=== PATIENT | male | born 1945 | race Caucasian/White ===

== ENCOUNTER 2019-07-26 12:43 | Inpatient (IN) ==
[2019-07-26] MEDS ORDERED: ONDANSETRON INJ 2 MG/ML 2 ML VIAL IV PRN (13:02)
[2019-07-26] MEDS ORDERED: ACETAMINOPHEN 325 MG TAB PO PRN (13:02)
--- NOTE | 2019-07-26 14:17 | History & Physical Report ---
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 He is currently undergoing treatment with antiviral for CMV colitis. Symptoms have persisted. With history of transplant, and multiple episodes per day of bloody/purulent stool/anal leaking, GI recommended admission for close monitoring and further workup. Continue antiviral. Start Cipro/Flagyl. Clear liquid diet for now. NPO after midnight. Plan for flex sigmoidoscopy in the AM per GI. IV Solumedrol 60 mg daily. Continue Anusol cream and sitz baths PRN for hemorrhoids. CBCD, CMP, lipase. Stool culture and CDiff testing. Consult GI Continue to monitor vitals (4) History of renal transplant: (5) Immunosuppression due to drug therapy: High risk for infection due to chronic immunosuppression. Continue immunosuppressive drugs. Monitor renal function closely. Gentle hydration. (6) Diabetes mellitus: No A1C recently. Recheck in AM Continue insulin (7) Dysuria: Check UA and culture (8) DVT prophylaxis: SCDs Hold ASA due to rectal bleeding Admission and Anticipated Discharge Date Admission Date: July 26, 2019 History of Present Illness Chief Complaint: Diarrhea, rectal bleeding Primary Care Provider: Porfirio Kilgore MD Patient is a 73 yo male with history of DM, HTN, Dyslipidemia, s/p kidney transplant with chronic immunosuppression, and recent CMV colitis who presents today for direct admission at the recommendation of his Assembler Insulator, Dr. Lucia for continued diarrhea and rectal bleeding. 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 He is currently being treated with valganciclovir, and his CMV PCR was undetectable when last checked. Since being started on treatment, his symptoms are improving very slightly, but he continues to have 6-7 episodes of uncontrolled bloody/purulent rectal leaking during the night along with multiple episodes of diarrhea/loose stools during the day. The patient does also have history of hemorrhoids which are causing him pain now with the number of episodes per day. He was trying to use suppositories, but he could not keep them in unfortunately. According to his records, the patient has had mild anemia since April. He has no known history of IBD. Patient otherwise denies chest pain, SOB, N/V, or edema. He has been having some urinary retention and dysuria the past few days though. He has also noted some pressure in his right lower abdomen. I did speak with Dr. Lucia about this patient prior to admission. The patient follows with [facility] Transplant team for history of renal transplant completed on 08/04/18. The patient has been on chronic immunosuppression since that time. Allergies Allergy/AdvReac Type Severity Reaction Status Date / Time No Known Allergies Allergy Verified 07/01/19 07:52 Home Medications Home Medications Medication Instructions Recorded Confirmed Type Lantus U-100 Insulin 24 unit SUBCUT QPM 06/28/19 07/26/19 History aspirin 81 mg PO DAILY 06/28/19 07/26/19 History cholecalciferol (vitamin D3) 50 mcg PO QAM 06/28/19 07/26/19 History [Vitamin D3] insulin aspart U-100 [Novolog 1 unit SUBCUT UD 06/28/19 07/26/19 History Flexpen U-100 Insulin] levothyroxine 50 mcg PO QAM 06/28/19 07/26/19 History multivitamin 1 tab PO QAM 06/28/19 07/26/19 History pantoprazole [Protonix] 40 mg PO QAM 06/28/19 07/26/19 History prednisone 5 mg PO QAM 06/28/19 07/26/19 History rosuvastatin [Crestor] 40 mg PO QAM 06/28/19 07/26/19 History belatacept 462.5 mg IV MONTHLY 07/26/19 07/26/19 History tacrolimus 0.5 mg PO BID 07/26/19 07/26/19 History valganciclovir 450 mg PO BID 07/26/19 07/26/19 History Past Med/Surg History Medical History (Updated 07/26/19 @ 15:25 by Henna Chowdhury PA-C) Arthritis Blood in stool CMV colitis Diabetes mellitus, type 2 GERD (gastroesophageal reflux disease) History of anemia Hx of renal failure PERITONEAL DIAYLSIS FOR 4 YEARS PRIOR TO 08/04/2018 (KIDNEY TRANSPLANT) Hyperlipidemia Immunosuppression due to drug therapy Skin cancer EARS Surgical History (Updated 07/26/19 @ 15:19 by Henna Chowdhury PA-C) History of appendectomy History of cholecystectomy History of colonoscopy History of tooth extraction Kidney transplant recipient 07/2018 SE[facility] ENCISO Social History Preferred Language: Greek Communication Ability: Effective Security Architect Required: No Beliefs That Will Affect Care: None Current Living Situation: Spouse Other Information That Helps Us Care for You: No Feels Safe at Home: Yes Safety Concerns: Feels Safe At This Time Smoking Status: Never smoker Second Hand Exposure: No ; Hx Alcohol Use: No Hx Substance Use: No Review of Systems Review of Systems: All systems reviewed & are unremarkable except as noted in HPI & below Physical Exam Constitutional: WD/WN, vitals as above no acute distress Eyes: PERRL, conjunctivae normal, anicteric sclerae ENMT: external ear and nose normal, oropharynx normal Neck: trachea midline, no thyromegaly Respiratory: normal respiratory effort, lungs clear to auscultation Cardiovascular: RRR, no murmur, no edema Gastrointestinal (Abdomen): normal bowel sounds, soft, nontender, no hepatosplenomegaly Musculoskeletal: Head/Neck/Chest: + head abnormal to inspection, normocephalic and head atraumatic Trace edema B/L LE Skin: no rashes, warm and dry Neurologic: PERRL, EOMI, accommodation nl, no face palsy, no dysarthria Psychiatric: A+Ox3, euthymic affect Results & Data Results & Data ([facility]) Vital Signs (Past 12 Hours) Vital Signs Temp Resp BP Pulse Ox 07/26/19 14:16 36.5 C 18 126/78 100 Code Status & VTE Plan VTE Prophylaxis Plan VTE Prophylaxis will be ordered: Yes Supervising Physician Co-Signing Physician Notes I saw this patient with the physician cafeteria assistant, I participated in the history, physical, review of systems, and physical exam. I reviewed the medications with the patient and the physician cafeteria assistant and helped reconcile the medications. I helped take a detailed family and social history as well. I formulated the assessment and plan personally with the physician cafeteria assistant and went over it with the patient. ROS-No Headache, No Visual Changes, No Nausea, No Vomiting, No Fever, No Chills, No Neck Pain or Stiffness, No Chest Pain, No Palpitations, No SOB, No LUGO, No Cough, No Sputum, No Wheezing, mild Abdominal Pain, No Diarrhea, No Hematemesis, No Hemoptysis, No Unexpected Weight Loss, No Flank pain, No Melena, + Hematochezia, No Frequency, No Urgency, No Burning, No Hematuria, No Rashes, No Diaphoresis. Appetite is Normal, +hemorrhoids Physical Exam Gen-AAO x 3, NAD, Afebrile Head-NCAT, EOMI, PERRLA, Anicteric Sclera, No Posterior Pharyngeal Erythema Neck-Supple, No JVD, No Thyromegaly, No Masses, No LAD, No Bruits Lungs-Clear to Auscultation Bilaterally, No Rales, No Rhonchi, No Wheezing, No Crepitus Chest-No S4, +S1, +S2, No S3, No Murmurs, No Rubs, No Gallops, No Ectopy Abdomen-Soft, Bowel Sounds Present, Non Tender, Non Distended, No Hepatomegaly, No Splenomegaly, No Palpable Masses, No Rebound, No Rigidity, No Guarding Musculoskeletal-Full Range of Motion Bilaterally, No CVAT Extremities-No Cyanosis, No Clubbing, No Edema Nuero-Cranial Nerves II-XII grossly intact, Motor WNL, DTRs WNL, Strength WNL, Non Focal Psych-Normal Mood
--- NOTE | 2019-07-26 14:22 | Gastrointestinal Consultation ---
Date of Consultation July 26, 2019 Assessment & Plan (1) Rectal bleedin73 y/o male with h/o renal transplant 07/2018, with recent dx moderate pancolitis and + CMV on colonoscopy from 07/01/19, tx with Valganicyclovir, now presents with ongoing intermittent leakage of blood/pus alt with formed stools along with anorectal pain during defecation, ? of proctitis/rectal ulceration, underlying UC, vs hemorrhoids. - Await c. diff, CMP, CBC, ESR/CRP results - Clear liquid diet - IV fluids - NPO after midnight - Start IV methylprednisolone 60 mg daily - Enema tonight and tomorrow AM prior to procedure - Flex sig tomorrow to evaluate source of symptoms Thank you for allowing us to participate in the care of this patient. Please call with any acute changes, questions or concerns. Please see addendum below with additional recommendation from my supervising physician. (2) Diarrhea: Supervising Physician Co-Signing Physician Notes I performed a history and physical examination of the patient today, including specifically on physical exam - soft abdomen. I have discussed the patient's management with the advanced practitioner. Please refer to the nurse practitioner's note for the documented findings and plan of care. 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 proctitis/rectal ulceration, underlying UC, vs hemorrhoids. Ideally would tx with Mesalamine, however due to concerns over possibility for nephrotoxicity, attempt was made to get Uceris approved (was too expensive for pt). He was rx'd Cortifoam rectally however was unable to obtain this from the pharmacy. Pt presented here for direct admit given his ongoing symptoms. C. diff, Sed rate/CRP, CBC, CMP pending. Pt denies n/v, abd pain, change in appetite, unintentional weight loss, fever, chills. EGD/Colonoscopy 07/01/19 with moderate pancolitis, worse on the left side, + CMV. Allergies Allergy/AdvReac Type Severity Reaction Status Date / Time No Known Allergies Allergy Verified 07/01/19 07:52 Home Medications Home Medications Medication Instructions Recorded Confirmed Type Lantus U-100 Insulin 24 unit SUBCUT QPM 06/28/19 07/26/19 History aspirin 81 mg PO DAILY 06/28/19 07/26/19 History cholecalciferol (vitamin D3) 50 mcg PO QAM 06/28/19 07/26/19 History [Vitamin D3] insulin aspart U-100 [Novolog 1 unit SUBCUT UD 06/28/19 07/26/19 History Flexpen U-100 Insulin] levothyroxine 50 mcg PO QAM 06/28/19 07/26/19 History multivitamin 1 tab PO QAM 06/28/19 07/26/19 History pantoprazole [Protonix] 40 mg PO QAM 06/28/19 07/26/19 History prednisone 5 mg PO QAM 06/28/19 07/26/19 History rosuvastatin [Crestor] 40 mg PO QAM 06/28/19 07/26/19 History belatacept 462.5 mg IV MONTHLY 07/26/19 07/26/19 History tacrolimus 0.5 mg PO BID 07/26/19 07/26/19 History valganciclovir 450 mg PO BID 07/26/19 07/26/19 History Patient History Medical History (Updated 07/26/19 @ 15:25 by Henna Chowdhury PA-C) Arthritis Blood in stool CMV colitis Diabetes mellitus, type 2 GERD (gastroesophageal reflux disease) History of anemia Hx of renal failure PERITONEAL DIAYLSIS FOR 4 YEARS PRIOR TO 08/04/2018 (KIDNEY TRANSPLANT) Hyperlipidemia Immunosuppression due to drug therapy Skin cancer EARS Surgical History (Updated 07/26/19 @ 15:19 by Henna Chowdhury PA-C) History of appendectomy History of cholecystectomy History of colonoscopy History of tooth extraction Kidney transplant recipient 07/2018 [facility] ENCISO Social History Preferred Language: Syrian Communication Ability: Effective Weaver Dobby Loom Required: No Beliefs That Will Affect Care: None Current Living Situation: Spouse Other Information That Helps Us Care for You: No Feels Safe at Home: Yes Safety Concerns: Feels Safe At This Time Smoking Status: Never smoker Second Hand Exposure: No ; Hx Alcohol Use: No Hx Substance Use: No Review of Systems Constitutional: no fever and no chills Eyes: denies eye redness Respiratory: no cough and no dyspnea Cardiovascular: no chest pain, no dyspnea and no edema Gastrointestinal: as per Subjective / HPI Genitourinary: no dysuria Musculoskeletal: no unusual joint pain, swelling, redness Integumentary: no rash and no lesions Physical Exam Constitutional: WD/WN, vitals as above no acute distress Eyes: no scleral abnormality Respiratory: normal respiratory effort, lungs clear to auscultation Cardiovascular: Rate/Rhythm: regular rate and regular rhythm Gastrointestinal (Abdomen): normal bowel sounds, soft, nontender, no hepatosplenomegaly Skin: no rashes, warm and dry Psychiatric: A+Ox3, euthymic affect Results & Data ([facility]) Vital Signs (Past 12 Hours) Vital Signs Temp Resp BP Pulse Ox 07/26/19 14:16 36.5 C 18 126/78 100
[2019-07-26 15:00] LABS: Hematocrit (blood only) 34.8 % (42-52); Hemoglobin 10.9 g/dL (14.0-18.0); Mean Corpuscular Hemoglobin 29.1 pg (25-34); Mean Corpuscular Hgb Conc 31.3 g/dL (32-36); Mean Corpuscular Volume 92.8 fL (80-100); Mean Platelet Volume 10.4 fL (7.4-10.4); Platelet Count 260 K/uL (130-400); RDW Coefficient of Variation 17.6 % (11.5-14.5); Red Blood Count 3.75 M/uL (4.7-6.1); White Blood Count 4.19 K/uL (4.8-10.8)
[2019-07-26] MEDS ORDERED: CARBOHYDRATES FOR HYPOGLYCEMIA PO PRN (15:02)
[2019-07-26] MEDS ORDERED: GLUCOSE 10 TABS/TUBE PO PRN (15:02)
[2019-07-26] MEDS ORDERED: GLUCAGON FOR INJ 1 MG VIAL SQ PRN (15:02)
[2019-07-26] MEDS ORDERED: DEXTROSE 50% 50 ML SYRINGE IV PRN (15:02)
[2019-07-26] MEDS ORDERED: GLUCOSE 40% GEL 15 GM TUBE PO PRN (15:02)
[2019-07-26 15:22] LABS: ALC (manual) 1.41 K/uL (1.2-3.4); ANC (manual) 2.48 K/uL (1.4-6.5); Basophils # (manual) 0.11 K/uL (0-0.2); Basophils % (manual) 2.7 %; Lymphocytes # (manual) 1.41 K/uL (1.2-3.4); Lymphocytes % (manual) 33.6 %; Metamyelocytes # (manual) 0.15 K/uL (0-0); Metamyelocytes % (manual) 3.5 %; Monocytes # (manual) 0.04 K/uL (0.11-0.59); Monocytes % (manual) 0.9 %; Neutrophils # (manual) 2.48 K/uL (1.4-6.5); Neutrophils % (manual) 59.3 %
[2019-07-26 15:36] LABS: Albumin Level 3.1 gm/dl (3.4-5.0); BUN Creatinine Ratio 9.4 (10-20); Creatinine Clr Calc Pharmacy 33.8 ml/min; Est GFR (African American) 38.9; Est GFR (Non-African American) 33.5; Potassium 4.1 mmol/L (3.5-5.1)
[2019-07-26 15:39] LABS: Albumin Globulin Ratio 0.9 (0.9-2); Bilirubin,Total 0.3 mg/dl (0.2-1); Globulin 3.3 gm/dl (2.5-4.0); Total Protein 6.4 gm/dl (6.4-8.2)
[2019-07-26] MEDS: SODIUM CHLORIDE 0.9% 1000ML 1,000 ML IV SCH (16:11)
[2019-07-26] MEDS: methylPREDNISolone 60 MG in SYRINGE 0 ML IV SCH (16:12)
[2019-07-26] MEDS: CIPROFLOXACIN 250 MG TAB PO SCH ×2 (16:31→22:26)
[2019-07-26 16:58] LABS: C Reactive Protein 1.01 mg/dl (0-0.29)
[2019-07-26] MEDS: INSULIN ASPART 100 UNITS/ML 3 ML PEN SC SCH ×3 (17:49→21:04)
[2019-07-26 19:04] LABS: Appearance Urine Clear (Clear); Bacteria Urine Automated Negative (Negative); Bilirubin Urine Negative (Negative); Blood Urine Trace (Negative); Cast Urine Automated 0 /lpf (0-5); Color Urine Yellow; Epithelial Cell Urine Auto 0-5 /lpf (0-5); Glucose Urine UA 2+ (Negative); Ketones Urine Negative (Negative); Leukocyte Esterase Urine Negative (Negative); Nitrite Urine Negative (Negative); Protein Urine 2+ (Negative); RBC Urine Automated 0-4 /hpf (0-4); Specific Gravity Urine 1.015 (1.000-1.030); Urobilinogen Urine Negative (Negative)
[2019-07-26] MEDS: TACROLIMUS 0.5 MG CAP PO SCH (20:06)
[2019-07-26] MEDS: VALGANCICLOVIR PO SCH (20:06)
[2019-07-26] MEDS: metroNIDAZOLE 500 MG TAB PO SCH (20:08)
[2019-07-26] MEDS: INSULIN GLARGINE SOLOSTAR 100 UNITS/ML 3 ML PEN SC SCH (20:52)
[2019-07-26] MEDS ORDERED: TACROLIMUS 0.5 MG CAP PO SCH (21:00)
[2019-07-27] MEDS: HYDROCORTISONE HC 2.5% CRM 30GM TUBE EXT PRN ×3 (01:03→21:00)
[2019-07-27] MEDS ORDERED: Nursing to Pharmacy Communication ONE ×2 (03:35→13:25)
[2019-07-27] MEDS: SODIUM CHLORIDE 0.9% 1000ML 1,000 ML IV SCH ×2 (04:57→21:01)
[2019-07-27 05:04] LABS: Hematocrit (blood only) 30.5 % (42-52); Hemoglobin 9.8 g/dL (14.0-18.0); Mean Corpuscular Hemoglobin 29.5 pg (25-34); Mean Corpuscular Hgb Conc 32.1 g/dL (32-36); Mean Corpuscular Volume 91.9 fL (80-100); Mean Platelet Volume 10.4 fL (7.4-10.4); Platelet Count 219 K/uL (130-400); RDW Coefficient of Variation 17.4 % (11.5-14.5); RDW Standard Deviation 57.6 fL (36.4-46.3); Red Blood Count 3.32 M/uL (4.7-6.1); White Blood Count 3.59 K/uL (4.8-10.8)
[2019-07-27 05:31] LABS: Calcium 7.9 mg/dl (8.5-10.1); Est GFR (African American) 46.4
[2019-07-27] MEDS: INSULIN ASPART 100 UNITS/ML 3 ML PEN SC SCH ×6 (06:15→21:02)
[2019-07-27] MEDS: LEVOTHYROXINE SODIUM 50 MCG TABLET PO SCH (06:17)
[2019-07-27 07:00] LABS: Estimated Average Glucose 140 mg/dl; Hemoglobin A1C 6.5 % (4.5-5.6)
[2019-07-27] MEDS: VALGANCICLOVIR PO SCH ×2 (07:56→20:03)
[2019-07-27] MEDS: TACROLIMUS 0.5 MG CAP PO SCH ×2 (07:57→20:03)
[2019-07-27] MEDS: PANTOprazole 40 MG TAB PO SCH (09:15)
[2019-07-27] MEDS: methylPREDNISolone 60 MG in SYRINGE 0 ML IV SCH (09:15)
[2019-07-27] MEDS: CIPROFLOXACIN 250 MG TAB PO SCH ×2 (09:16→20:03)
[2019-07-27] MEDS: metroNIDAZOLE 500 MG TAB PO SCH ×3 (09:17→20:03)
[2019-07-27] MEDS: INSULIN GLARGINE SOLOSTAR 100 UNITS/ML 3 ML PEN SC SCH ×2 (09:28→21:02)
--- NOTE | 2019-07-27 10:28 | Anesthesiology Consultation ---
Date of Service July 27, 2019 Assessment & Plan (1) Encounter for pre-operative examination: History Surgery Operation Date: 07/27/19 15:30 Proposed Procedures p Flexible Sigmoidoscopy Dr Lucia - Marisa Lucia MD Height/Weight Height: 5 ft 9 in Weight: 80.739 kg Allergies Allergy/AdvReac Type Severity Reaction Status Date / Time No Known Allergies Allergy Verified 07/01/19 07:52 Medications Home Medications Medication Instructions Recorded Confirmed Last Taken Lantus U-100 Insulin 24 unit SUBCUT QPM 06/28/19 07/26/19 06/30/19 17:30 aspirin 81 mg PO DAILY 06/28/19 07/26/19 06/17/19 08:00 cholecalciferol (vitamin D3) 50 mcg PO QAM 06/28/19 07/26/19 07/26/19 [Vitamin D3] insulin aspart U-100 [Novolog 1 unit SUBCUT UD 06/28/19 07/26/19 06/30/19 17:30 Flexpen U-100 Insulin] levothyroxine 50 mcg PO QAM 06/28/19 07/26/19 07/26/19 multivitamin 1 tab PO QAM 06/28/19 07/26/19 07/26/19 pantoprazole [Protonix] 40 mg PO QAM 06/28/19 07/26/19 06/30/19 08:00 prednisone 5 mg PO QAM 06/28/19 07/26/19 06/30/19 08:00 rosuvastatin [Crestor] 40 mg PO QAM 06/28/19 07/26/19 06/30/19 08:00 belatacept 462.5 mg IV MONTHLY 07/26/19 07/26/19 07/12/19 tacrolimus 0.5 mg PO BID 07/26/19 07/26/19 07/26/19 valganciclovir 450 mg PO BID 07/26/19 07/26/19 Unknown Active Medications Generic Name Dose Route Start Last Admin Trade Name Freq PRN Reason Stop Dose Admin Ciprofloxacin 250 mg 07/26/19 15:15 07/27/19 09:16 Cipro PO 08/05/19 15:14 250 mg Q12 JONELLE Administration Hydrocortisone 1 appln 07/26/19 14:57 07/27/19 01:03 Proctozone Hc 2.5% EXT 08/25/19 14:56 1 appln TID PRN Administration Hemorrhoids Sodium Chloride 1,000 mls @ 75 mls/hr 07/26/19 13:15 07/27/19 10:07 Nss 1000ml IV 08/25/19 13:14 0 mls/hr .[id number] JONELLE Infusion Methylprednisolone 60 mg/ 0.96 mls @ 1.5 mls/min 07/26/19 13:30 07/27/19 09:15 Syringe IV 08/25/19 13:29 1.5 mls/min DAILY JONELLE Administration Insulin Aspart 0 units 07/27/19 06:00 07/27/19 06:15 Novolog Flexpen SC 08/26/19 05:59 1 units Q6 JONELLE Administration Insulin Glargine 10 units 07/26/19 21:00 07/27/19 09:28 Lantus Solostar Pen SC 08/25/19 20:59 Not Given BID JONELLE Levothyroxine Sodium 50 mcg 07/27/19 06:30 07/27/19 06:17 Synthroid PO 08/26/19 06:29 50 mcg DAILYBB JONELLE Administration Metronidazole 500 mg 07/26/19 21:00 07/27/19 09:17 Flagyl PO 08/05/19 20:59 500 mg TID JONELLE Administration *Valganciclovir*Non- 1 ea 07/26/19 20:00 07/27/19 07:56 Formulary Patient's PO 08/25/19 19:59 450 mg Own Med BID@799,1999 JONELLE Administration Pantoprazole Sodium 40 mg 07/27/19 09:00 07/27/19 09:15 Protonix PO 08/26/19 08:59 40 mg QAM JONELLE Administration Tacrolimus 0.5 mg 07/26/19 20:00 07/27/19 07:57 Prograf PO 08/25/19 19:59 0.5 mg BID@0800,1999 JONELLE Administration Past Medical History Medical History Arthritis Blood in stool CMV colitis Diabetes mellitus, type 2 GERD (gastroesophageal reflux disease) History of anemia Hx of renal failure PERITONEAL DIAYLSIS FOR 4 YEARS PRIOR TO 08/04/2018 (KIDNEY TRANSPLANT) Hyperlipidemia Immunosuppression due to drug therapy Skin cancer EARS Past Family History Family History Brother Family history of diabetes mellitus Sister Family history of diabetes mellitus Mother Family history of diabetes mellitus Father Family history of diabetes mellitus Past Surgical History Surgical History History of appendectomy History of cholecystectomy History of colonoscopy History of tooth extraction Kidney transplant recipient 07/2018 SE[facility] ENCISO Social History Smoking Status: Never smoker Hx Alcohol Use: No Hx Substance Use: No substance use type: does not use Physical Exam Vital Signs Last Vital Signs Temp 36.6 C 07/27/19 07:03 Pulse 63 07/27/19 07:03 Resp 16 07/27/19 07:03 BP 122/73 07/27/19 07:03 Pulse Ox 98 07/27/19 07:03 Testing Laboratory Results 07/27/19 04:45 07/27/19 04:45 Hemoglobin A1c 6.5 % (4.5-5.6) H 07/27/19 04:45 Urine Color Yellow 07/26/19 18:45 Urine Appearance Clear (Clear) 07/26/19 18:45 Urine pH 7.0 (4.5-7.5) 07/26/19 18:45 Ur Specific [place] 1.015 (1.000-1.030) 07/26/19 18:45 Urine Protein 2+ (Negative) H 07/26/19 18:45 Urine Glucose (UA) 2+ (Negative) H 07/26/19 18:45 Urine Ketones Negative (Negative) 07/26/19 18:45 Urine Nitrite Negative (Negative) 07/26/19 18:45 Ur Leukocyte Esterase Negative (Negative) 07/26/19 18:45 Urine WBC (Auto) 1-5 /hpf (0-5) 07/26/19 18:45 Urine RBC (Auto) 0-4 /hpf (0-4) 07/26/19 18:45 U Hyaline Cast (Auto) 0 /lpf (0-5) 07/26/19 18:45 U Epithel Cells (Auto) 0-5 /lpf (0-5) 07/26/19 18:45 Urine Bacteria (Auto) Negative (Negative) 07/26/19 18:45 07/27/19 06:12 POC Glucose 167 H
--- NOTE | 2019-07-27 11:04 | Hospitalist Progress Note ---
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 He is currently undergoing treatment with antiviral for CMV colitis. Symptoms have persisted. Cipro and Flagyl started yesterday-Stool more formed but still loose With history of transplant, and multiple episodes per day of bloody/purulent stool/anal leaking, GI recommended admission for close monitoring and further workup. Continue antiviral and Cipro/Flagyl. Clear liquid diet for now. NPO after midnight. Plan for flex sigmoidoscopy in the AM per GI. IV Solumedrol 60 mg daily. Continue Anusol cream and sitz baths PRN for hemorrhoids. CBCD, CMP, lipase. Stool culture and CDiff testing. GI to scope Labs Checked (4) History of renal transplant: (5) Immunosuppression due to drug therapy: High risk for infection due to chronic immunosuppression. Continue immunosuppressive drugs. Monitor renal function closely. Gentle hydration. (6) Diabetes mellitus: Continue insulin (7) Dysuria: Monitor (8) DVT prophylaxis: SCDs Hold ASA due to rectal bleeding Admission and Anticipated Discharge Date Admission Date: July 26, 2019 Anticipated date of discharge: 07/27/19 Results & Data Results & Data ([facility]) Vital Signs (Past 12 Hours) Vital Signs Temp Pulse Resp BP Pulse Ox 07/27/19 10:31 36.7 C 57 L 18 119/63 98 07/27/19 07:03 36.6 C 63 16 122/73 98
--- NOTE | 2019-07-27 11:19 | History & Physical Bridge Note ---
Date of Service July 27, 2019 History & Physical Bridge Note I have examined the patient, reviewed the History & Physical and in the interval since the performance of the History & Physical I have noted the following changes of clinical significance: no changes noted Flex sig today.
[2019-07-27] MEDS ORDERED: PROPOFOL IV EMULSION 10 MG/ML 20 ML VIAL IV ONE ×2 (11:21→11:59)
[2019-07-27] MEDS ORDERED: LIDOCAINE HCL 2% 2 ML VIAL/AMP(20MG/ML) INFIL ONE (11:21)
--- NOTE | 2019-07-27 12:14 | GI REPORT ---
Patient Name: Myron Arias Procedure Date: 07/27/2019 11:21 AM Date of : 1945 Admit Type: Inpatient Age: 73 Gender: Male Attending MD: Marisa Lucia MD Procedure: Flexible Sigmoidoscopy Providers: Marisa Lucia MD Referring MD: Henna Chowdhury Pa-c Indications: Rectal hemorrhage Medicines: Propofol per Anesthesia Complications: No immediate complications. Estimated Blood Loss: Estimated blood loss: none. Procedure: Pre-Anesthesia Assessment: - Prior to the procedure, a History and Physical was performed, and patient medications, allergies and sensitivities were reviewed. The patient's tolerance of previous anesthesia was reviewed. - The risks and benefits of the procedure and the sedation options and risks were discussed with the patient. All questions were answered and informed consent was obtained. - Patient identification and proposed procedure were verified prior to the procedure by the physician and the nurse. The procedure was verified in the procedure room. - Pre-procedure physical examination revealed no contraindications to sedation. After obtaining informed consent, the endoscope was passed under direct vision. Throughout the procedure, the patient's blood pressure, pulse, and oxygen saturations were monitored continuously. The Colonoscope was introduced through the anus and advanced to the left transverse colon. The flexible sigmoidoscopy was accomplished without difficulty. The patient tolerated the procedure well. The quality of the bowel preparation was good. Findings: The perianal and digital rectal examinations were normal. Two sessile polyps were found in the descending colon. The polyps were 6 mm in size. These polyps were removed with a cold snare. Resection and retrieval were complete. Verification of patient identification for the specimen was done by the physician and nurse using the patient's name and date. Normal mucosa was found in the sigmoid colon, in the descending colon and in the transverse colon. Localized mild inflammation characterized by erythema, friability and granularity was found in the rectum and in the recto-sigmoid colon. Biopsies were taken with a cold forceps for histology. Multiple small and large-mouthed diverticula were found in the sigmoid colon. Non-bleeding internal hemorrhoids were found during retroflexion. The hemorrhoids were medium-sized. Impression: - The prior CMV related colits had healed from the sigmoid colon upwards to the right side howevere there is remaining moderate proctitis which explaines his symptoms. Biopsied. - Two 6 mm polyps in the descending colon, removed with a cold snare. Resected and retrieved. - Diverticulosis in the sigmoid colon. - Non-bleeding internal hemorrhoids. Recommendation: - Return patient to [facility] for [facility] care. - Await pathology results. - Use Rowasa enemas 1 per rectum daily for 2 months. - Short course of Prednisone taper over few weeks. - Use fiber, for example Citrucel, Fibercon, Konsyl or Metamucil. Marisa Lucia MD 07/27/2019 12:14:40 PM This report has been signed electronically. Note Initiated On: 07/27/2019 11:21 AM Number of Addenda: 0 I attest to the content of the Intraoperative Record and orders documented therein, exceptions below {[id number]}
--- NOTE | 2019-07-27 12:29 | Gastroenterology Progress Note ---
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 - Flex sig today. Further rec's following procedure. Thank you for allowing us to participate in the care of this patient. Please call with any acute changes, questions or concerns. Please see addendum below with additional recommendation from my supervising physician. Admission and Anticipated Discharge Date Admission Date: July 26, 2019 Anticipated date of discharge: 07/27/19 Supervising Physician Co-Signing Physician Notes I performed a history and physical examination of the patient today, including specifically on physical exam - soft abdomen. I have discussed the patient's management with the advanced practitioner. Please refer to the nurse practitioner's note for the documented findings and plan of care. Subjective Pt seen and examined. Plan for flex sig today. No acute events overnight. HGB stable at 9.8. Sed rate elevated at 30, c. diff neg. Remains NPO. Denies abd pain, fever. Review of Systems Eyes: denies eye redness Gastrointestinal: as per Subjective / HPI Musculoskeletal: no unusual joint pain, swelling, redness Physical Exam Constitutional: WD/WN, vitals as above no acute distress Eyes: no scleral abnormality Respiratory: normal respiratory effort, lungs clear to auscultation Cardiovascular: Rate/Rhythm: regular rate and regular rhythm Gastrointestinal (Abdomen): normal bowel sounds, soft, nontender, no hepatosplenomegaly Skin: no rashes, warm and dry Psychiatric: A+Ox3, euthymic affect Results & Data ([facility]) Vital Signs (Past 12 Hours) Vital Signs Temp Pulse Resp BP Pulse Ox 07/27/19 12:15 60 18 121/69 96 07/27/19 12:00 73 16 120/73 94 07/27/19 10:31 36.7 C 57 L 18 119/63 98 07/27/19 07:03 36.6 C 63 16 122/73 98 Laboratory Results 07/27/19 07/27/19 07/27/19 Range/Units 06:12 04:45 04:45 WBC (4.8-10.8) K/uL RBC (4.7-6.1) M/uL Hgb (14.0-18.0) g/dL Hct (42-52) % MCV (80-100) fL MCH (25-34) pg MCHC (32-36) g/dL RDW Std Deviation (36.4-46.3) fL RDW Coeff of Kennedy (11.5-14.5) % Plt Count (130-400) K/uL MPV (7.4-10.4) fL Neutrophils % (Manual) % Lymphocytes % (Manual) % Monocytes % (Manual) % Basophils % (Manual) % Metamyelocytes % (Man) % Neutrophils # (Manual) (1.4-6.5) K/uL Total Absolute Neuts (1.4-6.5) K/uL Lymphocytes # (Manual) (1.2-3.4) K/uL Total Abs Lymphocytes (1.2-3.4) K/uL Monocytes # (Manual) (0.11-0.59) K/uL Basophils # (Manual) (0-0.2) K/uL Metamyelocytes # (Man) (0-0) K/uL ESR (0-14) mm/hr Sodium 143 (136-145) mmol/L Potassium 4.0 (3.5-5.1) mmol/L Chloride 112 H (98-107) mmol/L Carbon Dioxide 24 (21-32) mmol/L Anion Gap 7.0 (3-11) BUN 15 (7-18) mg/dl Creatinine 1.66 H (0.6-1.4) mg/dl Est Cr Clr Drug Dosing 39.0 ml/min Est GFR ( Amer) 46.4 Est GFR (Non-Af Amer) 40.0 BUN/Creatinine Ratio 9.0 L (10-20) Glucose 167 H (70-99) mg/dl POC Glucose 167 H (70-99) mg/dl Estimat Average Glucose 140 mg/dl Hemoglobin A1c 6.5 H (4.5-5.6) % Calcium 7.9 L (8.5-10.1) mg/dl Total Bilirubin (0.2-1) mg/dl AST (15-37) U/L ALT (12-78) U/L Alkaline Phosphatase (45-117) U/L C-Reactive Protein (0-0.29) mg/dl Total Protein (6.4-8.2) gm/dl Albumin (3.4-5.0) gm/dl Globulin (2.5-4.0) gm/dl Albumin/Globulin Ratio (0.9-2) Lipase (73-393) U/L Urine Color Urine Appearance (Clear) Urine pH (4.5-7.5) Ur Specific Knifley (1.000-1.030) Urine Protein (Negative) Urine Glucose (UA) (Negative) Urine Ketones (Negative) Urine Blood (Negative) Urine Nitrite (Negative) Urine Bilirubin (Negative) Urine Urobilinogen (Negative) Ur Leukocyte Esterase (Negative) Urine WBC (Auto) (0-5) /hpf Urine RBC (Auto) (0-4) /hpf U Hyaline Cast (Auto) (0-5) /lpf U Epithel Cells (Auto) (0-5) /lpf Urine Bacteria (Auto) (Negative) Stl C. diff Tox B Gene (Neg) 07/27/19 07/26/19 07/26/19 Range/Units 04:45 20:30 18:45 WBC 3.59 L (4.8-10.8) K/uL RBC 3.32 L (4.7-6.1) M/uL Hgb 9.8 L (14.0-18.0) g/dL Hct 30.5 L (42-52) % MCV 91.9 (80-100) fL MCH 29.5 (25-34) pg MCHC 32.1 (32-36) g/dL RDW Std Deviation 57.6 H (36.4-46.3) fL RDW Coeff of Kennedy 17.4 H (11.5-14.5) % Plt Count 219 (130-400) K/uL MPV 10.4 (7.4-10.4) fL Neutrophils % (Manual) % Lymphocytes % (Manual) % Monocytes % (Manual) % Basophils % (Manual) % Metamyelocytes % (Man) % Neutrophils # (Manual) (1.4-6.5) K/uL Total Absolute Neuts (1.4-6.5) K/uL Lymphocytes # (Manual) (1.2-3.4) K/uL Total Abs Lymphocytes (1.2-3.4) K/uL Monocytes # (Manual) (0.11-0.59) K/uL Basophils # (Manual) (0-0.2) K/uL Metamyelocytes # (Man) (0-0) K/uL ESR (0-14) mm/hr Sodium (136-145) mmol/L Potassium (3.5-5.1) mmol/L Chloride (98-107) mmol/L Carbon Dioxide (21-32) mmol/L Anion Gap (3-11) BUN (7-18) mg/dl Creatinine (0.6-1.4) mg/dl Est Cr Clr Drug Dosing ml/min Est GFR ( Amer) Est GFR (Non-Af Amer) BUN/Creatinine Ratio (10-20) Glucose (70-99) mg/dl POC Glucose 214 H (70-99) mg/dl Estimat Average Glucose mg/dl Hemoglobin A1c (4.5-5.6) % Calcium (8.5-10.1) mg/dl Total Bilirubin (0.2-1) mg/dl AST (15-37) U/L ALT (12-78) U/L Alkaline Phosphatase (45-117) U/L C-Reactive Protein (0-0.29) mg/dl Total Protein (6.4-8.2) gm/dl Albumin (3.4-5.0) gm/dl Globulin (2.5-4.0) gm/dl Albumin/Globulin Ratio (0.9-2) Lipase (73-393) U/L Urine Color Yellow Urine Appearance Clear (Clear) Urine pH 7.0 (4.5-7.5) Ur Specific Knifley 1.015 (1.000-1.030) Urine Protein 2+ H (Negative) Urine Glucose (UA) 2+ H (Negative) Urine Ketones Negative (Negative) Urine Blood Trace H (Negative) Urine Nitrite Negative (Negative) Urine Bilirubin Negative (Negative) Urine Urobilinogen Negative (Negative) Ur Leukocyte Esterase Negative (Negative) Urine WBC (Auto) 1-5 (0-5) /hpf Urine RBC (Auto) 0-4 (0-4) /hpf U Hyaline Cast (Auto) 0 (0-5) /lpf U Epithel Cells (Auto) 0-5 (0-5) /lpf Urine Bacteria (Auto) Negative (Negative) Stl C. diff Tox B Gene (Neg) 07/26/19 07/26/19 07/26/19 Range/Units 17:19 15:54 14:43 WBC (4.8-10.8) K/uL RBC (4.7-6.1) M/uL Hgb (14.0-18.0) g/dL Hct (42-52) % MCV (80-100) fL MCH (25-34) pg MCHC (32-36) g/dL RDW Std Deviation (36.4-46.3) fL RDW Coeff of Kennedy (11.5-14.5) % Plt Count (130-400) K/uL MPV (7.4-10.4) fL Neutrophils % (Manual) % Lymphocytes % (Manual) % Monocytes % (Manual) % Basophils % (Manual) % Metamyelocytes % (Man) % Neutrophils # (Manual) (1.4-6.5) K/uL Total Absolute Neuts (1.4-6.5) K/uL Lymphocytes # (Manual) (1.2-3.4) K/uL Total Abs Lymphocytes (1.2-3.4) K/uL Monocytes # (Manual) (0.11-0.59) K/uL Basophils # (Manual) (0-0.2) K/uL Metamyelocytes # (Man) (0-0) K/uL ESR 30 H (0-14) mm/hr Sodium (136-145) mmol/L Potassium (3.5-5.1) mmol/L Chloride (98-107) mmol/L Carbon Dioxide (21-32) mmol/L Anion Gap (3-11) BUN (7-18) mg/dl Creatinine (0.6-1.4) mg/dl Est Cr Clr Drug Dosing ml/min Est GFR ( Amer) Est GFR (Non-Af Amer) BUN/Creatinine Ratio (10-20) Glucose (70-99) mg/dl POC Glucose 143 H (70-99) mg/dl Estimat Average Glucose mg/dl Hemoglobin A1c (4.5-5.6) % Calcium (8.5-10.1) mg/dl Total Bilirubin (0.2-1) mg/dl AST (15-37) U/L ALT (12-78) U/L Alkaline Phosphatase (45-117) U/L C-Reactive Protein (0-0.29) mg/dl Total Protein (6.4-8.2) gm/dl Albumin (3.4-5.0) gm/dl Globulin (2.5-4.0) gm/dl Albumin/Globulin Ratio (0.9-2) Lipase (73-393) U/L Urine Color Urine Appearance (Clear) Urine pH (4.5-7.5) Ur Specific Knifley (1.000-1.030) Urine Protein (Negative) Urine Glucose (UA) (Negative) Urine Ketones (Negative) Urine Blood (Negative) Urine Nitrite (Negative) Urine Bilirubin (Negative) Urine Urobilinogen (Negative) Ur Leukocyte Esterase (Negative) Urine WBC (Auto) (0-5) /hpf Urine RBC (Auto) (0-4) /hpf U Hyaline Cast (Auto) (0-5) /lpf U Epithel Cells (Auto) (0-5) /lpf Urine Bacteria (Auto) (Negative) Stl C. diff Tox B Gene Negative Cdiff Gene (Neg) 07/26/19 07/26/19 Range/Units 14:43 14:43 WBC 4.19 L (4.8-10.8) K/uL RBC 3.75 L (4.7-6.1) M/uL Hgb 10.9 L (14.0-18.0) g/dL Hct 34.8 L (42-52) % MCV 92.8 (80-100) fL MCH 29.1 (25-34) pg MCHC 31.3 L (32-36) g/dL RDW Std Deviation 59.0 H (36.4-46.3) fL RDW Coeff of Kennedy 17.6 H (11.5-14.5) % Plt Count 260 (130-400) K/uL MPV 10.4 (7.4-10.4) fL Neutrophils % (Manual) 59.3 % Lymphocytes % (Manual) 33.6 % Monocytes % (Manual) 0.9 % Basophils % (Manual) 2.7 % Metamyelocytes % (Man) 3.5 % Neutrophils # (Manual) 2.48 (1.4-6.5) K/uL Total Absolute Neuts 2.48 (1.4-6.5) K/uL Lymphocytes # (Manual) 1.41 (1.2-3.4) K/uL Total Abs Lymphocytes 1.41 (1.2-3.4) K/uL Monocytes # (Manual) 0.04 L (0.11-0.59) K/uL Basophils # (Manual) 0.11 (0-0.2) K/uL Metamyelocytes # (Man) 0.15 H (0-0) K/uL ESR (0-14) mm/hr Sodium 141 (136-145) mmol/L Potassium 4.1 (3.5-5.1) mmol/L Chloride 111 H (98-107) mmol/L Carbon Dioxide 24 (21-32) mmol/L Anion Gap 6.0 (3-11) BUN 18 (7-18) mg/dl Creatinine 1.92 H (0.6-1.4) mg/dl Est Cr Clr Drug Dosing 33.8 ml/min Est GFR ( Amer) 38.9 Est GFR (Non-Af Amer) 33.5 BUN/Creatinine Ratio 9.4 L (10-20) Glucose 70 (70-99) mg/dl POC Glucose (70-99) mg/dl Estimat Average Glucose mg/dl Hemoglobin A1c (4.5-5.6) % Calcium 9.0 (8.5-10.1) mg/dl Total Bilirubin 0.3 (0.2-1) mg/dl AST 21 (15-37) U/L ALT 19 (12-78) U/L Alkaline Phosphatase 43 L (45-117) U/L C-Reactive Protein 1.01 H (0-0.29) mg/dl Total Protein 6.4 (6.4-8.2) gm/dl Albumin 3.1 L (3.4-5.0) gm/dl Globulin 3.3 (2.5-4.0) gm/dl Albumin/Globulin Ratio 0.9 (0.9-2) Lipase 139 (73-393) U/L Urine Color Urine Appearance (Clear) Urine pH (4.5-7.5) Ur Specific Knifley (1.000-1.030) Urine Protein (Negative) Urine Glucose (UA) (Negative) Urine Ketones (Negative) Urine Blood (Negative) Urine Nitrite (Negative) Urine Bilirubin (Negative) Urine Urobilinogen (Negative) Ur Leukocyte Esterase (Negative) Urine WBC (Auto) (0-5) /hpf Urine RBC (Auto) (0-4) /hpf U Hyaline Cast (Auto) (0-5) /lpf U Epithel Cells (Auto) (0-5) /lpf Urine Bacteria (Auto) (Negative) Stl C. diff Tox B Gene (Neg)
--- NOTE | 2019-07-27 13:13 | Anesthesiology Progress Note ---
Date of Service July 27, 2019 Anesthesia Post Procedure Vital Signs Vital Signs: Temp Pulse Pulse Resp BP Pulse Ox 07/27/19 12:50 60 16 127/73 99 07/27/19 12:30 63 18 125/77 98 07/27/19 12:15 60 18 121/69 96 07/27/19 12:00 73 16 120/73 94 07/27/19 10:31 36.7 C 57 L 18 119/63 98 07/27/19 07:03 36.6 C 63 16 122/73 98 07/26/19 22:57 36.8 C 60 18 116/64 98 07/26/19 15:44 36.7 C 70 17 130/81 99 07/26/19 14:17 36.5 C 84 18 126/78 100 07/26/19 14:16 36.5 C 18 126/78 100 Pain Intensity Other: Pain Intensity: 5 Transfer of Care Handoff Completed per policy Notes Mental Status: alert / awake / arousable and participated in evaluation Patient Amnestic to Procedure: Yes Nausea / Vomiting: adequately controlled Pain: adequately controlled Airway Patency, RR, SpO2: stable & adequate BP & HR: stable & adequate Hydration State: stable & adequate Anesthetic Complications: no major complications apparent and Pt Satisfied with anesthetic care
[2019-07-27] MEDS: CHOLECALCIFEROL 1,000 UNITS 25 MCG TAB PO SCH (13:53)
[2019-07-27] MEDS: ROSUVASTATIN CALCIUM 20 MG TAB PO SCH (13:53)
[2019-07-27] MEDS: MULTIVITAMIN TAB PO SCH (14:04)
[2019-07-27] MEDS: MESALAMINE 4 GM/60 ML ENEMA PR SCH (14:39)
[2019-07-28] MEDS: SODIUM CHLORIDE 0.9% 1000ML 1,000 ML IV SCH (06:02)
[2019-07-28] MEDS: LEVOTHYROXINE SODIUM 50 MCG TABLET PO SCH (06:03)
[2019-07-28 07:06] LABS: Hematocrit (blood only) 29.1 % (42-52); Hemoglobin 9.2 g/dL (14.0-18.0); Mean Corpuscular Hemoglobin 29.5 pg (25-34); Mean Corpuscular Hgb Conc 31.6 g/dL (32-36); Mean Corpuscular Volume 93.3 fL (80-100); Mean Platelet Volume 10.2 fL (7.4-10.4); Platelet Count 211 K/uL (130-400); RDW Coefficient of Variation 17.9 % (11.5-14.5); RDW Standard Deviation 60.4 fL (36.4-46.3); Red Blood Count 3.12 M/uL (4.7-6.1); White Blood Count 3.46 K/uL (4.8-10.8)
[2019-07-28 07:38] LABS: BUN Creatinine Ratio 14.5 (10-20); Calcium 7.9 mg/dl (8.5-10.1); Creatinine Clr Calc Pharmacy 39.8 ml/min; Est GFR (African American) 47.4; Est GFR (Non-African American) 40.9; Potassium 3.5 mmol/L (3.5-5.1)
[2019-07-28] MEDS: VALGANCICLOVIR PO SCH (07:52)
[2019-07-28] MEDS: TACROLIMUS 0.5 MG CAP PO SCH (07:52)
[2019-07-28] MEDS: ROSUVASTATIN CALCIUM 20 MG TAB PO SCH (08:34)
[2019-07-28] MEDS: CIPROFLOXACIN 250 MG TAB PO SCH (08:34)
[2019-07-28] MEDS: PANTOprazole 40 MG TAB PO SCH (08:35)
[2019-07-28] MEDS: MULTIVITAMIN TAB PO SCH (08:35)
[2019-07-28] MEDS: metroNIDAZOLE 500 MG TAB PO SCH ×2 (08:35→13:25)
[2019-07-28] MEDS: CHOLECALCIFEROL 1,000 UNITS 25 MCG TAB PO SCH (08:36)
[2019-07-28] MEDS: INSULIN ASPART 100 UNITS/ML 3 ML PEN SC SCH ×2 (08:38→12:49)
[2019-07-28] MEDS: INSULIN GLARGINE SOLOSTAR 100 UNITS/ML 3 ML PEN SC SCH (08:40)
[2019-07-28] MEDS: methylPREDNISolone 60 MG in SYRINGE 0 ML IV SCH (08:43)
[2019-07-28] MEDS: MESALAMINE 4 GM/60 ML ENEMA PR SCH (08:52)
--- NOTE | 2019-07-28 11:28 | Gastroenterology Progress Note ---
Date of Service July 28, 2019 Assessment & Plan (1) Proctitis: 73 y/o male with h/o renal transplant, recent h/o CMV colitis, admitted with rectal bleeding and anorectal pain, underwent flex sig yesterday indicating healed prior areas CMV colitis (from sigmoid to right side), with remaining moderate proctitis and 2 small polyps which were removed. Abd is soft, tolerating diet, labs are stable. - Recommend pt use Rowasa (mesalamine) enemas once daily qhs for 2 months; this was called to [place] [facility] - Prednisone taper (40 mg x 5 days, 30 mg x 5 days, 20 mg x 5 days, 10 mg daily x 5 days, then continue on regular dose of 5 mg daily; taper was called into [place] [facility] - Fiber supplement daily (Metamucil, Citrucel, etc) - No GI contraindication to discharge - GI will sign off. Please call with questions. - Please see attending addendum for further recommendations and discussion. Admission and Anticipated Discharge Date Admission Date: July 26, 2019 Anticipated date of discharge: 07/27/19 Supervising Physician Co-Signing Physician Notes I performed a history and physical examination of the patient today, including specifically on physical exam - soft abdomen. I have discussed the patient's management with the advanced practitioner. Please refer to the nurse practitioner's note for the documented findings and plan of care. Rapid steroids taper and Rowasa enema. Subjective Pt seen and examined. Doing well; no acute events overnight. Had small brown stool and some mild hematochezia. Rectal discomfort is less. HGB stable at 9.2. Denies abd pain, n/v, fever, CP, dyspnea. Tolerating regular diet, eager to go home and "get ready for camping this weekend." Flex sig yesterday = The prior CMV related colitis had healed from the sigmoid colon upwards to the right side however there is remaining moderate proctitis which explains his symptoms. Biopsied. Two 6 mm polyps in the descending colon, removed with a cold snare. Resected and retrieved. Diverticulosis in the sigmoid colon. Non-bleeding internal hemorrhoids. Review of Systems Constitutional: no fever and no chills Cardiovascular: no chest pain and no dyspnea Gastrointestinal: as per Subjective / HPI Physical Exam Constitutional: WD/WN, vitals as above no acute distress Eyes: no scleral abnormality Respiratory: normal respiratory effort Gastrointestinal (Abdomen): Inspection/Auscultation: abdomen normal to inspection; abdomen not distended Percussion/Palpation: abdomen soft; abdomen nontender Skin: no rashes, warm and dry Psychiatric: A+Ox3, euthymic affect Results & Data ([facility]) Vital Signs (Past 12 Hours) Vital Signs Temp Pulse Resp BP Pulse Ox 07/28/19 07:10 36.6 C 57 L 16 121/77 98 07/28/19 03:57 36.6 C 55 L 16 113/68 93 07/27/19 23:47 36.7 C 53 L 16 103/59 L 96 Laboratory Results 07/28/19 07/28/19 07/28/19 Range/Units 08:14 06:46 06:46 WBC 3.46 L (4.8-10.8) K/uL RBC 3.12 L (4.7-6.1) M/uL Hgb 9.2 L (14.0-18.0) g/dL Hct 29.1 L (42-52) % MCV 93.3 (80-100) fL MCH 29.5 (25-34) pg MCHC 31.6 L (32-36) g/dL RDW Std Deviation 60.4 H (36.4-46.3) fL RDW Coeff of Kennedy 17.9 H (11.5-14.5) % Plt Count 211 (130-400) K/uL MPV 10.2 (7.4-10.4) fL Sodium 142 (136-145) mmol/L Potassium 3.5 (3.5-5.1) mmol/L Chloride 114 H (98-107) mmol/L Carbon Dioxide 24 (21-32) mmol/L Anion Gap 5.0 (3-11) BUN 24 H D (7-18) mg/dl Creatinine 1.63 H (0.6-1.4) mg/dl Est Cr Clr Drug Dosing 39.8 ml/min Est GFR ( Amer) 47.4 Est GFR (Non-Af Amer) 40.9 BUN/Creatinine Ratio 14.5 (10-20) Glucose 107 H (70-99) mg/dl POC Glucose 96 (70-99) mg/dl Calcium 7.9 L (8.5-10.1) mg/dl 07/27/19 07/27/1907/26/20 Range/Units 20:53 17:42 13:31 WBC (4.8-10.8) K/uL RBC (4.7-6.1) M/uL Hgb (14.0-18.0) g/dL Hct (42-52) % MCV (80-100) fL MCH (25-34) pg MCHC (32-36) g/dL RDW Std Deviation (36.4-46.3) fL RDW Coeff of Kennedy (11.5-14.5) % Plt Count (130-400) K/uL MPV (7.4-10.4) fL Sodium (136-145) mmol/L Potassium (3.5-5.1) mmol/L Chloride (98-107) mmol/L Carbon Dioxide (21-32) mmol/L Anion Gap (3-11) BUN (7-18) mg/dl Creatinine (0.6-1.4) mg/dl Est Cr Clr Drug Dosing ml/min Est GFR ( Amer) Est GFR (Non-Af Amer) BUN/Creatinine Ratio (10-20) Glucose (70-99) mg/dl POC Glucose 181 H 258 H 183 H (70-99) mg/dl Calcium (8.5-10.1) mg/dl
--- NOTE | 2019-07-28 13:11 | Hospitalist Progress Note ---
Date of Service July 28, 2019 Assessment & Plan (1) Diarrhea: (2) Rectal bleeding: (3) Hemorrhoids: Moderate Proctitis Was sent by GI specialist for ongoing diarrhea and rectal bleeding Colonoscopy on 06/30 showed CMV colitis S/P sigmoidoscopy on 07/26 indicated healed prior areas CMV colitis (from sigmoid to right side), with remaining moderate proctitis and 2 small polyps which were removed GI on board Recommend pt use Rowasa (mesalamine) enemas once daily qhs for 2 months Prednisone taper (40 mg x 5 days, 30 mg x 5 days, 20 mg x 5 days, 10 mg daily x 5 days, then continue on regular dose of 5 mg daily Fiber supplement daily (Metamucil, Citrucel, etc) Continue Cipro and flagyl and antiviral Continue Anusol cream and sitz baths PRN for hemorrhoids. OK from GI standpoint to discharge (4) History of renal transplant: (5) Immunosuppression due to drug therapy: High risk for infection due to chronic immunosuppression. Continue immunosuppressive drugs. Monitor renal function closely. Received gentle hydration. (6) Diabetes mellitus: Most recent Hba1c 6.5 Continue insulin Continue monitor BS (7) Dysuria: Denies any symptoms currently (8) DVT prophylaxis: SCDs due to rectal bleeding Disposition Will discharge home today Admission and Anticipated Discharge Date Admission Date: July 26, 2019 Anticipated date of discharge: 07/27/19 Subjective Pt was seen and examined Lying in bed with no distress Pt said that he feels fine Denies any chest pain, palpitation, dizziness and SOB Physical Exam Physical Exam: General- No acute distress Head- atraumatic Eyes- PERRL, EOMI, ENT- oropharynx clear Neck- supple, no JVD Lungs- clear to auscultation Heart- regular rhythm; no murmur Abdomen- normal bowel sounds, soft, nontender Extremities- no calf tenderness Neuro- alert, oriented x 3; PERRL, EOMI; no facial palsy; no dysarthria Skin- warm & dry Results & Data Results & Data ([facility]) Vital Signs (Past 12 Hours) Vital Signs Temp Pulse Resp BP Pulse Ox 07/28/19 07:10 36.6 C 57 L 16 121/77 98 07/28/19 03:57 36.6 C 55 L 16 113/68 93
--- NOTE | 2019-07-29 07:40 | Discharge Summary ---
Date of Service July 28, 2019 Admission HPI Per Admitting Provider Patient is a 73 yo male with history of DM, HTN, Dyslipidemia, s/p kidney transplant with chronic immunosuppression, and recent CMV colitis who presents today for direct admission at the recommendation of his Clinical Quality Analyst, Dr. Lucia for continued diarrhea and rectal bleeding. 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 He is currently being treated with valganciclovir, and his CMV PCR was undetectable when last checked. Since being started on treatment, his symptoms are improving very slightly, but he continues to have 6-7 episodes of uncontrolled bloody/purulent rectal leaking during the night along with multiple episodes of diarrhea/loose stools during the day. The patient does also have history of hemorrhoids which are causing him pain now with the number of episodes per day. He was trying to use suppositories, but he could not keep them in unfortunately. According to his records, the patient has had mild anemia since April. He has no known history of IBD. Patient otherwise denies chest pain, SOB, N/V, or edema. He has been having some urinary retention and dysuria the past few days though. He has also noted some pressure in his right lower abdomen. I did speak with Dr. Lucia about this patient prior to admission. The patient follows with [facility]plant team for history of renal transplant completed on 08/04/18. The patient has been on chronic i mmunosuppression since that time. Admission Exam Per Admitting Provider Constitutional: WD/WN, vitals as above no acute distress Eyes: PERRL, conjunctivae normal, anicteric sclerae ENMT: external ear and nose normal, oropharynx normal Neck: trachea midline, no thyromegaly Respiratory: normal respiratory effort, lungs clear to auscultation Cardiovascular: RRR, no murmur, no edema Gastrointestinal: normal bowel sounds, soft, nontender, no hepatosplenomegaly Musculoskeletal: Head/Neck/Chest: + head abnormal to inspection, normocephalic and head atraumatic Trace edema B/L LE Skin: no rashes, warm and dry Neurologic: PERRL, EOMI, accommodation nl, no face palsy, no dysarthria Psychiatric: A+Ox3, euthymic affect Principal Diagnosis Diarrhea: Rectal bleeding: Hemorrhoids: Moderate Proctitis History of renal transplant: Immunosuppression due to drug therapy: Diabetes mellitus: Dysuria: Discharge Exam General- No acute distress Head- atraumatic Eyes- PERRL, EOMI, ENT- oropharynx clear Neck- supple, no JVD Lungs- clear to auscultation Heart- regular rhythm; no murmur Abdomen- normal bowel sounds, soft, nontender Extremities- no calf tenderness Neuro- alert, oriented x 3; PERRL, EOMI; no facial palsy; no dysarthria Skin- warm & dry Discharge Data Allergies Allergy/AdvReac Type Severity Reaction Status Date / Time No Known Allergies Allergy Verified 07/01/19 07:52 Consultations 07/26/19 13:02 Consult Gastroenterology Routine Procedures Performed Operation Date: 07/27/19 15:30 Actual Procedures p Colonoscopy Polypectomy(Not Applicable) - Marisa Lucia MD s Colonoscopy Biopsy Cytology(Not Applicable) - Marisa Lucia MD DICTATED BY: Marisa Lucia M.D. Patient Name: Myron Arias Procedure Date: 07/27/2019 11:21 AM Date of : 1945 Admit Type: Inpatient Age: 73 Gender: Male Attending MD: Marisa Lucia MD Procedure: Flexible Sigmoidoscopy Providers: Marisa Lucia MD Referring MD: Henna Chowdhury Pa-c Indications: Rectal hemorrhage Medicines: Propofol per Anesthesia Complications: No immediate complications. Estimated Blood Loss: Estimated blood loss: none. Procedure: Pre-Anesthesia Assessment: - Prior to the procedure, a History and Physical was performed, and patient medications, allergies and sensitivities were reviewed. The patient's tolerance of previous anesthesia was reviewed. - The risks and benefits of the procedure and the sedation options and risks were discussed with the patient. All questions were answered and informed consent was obtained. - Patient identification and proposed procedure were verified prior to the procedure by the physician and the nurse. The procedure was verified in the procedure room. - Pre-procedure physical examination revealed no contraindications to sedation. After obtaining informed consent, the endoscope was passed under direct vision. Throughout the procedure, the patient's blood pressure, pulse, and oxygen saturations were monitored continuously. The Colonoscope was introduced through the anus and advanced to the left transverse colon. The flexible sigmoidoscopy was accomplished without difficulty. The patient tolerated the procedure well. The quality of the bowel preparation was good. Findings: The perianal and digital rectal examinations were normal. Two sessile polyps were found in the descending colon. The polyps were 6 mm in size. These polyps were removed with a cold snare. Resection and retrieval were complete. Verification of patient identification for the specimen was done by the physician and nurse using the patient's name and date. Normal mucosa was found in the sigmoid colon, in the descending colon and in the transverse colon. Localized mild inflammation characterized by erythema, friability and granularity was found in the rectum and in the recto-sigmoid colon. Biopsies were taken with a cold forceps for histology. Multiple small and large-mouthed diverticula were found in the sigmoid colon. Non-bleeding internal hemorrhoids were found during retroflexion. The hemorrhoids were medium-sized. Impression: - The prior CMV related colits had healed from the sigmoid colon upwards to the right side howevere there is remaining moderate proctitis which explaines his symptoms. Biopsied. - Two 6 mm polyps in the descending colon, removed with a cold snare. Resected and retrieved. - Diverticulosis in the sigmoid colon. - Non-bleeding internal hemorrhoids. Recommendation: - [facility]. - Await pathology results. - Use Rowasa enemas 1 per rectum daily for 2 months. - Short course of Prednisone taper over few weeks. - Use fiber, for example Citrucel, Fibercon, Konsyl or Metamucil. Marisa Lucia MD 07/27/2019 12:14:40 PM This report has been signed electronically. Note Initiated On: 07/27/2019 11:21 AM Number of Addenda: 0 I attest to the content of the Intraoperative Record and orders documented therein, exceptions below {[id number]} Signed By:{f rep sign date/time1] Created/Dictated: 07/27/19 1121 Transcribed: 07/27/19 1214 Hospital Course (1) Diarrhea: (2) Rectal bleeding: (3) Hemorrhoids: Moderate Proctitis Was sent by GI specialist for ongoing diarrhea and rectal bleeding Colonoscopy on 06/30 showed CMV colitis S/P sigmoidoscopy on 07/26 indicated healed prior areas CMV colitis (from sigmoid to right side), with remaining moderate proctitis and 2 small polyps which were removed GI on board Recommend pt use Rowasa (mesalamine) enemas once daily qhs for 2 months Prednisone taper (40 mg x 5 days, 30 mg x 5 days, 20 mg x 5 days, 10 mg daily x 5 days, then continue on regular dose of 5 mg daily Fiber supplement daily (Metamucil, Citrucel, etc) Continue Cipro and flagyl and antiviral Continue Anusol cream and sitz baths PRN for hemorrhoids. OK from GI standpoint to discharge (4) History of renal transplant: (5) Immunosuppression due to drug therapy: High risk for infection due to chronic immunosuppression. Continue immunosuppressive drugs. Monitor renal function closely. Received gentle hydration. (6) Diabetes mellitus: Most recent Hba1c 6.5 Continue insulin Continue monitor BS (7) Dysuria: Denies any symptoms currently (8) DVT prophylaxis: SCDs due to rectal bleeding Disposition Will discharge home today Total Time Total Time Spent Total Time Spent (In Minutes): 35 minutes Total Time Includes: Examination of the Patient, Discharge Planning, Medication Reconciliation, Communication With Other Providers and Other Discharge Plan Discharge Items Patient Disposition: Home - Self-Care Reason For Visit: DIARRHEA & RECTAL BLEEDING Discharge Diagnosis: (1) Diarrhea: (2) Rectal bleeding: (3) Hemorrhoids: (5) Immunosuppression due to drug therapy: (6) Diabetes mellitus: (7) Dysuria: Activity: Resume your previous activity Non-emergency contact: Primary Care Provider Call non-emergency contact if: you have any medication questions Follow-up/Referrals: Marisa Lucia MD [Hospitalist] - 08/02/19 10:00 am (Appointment will be via telephone w/ ) Porfirio Kilgore MD [Primary Care Provider] - 08/03/19 3:00 pm Diet: Carb Consistent or DM2 Addtl Attending Provider Instructions: Follow up with your primary care provider in 1 week (please call your provider to schedule for the appointment) Follow up with your gastroenterology Continue Rowasa (mesalamine) enemas once rebecca night for 2 months (Script called by Gastro) Prednisone taper (40 mg x 5 days, 30 mg x 5 days, 20 mg x 5 days, 10 mg daily x 5 days, then continue on regular dose of 5 mg daily (Script Called by gastro) Complete the course of the antibiotic with cipro and flagyl Please resume aspirin when rectal bleeding resolves Pending Studies at Discharge: No Stand-Alone Forms: [facility], Smoking Cessation Medications and DC Order Prescriptions: New metronidazole 500 mg Tablet 500 mg PO TID 5 Days Qty: 15 RF: 0 ciprofloxacin HCl 250 mg Tablet 250 mg PO Q12 5 Days Qty: 10 RF: 0 Continued multivitamin Tablet 1 tab PO QAM RF: 0 Lantus U-100 Insulin 100 unit/mL Solution 24 unit SUBCUT QPM RF: 0 aspirin 81 mg Tablet,Delayed Release (Dr/Ec) 81 mg PO DAILY RF: 0 levothyroxine 50 mcg Tablet 50 mcg PO QAM RF: 0 pantoprazole [Protonix] 40 mg Tablet,Delayed Release (Dr/Ec) 40 mg PO QAM RF: 0 insulin aspart U-100 [Novolog Flexpen U-100 Insulin] 100 unit/mL (3 mL) Insulin Pen 1 unit SUBCUT UD RF: 0 rosuvastatin [Crestor] 40 mg Tablet 40 mg PO QAM RF: 0 cholecalciferol (vitamin D3) [Vitamin D3] 50 mcg (2,000 unit) Tablet 50 mcg PO QAM RF: 0 valganciclovir 450 mg tablet 450 mg PO BID RF: 0 tacrolimus 0.5 mg capsule 0.5 mg PO BID RF: 0 belatacept 5 mg/kg 462.5 mg IV MONTHLY RF: 0 Changed prednisone 5 mg Tablet 40 mg PO QAM Qty: 0 RF: 0 Discharge Orders: Discharge Order (Routine); Ordered 07/28/19 Ordered By: Luis Dupont/Other Patient Handouts: Diabetes Type 2 Managing Admission Data Admit Date/Time: 07/26/19 13:51 Attending Provider: Luis Singh Admit Provider: Neyda Clifford Primary Care Provider: Porfirio Kilgore Other Providers: Marisa Lucia ; Wade Brody Other Interventions: Discharge Summary Assessment (RN) Last Done: 07/28/19 13:04 DC Date/Time DO NOT enter until pt leaves facility: 07/28/19 14:58
== END 2019-07-28 14:58 | disposition home or self-care (01) | DRG 394 ==
LOC: SUATTDRO 13:51 → 3E 13:51

== ENCOUNTER 2023-08-23 23:56 | Inpatient (IN) ==
--- OUTSIDE RECORDS SUMMARY | 2023-08-24 00:05 | External Medical Summary | Summary of Care ---
Author Name Unknown Organization [facility] Address [address] [place] [address] Phone [phone] Care Team Providers Care Superannuation Funds Manager Name Role Phone Porfirio Kilgore MD Primary Care Provider + Reason for Visit * Reason Comments Nurse Documentation Encounter Details Date Type Department Care Team (Late st Contact Info) Description 08/19/2023 10:30 AM EDT Nurse Only Urology, [facility] [address] [place] [id number] Nurse [facility] [address] [place] [id number] Nurse Documentation Allergies No known active allergiesdocumented as of this encounter (statuses as of 08/19/2023) Medications Medication Sig Dispensed Refills Start Date End Date Status insulin aspart (NOVOLOG) 100 UNIT/ML SOPNIndications:6 units breakfast and lunch12 units dinner Inject under the skin 10 units at breakfast, 12 units at lunch, and 14 units at dinner. Plus a sliding scale. Active Cholecalciferol (VITAMIN D) 1000 units Tablet Take 2 Tablets by mouth in the morning. 12/17/2016 Active aspirin enteric coated 81 MG TBECIndications:Rece ived kidney from donor with hepatitis C Take 1 Tab by mouth daily. 30 Tab 5 08/04/2018 Active Multiple Vitamins-Minerals (MULTIVITAMIN ADULT) TABS Take 1 Tablet by mouth at bedtime. Active LANTUS SOLOSTAR 100 UNIT/ML SOPN Inject 24 Units under the skin at bedtime. 16-18 units. 05/29/2019 Active tamsulosin (FLOMAX) 0.4 MG Capsule 1 Capsule in the morning and 1 Capsule before bedtime. 10/15/2019 Active Finasteride 5 MG Oral Tablet (Proscar) Take 1 Tablet by mouth in the morning. 03/08/2020 Active Flutter Device Use 10 breaths twice daily 1 Each 06/13/2021 Active Azelastine HCl 0.1 % Nasal Solution Administer into nostril 1 [place] in the morning AND 1 [place] before bedtime. 30 mL 12 12/18/2021 Active Nebulizer/Tubing/Aaliyah thpiece Kit Use as directed 1 Kit 05/03/2022 Active Furosemide 40 MG Oral Tablet (Lasix) Take 1 Tablet by mouth daily as needed. 10/22/2022 Active levoFLOXacin 750 MG Oral Tablet (Levaquin) LEVOFLOXACIN 750 MG TABS Active predniSONE 5 MG Oral Tablet (Deltasone)Indicatio ns:Kidney replaced by transplant,Need for prophylactic immunotherapy Take 1 Tablet by mouth in the morning. 90 Tablet 3 03/10/2023 Active Levothyroxine Sodium 75 MCG Oral Tablet (Levoxyl) Take 1 Tablet by mouth daily first thing in the morning. (at least 30 min prior to breakfast or other meds) Active Pantoprazole Sodium 40 MG Oral Tablet Delayed Release (Protonix) TAKE ONE TABLET BY MOUTH EVERY DAY BEFORE BREAKFAST 90 Tablet 06/27/2023 Active Rosuvastatin Calcium 40 MG Oral Tablet (Crestor) Take 1 Tablet by mouth in the morning. 05/13/2023 Active Sulfamethoxazole-Tri methoprim 400-80 MG Oral Tablet (Bactrim) Take 1 Tablet by mouth in the morning and 1 Tablet before bedtime. 60 Tablet 3 07/22/2023 Active Albuterol Sulfate (2.5 MG/3ML) 0.083% Inhalation Nebulization Solution (Proventil)Indicatio ns:Bronchiectasis with acute lower respiratory infection (HCC),COPD, group B, by GOLD 2017 classification (HCC) Inhale 1 Vial via nebulizer every 4 hours as needed for Wheezing. 540 mL 2 07/22/2023 Active Trelegy Ellipta 100-62.5-25 MCG/ACT Aerosol Powder Breath Activated (Fluticasone-Umeclid inium-Vilanterol) Inhale 1 Puff by mouth in the morning. 60 Blister Dosing Unit 5 07/22/2023 Active Ventolin HFA 108 (90 Base) MCG/ACT Inhalation Aerosol SolutionIndications: Mucopurulent chronic bronchitis (HCC) Inhale 2 Puffs by mouth every 4 hours as needed for Cough, Shortness of Breath or Wheezing. 18 g 5 07/22/2023 Active Tacrolimus ER 1 MG Oral Tablet Extended Release 24 Hour (Envarsus XR)Indications:Kidne y replaced by transplant Take 1 Tablet by mouth in the morning. Total dose 1.75 mg daily. 30 Tablet 5 07/22/2023 Active Tacrolimus ER 0.75 MG Oral Tablet Extended Release 24 Hour (Envarsus XR)Indications:Kidne y replaced by transplant Take 1 Tablet by mouth in the morning. Total dose 1.75 mg daily. 30 Tablet 5 07/22/2023 Active Loperamide HCl 2 MG Oral Capsule (Imodium A-D) Take 1 Capsule by mouth in the morning and 1 Capsule at noon and 1 Capsule before bedtime. 270 Capsule 3 07/29/2023 Active oxyCODONE-Acetaminop hen 5-325 MG Oral Tablet (Percocet) Take 1 Tablet by mouth every 8 hours as needed for Pain, Breakthrough or Pain, Severe for up to 10 doses. 10 Tablet 08/15/2023 Active Hospital, Clinic, or Other Facility Administered Medication Ordered Dose Route Frequency Start Date End Date Status Tixagevimab inj 150 mgIndications:Kidney replaced by transplant 150 mg IM [id number] 03/13/2021 Active Cilgavimab inj 150 mgIndications:Kidney replaced by transplant 150 mg IM [id number] 03/13/2021 Active documented as of this encounter (statuses as of 08/19/2023) Active Problems Problem Noted Date Diagnosed Date BPH with obstruction/lower urinary tract symptom s 06/24/2023 Pain in both testicles 03/10/2023 JOSE R (acute kidney injury) 08/20/2022 COPD, group B, by GOLD 2017 classification 08/05 Overview: Per COPD GOLD Classification Bronchiectasis with acute lower respiratory infe ction 05/06/2022 S/P endoscopy 01/09/2022 Granulomatous disease 12/18/2021 Ground glass opacity present on imaging of lung 12/18/2021 Type 2 diabetes mellitus with diabetic nephropat hy 11/09/2020 Drug reaction, subsequent encounter 08/03/2020 Kidney replaced by transplant 07/13/2020 Last Assessment & Plan: Doing well. Cr 2.0, stable (Baseline 1.8-2) Cytomegalovirus (CMV) viremia 07/13/2020 Last Assessment & Plan: Currently resolved. Monitor per protocol. Favor maintaining antiviral while we are switching IS regimen as this change will likely be high-risk for re-activation. Chronic cough 07/13/2020 Last Assessment & Plan: Lung bx results noted. Transitioning off of belatacept as cough has been noted in >10% of belatacept patients in literature. Need for prophylactic immunotherapy 07/13/2020 Last Assessment & Plan: Transitioning off of belatacept. Off of MMF due to CMV viremia. Start FK 1 mg bid on Friday with goal of 3-5 for now. 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 07/25 Overview: HCV treated; SVR confirmed 03/05/2019 Diabetes mellitus 08/04/2018 Acute blood loss anemia 08/04/2018 Family history of valvular heart disease 016 HTN, goal below 130/80 06/14/2015 Dyslipidemia, goal LDL below 100 06/14/2015 documented as of this encounter (statuses as of 08/19/2023) Resolved Problems Problem Noted Date Diagnosed Date Resolved Date Bronchiectasis without complication 12/18/2021 05/03/2022 COPD, group C, by GOLD 2017 classification 11/05/2021 05/03/2022 Overview: Per COPD GOLD Classification COPD, group B, by GOLD 2017 classification 08/03/2020 11/08/2021 Overview: Per COPD GOLD Classification Aortic regurgitation 06/14/2015 016 Pre-transplant evaluation fo r chronic kidney disease 05/16/2015 08/20/2022 documented as of this encounter (statuses as of 08/19/2023) Immunizations Name Administration Dates Next Due COVID-19 mRNA, LNP-s, No Pre serve, 2-Dose Series (Moderna) 02/05/2022,07/15/2021,10/09/2020,2020,03/20/2020 COVID-19 mRNA, LNP-s, No Pre serve, 2-Dose Series (Pfizer) 07/15/2021 Pneumococcal Conjugate Vacc, 13 Valent (Prevnar) 07/25/2018 Seasonal Influenza Intranasal 02/01/2009 Seasonal Influenza Virus Vac cine, Unspecified Formulation 11/16/2021,12/03/2020 Seasonal Influenza, Quadriva lent Hd, 65+ Yrs 10/24/2019 Seasonal Influenza, Trivalen t, High Dose, No Preserve, IM 11/28/2018 TDAP (age 10 and older)(Boostrix) 06/03/2022 Zoster Vaccine Recombinant (Shingrix) 11/27/2021 ,09/27/2021 documented as of this encounter Social History Tobacco Use Types Packs/Day Years Used Date Smoking Tobacco: Former Cigarettes 2 15 0 02/25/1960 - 02/24/1975 Smokeless Tobacco: Never Alcohol Use Standard Drinks/Week Comments Not Currently 0 (1 standard drink = 0.6 oz pur e alcohol) Utilities Answer Date Recorded Do you have trouble paying y our heating, water, or electric bill? (Adult - for ages 18 years and over) Not on file 08/12/2023 Is your family able to pay t he heat, water, or electric bill? (Household - for ages 0-17 years) Not on file 08/12/2023 Does your family have access to good internet? (Household - for ages 0-17 years) Not on file 08/12/2023 Social Connections Answer Date Recorded How often do you feel lonely or isolated from those around you? (Adult - for ages 18 years and over) Not on file 08/12/2023 Sex and Gender Information Value Date Recorded Sex Assigned at Not on file Gender Identity Not on file Sexual Orientation Not on file Job Start Date Occupation Industry Not on file Not on file Not on file documented as of this encounter Functional Status Functional Status Response Date of Assess ment Are you deaf or do you have serious difficulty h earing? No 08/19/2022 Are you blind or do you have serious difficulty seeing, even when wearing glasses? No 08/19/2022 Do you have serious difficul ty walking or climbing stairs? (5 years old or older) No 08/20/2022 Do you have difficulty dress ing or bathing? (5 years old or older) No 08/19/2022 Because of a physical, menta l, or emotional condition, do you have difficulty doing errands alone such as visiting a doctor s office or shopping? (15 years old or older) No 08/20/19 Cognitive Status Response Date of Assessm ent Because of a physical, menta l, or emotional condition, do you have serious difficulty concentrating, remembering, or making decisions? (5 years old or older) No 08/19/2022 documented as of this encounter Nursing Notes * Vero Fernandes LPN - 08/19/2023 10:41 AM EDT Patient's bladder was instilled 300 cc of NSS. Catheter balloon then deflated and catheter removed.Patient proceeded to void, spontaneously for approximately 200 cc of pink urine. Patient tolerated procedure well. Dr Chery made aware. documented in this encounter Plan of Treatment Upcoming Encounters Date Type Department Care Team (Late st Contact Info) Description 09/03/2023 2:45 PM EDT Office Visit Urology, [facility] [address] [facility] [place] [address] Agustin Chery MD [address] [facility] [address] [place] [address] 10/08/2023 9:20 AM EDT Office Visit Dermatology [address] [place] [address] Carmelina Olivas PA-C [address] [place] [address] [place] [id number] 01/07/2024 10:00 AM EST Office Visit Transplant Clinic, [place] [address] [place] [address] Jean-Pierre Catalan, [facility] [address], [place] [id number] 01/26/2024 12:40 PM EST Office Visit Pulmonary Medicine, [facility] [address] [place] [id number] Carroll Garces MD [address] [place] [id number] Scheduled Procedures Name Priority Associated Diagnoses Date/Ti me COLONOSCOPY FLEXIBLE PROXIMA L DIAGNOSTIC Recall History of colonic polyps ESOPHAGOGASTRODUODENOSCOPY ( EGD), FLEXIBLE, TRANSORAL, DIAGNOSTIC Recall History of gastrointestinal stromal tumor (GIST) Health Maintenance Due Date Last Done Comments Depression Screening 1957 Diabetic Foot Exam 1962 Pneumococcal Vaccine: 65+ Years (2 of 2 - PPSV23 or PCV20) 09/19/2018 07/25/2018 TSH 05/02/2020 05/03/2019, 02/24, 02/08/2019, Additional history exists *ADVANCE DIRECTIVE NOT ON FILE 11/10/2021 COVID-19 Vaccine ( season) 2022 02/05/2022, 07/15/2021, 07/15/2021, Additional history exists HbA1c 07/29/2023 01/27/2023, 12/25, 06/10/2018, Additional history exists Influenza Vaccine (FLU shot) (Season Ended) 2023 11/16/2021, 12/03/2020, 10/24/2019, Additional history exists GFR 06/24/2024 06/25/2023, 04/02/2023, 04/25/2023, Additional history exists Diabetic Eye Exam 06/29/2024 06/30/2023, 12/23/2022 Albumin/Creatinine Ratio 08/05/2024 024, 07/29/2023, 05/26/2023, Additional history exists O2 ASSESSMENT COMPLETED IN PAST YEAR FOR COPD 08/14/2024 08/15/2023 Colonoscopy 04/10/2026 04/10/2023, 03/27, 10/12/2021, Additional history exists DTaP,Tdap,and Td Vaccines (2 - Td or Tdap) 06/03/2032 06/03/2022 Alpha-1 Antitrypsin Completed 08/07/2020, Zoster Vaccines Completed 11/27/2021, 09/27/2021 RETIRED - COLONOSCOPY-ANNUAL AGES 18-100 Discontinued 04/10/2023, 04/10/2023, 10/12/2021, Additional history exists GARDASIL-HPV IMMUNIZATION SERIES Aged Out No longer eligible based on patient's age to complete this topic Hepatitis B Aged Out No longer eligi ble based on patient's age to complete this topic MENINGOCOCCAL (MENACTRA/MENVEO) Aged Out No longer eligible based on patient's age to complete this topic documented as of this encounter Medical Devices Not on filedocumented as of this encounter Visit Diagnoses Diagnosis BPH with obstruction/lower urinary tract symptoms- Primary Hypertrophy of prostate with urinary obstruction and other lower urinary tract symptoms (LUTS) Elevated prostate specific antigen (PSA) Malignant neoplasm of prostate (HCC) Malignant neoplasm of prostate Benign non-nodular prostatic hyperplasia without lower urinary tract symptoms documented in this encounter Advance Directives * Full Code (Latest Code Status on File) Date Activated Date Inactivated Comments 08/15/2023 10:22 AM 08/15/2023 3:50 PM This order reflects the patients wishes and were consensually agreed upon. Question Answer Comments Discussion of Advance Directives occurred with: Patient * Full Code Date Activated Date Inactivated Comments 08/15/2023 7:51 AM 08/15/2023 10:22 AM This order reflects the patients wishes and were consensually agreed upon. Question Answer Comments Discussion of Advance Directives occurred with: Patient * Full Code Date Activated Date Inactivated Comments 08/19/2022 7:47 PM 08/20/2022 7:02 PM This order r eflects the patients wishes and were consensually agreed upon. Question Answer Comments Discussion of Advance Direct hubert occurred with: Not Discussed due to patient's condition * Full Code Date Activated Date Inactivated Comments 01/09/2022 3:06 PM 01/10/2022 5:35 PM This order reflects the patients wishes and were consensually agreed upon. Question Answer Comments Discussion of Advance Direct hubert occurred with: Not Discussed due to patient's condition * Full Code Date Activated Date Inactivated Comments 08/04/2018 1:34 PM 08/07/2018 7:40 PM This order r eflects the patients wishes and were consensually agreed upon. Question Answer Comments Discussion of Advance Directives occurred with: Patient Does the patient have a Living Will? No Does the patient have Health Care Power of Attor darius? No Care Teams Superannuation Funds Manager Relationship Specialty Start Date End Date Porfirio Kilgore MD [address] [place] [id number] PCP - General Internal Medicine 03/30/20 documented as of this encounter
--- OUTSIDE RECORDS SUMMARY | 2023-08-24 00:05 | External Medical Summary | Summary of Care ---
Author Name Unknown Organization [facility] Address [address] [place] [address] Phone [phone] Care Team Providers Care Repairer Helper Name Role Phone Porfirio Escobedo MD Primary Care Provider + Reason for Visit * Auth/Cert Specialty Diagnoses / Procedures Referred By Rome elizabeth Referred To Contact Diagnoses BPH with obstruction/lower urinary tract symptoms BPH with obstruction/lower urinary tract symptoms [N40.1, N13.8] Procedures PROSTATE, LASER VAPORIZATION LASER VAPORIZATION PROSTATE Agustin Chery MD [address] [address] [facility] [address] [place] [id number] Referral ID Status Reason Start Date Expiration Date Visits Re quested Visits Authorized [id number] Encounter Details Date Type Department Care Team (Latest Contact Info) Description 08/15/2023 7:43 AM EDT - 08/15/2023 11:37 AM EDT Hospital Encounter OR GL, Operating Room, [facility] - 4th Floor [address] [place] [phone] Agsutin Chery MD [email or web address] [id number] Pt Handout (on AVS) Discharge Disposition: Home - Self Care Allergies No known active allergiesdocumented as of this encounter (statuses as of 08/15/2023) Medications Medication Sig Dispensed Refills Start Date [...] % Nasal Solution Administer into nostril 1 Aurora in the morning AND 1 Aurora before bedtime. 30 mL 12 12/18/2021 Active [...] Shortness of Breath or Wheezing. 18 g 07/22/2023 Active Tacrolimus ER 1 MG Oral [...] Total dose 1.75 mg daily. 30 Tablet 07/22/2023 Active Loperamide HCl 2 MG Oral [...] to 10 doses. 10 Tablet 08/15/2023 Active documented as of this encounter (statuses as of 08/15/2023) Active Problems Problem Noted Date Diagnosed Date [...] as of this encounter (statuses as of 08/15/2023) Resolved Problems Problem Noted Date Diagnosed Date Resolved Date Bronchiectasis without complication 12/18/2021 05/03/2022 COPD, group C, by GOLD 2017 classification 11/05/2021 05/03/2022 Overview: Per COPD GOLD Classification COPD, group B, by GOLD 2017 classification 08/03/2020 11/08/2021 Overview: Per COPD GOLD Classification Aortic regurgitation 06/14/2015 016 Pre-transplant evaluation fo r chronic kidney disease 05/16/2015 08/20/2022 documented as of this encounter (statuses as of 08/15/2023) Immunizations Name Administration Dates Next Due COVID-19 [...] on file documented as of this encounter Last Filed Vital Signs Vital Sign Reading Time Taken Comments Blood Pressure 132/80 08/15/2023 11:29 AM EDT Pulse 61 08/15/2023 11:29 AM EDT Temperature 35.6 C (96.1 F) 08/15/2023 11:29 AM E DT Respiratory Rate 18 08/15/2023 11:29 AM EDT Oxygen Saturation 97% 08/15/2023 11:29 AM EDT Inhaled Oxygen Concentration - - Weight 86.6 kg (191 lb) 08/15/2023 8:00 AM EDT Height 175.3 cm (5' 9") 08/15/2023 8:00 AM EDT Body Mass Index 28.21 08/15/2023 8:00 AM EDT documented in this encounter Functional Status Functional Status Response [...] No 08/19/2022 documented as of this encounter Discharge Instructions * Discharge Instr - AVS* Agustin Chery MD - 08/15/2023 10:23 AM EDT Catheter to gravity drainage as instructed. Blood in and around the catheter is expected including the passage of small clots. A burning sensation is not unusual. Follow-up in the office as planned for removal of the catheter. Complete antibiotics as prescribed. Use pain medication as needed. No heavy lifting for 2-3 weeks to avoid bleeding. Contact our office or proceed to ER with any fevers, chills, nausea, vomiting or other worrisome symptoms. Proceed to ER if catheter stops draining or blood clots block catheter. No driving within 24 hours of anesthesia or while taking pain medication. OK to shower with catheter in place starting tomorrow, no tub baths. documented in this encounter Progress Notes * Agustin Chery MD - 08/15/2023 10:22 AM EDT [address] [address] OUTPATIENT SURGERY DISCHARGE SUMMARY NOTE Name: Myron Corado Location: [facility] Date: 08/15/2023 Time: 10:22 AM Surgery Date: 08/15/2023 Procedure: LASER VAPORIZATION PROSTATE N/A Surgeon: Agustin Chery MD Discharge Diagnosis: BPH status post GreenLight TURP After examination of this patient, I have determined he is ready for discharge to home when the patient meets criteria. Discharge instructions were given to the patient. documented in this encounter H&P Notes * Agustin Chery MD - 08/15/2023 8:33 AM EDT GENERAL HISTORY & PHYSICAL EXAMINATION - Urology Service [address] [address] Name: Myron Corado Location: [facility] Date: 08/15/2023 Time: 8:33 AM Date of H&P August 15, 2023 [id number] PCP: PORFIRIO ESCOBEDO [address] [address] Myron Corado is a 77 year old male, who presents for intervention for his history of refractory BPH. Cystoscopy findings in May of 2023 are reviewed. Patient notes he has continued bothered with his voiding symptoms, wishes to proceed with intervention. Patient uses chronic Bactrim twice daily. Preoperative urine culture is noted to be negative. BPH: Patient is being seen for BPH today. He has had the following symptoms: slow stream, intermittency,postvoid dribbling, and nocturia. Severity is moderate. He has tried tamsulosin and finasteride. He has previously had office cystoscopy done May 2023 demonstrating lateral lobe hypertrophy. Problem has been present for years. Problem is getting worse. Testicular pain: Presented to Urology Feb 2023. Present with palpation. Not present at rest. Worsened with activity. Worsening over time. Present for years. Elevated PSA: Patient is being seen for evaluation of an elevated PSA. Previous evaluation includes prostate biopsy x 2, no cancer. Patient has been on tamsulosin and finasteride. He reports slow stream. @actMED@ Review of patient's allergies indicates: No Known Allergies Social History: Social History Tobacco Use Smoking status: Former Current packs/day: 0.00 Average packs/day: 2.0 packs/day for 15.0 years (30.0 ttl pk-yrs) Types: Cigarettes Start date: 02/25/1960 Quit date: 02/24/1975 Years since quittin.5 Smokeless tobacco: Never Substance Use Topics Alcohol use: Not Currently Vaping/E-Cigarette Use Vaping/E-Cigarette Use Never User Vaping/E-Cigarette Substances Vaping/E-Cigarette Devices Family History Problem Relation Name Age of Onset Heart failure Mother Heart failure Father Diabetes Sister Shaye Diabetes Sister Ronit Diabetes Sister Luci Heart block Sister Luci Other (part of bowl removed) Sister Luci Diabetes Sister Stephen Other (auto immune disease) Sister Wilima Diabetes Sister Jovana Coronary Artery disease Sister Jovana valve replacement Diabetes Brother Marcos Past Surgical History: Procedure Laterality Date BRONCHOSCOPY, DIAGNOSTIC N/A 06/15/2020 BRONCHOSCOPY DIAGNOSTIC WITH OR WITHOUT WASHING performed by Mina Boyd MD at [facility] BRONCHOSCOPY, DIAGNOSTIC N/A 04/18/2022 BRONCHOSCOPY DIAGNOSTIC WITH OR WITHOUT WASHING performed by Kush Conte MD at [facility] COLONOSCOPY, DIAGNOSTIC (RECTUM) 07/01/2019 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, diverticulosis / [facility] COLONOSCOPY, DIAGNOSTIC (RECTUM) 10/12/2021 benign adenomatous polyps, diverticulosis, repeat 1 yr / [facility] COLONOSCOPY, DIAGNOSTIC (RECTUM) 04/10/2023 diverticulosis/biopsies show adenomatous and tubulovillous adenoma/recall 3 years/COLONOSCOPY FLEXIBLE PROXIMAL DIAGNOSTIC performed by Marisa Lucia MD at ENDOSCOPY [facility] EGD, FLEXIBLE, DIAGNOSTIC 07/01/2019 mild gastric irritation on bx / [facility] EGD, FLEXIBLE, DIAGNOSTIC 10/12/2021 gastric nodule / [facility] EGD, FLEXIBLE, ENDO MUCOSAL RESECTION N/A 01/09/2022 lesion body of stomachESOPHAGOGASTRODUODENOSCOPY (EGD), FLEXIBLE, TRANSORAL: MUCOSAL RESECTION performed by Marisa Lucia MD at [facility] EGD, W/ENDOSCOPIC US N/A 01/09/2022 subepithelial lesion stomach/biopsies show GIST/ESOPHAGOGASTRODUODENOSCOPY (EGD), FLEXIBLE, TRANSORAL, ENDOSCOPIC ULTRASOUND performed by Marisa Lucia MD at [facility] HEMORRHOIDECTOMY, INTERNAL, 2 + COLUMNS 04/14/2020 HEMORRHOIDECTOMY EXTERNAL AND INTERNAL COMPLEX performed by Faheem Cohen MD at OR [facility] INFORMATION appendix removed INFORMATION josr IR BIOPSY 04/16/2019 RENAL BIOPSY, PERCUTANEOUS (TROCAR/NEEDLE) N/A 08/20/2018 RENAL BIOPSY PERCUTANEOUS performed by Colin Rossi MD at [facility] RENAL BIOPSY, PERCUTANEOUS (TROCAR/NEEDLE) Right 09/11/2022 RENAL BIOPSY PERCUTANEOUS performed by Colin Rossi MD at [facility] SIGMOIDOSCOPY, DIAGNOSTIC 07/27/2019 Ulcerative proctitis, adenomatous polyp, diverticulosis / [facility] TRANSPLANTATION OF KIDNEY N/A 08/04/2018 RENAL TRANSPLANT performed by Colin Rossi MD at [facility] Past Medical History: Diagnosis Date BPH (benign prostatic hyperplasia) CKD (chronic kidney disease) COPD (chronic obstructive pulmonary disease) (HCC) COVID-19 03/05/2022 DM (diabetes mellitus) with complications (HCC) GERD (gastroesophageal reflux disease) HTN (hypertension) resolved post transplant Hyperlipidemia Kidney transplant recipient 08/04/2018 Patient Active Problem List Diagnosis Family history of valvular heart disease HTN, goal below 130/80 Dyslipidemia, goal LDL below 100 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 Diabetes mellitus (HCC) Acute blood loss anemia Immunosuppressed status (HCC) 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) Mucopurulent chronic bronchitis (HCC) Kidney replaced by transplant Cytomegalovirus (CMV) viremia (HCC) Chronic cough Need for prophylactic immunotherapy Drug reaction, subsequent encounter 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 Appearance: Normal appearance. He is not ill-appearing or toxic-appearing. HENT: Head: Normocephalic and atraumatic. Right Ear: External ear normal. Left Ear: External ear normal. Nose: Nose normal. Mouth/Throat: Mouth: Mucous membranes are moist. Cardiovascular: Pulses: Normal pulses. Heart sounds: Normal heart sounds. Pulmonary: Effort: Pulmonary effort is normal. No respiratory distress. Breath sounds: Normal breath sounds. Abdominal: Palpations: Abdomen is soft. Tenderness: There is no abdominal tenderness. Musculoskeletal: Cervical back: Normal range of motion and neck supple. Lymphadenopathy: Cervical: No cervical adenopathy. Skin: Coloration: Skin is not cyanotic. Findings: Bruising present. Neurological: Mental Status: He is alert and oriented to person, place, and time. Psychiatric: Attention and Perception: Attention normal. Mood and Affect: Mood and affect normal. Impression/Plan: 77-year-old male with refractory BPH. Findings reviewed with the patient. Wishes to proceed with GreenLight vaporization of the prostate as planned. Risks and benefits reviewed, informed consent was present in the chart. IV Ancef on-callfor antibiotic coverage, SCDs for DVT prophylaxis. No new questions, wishes to proceed. Above content is personally reviewed. Patient vocalizes good understanding of the treatment plan. Agustin Chery MD 8:34 AM 08/15/2023 documented in this encounter Nursing Notes * Donovan Saeed RN - 08/15/2023 11:43 AM EDT [address] [address] [facility] Discharge Note Name: Myron Corado Date: 08/15/2023 Time: 11:43 AM Discharge Disposition: Home Responsible adult as escort home: Yes, patient's Leila and children. Transport Mode: Wheelchair Accompanied by: Donovan Saeed RN To: Car Belongings with patient: Yes Patient meets criteria to be transferred or discharged. * Sonali Buck RN - 08/12/2023 9:34 AM EDT Patient identified by: name/birthdate Person taught: Patient Optime case procedure confirmed with surgical consent Laterality confirmed as N/a Surgery date at time of Pre-Surgery Center Encounter: 08/15/2023. What procedure is patient having? Greenlight Laser Vaporization of the Prostate In an emergency, is patient willing to accept blood products or blood transfusion? Unknown. Do you need to place a blood bank order? No Anesthesia consent pool notified? N/A Anesthesia evaluation requested per case documentation? No Preop Evaluation Requested? Yes, follow-up will be documented on Anesthesia note Pt's PCP clearancenote to be scanned into [employer]. PATIENT EDUCATION SCREENING Person taught: Patient Motivation Level: Asks Questions and Eager to Learn Language Barrier: No Physical Barrier: N/A METHOD: Lecture-telephone interview Patient Preferred Learning Methods: Lecture-Telephone interview Health History interview completed, questions answered, and the following patient instructions provided via telephone interview: Preoperative bathing instructions General preoperative instructions Medication instructions NPO instructions - If your normal morning routine take your Inhaler, Levothyroxine, Prednisone, Protonix, and Rosuvastatin the morning of surgery. If you take metformin, hold it the evening before surgery as well. Notobacco products after midnight. Pt states his low dose ASA is on hold. OUTCOME: State / Describe / Explain and Needs Reinforcement documented in this encounter OR Notes * OR Surgeon - Agustin Chery MD - 08/15/2023 10:15 AM EDT [facility] [address] OPERATIVE REPORT Name: Myron Corado Date: 08/15/2023 Time: 10:15 AM Location: [facility] Service: Urology Date of Operation: 08/15/2023 Pre-op Diagnosis: Refractory BPH. Post-op Diagnosis: Same. Surgeon: Agustin Chery MD Assistants: None. Anesthesia: general anesthesia with laryngeal mask Operation: Greenlight vaporization of prostate. Findings: Open prostatic fossa after 110,000 joules of energy used. Specimen and Disposition: None. Estimated Blood Loss: Minimal. Fluids: <1000 cc. Urine Output: Not measured. Drains/Implants: 24 Cook Islander silicone Tyler catheter with 15 mL of sterile water in the balloon.. Complications: None. Postoperative Condition: Stable. Indications and History: Patient is a pleasant 77-year-old male found to have history of BPH on office cystoscopy and persistent voiding symptoms despite use of maximal medical therapy orally. After discussion of risks and benefits of various forms of management patient has decided upon GreenLight vaporization of the prostate to manage his disease. IV Tylenol provided for additional perioperative analgesia. PerioperativeAncef provided for antibiotic coverage and SCDs used for DVT prophylaxis. Please see H&P and outpatient notes for further details. Informed consent was present in the chart, no new questions, wishes to proceed. Description of Operation: Patient was properly identified and brought into the operative suite after identification of appropriate consent in the chart. general anesthesia with laryngeal mask was initiated and patient was prepped and draped in the standard fashion for this procedure. faith doctor-out procedure was followed. A well lubricated GreenLight laser resectoscope visual obturator was introduced through the meatus into the urethra using a visual obturator. Urethra demonstrated no abnormalities. Prostatic urethra demonstrated moderate lateral lobe prostatic obstruction, median lobe element, and with modest intravesical extension . Bladder neck was visualized and bladder was entered. Sterile irrigation was used todistend the bladder which was noted to have no tumors, stones or mucosal abnormalities with grade 3trabeculation. Bladder was circumferentially inspected. Ureteral orifices were noted to be in the normal anatomic position bilaterally and adequately removed from the bladder neck. Using a side fire G reenLight laser fiber circumferential vaporization of the prostate was undertaken. Care was taken to avoid any resection distal to the verumontanum. Ureteral orifices were noted to be intact at the end of the case. Relaxing incisions were made at the 5 and 7 o'clock position at the bladder neck to avoid future bladder neck contracture. Vaporization was continued until the prostate was noted to bevisually unobstructed. This took place after approximately 110K joules of energy were used. Hemostasis was obtained as necessary using coagulation settings. After resection was complete bladder was partially distended and resectoscope was removed. Twenty-two silicone Cook Islander Tyler catheter was placed with return of clear irrigant and 15 mL of sterile water in the balloon. Catheter was placed to gravity drainage and anesthesia was reversed. Patient was transferred to the recovery room in stable condition. Postoperative Care: Patient will be discharged home with following prescriptions: Percocet and Pyridium. Patient uses baseline Bactrim. Outpatient appointment for trial of void and postoperative check were confirmed. Patient is instructed to contact our office with any fevers, chills, nausea, vomiting or other postoperative concerns. Attestation: Agustin Chery MD performed the case. documented in this encounter Miscellaneous Notes * Pt Handout (on AVS) - Donovan Saeed RN - 08/15/2023 10:56 AM EDT Images from the original note were not included. [id number] Taking Care of Your Urinary Catheter Bag You have an indwelling urinary catheter. This drains urine from your bladder into a bag. The bag can be one that is used at your bedside. Or it can be a smaller bag that is strapped to your leg. Follow the steps below to care for a urinary bag. Step 1. Drain the bag Wash your hands well with soap and water to prevent infecting the urinary catheter and bag. If the short drainage tube is inserted into a pocket on the bag, take the drainage tube out of the pocket. Hold the drainage tube over a toilet or measuring container. Open the valve. Don?t touch the tip of the valve or let it touch the toilet or container. Wash your hands again. Some bags are disposable while others may be cleaned. Ask your care team for advice for your bag. Step 2. Clean the drainage tube When the bag is empty, clean the tip of the drainage valve with an alcohol wipe. Close the valve. Reinsert the drainage tube into the pocket, if there is one. Step 3. Clean your skin Wash your hands well before and after cleaning your skin. If you have a catheter (such as a Tyler) that enters through the urethra, clean the urethral area with soap and water 1 time(s) daily as you were taught by your healthcare provider. You should also clean after every bowel movement to prevent infection. o Don't pull on the tubing when cleaning so you don?t injure the urethra. o Don?t apply antibiotic ointment or any other antibacterial product to the urethra. o Don?t use lubricant on the urethra. o Don?t apply powder to the genital area or to the tubing. If you have a suprapubic catheter, your provider will tell you how to clean your skin around thecatheter. This is a catheter that was surgically placed into the bladder through the lower belly (abdomen). Step 4. Check and clean the catheter tubing Check the tubing. If there are kinks, cracks, clogs, or you can?t see into the tubing, you?ll need to change to new tubing as you were shown by your healthcare provider. If the current tubing can still be used, wash it with soap and water. Always wash the tubing in the direction away from your body. Don't pull on the tubing. Dry the tubing with a clean washcloth or paper towel. When to call your healthcare provider Call your healthcare provider right away if you have any of these: Little or no urine flowing into the bag Urine leaking where the catheter enters the body Pain, burning feeling, or redness where the catheter enters the body Bloody urine (a trace of blood is normal) Cloudy or bad-smelling urine, or sand-like grains in your urine Pain in your lower back or lower belly (abdomen) Your catheter falls out Fever of 100.4 F ( 38C ) or higher, or as advised by your provider Shaking chills Last Reviewed Date: 05/26/202319996771-1231 [employer]. All rights reserved. This information is not intended as a substitute for professional medical care. Always follow your healthcare professional's instructions. * Pt Handout (on AVS) - Donovan Saeed RN - 08/15/2023 10:56 AM EDT Images from the original note were not included. [id number] Discharge Instructions: Caring for Your Leg Bag You are going home with a urinary catheter and collection device (drainage bag) in place. One type of collection device is called a leg bag. This is a smaller drainage bag that you can wear on your leg to collect urine during the day. The bag can fit under your clothing. You can move around with greater ease when using a leg bag instead of a larger collection bag. You were shown how to care for your catheter in the hospital. This sheet will help you remember those steps when you are at home. Home care Wash your hands thoroughly before and after you care for your catheter or collection device. Gather your supplies: o Alcohol wipes o Soap and water o Towel and washcloth o Leg strap and leg bag Use soap and water to wash the area where your catheter enters your body. Rinse well. Secure the bag zuleta to your leg: o Put the leg band high on your thigh with the product label pointing away from your leg. o Stretch the leg band in place and fasten. o Place the catheter tubing over the bag and secure it. You may secure it with a Velcro tab or other method, depending on the product you use. Be sure to leave enough loop in the catheter above the leg band so you won't pull on the tube. o Every 4 to 6 hours, reposition the band. This will prevent pressure from the elastic on your leg.You can do this by changing the bag to the other leg or by raising or lowering the leg band. o Wash the band as often as needed. You can hand wash and dry the leg band. Place the bag in the bag zuleta. Clean the urine bag end of the catheter and your catheter port with an alcohol wipe. Place a towel under the bag and port to keep urine from dripping onto your leg. Before connecting the outlet valve at the bottom of the bag to the catheter, make sure that it is firmly closed. Flip the valve up toward the bag. It needs to snap firmly in place. Don't tug on the tubing. Be gentle. Attach the urine bag to the end of the catheter. Insert the connector snugly into the catheter port. You can prevent dribbling urine by bending the catheter tubing just below the tip and holding it while you disconnect it from the catheter. Be careful to keep the tip clean while connecting the leg bag tubing to the catheter. This keeps germs from getting into the system. Drain the bag when it's full. To drain the bag, flip the clamp downward. Direct the flexible outlet tube to control the flow of urine. You don?t have to disconnect the leg bag from the catheter toempty it. Raise your leg up to the edge of the toilet to reach the leg bag. Then you can empty the bag directly into the toilet. This way, you won?t need to bend over, which may be uncomfortable. Keep the leg bag clean. Your healthcare provider may advise that you use a certain solution to clean the bag. Solutions that may be advised include: o 2 parts vinegar and 3 parts water o 1 tablespoon of chlorine bleach mixed with a half cup of water Ask your healthcare provider how often you should clean your bag and what solution you should use ?to reduce odor and keep the bag free of germs. Shake the solution a bit and allow it to remain in the bag for 30 minutes. Drain the solution and rinse the bag with cold tap water. Hang the bag to drain and air dry. Remember to keep the drainage bag below the level of your bladder for correct drainage. Follow-up Make a follow-up appointment as directed by your healthcare provider. When to call your healthcare provider Call your healthcare provider right away if you have any of the following: Redness, swelling, or warmth around the catheter entry site Pus draining from your catheter entry site or into the catheter tubing and bag Blood, clots, or floating debris in the urine Nausea and vomiting Shaking chills Fever above 100.4F ( 38C), or as directed by your healthcare provider Pain that is not eased by medicine Catheter that falls out or is dislodged Last Reviewed Date: 04/24/202119990085-7250 [employer]. All rights reserved. This information is not intended as a substitute for professional medical care. Always follow your healthcare professional's instructions. * Pt Handout (on AVS) - Donovan Saeed RN - 08/15/2023 10:55 AM EDT Images from the original note were not included. [id number] Discharge Instructions: Caring for Your Indwelling Urinary Catheter You have been discharged with an indwelling urinary catheter. It's also called a Tyler catheter. A catheter is a thin, flexible tube. An indwelling urinary catheter has 2 parts. The first part is a tube that drains urine from your bladder. The second part is a bag or other device that collects the urine. The most important thing to remember is that you want to prevent infection. Always wash your hands before handling your catheter bag or tubing. Draining the bedside bag Wash your hands with soap and clean, running water. Or use an alcohol-based hand family protection specialist that contains at least 60% alcohol. Hold the drainage tube over a toilet or measuring container. Unclamp the tube and let the bag drain. Don?t touch the tip of the drainage tube or let it touch the toilet or container. You don't need to rinse the bag or drainage tube. Cleaning the drainage tube When the bag is empty, clean the tip of the drainage tube with an alcohol wipe. Clamp the tube. Reinsert the tube into the pocket on the drainage bag. Cleaning your skin and tubing Clean the skin near the catheter with soap and water. Wash your genital area from front to back. Wash the catheter tubing. Always wash the catheter in the direction away from your body. You will be told when and how to change your bag and tubing. Don?t try to remove the catheter by yourself. You may shower with the catheter in place. Emptying a leg bag Wash your hands. Remove the stopper on the bag. Drain the bag into the toilet or a measuring container. Don?t let the tip of the drainage tube touch anything, including your fingers. Clean the tip of the drainage tube with alcohol. Replace the stopper. Follow-up care Make a follow-up appointment, or as directed by your healthcare provider. When to call your healthcare provider Call your healthcare provider right away if you have any of the following: Fever of 100.4F ( 38C) or higher, or as directed by your provider Chills Leakage around the catheter insertion site Increased spasms (uncontrollable twitching) in your legs, belly (abdomen), or bladder. Occasional mild spasms are normal. Burning in the urinary tract, penis, or genital area Nausea and vomiting Aching in the lower back Cloudy or bloody (pink or red) urine, sediment or mucus in the urine, or bad- smelling urine Last Reviewed Date: 10/25/202119998994-6458 [employer]. All rights reserved. This information is not intended as a substitute for professional medical care. Always follow your healthcare professional's instructions. documented in this encounter Plan of Treatment Upcoming Encounters Date Type Department Care Team (Late st Contact Info) Description 08/19/2023 10:30 AM EDT [facility] [address] [address] Nurse Moises Scotty Ana [address] [place] [address] 09/03/2023 2:45 PM EDT [facility] [address] [place] [address] Agustin Chery MD [address] [place] [address] [place] [address] 10/08/2023 9:20 AM EDT Office Visit Dermatology [address] [place] [address] Carmelina Olivas PA-C [address] [place] [address] [place] [address] 01/07/2024 10:00 AM EST Office Visit Transplant Clinic, [place] [address] [place] [address] Jean-Pierre Catalan, [facility] [address], [place] [id number] 01/26/2024 12:40 PM EST Office Visit Pulmonary Medicine, [facility] [address] [facility] [place] [address] Carroll Garces MD [address] [facility] [place] [address] Scheduled Procedures Name Priority Associated Diagnoses Date/Ti me LASER VAPORIZATION PROSTATE BPH with obstruction/lower urinary tract symptoms 08/15/2023 8:38 AM EDT COLONOSCOPY FLEXIBLE PROXIMA L DIAGNOSTIC Recall History [...] 10/24/2019, Additional history exists GFR 06/24/2024 06/25/2023, 04/0 02/2023, 04/25/2023, Additional history exists Diabetic Eye Exam [...] Not on filedocumented as of this encounter Procedures Procedure Name Priority Date/Time Associated Diagnosis Comments GLUCOSE METER, POINT OF CARE [facility] 08/15/2023 10:21 AM EDT GLUCOSE METER, POINT OF CARE [facility] 08/15/2023 8:26 AM EDT documented in this encounter Results * (ABNORMAL) GLUCOSE METER, POINT OF CARE (08/15/2023 10:21 AM EDT) Glucose Meter 172(H) 70 - 120 mg/dL 08/15/2023 10:25 AM EDT [facility] Blood Whole blood specimen / Unknown 08/15/2023 10:21 AM EDT 08/15/2023 10:25 AM EDT Agustin Chery MD LAB POINT OF CAR E TEST DOCKED DEVICE UNSOLICITED RESULTS Performing Organization Address City/[facility]/ZIP Co de Phone Number [facility] [address] [place] [address] * (ABNORMAL) GLUCOSE METER, POINT OF CARE (08/15/2023 8:26 AM EDT) Glucose Meter 180(H) 70 - 120 mg/dL 08/15/2023 8:31 AM EDT [facility] Blood Whole blood specimen / Unknown 08/15/2023 8:26 AM EDT 08/15/2023 8:31 AM EDT Agustin Chery MD LAB POINT OF CAR E TEST DOCKED DEVICE UNSOLICITED RESULTS Performing Organization Address [facility] Co de Phone Number [facility] [address] [place] [address] documented in this encounter Visit Diagnoses Diagnosis BPH with obstruction/lower urinary tract symptoms- Primary Hypertrophy of prostate with urinary obstruction and other lower urinary tract symptoms (LUTS) BPH with obstruction/lower urinary tract symptoms Hypertrophy of prostate with urinary obstruction and other lower urinary tract symptoms (LUTS) documented in this encounter Administered Medications Inactive Administered Medications - up to 3 most recent administrations Medication Order MAR Action Action Date Dose Rate Site Acetaminophen (Ofirmev) inj 1,000 mg 1,000 mg, Intravenous, PREOP, 1 dose, First dose on Fri08/15/23 at 0830, Administer over 15 Minutes, Administer undiluted over 15 minutes! NOTE: Maximum of 4000 mg per 24 hours of acetaminophen from all acetaminophen containing products., Pre-Op, Indication: Patient is strictly NPO New Bag 08/15/2023 8:35 AM EDT 1,000 mg 400 mL/hr isolyte-S pH 7.4 infusion Intravenous, at 50 mL/hr, Plasma-LYTE 148, isolyte-S, and isolyte-S pH 7.4 are considered equivalent - including for MAR barcode scanning., CONTINUOUS, Starting on Fri08/15/23 at 0830, Until Fri08/15/23 at 1545, Pre-Op Restarted 08/15/2023 9:46 AM EDT Continue from Pre-Op 08/15/2023 9:03 AM EDT 50 mL/hr New Bag 08/15/2023 8:33 AM EDT 50 mL/hr Povidone-Iodine nasal swab 4 Swab 4 Swab, Nasal, ONCE, On Fri08/15/23 at 0915, For 1 dose, Apply to nares, Pre-Op Given 08/15/2023 9:15 AM EDT 4 Swabs documented in this encounter Active and Recently Administered Medications Times are shown in EDT. Scheduled Medication Order 08/13/2023 08/14/2023 08/15/2023 Acetaminophen (Ofirmev) inj 1,000 mg (COMPLETED) 1,000 mg, Intravenous, PREOP, 1 dose, First dose on Fri08/15/23 at 0830, Administer over 15 Minutes, Administer undiluted over 15 minutes! NOTE: Maximum of 4000 mg per 24 hours of acetaminophen from all acetaminophen containing products., Pre-Op, Indication: Patient is strictly NPO 0835 (New Bag - Prov ider: Donovan Saeed RN) ceFAZolin in dextrose (Ancef) ivpb 2 g (COMPLETED) 2 g, IV Piggyback, PREOP, 1 dose, First dose on Fri08/15/23 at 0830, Administer 60 minutes prior to skin incision, Pre-Op 0910 (Given - Provid er: JANE Sanchez) Povidone-Iodine nasal swab 4 Swab (COMPLETED) 4 Swab, Nasal, ONCE, On Fri08/15/23 at 0915, For 1 dose, Apply to nares, Pre-Op 0915 (Given - Provid er: Donovan Saeed RN) Continuous Medication Order 08/13/2023 08/14/2023 08/15/2023 isolyte-S pH 7.4 infusion Intravenous, at 50 mL/hr, Plasma-LYTE 148, isolyte-S, and isolyte-S pH 7.4 are considered equivalent - including for MAR barcode scanning., CONTINUOUS, Starting on Fri08/15/23 at 0830, Until Fri08/15/23 at 1545, Pre-Op 0833 (New Bag - Prov ider: Donovan Saeed RN)0903 (Continue from Pre-Op - Provider: JANE Sanchez)0945 (Paused - Provider: JNAE Sanchez - Comment: Switch to gravity)0946 (Restarted - Provider: JANE Sanchez)1016 (Anes Intra-Op Fluid - Provider: Valerie Fischer CRNA) isolyte-S pH 7.4 infusion Intravenous, at 50 mL/hr, Plasma-LYTE 148, isolyte-S, and isolyte-S pH 7.4 are considered equivalent - including for MAR barcode scanning., CONTINUOUS, Starting on Fri08/15/23 at 1100, Until Fri08/15/23 at 1545, Post-op 1100 (Due) PRN Medication Order 08/13/2023 08/14/2023 08/15/2023 HYDROmorphone (Dilaudid) inj 1 mg 1 mg, IV Push, Q3H PRN Pain, Severe, Starting on Fri08/15/23 at 1021, Until Fri08/15/23 at 1545, For 6 hours, Post-op ondansetron ODT (Zofran) tab 4 mg 4 mg, On Tongue, Q8H PRN Nausea, Vomiting, Starting on Fri08/15/23 at 1021, Until Fri08/15/23 at 1545, For 6 hours, Give if patient is nauseated and tolerating PO, Post-op oxyCODONE-acetaminophen 5-325 mg per tab (Percocet) 1 Tablet 1 Tablet, Oral, Q4H PRN Pain, Moderate, Starting on Fri08/15/23 at 1021, Until Fri08/15/23 at 1545, For 6 hours, Maximum of 4 grams (4000 mg) of acetaminophen per day, Post-op sodium chloride IR 0.9 % irrigation (CANCELED) ONCE PRN INTRA PROCEDURE, Starting on Fri08/15/23 at 0943, Until Fri08/15/23 at 1013, Intra-Op 0943 (Given - Provid er: Agustin Chery MD) sodium chloride IR 0.9 % irrigation (CANCELED) ONCE PRN INTRA PROCEDURE, Starting on Fri08/15/23 at 0954, Until Fri08/15/23 at 1013, Intra-Op 0954 (Given - Provid er: Agustin Chery MD - Comment: op site) documented in this encounter Advance Directives * [...] Power of Attor darius? No Care Teams Repairer Helper Relationship Specialty Start Date End Date Porfirio Escobedo MD [address] [place] [address] PCP - General Internal Medicine 03/30/20 documented as of this encounter
--- OUTSIDE RECORDS SUMMARY | 2023-08-24 00:06 | External Medical Summary | Summary of Care ---
Author Name Unknown Organization [facility] Address [address] [place] [address] Phone [phone] Care Team Providers Care Apartment Maintenance Technician Name Role Phone Porfirio Kilgore MD Primary Care Provider + Reason for Visit * Reason Comments Outpatient Testing Encounter Details Date Type Department Care Team (Late st Contact Info) Description 07/29/2023 9:40 AM EDT Laboratory Laboratory [address] [place] [phone] [facility] [address] [place] [address] Kidney replaced by transplant Allergies No known active allergiesdocumented as of this encounter (statuses as of 07/29/2023) Medications Medication Sig Dispensed Refills Start Date [...] 24 Units under the skin at bedtime. 05/29/2019 Active tamsulosin (FLOMAX) 0.4 MG Capsule 1 Capsule in the morning and 1 Capsule before bedtime. 10/15/2019 Active Finasteride 5 MG Oral Tablet (Proscar) Take 1 Tablet by mouth in the morning. 03/08/2020 Active Flutter Device Use 10 breaths twice daily 1 Each 06/13/2021 Active Azelastine HCl 0.1 % Nasal Solution Administer into nostril 1 [place] in the morning AND 1 [place] before bedtime. 30 mL 12 12/18/2021 Active Nebulizer/Tubing/Aaliyah thpiece Kit Use as directed 1 Kit 05/03/2022 Active Loperamide HCl 2 MG Oral Capsule (Imodium A-D) Take 1 Capsule by mouth in the morning and 1 Capsule at noon and 1 Capsule before bedtime. 270 Capsule 3 05/22/2022 Active Furosemide 40 MG Oral Tablet (Lasix) [...] mg daily. 30 Tablet 5 07/22/2023 Active Hospital, Clinic, or Other Facility Administered Medication Ordered Dose Route Frequency Start Date End Date Status Tixagevimab inj 150 mgIndications:Kidney replaced by transplant 150 mg IM [id number] 03/13/2021 Active Cilgavimab inj 150 mgIndications:Kidney replaced by transplant 150 mg IM [id number] 03/13/2021 Active documented as of this encounter (statuses as of 07/29/2023) Active Problems Problem Noted Date Diagnosed Date [...] as of this encounter (statuses as of 07/29/2023) Resolved Problems Problem Noted Date Diagnosed Date Resolved Date Bronchiectasis without complication 12/18/2021 05/03/2022 COPD, group C, by GOLD 2017 classification 11/05/2021 05/03/2022 Overview: Per COPD GOLD Classification COPD, group B, by GOLD 2017 classification 08/03/2020 11/08/2021 Overview: Per COPD GOLD Classification Aortic regurgitation 06/14/2015 016 Pre-transplant evaluation fo r chronic kidney disease 05/16/2015 08/20/2022 documented as of this encounter (statuses as of 07/29/2023) Immunizations Name Administration Dates Next Due COVID-19 [...] drink = 0.6 oz pur e alcohol) Sex and Gender Information Value Date Recorded [...] No 08/19/2022 documented as of this encounter Plan of Treatment Upcoming Encounters Date Type Department Care Team (Latest Contact Info) Description 08/15/2023 9:23 AM EDT Hospital Encounter OR [facility], Operating Room, [facility] - 4th Floor [address] [place] [address] Agustin Chery MD [address] [place] [address] [place] [address] 08/15/2023 9:23 AM EDT - 08/15/2023 11:02 AM EDT Surgery OR [facility], Operating Room, [facility] - 4th Floor [address] [place] [address] Agustin Chery MD [address] [place] [address] [place] [address] LASER VAPORIZATION PROSTATE 08/19/2023 10:30 AM EDT Nurse Only Urology, [facility] [address] [facility] [place] [address] [place] Nurse Urology [place] [address] [address] [place] [address] 09/03/2023 2:45 PM EDT Office Visit Urology, [facility] [address] [facility] [place] [address] Agustin Chery MD [address] [address] [place] [address] 10/08/2023 9:20 AM EDT Office Visit Dermatology [address] [place] [address] Carmelina Olivas PA-C [address] [place] [address] [place] [address] 01/07/2024 10:00 AM EST Office Visit Transplant Clinic, [place] [address] [place] [address] Jean-Pierre Catalan, [facility] [address] [place] [address] 01/26/2024 12:40 PM EST Office Visit Pulmonary Medicine, [facility] [address] [facility] [place] [address] Carroll Garces [facility] [address] [facility] [address] Pending Results Name Type Priority Associated Diagnoses Date /Time 25-HYDROXY VITAMIN D Lab STAT Kidney replaced by transplant 07/29/2023 9:45 AM EDT PTH Lab STAT Kidney replaced by transplant 07/29/2023 9:45 AM EDT LIPID PANEL WITHOUT DIRECT LDL Lab STAT Kidney replaced by transplant 07/29/2023 9:45 AM EDT ALBUMIN / CREATININE RATIO, URINE Lab STAT Kidney replaced by transplant 07/29/2023 10:22 AM EDT Scheduled Procedures Name Priority Associated Diagnoses Date/Ti me LASER VAPORIZATION PROSTATE BPH with obstruction/lower urinary tract symptoms 08/15/2023 9:23 AM EDT COLONOSCOPY FLEXIBLE PROXIMA L DIAGNOSTIC [...] 2023 11/16/2021, 12/03/2020, 10/24/2019, Additional history exists O2 ASSESSMENT COMPLETED IN PAST YEAR FOR COPD 04/10/2024 04/10/2023 Albumin/Creatinine Ratio 05/25/2024 024, 04/25/2023, 03/27/2023, Additional history exists GFR 06/24/2024 06/25/2023, 04/0 02/2023, 04/25/2023, Additional history exists Diabetic Eye Exam 06/29/2024 06/30/2023, 12/23/2022 Colonoscopy 04/10/2026 04/10/2023, 03/27, 10/12/2021, Additional history [...] and other lower urinary tract symptoms (LUTS) 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 No Care Teams Apartment Maintenance Technician Relationship Specialty Start Date End Date Porfirio Kilgore MD [address] [place] [address] PCP - General Internal Medicine 03/30/20 documented as of this encounter
--- OUTSIDE RECORDS SUMMARY | 2023-08-24 00:06 | External Medical Summary | Summary of Care ---
Author Name Unknown Organization [facility] Address [address] [place] [address] Phone [phone] Care Team Providers Care Manager Shipping Name Role Phone Porfirio Kilgore MD Primary Care Provider + Reason for Visit * Reason Onset Date Comments Medication Refill 07/29/2023 loperamide Encounter Details Date Type Department Care Team (Late st Contact Info) Description 07/29/2023 Refill Transplant Clinic, [place] [address] [place] [address] [facility]al [facility] [address] [place] [address] Allergies No known active allergiesdocumented as of [...] 2 Tablets by mouth in the morning. 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 30 Tab 5 9 Active Multiple Vitamins-Minerals (MULTIVITAMIN ADULT) TABS Take 1 Tablet by mouth at bedtime. Active LANTUS SOLOSTAR 100 UNIT/ML SOPN Inject 24 Units under the skin at bedtime. 0 Active tamsulosin (FLOMAX) 0.4 MG Capsule 1 Capsule in the morning and 1 Capsule before bedtime. 0 Active Finasteride 5 MG Oral Tablet (Proscar) Take 1 Tablet by mouth in the morning. 1 Active Flutter Device Use 10 breaths twice daily 1 Each 2 Active Azelastine HCl 0.1 % Nasal Solution Administer into nostril 1 [place] in the morning AND 1 [place] before bedtime. 30 mL 12 2 Active Nebulizer/Tubing/Mo uthpiece Kit Use as directed 1 Kit 3 Active Furosemide 40 MG Oral Tablet (Lasix) Take 1 Tablet by mouth daily as needed. 3 Active levoFLOXacin 750 MG Oral Tablet (Levaquin) LEVOFLOXACIN 750 MG TABS Active predniSONE 5 MG Oral Tablet (Deltasone)Indicati ons:Kidney replaced by transplant,Need for prophylactic immunotherapy Take 1 Tablet by mouth in the morning. 90 Tablet 3 4 Active Levothyroxine Sodium 75 MCG Oral Tablet (Levoxyl) Take 1 Tablet by mouth daily first thing in the morning. (at least 30 min prior to breakfast or other meds) Active Pantoprazole Sodium 40 MG Oral Tablet Delayed Release (Protonix) TAKE ONE TABLET BY MOUTH EVERY DAY BEFORE BREAKFAST 90 Tablet 4 Active Rosuvastatin Calcium 40 MG Oral Tablet (Crestor) Take 1 Tablet by mouth in the morning. 4 Active Sulfamethoxazole-Tr imethoprim 400-80 MG Oral Tablet (Bactrim) Take 1 Tablet by mouth in the morning and 1 Tablet before bedtime. 60 Tablet 3 4 Active Albuterol Sulfate (2.5 MG/3ML) 0.083% Inhalation Nebulization Solution (Proventil)Indicati ons:Bronchiectasis with acute lower respiratory infection (HCC),COPD, group B, by GOLD 2017 classification (HCC) Inhale 1 Vial via nebulizer every 4 hours as needed for Wheezing. 540 mL 2 4 Active Trelegy Ellipta 100-62.5-25 MCG/ACT Aerosol Powder Breath Activated (Fluticasone-Umecli dinium-Vilanterol) Inhale 1 Puff by mouth in the morning. 60 Blister Dosing Unit 5 4 Active Ventolin HFA 108 (90 Base) MCG/ACT Inhalation Aerosol SolutionIndications :Mucopurulent chronic bronchitis (HCC) Inhale 2 Puffs by mouth every 4 hours as needed for Cough, Shortness of Breath or Wheezing. 18 g 5 4 Active Tacrolimus ER 1 MG Oral Tablet Extended Release 24 Hour (Envarsus XR)Indications:Kidn ey replaced by transplant Take 1 Tablet by mouth in the morning. Total dose 1.75 mg daily. 30 Tablet 5 4 Active Tacrolimus ER 0.75 MG Oral Tablet Extended Release 24 Hour (Envarsus XR)Indications:Kidn ey replaced by transplant Take 1 Tablet by mouth in the morning. Total dose 1.75 mg daily. 30 Tablet 5 4 Active Loperamide HCl 2 MG Oral Capsule (Imodium A-D) Take 1 Capsule by mouth in the morning and 1 Capsule at noon and 1 Capsule before bedtime. 270 Capsule 3 4 Active Loperamide HCl 2 MG Oral Capsule (Imodium A-D) Take 1 Capsule by mouth in the morning and 1 Capsule at noon and 1 Capsule before bedtime. 270 Capsule 3 3 07/29/19 24 Discontinu ed(Refill) Hospital, Clinic, or Other Facility Administered Medication Ordered Dose Route Frequency Start Date End Date Status Tixagevimab inj 150 mgIndications:Kidney replaced by transplant 150 mg IM [id number] 03/13/2021 Active Cilgavimab inj 150 mgIndications:Kidney replaced by transplant 150 mg IM [id number] 03/13/2021 Active documented as of this encounter [...] (15 years old or older) No 08/20/19 23 Cognitive Status Response Date of Assessm ent Because of a physical, menta l, or emotional condition, do you have serious difficulty concentrating, remembering, or making decisions? (5 years old or older) No 08/19/2022 documented as of this encounter Miscellaneous Notes * Telephone Encounter - Viral Catalan DNP - 07/29/2023 2:21 PM EDTSigned Prescriptions: Disp Refills Loperamide HCl 2 MG Oral Capsule (Imodium *270 Ca*3 Sig: Take 1Capsule by mouth in the morning and 1 Capsule at noon and 1 Capsule before bedtime.Authorizing Provider: VIRAL CATALAN documented in this encounter Plan of Treatment Upcoming Encounters Date Type Department Care Team (Latest Contact Info) Description 08/15/2023 9:23 AM EDT Hospital Encounter OR [facility], Operating Room, [facility] - 4th Floor [address] [place] [address] Agustin Chery MD [address] [place] [address] 08/15/2023 9:23 AM EDT - 08/15/2023 11:02 AM EDT Surgery OR [facility], Operating Room, [facility] - 4th Floor [address] [place] [address] Agustin Chery MD [address] [place] [address] [place] [address] LASER VAPORIZATION PROSTATE 08/19/2023 10:30 AM EDT Nurse Only Urology, [facility] 132 [place] [address] [place] Nurse Urology [facility] 132 [facility] [place] [address] 09/03/2023 2:45 PM EDT Office Visit Urology, [facility] 132 [facility] [place] [address] Agustin Chery MD 27 [facility] [address] [place] [address] 10/08/2023 9:20 AM EDT Office Visit Dermatology [address] [place] [address] Carmelina Olivas PA-C [address] [place] [address] [place] [address] 01/07/2024 10:00 AM EST [facility] [address] [place] [address] Viral Catalan[facility] [address] [place] [address] 01/26/2024 12:40 PM EST Office Visit Pulmonary Medicine, [facility] [address] [facility] [place] [address] Carroll Garces MD [address] [place] [address] Scheduled Procedures Name Priority Associated Diagnoses Date/Ti [...] Not on filedocumented as of this encounter Advance Directives * Full Code [...] Power of Attor darius? No Care Teams Manager Shipping Relationship Specialty Start Date End Date Porfirio Kilgore MD [address] [place] [address] PCP - General Internal Medicine 03/30/20 documented as of this encounter
--- OUTSIDE RECORDS SUMMARY | 2023-08-24 00:06 | External Medical Summary ---
Author Name Unknown Address Unknown Organization : Laboratory Report Ordering Provider Test Date Status BIPIN CLAUDIO 08/15/2023 08:26:12 Final Observation Date Value Abnormality Reference (Units ) Status Glucose Point of Care 08/15/2023 08:26:12 180 Above high normal 70-120 (mg/dL) Final Performing Location
--- OUTSIDE RECORDS SUMMARY | 2023-08-24 00:06 | External Medical Summary | Summary of Care ---
Author Name Unknown Organization [facility] Address [address] [place] [address] Phone [phone] Care Team Providers Care Recordist Name Role Phone Porfirio Kilgore MD Primary Care Provider + Reason for Visit * Reason Comments Outpatient Testing Encounter Details Date Type Department Care Team (Late st Contact Info) Description 07/29/2023 9:40 AM EDT Laboratory Laboratory [address] [place] [phone] [facility] [address] [place] [address] Kidney replaced by transplant Allergies No known [...] % Nasal Solution Administer into nostril 1 [place] in the morning AND 1 [place] before bedtime. 30 mL 12 12/18/2021 Active [...] mgIndications:Kidney replaced by transplant 150 mg IM [id number] 03/13/2021 Active Cilgavimab inj 150 mgIndications:Kidney replaced by transplant 150 mg IM [id number] 03/13/2021 Active documented as of this encounter [...] 08/15/2023 9:23 AM EDT Hospital Encounter OR [facility], Operating Room, [facility] - 4th Floor [address] [place] [address] Agustin Chery MD [address] [place] [address] 08/15/2023 9:23 AM EDT - 08/15/2023 11:02 AM EDT Surgery OR [facility], Operating Room, [facility] - 4th Floor [address] [place] [address] Agustin Chery MD [address] [place] [address] LASER VAPORIZATION PROSTATE 08/19/2023 10:30 AM EDT Nurse Only Urology, [facility] 132 [facility] [place] [address] [place] Nurse Urology [place] [address] [address] [place] [address] 09/03/2023 2:45 PM EDT Office Visit Urology, [facility] 132 [facility] [place] [address] Agustin Chery MD [address] [place] [address] 10/08/2023 9:20 AM EDT Office Visit Dermatology [address] [place] [address] Carmelina Olivas PA-C [address] [place] [address] [place] [address] 01/07/2024 10:00 AM EST Office Visit Transplant Clinic, [place] [address] [place] [address] Jean-Pierre Catalan, [facility] [address] [place] [address] 01/26/2024 12:40 PM EST Office Visit Pulmonary Medicine, [facility] [address] [facility] [place] [address] Carroll Garces MD [address] [facility] [address] Pending Results Name Type Priority Associated Diagnoses Date /Time 25-HYDROXY VITAMIN D Lab STAT Kidney replaced by transplant 07/29/2023 9:45 AM EDT PTH Lab STAT Kidney replaced by transplant 07/29/2023 9:45 AM EDT LIPID PANEL WITHOUT DIRECT LDL Lab STAT Kidney replaced by transplant 07/29/2023 9:45 AM EDT Scheduled Procedures Name Priority Associated [...] YEAR FOR COPD 04/10/2024 04/10/2023 Albumin/Creatinine Ratio 05/25/202405/25/ 024, 04/25/2023, 03/27/2023, Additional history exists GFR [...] Power of Attor darius? No Care Teams Recordist Relationship Specialty Start Date End Date Porfirio Kilgore MD [address] [place] [address] PCP - General Internal Medicine 03/30/20 documented as of this encounter
--- OUTSIDE RECORDS SUMMARY | 2023-08-24 00:06 | External Medical Summary | Summary of Care ---
Author Name Unknown Organization [facility] Address [address] [place] [address] Phone [phone] Care Team Providers Care Medical Insurance Claims Specialist Name Role Phone Porfirio Kilgore MD Primary Care Provider + Encounter Details Date Type Department Care Team (Late st Contact Info) Description 07/31/2023 Orders Only Transplant Clinic, [place] [address] [place], [place] [id number] Yamini Baker, RN [address] [place] [address] Kidney replaced by transplant* Allergies No known active allergiesdocumented as of this encounter (statuses as of 07/31/2023) Medications Medication Sig Dispensed Refills Start Date [...] % Nasal Solution Administer into nostril 1 [place] in the morning AND 1 [place] before bedtime. 30 mL 12 12/18/2021 Active [...] before bedtime. 270 Capsule 3 07/29/2023 Active Hospital, Clinic, or Other Facility Administered Medication Ordered Dose Route Frequency Start Date End Date Status Tixagevimab inj 150 mgIndications:Kidney replaced by transplant 150 mg IM [id number] 03/13/2021 Active Cilgavimab inj 150 mgIndications:Kidney replaced by transplant 150 mg IM [id number] 03/13/2021 Active documented as of this encounter (statuses as of 07/31/2023) Active Problems Problem Noted Date Diagnosed Date [...] as of this encounter (statuses as of 07/31/2023) Resolved Problems Problem Noted Date Diagnosed Date Resolved Date Bronchiectasis without complication 12/18/2021 05/03/2022 COPD, group C, by GOLD 2017 classification 11/05/2021 05/03/2022 Overview: Per COPD GOLD Classification COPD, group B, by GOLD 2017 classification 08/03/2020 11/08/2021 Overview: Per COPD GOLD Classification Aortic regurgitation 06/14/2015 016 Pre-transplant evaluation fo r chronic kidney disease 05/16/2015 08/20/2022 documented as of this encounter (statuses as of 07/31/2023) Immunizations Name Administration Dates Next Due COVID-19 [...] 08/15/2023 9:23 AM EDT Hospital Encounter OR [facility], Operating Room, [facility] - 4th Floor [address] [place] [address] Agustin Chery MD [address] [place] [address] 08/15/2023 9:23 AM EDT - 08/15/2023 11:02 AM EDT Surgery OR [facility], Operating Room, [facility] - 4th Floor [address] [place] [address] Agustin Chery MD [address] [place] [address] LASER VAPORIZATION PROSTATE 08/19/2023 10:30 AM EDT Nurse Only Urology, [facility] 132 [facility] [place] [address] [facility] Nurse Urology [place] [address] [address] [place] [address] 09/03/2023 2:45 PM EDT Office Visit Urology, [facility] [address] [place] [address] Agustin Chery MD [address] [place] [address] 10/08/2023 9:20 AM EDT Office Visit Dermatology [address] [place] [address] Carmelina Olivas PA-C [address] [place] [address] [place] [address] 01/07/2024 10:00 AM EST Office Visit Transplant Clinic, [place] [address] [place] [address] Jean-Pierre Catalan, [facility] [address] [place] [address] 01/26/2024 12:40 PM EST Office Visit Pulmonary Medicine, [facility] 132 [facility] [place] [address] Carroll Garces MD [address] [facility] [address] Scheduled Orders Name Type Priority Associated Diagnoses Orde r Schedule BASIC METABOLIC PANEL Lab STAT Kidney replaced by transplant Expected: 07/31/2023, Expires: 07/30/2024 Scheduled Procedures Name Priority Associated Diagnoses Date/Ti [...] IN PAST YEAR FOR COPD 04/10/2024 04/10/2023 GFR 06/24/2024 06/25/2023, 04/0 02/2023, 04/25/2023, Additional history exists Diabetic Eye Exam 06/29/2024 06/30/2023, 12/23/2022 Albumin/Creatinine Ratio 07/28/20242 024, 05/26/2023, 04/25/2023, Additional history exists Colonoscopy 04/10/2026 04/10/2023, 03/27, 10/12/2021, Additional history [...] urinary tract symptoms (LUTS) 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 No Care Teams Medical Insurance Claims Specialist Relationship Specialty Start Date End Date Porfirio Kilgore MD [address] [place] [address] PCP - General Internal Medicine 03/30/20 documented as of this encounter
--- OUTSIDE RECORDS SUMMARY | 2023-08-24 00:06 | External Medical Summary ---
Author Name Unknown Address Unknown Organization [id number]:LABORATORY [facility] - [address] [place] [address] Laboratory Report Ordering Provider Test Date Status ARACELI STRATTON 08/06/2023 10:44:19 Final Normal: <30 mg/g creatinine< br/>High: 30-300 mg/g creatinine
Very High: >300 mg/g creatinine
Nephrotic: >2200 mg/g creatinine Observation Date Value Abnormality Reference (Units ) Status Albumin, Urine 08/06/2023 10:44:19 21.84 (mg/dL) Final Creatinine, Urine 08/06/2023 10:44:19 70 (mg/dL) Final Albumin/Creatinine [Mass Ratio] in Urine 08/06/2023 10:44:19 312 Above high normal <30 (mg/g Creat) Final Performing Location LABORATORY [facility] - [address] [place] [address]
--- OUTSIDE RECORDS SUMMARY | 2023-08-24 00:06 | External Medical Summary ---
Author Name Unknown Address Unknown Organization : Laboratory Report Ordering Provider Test Date Status BIPIN CLAUDIO 08/15/2023 10:21:53 Final Observation Date Value Abnormality Reference (Units ) Status Glucose Point of Care 08/15/2023 10:21:53 172 Above high normal 70-120 (mg/dL) Final Performing Location
--- OUTSIDE RECORDS SUMMARY | 2023-08-24 00:06 | External Medical Summary ---
Author Name Unknown Address Unknown Organization [id number]:LABORATORY [facility] - [address] [place] [id number] Laboratory Report Ordering Provider Test Date Status SHANONBIPIN 08/06/2023 10:45:21 Final Observation Date Value Abnormality Reference (Units) Status Bacteria identified in Specimen by Culture 08/06/2023 10:45:21 No significant growth Final Test: Culture, Urine, Quanti tative
Specimen Source: Urine, Clean Catch
Specimen Type: Urine
Specimen Date: 08/06/2023 1045
Result Date: 08/07/2023 1243
Result Status: Final result
Resulting Lab: [facility]ORY [facility]
[address]
[place] [id number]

CULTURE

No significant growth

null Performing Location LABORATORY [facility] - [address] [facility] [address]
--- OUTSIDE RECORDS SUMMARY | 2023-08-24 00:06 | External Medical Summary | Summary of Care ---
Author Name Unknown Organization [facility] Address [address] [place] [address] Phone [phone] Care Team Providers Care Title One Reading Teacher Name Role Phone Porfirio Kilgore MD Primary Care Provider + Reason for Visit * Reason Comments Outpatient Testing Encounter Details Date Type Department Care Team (Late st Contact Info) Description 08/06/2023 10:50 AM EDT Laboratory Laboratory, [facility] 132 [place] [address] [place], Specimen Drop Off [facility] [address] [facility] [place] [address] Kidney replaced by transplant; BPH with obstruction/lower urinary tract symptoms Allergies No known active allergiesdocumented as of this encounter (statuses as of 08/06/2023) Medications Medication Sig Dispensed Refills Start Date [...] % Nasal Solution Administer into nostril 1 [place] in the morning AND 1 [place] before bedtime. 30 mL 12 12/18/2021 Active [...] mgIndications:Kidney replaced by transplant 150 mg IM [id number] 03/13/2021 Active Cilgavimab inj 150 mgIndications:Kidney replaced by transplant 150 mg IM [id number] 03/13/2021 Active documented as of this encounter (statuses as of 08/06/2023) Active Problems Problem Noted Date Diagnosed Date [...] as of this encounter (statuses as of 08/06/2023) Resolved Problems Problem Noted Date Diagnosed Date Resolved Date Bronchiectasis without complication 12/18/2021 05/03/2022 COPD, group C, by GOLD 2017 classification 11/05/2021 05/03/2022 Overview: Per COPD GOLD Classification COPD, group B, by GOLD 2017 classification 08/03/2020 11/08/2021 Overview: Per COPD GOLD Classification Aortic regurgitation 06/14/2015 016 Pre-transplant evaluation fo r chronic kidney disease 05/16/2015 08/20/2022 documented as of this encounter (statuses as of 08/06/2023) Immunizations Name Administration Dates Next Due COVID-19 [...] 08/15/2023 9:23 AM EDT Hospital Encounter OR [facility], Operating Room, [facility] - 4th Floor [address] [place] [address] Agustin Chery MD [address] [place] [address] 08/15/2023 9:23 AM EDT - 08/15/2023 11:02 AM EDT Surgery OR [facility], Operating Room, [facility] - 4th Floor [address] [place] [address] Agustin Chery MD [address] [place] [address] LASER VAPORIZATION PROSTATE 08/19/2023 10:30 AM EDT Nurse Only Urology, [facility] [address] [place] [address] [facility] Nurse Urology [facility] [address] [place] [address] 09/03/2023 2:45 PM EDT Office Visit Urology, [facility] [address] [address] Agustin Chery MD [address] [place] [address] 10/08/2023 9:20 AM EDT Office Visit Dermatology [address] [place] [address] Carmelina Olivas PA-C [address] [place] [address] [place] [address] 01/07/2024 10:00 AM EST Office Visit Transplant Clinic, [place] [address] [place] [address] Jean-Pierre Catalan, [facility] [address] [place] [address] 01/26/2024 12:40 PM EST Office Visit Pulmonary Medicine, [facility] [address] [facility] [place] [phone] Carroll Garces MD [address] [place] [address] Pending Results Name Type Priority Associated Diagnoses Date /Time ALBUMIN / CREATININE RATIO, URINE Lab STAT Kidney replaced by transplant 08/06/2023 10:44 AM EDT CULTURE, URINE, QUANTITATIVE Lab Routine BPH with obstruction/lower urinary tract symptoms 08/06/2023 10:45 AM EDT Scheduled Procedures Name Priority Associated [...] Eye Exam 06/29/2024 06/30/2023, 12/23/2022 Albumin/Creatinine Ratio 07/28/2024 024, 05/26/2023, 04/25/2023, Additional history exists Colonoscopy [...] Power of Attor darius? No Care Teams Title One Reading Teacher Relationship Specialty Start Date End Date Porfirio Kilgore MD [address] [place] [address] PCP - General Internal Medicine 03/30/20 documented as of this encounter
--- OUTSIDE RECORDS SUMMARY | 2023-08-24 00:06 | External Medical Summary | Summary of Care ---
Author Name Unknown Organization [facility] Address [address] [place] [address] Phone [phone] Care Team Providers Care Hydraulic Spinner Name Role Phone Porfirio Kilgore MD Primary Care Provider + Encounter Details Date Type Department Care Team (Late st Contact Info) Description 07/29/2023 Orders Only Transplant Clinic, [place] [address] [place], [place] [id number] Yamini Baker, RN [address] [place] [address] Kidney replaced by transplant* Allergies [...] % Nasal Solution Administer into nostril 1 [place] in the morning AND 1 [place] before bedtime. 30 mL 12 12/18/2021 Active [...] mgIndications:Kidney replaced by transplant 150 mg IM [id number] 03/13/2021 Active Cilgavimab inj 150 mgIndications:Kidney replaced by transplant 150 mg IM [id number] 03/13/2021 Active documented as of this encounter [...] 08/15/2023 9:23 AM EDT Hospital Encounter OR [facility], Operating Room, [facility] - 4th Floor [address] [place] [address] Agustin Chery MD [address] [place] [address] 08/15/2023 9:23 AM EDT - 08/15/2023 11:02 AM EDT Surgery OR [facility], Operating Room, [facility] - 4th Floor [address] [place] [address] Agustin Chery MD [address] [place] [address] LASER VAPORIZATION PROSTATE 08/19/2023 10:30 AM EDT Nurse Only Urology, [facility] 132 [facility] [place] [address] [facility] Nurse Urology [place] [address] [address] [place] [address] 09/03/2023 2:45 PM EDT Office Visit Urology, [facility] [address] [place] [address] Agustin Chery MD [address] [place] [address] 10/08/2023 9:20 AM EDT Office Visit Dermatology [address] [place] [address] Carmelina Olivas PA-C [address] [place] [address] [place] [address] 01/07/2024 10:00 AM EST Office Visit Transplant Clinic, [place] [address] [place] [address] Jean-Pierre Catalan, [facility] [address] [place] [address] 01/26/2024 12:40 PM EST Office Visit Pulmonary Medicine, [facility] 132 [facility] [place] [address] Carroll Garces MD [address] [facility] [address] Pending Results Name Type Priority Associated Diagnoses Date /Time ALBUMIN / CREATININE RATIO, URINE Lab STAT Kidney replaced by transplant 07/29/2023 10:22 AM EDT Scheduled Orders Name Type Priority Associated Diagnoses Orde r Schedule ALBUMIN / CREATININE RATIO, URINE Lab STAT Kidney replaced by transplant Every 3 Months for 4 Occurrences starting 07/29/2023 until 07/28/2024 Scheduled Procedures Name Priority Associated Diagnoses Date/Ti [...] Power of Attor darius? No Care Teams Hydraulic Spinner Relationship Specialty Start Date End Date Porfirio Kilgore MD [address] [place] [address] PCP - General Internal Medicine 03/30/20 documented as of this encounter
--- OUTSIDE RECORDS SUMMARY | 2023-08-24 00:07 | External Medical Summary ---
Author Name Unknown Address Unknown Organization K01:[facility] [place] [address] [place] [address] Laboratory Report Ordering Provider Test Date Status ARACELI STRATTON 07/29/2023 10:22:53 Final Normal: <30 mg/g creatinine< br/>High: 30-300 mg/g creatinine
Very High: >300 mg/g creatinine
Nephrotic: >2200 mg/g creatinine Observation Date Value Abnormality Reference (Units ) Status Albumin, Urine 07/29/2023 10:22:53 20.03 (mg/dL) Final Creatinine, Urine 07/29/2023 10:22:53 60 (mg/dL) Final Albumin/Creatinine [Mass Ratio] in Urine 07/29/2023 10:22:53 334 Above high normal <30 (mg/g Creat) Final Performing Location [facility] [place] [address] [place] [address]
--- OUTSIDE RECORDS SUMMARY | 2023-08-24 00:07 | External Medical Summary | Summary of Care ---
Author Name Unknown Organization [facility] Address [address] [place] [address] Phone [phone] Care Team Providers Care Pourer Metal Name Role Phone Porfirio Kilgore MD Primary Care Provider + Reason for Visit * Reason Onset Date Comments Medication Refill 07/22/2023 Envarsus Encounter Details Date Type Department Care Team (Late st Contact Info) Description 07/22/2023 Refill Transplant Clinic, [place] [address] [place] [address] Franco Fishman MD [address] [place] [address] Kidney replaced by transplant Allergies No known active allergiesdocumented as of this encounter (statuses as of 07/22/2023) Medications Medication Sig Dispensed Refills Start Date [...] % Nasal Solution Administer into nostril 1 [place] in the morning AND 1 [place] before bedtime. 30 mL 12 2 Active Nebulizer/Tubing/Mo uthpiece Kit Use as directed 1 Kit 3 Active Loperamide HCl 2 MG Oral Capsule (Imodium A-D) Take 1 Capsule by mouth in the morning and 1 Capsule at noon and 1 Capsule before bedtime. 270 Capsule 3 3 Active Furosemide 40 MG Oral Tablet [...] 30 Tablet 5 4 Active Tacrolimus ER 1 MG Oral Tablet Extended Release 24 Hour (Envarsus XR)Indications:Kidn ey replaced by transplant Take 1 Tablet by mouth in the morning. Total dose 1.75 mg daily. 30 Tablet 5 3 07/22/19 24 Discontinu ed(Refill) Tacrolimus ER 0.75 MG Oral Tablet Extended Release 24 Hour (Envarsus XR)Indications:Kidn ey replaced by transplant Take 1 Tablet by mouth in the morning. Total dose 1.75 mg daily. 30 Tablet 5 3 07/22/19 24 Discontinu ed(Refill) Hospital, Clinic, or Other Facility Administered Medication Ordered Dose Route Frequency Start Date End Date Status Tixagevimab inj 150 mgIndications:Kidney replaced by transplant 150 mg IM [id number] 03/13/2021 Active Cilgavimab inj 150 mgIndications:Kidney replaced by transplant 150 mg IM [id number] 03/13/2021 Active documented as of this encounter (statuses as of 07/22/2023) Active Problems Problem Noted Date Diagnosed Date [...] as of this encounter (statuses as of 07/22/2023) Resolved Problems Problem Noted Date Diagnosed Date Resolved Date Bronchiectasis without complication 12/18/2021 05/03/2022 COPD, group C, by GOLD 2017 classification 11/05/2021 05/03/2022 Overview: Per COPD GOLD Classification COPD, group B, by GOLD 2017 classification 08/03/2020 11/08/2021 Overview: Per COPD GOLD Classification Aortic regurgitation 06/14/2015 016 Pre-transplant evaluation fo r chronic kidney disease 05/16/2015 08/20/2022 documented as of this encounter (statuses as of 07/22/2023) Immunizations Name Administration Dates Next Due COVID-19 [...] Telephone Encounter - Viral Catalan DNP - 07/22/2023 2:58 PM EDTSigned Prescriptions: Disp Refills Tacrolimus ER 1 MG Oral Tablet Extended Re*30 Tab*5 Sig: Take 1 Tablet by mouth in the morning. Total dose 1.75 mg daily. Authorizing Provider: VIRAL CATALAN Tacrolimus ER 0.75 MG Oral Tablet Extended*30 Tab*5 Sig: Take 1 Tablet by mouth in the morning. Total dose 1.75 mg daily. Authorizing Provider: UNA CATALAN * Telephone Encounter - Yamini Baker RN - 07/22/2023 2:16 PM EDTPending Prescriptions: Disp Refills Tacrolimus ER 1 MG Oral Tablet Extended Re*30 Tab*5 Sig: Take 1Tablet by mouth in the morning. Total dose 1.75 mg daily. Tacrolimus ER 0.75 MG Oral Tablet Extended*30 Tab*5 Sig: Take 1 Tablet by mouth in the morning. Total dose 1.75 mg daily. documented in this encounter Plan of Treatment Upcoming Encounters Date Type Department Care Team (Latest Contact Info) Description 08/15/2023 9:23 AM EDT Hospital Encounter OR [facility], Operating Room, [facility] - 4th Floor [facility] [place] [address] Agustin Chery MD [address] [place] [address] 08/15/2023 9:23 AM EDT - 08/15/2023 11:02 AM EDT Surgery OR [facility], Operating Room, [facility] 400 [facility] [place] [address] Agustin Chery MD [address] [place] [address] LASER VAPORIZATION PROSTATE 08/19/2023 10:30 AM EDT Nurse Only Urology, [facility] 132 [facility] [place] [address] [facility] Nurse Urology [facility] [address] [place] [address] 09/03/2023 2:45 PM EDT Office Visit Urology, [facility] [address] [place] [address] Agustin Chery MD [address] [place] [address] 10/08/2023 9:20 AM EDT Office Visit Dermatology [address] [place] [address] Carmelina Olivas PA-C [address] [place] [address] [place] [address] 01/07/2024 10:00 AM EST Office Visit Transplant Clinic, [place] [address] [place] [address] Viral Catalan, [facility] [address] [place] [address] 01/26/2024 12:40 PM EST Office Visit Pulmonary Medicine, [facility] [address] [place] [phone] Carroll Garces MD [address] [place] [address] Scheduled Procedures Name Priority Associated Diagnoses Date/Ti [...] Power of Attor darius? No Care Teams Pourer Metal Relationship Specialty Start Date End Date Porfirio Kilgore MD [address] [place] [address] PCP - General Internal Medicine 03/30/20 documented as of this encounter
--- OUTSIDE RECORDS SUMMARY | 2023-08-24 00:07 | External Medical Summary ---
Author Name Unknown Address Unknown Organization K01:[facility] [place] [address] [place] [address] Laboratory Report Ordering Provider Test Date Status RAMANA STRATTONARIA 07/29/2023 09:45:15 Final Deficient: <20 ng/mL
Ins ufficient: 20-29 ng/mL
Recommended/Optimum:30-50 ng/mL

Vitamin D intoxication is rare. If suspicious of Vitamin D toxicity, evaluation of serum Calcium and PTH is recommended. Observation Date Value Abnormality Reference (Units ) Status 25-OH Vitamin D total 07/29/2023 09:45:15 47 >19 (ng/mL) Final Performing Location LABORATORY C - [address] [place] [address]
--- OUTSIDE RECORDS SUMMARY | 2023-08-24 00:07 | External Medical Summary | Summary of Care ---
Author Name Unknown Organization [facility] Address [address] [place] [address] Phone [phone] Care Team Providers Care Culinary Chef Name Role Phone Porfirio Kilgore MD Primary Care Provider + Reason for Visit * Reason Comments Follow Up Here 3 mo return. Encounter Details Date Type Department Care Team (Latest Contact Info) Description 07/22/2023 12:00 PM EDT Office Visit Pulmonary Medicine, [facility] [address] [facility] [place] [address] Carroll Garces MD [address] [facility] [place] [address] Mucopurulent chronic bronchitis (HCC)*; Bronchiectasis with acute lower respiratory infection (HCC); COPD, group B, by GOLD 2017 classification (HCC); Chronic cough Allergies No known active allergiesdocumented as of [...] % Nasal Solution Administer into nostril 1 [place] in the morning AND 1 [place] before bedtime. 30 mL 12 2 Active [...] or Wheezing. 18 g 5 4 Active Albuterol Sulfate (2.5 MG/3ML) 0.083% Inhalation Nebulization Solution (Proventil)Indicati ons:Bronchiectasis with acute lower respiratory infection (HCC),COPD, group B, by GOLD 2017 classification (HCC) Inhale 1 Vial via nebulizer every 4 hours as needed for Wheezing. 540 mL 2 3 07/22/19 24 Discontinu ed(Refill) Tacrolimus ER 1 MG Oral Tablet Extended [...] Tablet 5 3 07/22/19 24 Discontinu ed(Refill) Sulfamethoxazole-Tr imethoprim 400-80 MG Oral Tablet (Bactrim) Take 1 Tablet by mouth in the morning and 1 Tablet before bedtime. 60 Tablet 3 4 07/22/19 24 Discontinu ed(Refill) Ventolin HFA 108 (90 Base) MCG/ACT Inhalation Aerosol SolutionIndications :Mucopurulent chronic bronchitis (HCC) Inhale 2 Puffs by mouth every 4 hours as needed for Cough, Shortness of Breath or Wheezing. 18 g 5 4 07/22/19 24 Discontinu ed(Refill) Trelegy Ellipta 100-62.5-25 MCG/ACT Aerosol Powder Breath Activated (Fluticasone-Umecli dinium-Vilanterol) Inhale 1 Puff by mouth in the morning. 60 Blister Dosing Unit 5 4 07/22/19 24 Discontinu ed(Refill) Hospital, Clinic, or Other Facility Administered Medication Ordered Dose Route Frequency Start Date End Date Status Tixagevimab inj 150 mgIndications:Kidney replaced by transplant 150 mg IM [id number] 03/13/2021 Active Cilgavimab inj 150 mgIndications:Kidney replaced by transplant 150 mg IM [id number] 03/13/2021 Active documented as of this encounter [...] Sign Reading Time Taken Comments Blood Pressure 118/82 07/22/2023 12:03 PM EDT Pulse 83 07/22/2023 12:03 PM EDT Temperature 36.1 C (97 F) 07/22/2023 12:03 PM EDT Respiratory Rate 16 07/22/2023 12:03 PM EDT Oxygen Saturation 93% 07/22/2023 12:04 PM EDT ra-amb Inhaled Oxygen Concentration - - Weight 92.1 kg (203 lb) 07/22/2023 12:03 PM EDT Height 175.3 cm (5' 9") 07/22/2023 12:03 PM EDT Body Mass Index 29.98 07/22/2023 12:03 PM EDT documented in this encounter Functional Status [...] No 08/19/2022 documented as of this encounter Progress Notes * Carroll Garces MD - 07/22/2023 12:01 PM EDT 07/22/2023 Pulmonary Medicine, [facility] [address] [place] [id number] Myron Sheldon Corado 1945 male 77 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 Since last evaluation, patient describes overall stable, except ongoing difficulty with expectoration. Patient has received chest percussion therapy and is using it regularly. XR CHEST 2 VIEWS-06/24/2023 11:07 am HISTORY preop COMPARISON Chest radiograph dated 08/19/2022 TECHNIQUE PA and lateral views of the chest were obtained FINDINGS LINES/DEVICES: None. LUNGS/PLEURA: Stable mild eventration of the anterior right hemidiaphragm. Small linear airspace opacities at the periphery of the left lung base likely represent subsegmental atelectasis or scarring. Otherwise clear lungs. No pleural effusion or pneumothorax. CARDIOVASCULAR/MEDIASTINUM: Normal size of the cardiomediastinal silhouette. Dense mitral annular calcification.. OTHER: Unremarkable upper abdomen. No acute osseous abnormality. IMPRESSION IMPRESSION No acute cardiopulmonary disease. Patient has been tolerating Bactrim SS twice daily without significant discomfort. Periodic BMP monitoring has been continued. Minimal fluctuation noted in creatinine levels. Patient continues to follow-up with nephrology for renal monitoring. Compliant with Trelegy and rescue albuterol therapy. Denies recent hospitalizations or urgent care visits. Bronchoscopy findings and recent CT scan of chest findings were reviewed. Polymicrobial jana isolates were noted on bronchoscopy with trace mold isolates. Physical examination significant for class 3 throat, minimal basilar scattered coarse wheezing without crackles, no dullness, regular cardiac rhythm, no evidence of volume overload. At this point , we would Continue with maintenance antibiotic therapy with Bactrim SS 400/80 1 tablet twice daily. current bronchodilator regimen including Trelegy will be continued. Vest therapy will be continued. Periodic CBC, LFT and BMP monitoring Q 4-8 weeks will be continued. Pulmonary clinic follow-up in 6 month. Patient was advised to contact the office with any change insymptoms status. Assessment Mucopurulent chronic bronchitis (HCC) Traction Bronchiectasis Renal Transplant Status Immunosuppressive therapy Status Plan: C/w Bactrim SS 400/80 BID as maintenance therapy Chest VEST received. Using regularly C/w Trelegy Periodic CBC, LFT, BMP monitoring Q 8 weeks Pulmonary clinic follow-up 6 months Follow Up: Return in about 6 months (around 01/22/2024) for Clinic Visit. | For: Clinic Visit | Check-out note: Mucopurulent chronic bronchitis (HCC) Traction Bronchiectasis Renal Transplant Status Immunosuppressive therapy Status Plan: C/w Bactrim SS 400/80 BID as maintenance therapy Chest VEST received. Using regularly C/w Trelegy Periodic CBC, LFT, BMP monitoring Q 8 weeks Pulmonary clinic follow-up 6 months Carroll Garces MD Subjective CC: Chief Complaint Patient presents with Follow Up Here 3 mo return. HPI: Nursing Notes: Michelle Valencia LPN 07/22/23 1207 Signed Chief Complaint Patient presents with Follow Up Here 3 mo return. Interm History/Respiratory Symptoms Cough: yes-yellow Hemoptysis: no Sinus Symptoms: drainage Hospitalizations: no ED Trips: no Triggers: pollen Nocturnal: sleeps with one pillow-on side CPAP/BiPAP/O2: no DME Supplier: no Flu Vaccine: 2022 Pneumovax: none Prevnar: 2019 COVID 19: x6 . Mmrc Cat Question 07/22/2023 12:02 PM EDT - Filed by Michelle Valencia LPN When do you become breathless? (2) On level ground, I walk slower than people of the same age because of breathlessness or have to stop for breath when walking at my own pace How frequently do you cough? (4) Do you have phlegm in your chest? (3) Is your chest tight? (3) How breathless do you become when walking up a hill or steps? (4) How limited are you doing activities at home? (2) How confident are you leaving home with your lung condition? (0) - I am confident leaving my home despite my condition How soundly do you sleep? (2) How much energy do you have? (4) Total MMRC Score (range: 0 - 4) 2 Total CAT Score (range: 0 - 40) 22 Objective Filed Vitals: 07/22/23 1203 07/22/23 1204 BP: 118/82 Pulse: 83 Resp: 16 Temp: 36.1 C (97 F) TempSrc: Tympanic SpO2: 94% 93% Weight: 92.1 kg (203 lb) Height: 1.753 m (5' 9") Exam: Const: No signs of acute distress present. Head/Face: Normal on inspection. Eyes: Conjunctivae clear. Pupils equal round and reactive to light. ENMT: Oropharynx: No erythema, exudate or masses. Posterior pharynx is normal. Neck: Supple and symmetric. Resp: Respiratory examination as outlined above CV: Rate is regular. Rhythm is regular. No heart murmur appreciated. Extremities: No edema of the lower limbs bilaterally. Skin: Skin is warm and dry. Neuro: Coordination normal. No involuntary movement. Psych: Patient's attitude is cooperative. Mood is normal. Affect is normal. Tests reviewed with the patient: US RENAL Result Date: 07/09/2023 IMPRESSION Atrophic atka kidneys. No hydronephrosis. XR CHEST 2 VIEWS Result Date: 06/24/2023 IMPRESSION No acute cardiopulmonary disease. US SCROTUM/TESTES Result Date: 03/13/2023 IMPRESSION 1. Mild right scrotal wall thickening and hyperemia. Correlate clinically for signs of cellulitis. 2. Small right hydrocele. Available Radiologic data was reviewed by me in PACS. The images were shown to the patient and findings were discussed with the patient. HOME MEDICATIONS: Albuterol Sulfate (2.5 MG/3ML) 0.083% Inhalation Nebulization Solution (Proventil) Sulfamethoxazole-Trimethoprim 400-80 MG Oral Tablet (Bactrim) Trelegy Ellipta 100-62.5-25 MCG/ACT Aerosol Powder Breath Activated (Mudetlktfiv-Vmeoocsxhgfk-Kvnkldepma) Ventolin HFA 108 (90 Base) MCG/ACT Inhalation Aerosol Solution Rosuvastatin Calcium 40 MG Oral Tablet (Crestor) Pantoprazole Sodium 40 MG Oral Tablet Delayed Release (Protonix) Levothyroxine Sodium 75 MCG Oral Tablet (Levoxyl) predniSONE 5 MG Oral Tablet (Deltasone) Tacrolimus ER 0.75 MG Oral Tablet Extended Release 24 Hour (Envarsus XR) Tacrolimus ER 1 MG Oral Tablet Extended Release 24 Hour (Envarsus XR) Furosemide 40 MG Oral Tablet (Lasix) levoFLOXacin 750 MG Oral Tablet (Levaquin) Loperamide HCl 2 MG Oral Capsule (Imodium A-D) Nebulizer/Tubing/Mouthpiece Kit Azelastine HCl 0.1 % Nasal Solution Flutter Device Finasteride 5 MG Oral Tablet (Proscar) tamsulosin (FLOMAX) 0.4 MG Capsule LANTUS SOLOSTAR 100 UNIT/ML SOPN Multiple Vitamins-Minerals (MULTIVITAMIN ADULT) TABS aspirin enteric coated 81 MG TBEC Cholecalciferol (VITAMIN D) 1000 units Tablet insulin aspart (NOVOLOG) 100 UNIT/ML SOPN Cilgavimab inj 150 mg Tixagevimab inj 150 mg ROS: No reported history of Hemoptysis, Hematemesis, Melena No reported history of Dysuria, Hematuria, Flank Pain No reported history of chronic headache, seizures No reported history of Fall or trauma . No reported history of recent change in weight or appetite. Past Medical History: Diagnosis Date BPH (benign prostatic hyperplasia) CKD (chronic kidney disease) COPD (chronic obstructive pulmonary disease) (HCC) COVID-19 03/05/2022 DM (diabetes mellitus) with complications (HCC) GERD (gastroesophageal reflux disease) HTN (hypertension) resolved post transplant Hyperlipidemia Kidney transplant recipient 08/04/2018 Past Surgical History: Procedure Laterality Date BRONCHOSCOPY, DIAGNOSTIC N/A 06/15/2020 BRONCHOSCOPY DIAGNOSTIC WITH OR WITHOUT WASHING performed by Mina Boyd MD at [facility] BRONCHOSCOPY, DIAGNOSTIC N/A 04/18/2022 BRONCHOSCOPY DIAGNOSTIC WITH OR WITHOUT WASHING performed by Kush Conte MD at [facility] COLONOSCOPY, DIAGNOSTIC (RECTUM) 07/01/2019 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, diverticulosis / [facility] COLONOSCOPY, DIAGNOSTIC (RECTUM) 10/12/2021 benign adenomatous polyps, diverticulosis, repeat 1 yr / [facility] COLONOSCOPY, DIAGNOSTIC (RECTUM) 04/10/2023 diverticulosis/biopsies show adenomatous and tubulovillous adenoma/recall 3 years/COLONOSCOPY FLEXIBLE PROXIMAL DIAGNOSTIC performed by Marisa Lucia MD at ENDOSCOPY [facility] EGD, FLEXIBLE, DIAGNOSTIC 07/01/2019 mild gastric irritation on bx / [facility] EGD, FLEXIBLE, DIAGNOSTIC 10/12/2021 gastric nodule / [facility] EGD, FLEXIBLE, ENDO MUCOSAL RESECTION N/A 01/09/2022 lesion body of stomachESOPHAGOGASTRODUODENOSCOPY (EGD), FLEXIBLE, TRANSORAL: MUCOSAL RESECTION performed by Marisa Lucia MD at OR [facility] EGD, W/ENDOSCOPIC US N/A 01/09/2022 subepithelial lesion stomach/biopsies show GIST/ESOPHAGOGASTRODUODENOSCOPY (EGD), FLEXIBLE, TRANSORAL, ENDOSCOPIC ULTRASOUND performed by Marisa Lucia MD at OR [facility] HEMORRHOIDECTOMY, INTERNAL, 2 + COLUMNS 04/14/2020 HEMORRHOIDECTOMY EXTERNAL AND INTERNAL COMPLEX performed by Faheem Cohen MD at OR [facility] INFORMATION appendix removed INFORMATION josr IR BIOPSY 04/16/2019 RENAL BIOPSY, PERCUTANEOUS (TROCAR/NEEDLE) N/A 08/20/2018 RENAL BIOPSY PERCUTANEOUS performed by Colin Rossi MD at [facility] RENAL BIOPSY, PERCUTANEOUS (TROCAR/NEEDLE) Right 09/11/2022 RENAL BIOPSY PERCUTANEOUS performed by Colin Rossi MD at [facility] SIGMOIDOSCOPY, DIAGNOSTIC 07/27/2019 Ulcerative proctitis, adenomatous polyp, diverticulosis / [facility] TRANSPLANTATION OF KIDNEY N/A 08/04/2018 RENAL TRANSPLANT performed by Colin Rossi MD at OR [facility] Social History Socioeconomic History Marital status: Occupational History 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 Tobacco Use Smoking status: Former Current packs/day: 0.00 Average packs/day: 2.0 packs/day for 15.0 years (30.0 ttl pk-yrs) Types: Cigarettes Start date: 02/25/1960 Quit date: 02/24/1975 Years since quittin.4 Smokeless tobacco: Never Vaping Use Vaping status: Never Used Substance and Sexual Activity Alcohol use: Not Currently Drug use: Never Social History Narrative No pets No mold Oil heating Exposure to asphalt and dust/dirt Family History Problem Relation Name Age of Onset Heart failure Mother Heart failure Father Diabetes Sister Shaye Diabetes Sister Ronit Diabetes Sister Luci Heart block Sister Luci Other (part of bowl removed) Sister Luci Diabetes Sister Stephen Other (auto immune disease) Sister Stephen Diabetes Sister Jovana Coronary Artery disease Sister Jovana valve replacement Diabetes Brother aMrcos Review of patient's allergies indicates: No Known Allergies documented in this encounter Nursing Notes * Michelle Valencia LPN - 07/22/2023 12:04 PM EDT Chief Complaint Patient presents with Follow Up Here 3 mo return. Interm History/Respiratory Symptoms Cough: yes-yellow Hemoptysis: no Sinus Symptoms: drainage Hospitalizations: no ED Trips: no Triggers: pollen Nocturnal: sleeps with one pillow-on side CPAP/BiPAP/O2: no DME Supplier: no Flu Vaccine: 2022 Pneumovax: none Prevnar: 2019 COVID 19: x6 . Mmrc Cat Question 07/22/2023 12:02 PM EDT - Filed by Michelle Valencia LPN When do you become breathless? (2) On level ground, I walk slower than people of the same age because of breathlessness or have to stop for breath when walking at my own pace How frequently do you cough? (4) Do you have phlegm in your chest? (3) Is your chest tight? (3) How breathless do you become when walking up a hill or steps? (4) How limited are you doing activities at home? (2) How confident are you leaving home with your lung condition? (0) - I am confident leaving my home despite my condition How soundly do you sleep? (2) How much energy do you have? (4) Total MMRC Score (range: 0 - 4) 2 Total CAT Score (range: 0 - 40) 22 documented in this encounter Plan of Treatment Upcoming Encounters Date Type Department Care Team (Latest Contact Info) Description 08/15/2023 9:23 AM EDT Hospital Encounter [facility], Operating Room, [facility] - 4th Floor [address] [place] [address] [place] [address] Agustin Chery MD [address] [place] [address] 08/15/2023 9:23 AM EDT - 08/15/2023 11:02 AM EDT Surgery OR [facility], Operating Room, [facility] - 4th Floor [address] [place] [address] Agustin Chery MD [address] [place] [address] LASER VAPORIZATION PROSTATE 08/19/2023 10:30 AM EDT Nurse Only Urology, [facility] [address] [place] [address] [facility], Nurse Urology [address] [address] 09/03/2023 2:45 PM EDT Office Visit Urology, [facility] [address] [place] [address] Agustin Chery MD [address] [place] [address] 10/08/2023 9:20 AM EDT Office Visit Dermatology [address] [place] [address] Carmelina Olivas PA-C [address] [place] [address] [place] [address] 01/07/2024 10:00 AM EST Office Visit Transplant Clinic, [place] [address] [place] [address] Jean-Pierre Catalan, [facility] [address] [place] [address] 01/26/2024 12:40 PM EST Office Visit Pulmonary Medicine, [facility] [address] [place] [address] Carroll Garces MD [address] [place] [address] Scheduled Procedures Name Priority Associated Diagnoses Date/Ti [...] FOR COPD 04/10/2024 04/10/2023 Albumin/Creatinine Ratio 05/25/2024 04/2 024, 04/25/2023, 03/27/2023, Additional history exists GFR [...] and other lower urinary tract symptoms (LUTS) Mucopurulent chronic bronchitis (HCC)- Primary Mucopurulent chronic bronchitis Bronchiectasis with acute lower respiratory infection (HCC) Bronchiectasis with acute exacerbation COPD, group B, by GOLD 2017 classification (HCC) Chronic cough Cough BPH with obstruction/lower urinary tract symptoms Hypertrophy [...] Power of Attor darius? No Care Teams Culinary Chef Relationship Specialty Start Date End Date Porfirio Kilgore MD [address] [place] [id number] PCP - General Internal Medicine 03/30/20 documented as of this encounter
--- OUTSIDE RECORDS SUMMARY | 2023-08-24 00:07 | External Medical Summary ---
Author Name Unknown Address Unknown Organization [id number][facility] [place] [address] [place] [address] Laboratory Report Ordering Provider Test Date Status ARACELI STRATTON 07/29/2023 09:45:15 Final Observation Date Value Abnormality Reference (Units ) Status Parathyrin.intact [Mass/volume] in Serum or Plasma 07/29/2023 09:45:15 54 15-65 (pg/mL) Final Performing Location [facility] [address] [place] [address]
--- OUTSIDE RECORDS SUMMARY | 2023-08-24 00:07 | External Medical Summary | Summary of Care ---
Author Name Unknown Organization [facility] Address [address] [place] [address] Phone [phone] Care Team Providers Care Entertainment Lawyer Name Role Phone Porfirio Kilgore MD Primary Care Provider + Reason for Visit * Reason Comments eRx-Medication Refill Encounter Details Date Type Department Care Team (Late st Contact Info) Description 06/26/2023 Refill Gastroenterology, [facility] [address] [address] Marisa Noland MD [address] [place] [address] Allergies No known active allergiesdocumented as of this encounter (statuses as of 06/27/2023) Medications Medication Sig Dispensed Refills Start Date End Date Status insulin aspart (NOVOLOG) 100 UNIT/ML SOPNIndications:6 units breakfast and lunch12 units dinner Inject under the skin 10 units at breakfast, 12 units at lunch, and 14 units at dinner. Plus a sliding scale. 0 Active Cholecalciferol (VITAMIN D) 1000 units Tablet Take 2 Tablets by mouth in the morning. 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 30 Tab 5 9 Active Multiple Vitamins-Minerals (MULTIVITAMIN ADULT) TABS Take 1 Tablet by mouth at bedtime. 0 Active LANTUS SOLOSTAR 100 UNIT/ML SOPN Inject 24 Units under the skin at bedtime. 0 0 Active tamsulosin (FLOMAX) 0.4 MG Capsule 1 Capsule in the morning and 1 Capsule before bedtime. 0 0 Active Finasteride 5 MG Oral Tablet (Proscar) Take 1 Tablet by mouth in the morning. 0 1 Active Flutter Device Use 10 breaths twice daily 1 Each 0 2 Active Azelastine HCl 0.1 % Nasal Solution Administer into nostril 1 [place] in the morning AND 1 [place] before bedtime. 30 mL 12 2 Active Nebulizer/Tubing/M outhpiece Kit Use as directed 1 Kit 0 3 Active Albuterol Sulfate (2.5 MG/3ML) 0.083% Inhalation Nebulization Solution (Proventil)Indicat ions:Bronchiectasi s with acute lower respiratory infection (HCC),COPD, group B, by GOLD 2017 classification (HCC) Inhale 1 Vial via nebulizer every 4 hours as needed for Wheezing. 540 mL 2 3 Active Loperamide HCl 2 MG Oral Capsule (Imodium A-D) Take 1 Capsule by mouth in the morning and 1 Capsule at noon and 1 Capsule before bedtime. 270 Capsule 3 3 Active Furosemide 40 MG Oral Tablet (Lasix) Take 1 Tablet by mouth daily as needed. 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 Total dose 1.75 mg daily. 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 Total dose 1.75 mg daily. 30 Tablet 5 3 Active predniSONE 5 MG Oral Tablet (Deltasone)Indicat ions:Kidney replaced by transplant,Need for prophylactic immunotherapy Take 1 Tablet by mouth in the morning. 90 Tablet 3 4 Active Levothyroxine Sodium 75 MCG Oral Tablet (Levoxyl) Take 1 Tablet by mouth daily first thing in the morning. (at least 30 min prior to breakfast or other meds) 0 Active Sulfamethoxazole-T rimethoprim 400-80 MG Oral Tablet (Bactrim) Take 1 Tablet by mouth in the morning and 1 Tablet before bedtime. 60 Tablet 3 4 08/01/19 24 Active Ventolin HFA 108 (90 Base) MCG/ACT Inhalation Aerosol SolutionIndication s:Mucopurulent chronic bronchitis (HCC) Inhale 2 Puffs by mouth every 4 hours as needed for Cough, Shortness of Breath or Wheezing. 18 g 5 4 Active Trelegy Ellipta 100-62.5-25 MCG/ACT Aerosol Powder Breath Activated (Fluticasone-Umecl idinium-Vilanterol ) Inhale 1 Puff by mouth in the morning. 60 Blister Dosing Unit 5 4 Active Pantoprazole Sodium 40 MG Oral Tablet Delayed Release (Protonix) TAKE ONE TABLET BY MOUTH EVERY DAY BEFORE BREAKFAST 90 Tablet 0 4 Active Pantoprazole Sodium 40 MG Oral Tablet Delayed Release (Protonix) TAKE ONE TABLET BY MOUTH EVERY DAY BEFORE BREAKFAST 90 Tablet 0 4 06/27/19 24 Discontinued Hospital, Clinic, or Other Facility Administered Medication Ordered Dose Route Frequency Start Date End Date Status Tixagevimab inj 150 mgIndications:Kidney replaced by transplant 150 mg IM [id number] 03/13/2021 Active Cilgavimab inj 150 mgIndications:Kidney replaced by transplant 150 mg IM [id number] 03/13/2021 Active documented as of this encounter (statuses as of 06/27/2023) Active Problems Problem Noted Date Diagnosed Date [...] as of this encounter (statuses as of 06/27/2023) Resolved Problems Problem Noted Date Diagnosed Date Resolved Date Bronchiectasis without complication 12/18/2021 05/03/2022 COPD, group C, by GOLD 2017 classification 11/05/2021 05/03/2022 Overview: Per COPD GOLD Classification COPD, group B, by GOLD 2017 classification 08/03/2020 11/08/2021 Overview: Per COPD GOLD Classification Aortic regurgitation 06/14/2015 016 Pre-transplant evaluation fo r chronic kidney disease 05/16/2015 08/20/2022 documented as of this encounter (statuses as of 06/27/2023) Immunizations Name Administration Dates Next Due COVID-19 [...] encounter Miscellaneous Notes * Telephone Encounter - Marisa Noland MD - 06/27/2023 7:59 PM EDTSigned Prescriptions: Disp Refills Pantoprazole Sodium 40 MG Oral Tablet Ashia*90 Tab*0 Sig: TAKE ONE TABLET BY MOUTH EVERY DAY BEFORE BREAKFASTAuthorizing Provider: MARISA NOLAND * Telephone Encounter - Jewell Patterson RN - 06/27/2023 3:31 PM EDTPending Prescriptions: Disp Refills Pantoprazole Sodium 40 MG Oral Tablet Ashia*90 Tab*0 Sig: TAKE ONE TABLET BY MOUTH EVERY DAY BEFORE BREAKFAST * Telephone Encounter - Jewell Patterson RN - 06/27/2023 3:31 PM EDT Pt says Rea just did a procedure on him in [place]. Asking to have rx sent to him. * Telephone Encounter - Argentina Holm CPhT - 06/27/2023 10:36 AM EDT Pending Prescriptions: Disp Refills Pantoprazole Sodium 40 MG Oral Tablet Ashia*90 Tab*0 Sig: TAKE ONE TABLET BY MOUTH EVERY DAY BEFORE BREAKFAST * Telephone Encounter - Argentina Holm CPhT - 06/27/2023 10:35 AM EDT Received message from [facility] regarding patient needing appointment. Call Placed, Unable to reach pt, as there was no answer and no VM available to leave message. Sent the patient a Ubis[employer] message to advise. Thank you, Argentina Holm [facility] Managed Services Sales Consultant III [facility]) (formerly Telepharmacy) 06/27/2023,10:35 AM * Telephone Encounter - Rogelio Agudelo [facility] - 06/27/2023 10:31 AM EDTPending Prescriptions: Disp Refills Pantoprazole Sodium 40 MG Oral Tablet Ashia*90 Tab*0 Sig: TAKE ONE TABLET BY MOUTH EVERY DAY BEFORE BREAKFAST * Telephone Encounter - Rogelio Agudelo [facility] - 06/27/2023 10:26 AM EDT Please contact patient so that an appointment can be scheduled with his GASTROENTEROLOGY provider before this refill can be authorized. After contacting patient, please forward request to the provider they schedule with (if unable to reach, use [facility] Nurse [place]). Last Visit: 10/25/2021 (in office), 05/11/2020 (telemedicine) Next Visit: Visit date not found Thanks, Thad Agudelo, PharmD Clinical Pharmacist [facility] ([facility]) (Formerly Telepharmacy) [phone] 06/27/2023 10:31 AM documented in this encounter Plan of Treatment Upcoming Encounters Date Type Department Care Team (Latest Contact Info) Description 07/02/2023 12:30 PM EDT [facility] [address] [place] [address] [facility] [address] [place] [address] 07/07/2023 1:00 PM EDT Office Visit Dermatology [facility] [address] [place] [address] Phill Vegas MD [address] [place] [address] 07/22/2023 12:00 PM EDT Office Visit Pulmonary Medicine, [facility] [address] [facility] [place] [address] Carroll Garces MD [address] [facility] [place] [address] 08/15/2023 9:23 AM EDT Hospital Encounter OR [facility], Operating Room, [facility] - 4th Floor [address] [place] [address] Agustin Chery MD [address] [place] [address] 08/15/2023 9:23 AM EDT - 08/15/2023 11:02 AM EDT Surgery OR [facility], Operating Room, [facility] - 4th Floor [address] [facility] [place] [address] Agustin Chery MD [address] [place] [place] [address] LASER VAPORIZATION PROSTATE 08/19/2023 10:30 AM EDT Nurse Only Urology, [facility] [address] [place] [address] [facility] Nurse Urology [facility] 132 [place] [address] 09/03/2023 2:45 PM EDT Office Visit Urology, [facility] 132 [place] [address] Agustin Chery MD [address] [place] [address] Scheduled Procedures Name Priority Associated Diagnoses Date/Ti [...] 2023 11/16/2021, 12/03/2020, 10/24/2019, Additional history exists Diabetic Eye Exam 12/24/2023 12/23/2022 O2 ASSESSMENT COMPLETED IN PAST YEAR FOR COPD 04/10/2024 04/10/2023 Albumin/Creatinine Ratio 05/25/2024 024, 04/25/2023, 03/27/2023, Additional history exists GFR 06/24/2024 06/25/2023, 04/0 02/2023, 04/25/2023, Additional history exists Colonoscopy 04/10/2026 04/10/2023, [...] filedocumented as of this encounter Advance Directives Latest Code Status on File Code Status Date Activated Date Inactivated Comments Full Code 08/19/2022 7:47 PM 08/20/2022 7:02 PM This order reflects the patients wishes and were consensually agreed upon. Question Answer Comments Discussion of Advance Directives occurred with: Not Discussed due to patient's condition Code Status History Code Status Date Activated Date Inactivated Comments Full Code 01/09/2022 3:06 PM 01/10/2022 5:35 PM Thi s order reflects the patients wishes and were consensually agreed upon. Question Answer Comments Discussion of Advance Directives occurred with: Not Discussed due to patient's condition Full Code 08/04/2018 1:34 PM 08/07/2018 7:40 PM This order reflects the patients wishes and were consensually agreed upon. Question Answer Comments Discussion of Advance Directives occurred with: Patient Does the patient have a Living Will? No Does the patient have Health Care Power of Furnace Tapper? No Care Teams Entertainment Lawyer Relationship Specialty Start Date End Date Porfirio Kilgore MD [address] [place] [address] PCP - General Internal Medicine 03/30/20 documented as of this encounter
--- OUTSIDE RECORDS SUMMARY | 2023-08-24 00:07 | External Medical Summary | Summary of Care ---
Author Name Unknown Organization [facility] Address [address] [place] [address] Phone [phone] Care Team Providers Care Supervisor Wool Shearing Name Role Phone Porfirio Kilgore MD Primary Care Provider + Reason for Visit * Reason Comments Outpatient Testing Encounter Details Date Type Department Care Team (Late st Contact Info) Description 07/29/2023 9:40 AM EDT Laboratory Laboratory [address] [place] [phone] [facility] [address] [place] [address] Kidney replaced by transplant Allergies No known [...] % Nasal Solution Administer into nostril 1 [place] in the morning AND 1 [place] before bedtime. 30 mL 12 12/18/2021 Active [...] mgIndications:Kidney replaced by transplant 150 mg IM [id number] 03/13/2021 Active Cilgavimab inj 150 mgIndications:Kidney replaced by transplant 150 mg IM [id number] 03/13/2021 Active documented as of this encounter [...] 08/15/2023 9:23 AM EDT [facility], [facility], [facility] - 4th Floor [address] [place] [address] Agustin Chery MD [address] [place] [address] 08/15/2023 9:23 AM EDT - 08/15/2023 11:02 AM EDT [facility], [facility] - 4th Floor [address] [place] [address] Agustin Chery MD [address] [place] [address] LASER VAPORIZATION PROSTATE 08/19/2023 10:30 AM EDT Nurse Only Urology, [facility] 132 [facility] [place] [address] [place] Nurse Urology [place] [address] [address] [place] [address] 09/03/2023 2:45 PM EDT Office Visit Urology, [facility] [address] [facility] [place] [address] Agustin Chery MD [address] [place] [address] 10/08/2023 9:20 AM EDT Office Visit Dermatology [address] [place] [address] Carmelina Olivas PA-C [address] [place] [address] [place] [address] 01/07/2024 10:00 AM EST Office Visit Transplant Clinic, [place] [address] [place] [address] Jean-Pierre Catalan, [facility] [address] [place] [address] 01/26/2024 12:40 PM EST Office Visit Pulmonary Medicine, [facility] [address] [facility] [place] [address] Carroll Garces MD [address] [facility] [address] Pending Results Name Type Priority Associated Diagnoses [...] Power of Attor darius? No Care Teams Supervisor Wool Shearing Relationship Specialty Start Date End Date Porfirio Kilgore MD [address] [place] [address] PCP - General Internal Medicine 03/30/20 documented as of this encounter
--- OUTSIDE RECORDS SUMMARY | 2023-08-24 00:07 | External Medical Summary | Summary of Care ---
Author Name Unknown Organization [facility] Address [address] [facility] [address] Phone [phone] Care Team Providers Care Sap Solutions Architect Name Role Phone Porfirio Kilgore MD Primary Care Provider + Encounter Details Date Type Department Care Team (Late st Contact Info) Description 06/26/2023 Orders Only PATIENT PORTAL DO NOT DELETE THIS DEPT USED BY [place] [place] [address] Allergies No known active allergiesdocumented as of this encounter (statuses as of 06/26/2023) Medications Medication Sig Dispensed Refills Start Date End Date Status insulin aspart (NOVOLOG) 100 UNIT/ML SOPNIndications:6 units breakfast and lunch12 units dinner Inject under the skin 10 units at breakfast, 12 units at lunch, and 14 units at dinner. Plus a sliding scale. 0 Active Cholecalciferol (VITAMIN D) 1000 units Tablet Take 2 Tablets by mouth in the morning. 0 12/17/2016 Active aspirin enteric coated 81 MG TBECIndications:Rece ived kidney from donor with hepatitis C Take 1 Tab by mouth daily. 30 Tab 5 08/04/2018 Active Multiple Vitamins-Minerals (MULTIVITAMIN ADULT) TABS Take 1 Tablet by mouth at bedtime. 0 Active LANTUS SOLOSTAR 100 UNIT/ML SOPN Inject 24 Units under the skin at bedtime. 0 05/29/2019 Active tamsulosin (FLOMAX) 0.4 MG Capsule 1 Capsule in the morning and 1 Capsule before bedtime. 0 10/15/2019 Active Finasteride 5 MG Oral Tablet (Proscar) Take 1 Tablet by mouth in the morning. 0 03/08/2020 Active Flutter Device Use 10 breaths twice daily 1 Each 0 06/13/2021 Active Azelastine HCl 0.1 % Nasal Solution Administer into nostril 1 [place] in the morning AND 1 [place] before bedtime. 30 mL 12 12/18/2021 Active Nebulizer/Tubing/Aaliyah thpiece Kit Use as directed 1 Kit 0 05/03/2022 Active Albuterol Sulfate (2.5 MG/3ML) 0.083% Inhalation Nebulization Solution (Proventil)Indicatio ns:Bronchiectasis with acute lower respiratory infection (HCC),COPD, group B, by GOLD 2017 classification (HCC) Inhale 1 Vial via nebulizer every 4 hours as needed for Wheezing. 540 mL 2 05/21/2022 Active Loperamide HCl 2 MG Oral Capsule (Imodium A-D) Take 1 Capsule by mouth in the morning and 1 Capsule at noon and 1 Capsule before bedtime. 270 Capsule 3 05/22/2022 Active Furosemide 40 MG Oral Tablet (Lasix) Take 1 Tablet by mouth daily as needed. 0 10/22/2022 Active levoFLOXacin 750 MG Oral Tablet (Levaquin) LEVOFLOXACIN 750 MG TABS 0 Active Tacrolimus ER 1 MG Oral Tablet Extended Release 24 Hour (Envarsus XR)Indications:Kidne y replaced by transplant Take 1 Tablet by mouth in the morning. Total dose 1.75 mg daily. 30 Tablet 5 02/18/2023 Active Tacrolimus ER 0.75 MG Oral Tablet Extended Release 24 Hour (Envarsus XR)Indications:Kidne y replaced by transplant Take 1 Tablet by mouth in the morning. Total dose 1.75 mg daily. 30 Tablet 5 02/18/2023 Active predniSONE 5 MG Oral Tablet (Deltasone)Indicatio ns:Kidney replaced by transplant,Need for prophylactic immunotherapy Take 1 Tablet by mouth in the morning. 90 Tablet 3 03/10/2023 Active Pantoprazole Sodium 40 MG Oral Tablet Delayed Release (Protonix) TAKE ONE TABLET BY MOUTH EVERY DAY BEFORE BREAKFAST 90 Tablet 0 03/24/2023 Active Levothyroxine Sodium 75 MCG Oral Tablet (Levoxyl) Take 1 Tablet by mouth daily first thing in the morning. (at least 30 min prior to breakfast or other meds) 0 Active Sulfamethoxazole-Tri methoprim 400-80 MG Oral Tablet (Bactrim) Take 1 Tablet by mouth in the morning and 1 Tablet before bedtime. 60 Tablet 3 04/03/2023 4 Active Ventolin HFA 108 (90 Base) MCG/ACT Inhalation Aerosol SolutionIndications: Mucopurulent chronic bronchitis (HCC) Inhale 2 Puffs by mouth every 4 hours as needed for Cough, Shortness of Breath or Wheezing. 18 g 5 04/21/2023 Active Trelegy Ellipta 100-62.5-25 MCG/ACT Aerosol Powder Breath Activated (Fluticasone-Umeclid inium-Vilanterol) Inhale 1 Puff by mouth in the morning. 60 Blister Dosing Unit 5 04/21/2023 Active Hospital, Clinic, or Other Facility Administered Medication Ordered Dose Route Frequency Start Date End Date Status Tixagevimab inj 150 mgIndications:Kidney replaced by transplant 150 mg IM [id number] 03/13/2021 Active Cilgavimab inj 150 mgIndications:Kidney replaced by transplant 150 mg IM [id number] 03/13/2021 Active documented as of this encounter (statuses as of 06/26/2023) Active Problems Problem Noted Date Diagnosed Date [...] as of this encounter (statuses as of 06/26/2023) Resolved Problems Problem Noted Date Diagnosed Date Resolved Date Bronchiectasis without complication 12/18/2021 05/03/2022 COPD, group C, by GOLD 2017 classification 11/05/2021 05/03/2022 Overview: Per COPD GOLD Classification COPD, group B, by GOLD 2017 classification 08/03/2020 11/08/2021 Overview: Per COPD GOLD Classification Aortic regurgitation 06/14/2015 016 Pre-transplant evaluation fo r chronic kidney disease 05/16/2015 08/20/2022 documented as of this encounter (statuses as of 06/26/2023) Immunizations Name Administration Dates Next Due COVID-19 [...] 07/02/2023 12:30 PM EDT Office Visit Transplant Clinic, [place] [address] [place] [address] Jean-Pierre Catalan, [place] [address] [place] [address] 07/07/2023 1:00 PM EDT [facility] [address] [facility] [place] [address] Phill Vegas MD [address] [place] [address] 07/22/2023 12:00 PM EDT Office Visit Pulmonary Medicine, [facility] 132 [facility] [place] [address] Carroll Garces MD [address] [place] [facility] [place] [address] 08/15/2023 9:23 AM EDT Hospital Encounter OR [facility], Operating Room, [facility] - 4th Floor [address] [facility] [place] [address] Agustin Chery MD [address] [place] [address] 08/15/2023 9:23 AM EDT - 08/15/2023 11:02 AM EDT Surgery OR [facility], Operating Room, [facility] - 4th Floor [address] [facility] [place] [address] Agustin Chery MD [address] [place] [address] LASER VAPORIZATION PROSTATE 08/19/2023 10:30 AM EDT Nurse Only Urology, [facility] [address] [place] [address] [facility] Nurse Urology [facility] [address] [place] [address] 09/03/2023 2:45 PM EDT Office Visit Urology, [facility] [address] [place] [address] Agustin Chery MD [address] [place] [address] Scheduled Procedures Name Priority Associated Diagnoses Date/Ti [...] the patient have Health Care Power of Etl Manager? No Care Teams Sap Solutions Architect Relationship Specialty Start Date End Date Porfirio Kilgore MD [address] [place] [address] PCP - General Internal Medicine 03/30/20 documented as of this encounter
--- OUTSIDE RECORDS SUMMARY | 2023-08-24 00:07 | External Medical Summary | Summary of Care ---
Author Name Unknown Organization [facility] Address [address] [place] [address] Phone [phone] Care Team Providers Care Emt Name Role Phone Porfirio Kilgore MD Primary Care Provider + Encounter Details Date Type Department Care Team (Late st Contact Info) Description 07/02/2023 12:30 PM EDT Office Visit Transplant Clinic, [place] [address] [place] [address] Jean-Pierre Catalan, [facility] [address] [place] [address] Kidney replaced by transplant*; Acute right-sided low back pain without sciatica; History of membranous glomerulonephritis; Immunodeficiency, unspecified (HCC) Allergies No known active allergiesdocumented as of this encounter (statuses as of 07/07/2023) Medications Medication Sig Dispensed Refills Start Date [...] % Nasal Solution Administer into nostril 1 [place] in the morning AND 1 [place] before bedtime. 30 mL 12 12/18/2021 Active [...] Tablet before bedtime. 60 Tablet 3 04/03/2023 Active Ventolin HFA 108 (90 Base) MCG/ACT Inhalation Aerosol SolutionIndications: Mucopurulent chronic bronchitis (HCC) Inhale 2 Puffs by mouth every 4 hours as needed for Cough, Shortness of Breath or Wheezing. 18 g 5 04/21/2023 Active Trelegy Ellipta 100-62.5-25 MCG/ACT Aerosol Powder Breath Activated (Fluticasone-Umeclid inium-Vilanterol) Inhale 1 Puff by mouth in the morning. 60 Blister Dosing Unit 5 04/21/2023 Active Pantoprazole Sodium 40 MG Oral Tablet Delayed Release (Protonix) TAKE ONE TABLET BY MOUTH EVERY DAY BEFORE BREAKFAST 90 Tablet 0 06/27/2023 Active Rosuvastatin Calcium 40 MG Oral Tablet (Crestor) Take 1 Tablet by mouth in the morning. 0 05/13/2023 Active Hospital, Clinic, or Other Facility Administered Medication Ordered Dose Route Frequency Start Date End Date Status Tixagevimab inj 150 mgIndications:Kidney replaced by transplant 150 mg IM [id number] 03/13/2021 Active Cilgavimab inj 150 mgIndications:Kidney replaced by transplant 150 mg IM [id number] 03/13/2021 Active documented as of this encounter (statuses as of 07/07/2023) Active Problems Problem Noted Date Diagnosed Date [...] as of this encounter (statuses as of 07/07/2023) Resolved Problems Problem Noted Date Diagnosed Date Resolved Date Bronchiectasis without complication 12/18/2021 05/03/2022 COPD, group C, by GOLD 2017 classification 11/05/2021 05/03/2022 Overview: Per COPD GOLD Classification COPD, group B, by GOLD 2017 classification 08/03/2020 11/08/2021 Overview: Per COPD GOLD Classification Aortic regurgitation 06/14/2015 016 Pre-transplant evaluation fo r chronic kidney disease 05/16/2015 08/20/2022 documented as of this encounter (statuses as of 07/07/2023) Immunizations Name Administration Dates Next Due COVID-19 [...] 0 02/25/1960 - 02/24/1975 Smokeless Tobacco: Never Tobacco Cessation:Counseling Given: Not Answered Alcohol Use Standard Drinks/Week Comments Not Currently [...] Sign Reading Time Taken Comments Blood Pressure 121/73 07/02/2023 12:12 PM EDT Pulse 67 07/02/2023 12:12 PM EDT Temperature 36.1 C (97 F) 07/02/2023 12:12 PM EDT Respiratory Rate - - Oxygen Saturation - - Inhaled Oxygen Concentration - - Weight 89.9 kg (198 lb 3.2 oz) 07/02/2023 12:12 PM EDT Height - - Body Mass Index 29.27 04/21/2023 3:28 PM EST documented in this encounter Functional Status Functional [...] as of this encounter Progress Notes * Jean-Pierre Catalan, SERGIO - 07/02/2023 12:59 PM EDT Images from the original note were not included. Post-Transplant Follow-up Subjective CC: F/u kidney transplant HPI: This is a 77 year old male who presents for follow up of a Kidney transplant. Transplant number: 1 Transplant date: 08/04/18 Reason of ESRD: Membranous GN Dialysis vintage: 3.5 years Donor: 47 M, KDPI 99%; In Cr 0.9, Peak Cr 1.9, ter cr -1.7. CIT 20 hrs 22 mins, WIT 38 mins. Hep C Ab Pos/Lulú Pos, PHS increased risk no CMV: D Neg/R Pos EBV: D Pos/R Pos Induction: Thymo Events since transplant: CMV disease - resolved (colitis) Severe cough d/t belatacept - markedly improved since discontinuation. IS Regimen: Envarsus - 1.75 mg daily with target trough of 5-7 Prednisone 5 mg daily Interval History: Doing well. No significant complaints aside from some right- sided back pain that has been somewhat persistent, over red cliff right kidney. Having prostate procedure done soon. He denies headache, fever/chills, cough, sob/ortiz, CP, visual changes, abd symptoms (n/v/d/c), tremor. Issues getting/taking/affording immunosuppressants: Yes/No: No Physical Exam BP 121/73 (BP Site: Left Arm, BP Position: Sitting, BP Cuff Size: Regular) | Pulse 67 | Temp 36.1 C (97 F) | Wt 89.9 kg (198 lb 3.2 oz) | BMI 29.27 kg/m | BSA 2.09 m Wt Readings from Last 3 Encounters: 07/02/23 89.9 kg (198 lb 3.2 oz) 04/21/23 89.4 kg (197 lb) 04/10/23 88.5 kg (195 lb) General: well-appearing, NAD Pulmonary: Normal effort, resps unlabored Abdomen: soft, nontender, nondistended Lower extremities: No pedal edema, well-perfused Upper extremities: No tremors Neuro: Alert and oriented x3 Oropharynx: no signs of thrush Labs Lab Results Component Value Date WBC 8.53 06/25/2023 NEUTS 69.5 06/25/2023 HGB 11.9 (L) 06/25/2023 HCT 37.0 (L) 06/25/2023 PLT 167 06/25/2023 BUN 36 (H) 06/25/2023 CREAT 2.9 (H) 06/25/2023 EGFR 22 (L) 06/25/2023 NA 139 06/25/2023 POTASSIUM 4.3 06/25/2023 CA 8.9 06/25/2023 MG 2.0 09/11/2022 GLUCOSE 182 (H) 06/25/2023 AGP 13 06/25/2023 CO2 20 (L) 06/25/2023 Lab Results Component Value Date TACROLIMUS 4.2 06/25/2023 TACROLIMUS 5.6 05/26/2023 TACROLIMUS 4.4 04/25/2023 Lab Results Component Value Date/Time CYTOMEGALOVIRUS IGG ANTIBODY - [facility] Positive (A) 04/14/2020 08:32 AM CMV DNA PCR NOT DETECTED 03/13/2020 01:35 PM CMV DNA, QN PCR Not Detected 08/26/2022 08:30 AM CMV DNA, QN REAL TIME PCR Not Detected 08/26/2022 08:30 AM No results found for: "BK VIRUS DNA", "BK VIRUS DNA, QN PCR" Lab Results Component Value Date/Time ALBUMIN / CREATININE RATIO, URINE - [facility] 342 (H) 05/26/2023 11:18 AM ALBUMIN / CREATININE RATIO, URINE - [facility] 308 (H) 04/25/2023 09:07 AM ALBUMIN / CREATININE RATIO, URINE - [facility] 232 (H) 03/27/2023 09:53 AM ALBUMIN / CREATININE RATIO, URINE - [facility] 165 (H) 03/13/2020 01:35 PM ALBUMIN / CREATININE RATIO, URINE - [facility] 210 (H) 02/28/2020 01:29 PM ALBUMIN / CREATININE RATIO, URINE - [facility] 142 (H) 02/21/2020 01:29 PM Assessment and Plan Myron Corado is a 77 year old-old male who is 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 His graft function is marginal but stable. Acute Concerns: right-sided back pain. We will check red cliff renal ultrasound Renal/FEN: Renal allograft function is marginal but stable. Immunosuppression: Patient is not considered to be at increased immunologic risk. Tolerating IS regimen well. Current Immunosuppressant Regimen: Envarsus 1.75 mg daily Prednisone 5 mg daily Changes in regimen made today: None, continue current regimen Routine Immunosuppressant Lab Monitoring Frequency: Lab frequency: Monthly. Infectious Disease: Current issues: None. Functional Status: 100 (Normal, no complaints, no evidence of disease.) Wrap-Up Disposition: Issues/concerns acute/urgent follow-up or additional workup: None Transplant Clinic Follow-up and routine lab schedule: Return in about 6 months (around 01/02/2024) for post-transplant follow-up, with me, labs monthly. Administrative: I spent a total of 41 minutes on the date of service in preparation, delivery, and documentation of the care provided to Myron Corado excluding any time spent in the performanceof separately billed services. Jean-Pierre Catalan DNP, [facility] Advanced Practitioner - Transplant and Liver Surgery documented in this encounter Plan of Treatment Upcoming Encounters Date Type Department Care Team (Latest Contact Info) Description 07/08/2023 2:30 PM EDT Imaging Radiology [facility] [address] [facility] [place] [address] 07/22/2023 12:00 PM EDT Office Visit Pulmonary Medicine, [facility] [address] [facility] [place] [address] Carroll Garces MD [address] [place] [address] 08/15/2023 9:23 AM EDT Hospital Encounter OR [facility], Operating Room, [facility] - 4th Floor [address] [facility] [place] [address] Agustin Chery MD [address] [place] [address] 08/15/2023 9:23 AM EDT - 08/15/2023 11:02 AM EDT Surgery OR [facility], Operating Room, [facility] - 4th Floor [address] [facility] [place] [address] Agustin Chery MD [address] [place] [address] LASER VAPORIZATION PROSTATE 08/19/2023 10:30 AM EDT Nurse Only Urology, [facility] [address] [facility] [place] [address] [facility], Nurse Urology [address] [place] [address] 09/03/2023 2:45 PM EDT Office Visit Urology, [facility] [address] [facility] [place] [address] Agustin Chery MD [address] [place] [address] 10/08/2023 9:20 AM EDT Office Visit Dermatology [address] [place] [address] Carmelina Olivas PA-C [address] [place] [address] [place] [address] 01/07/2024 10:00 AM EST Office Visit Transplant Clinic, [facility] [address] [place] [address] Jean-Pierre Catalan, [facility] [address] [place] [address] Scheduled Orders Name Type Priority Associated Diagnoses Orde r Schedule US RENAL Medical Imaging Routine Acute right-sided low back pain without sciatica History of membranous glomerulonephritis Expected: 07/16/2023 (Approximate), Expires: 08/01/2024 Scheduled Procedures Name Priority Associated Diagnoses Date/Ti [...] symptoms (LUTS) Kidney replaced by transplant- Primary Acute right-sided low back pain without sciatica History of membranous glomerulonephritis Personal history of other disorder of urinary system Immunodeficiency, unspecified (HCC) BPH with obstruction/lower urinary tract symptoms Hypertrophy of prostate with urinary obstruction and other lower urinary tract symptoms (LUTS) documented in this encounter Advance Directives Latest Code Status [...] the patient have Health Care Power of Sponge Clipper? No Care Teams Emt Relationship Specialty Start Date End Date Porfirio Kilgore MD [address] [facility] [place] [address] PCP - General Internal Medicine 03/30/20 documented as of this encounter
--- OUTSIDE RECORDS SUMMARY | 2023-08-24 00:07 | External Medical Summary ---
Author Name Unknown Address Unknown Organization [id number]:LABORATORY [facility] [place] - [address] [facility] [address] Laboratory Report Ordering Provider Test Date Status ARACELI STRATTON 07/29/2023 09:45:15 Final Observation Date Value Abnormality Reference (Units ) Status Triglyceride 07/29/2023 09:45:15 143 <=174 ( mg/dL) Final Triglyceride Reference Range s (mg/dL):
<150 Acceptable
150-174 Borderline high
175-499 High
>=500 Very high Cholesterol 07/29/2023 09:45:15 96 <200 (mg /dL) Final Total Cholesterol Reference Ranges (mg/dL):
<200 Desirable
200-239 Borderline high
>=240 High HDL 07/29/2023 09:45:15 31 Below low normal >39 (mg/dL) Final HDL Cholesterol Reference Ra nges (mg/dL):
>=60 High (Desirable)
<50 Low (Undesirable) For Females
<40 Low (Undesirable) For Males NON-HDL CHOLESTEROL 07/29/2023 09:45:15 65 <=159 (mg/dL) Final Non-HDL Cholesterol Referenc e Range (mg/dL):
<100 Target level for high risk ASCVD patient
<130 Optimal for general population
130-159 Near optimal for general population
160-189 Borderline High
190-219 High
>=220 Very High LDL, (calculated) 07/29/2023 09:45:15 36 <= 129 (mg/dL) Final LDL Cholesterol Reference Ra nges (mg/dL):
<70 Target level for high risk ASCVD patient
<100 Optimal for general population
100-129 Near optimal for general population
130-159 Borderline high
160-189 High
>=190 Very high Performing Location LABORATORY [facility] [place] - [address] [facility] [address]
--- OUTSIDE RECORDS SUMMARY | 2023-08-24 00:07 | External Medical Summary | Summary of Care ---
Author Name Unknown Organization [facility] Address [address] [place] [address] Phone [phone] Care Team Providers Care Third Steel Pourer Name Role Phone Porfirio Kilgore MD Primary Care Provider + Reason for Visit * Reason Comments eRx-Medication Refill Encounter Details Date Type Department Care Team (Late st Contact Info) Description 06/26/2023 Refill Gastroenterology, [facility] [address] [place] [address] Marisa Noland MD [address] [place] [address] Allergies No known active allergiesdocumented as of this encounter (statuses as of 07/01/2023) Medications Medication Sig Dispensed Refills Start Date [...] % Nasal Solution Administer into nostril 1 [place] in the morning AND 1 [place] before bedtime. 30 mL 12 2 Active [...] mgIndications:Kidney replaced by transplant 150 mg IM [id number] 03/13/2021 Active Cilgavimab inj 150 mgIndications:Kidney replaced by transplant 150 mg IM [id number] 03/13/2021 Active documented as of this encounter (statuses as of 07/01/2023) Active Problems Problem Noted Date Diagnosed Date [...] as of this encounter (statuses as of 07/01/2023) Resolved Problems Problem Noted Date Diagnosed Date Resolved Date Bronchiectasis without complication 12/18/2021 05/03/2022 COPD, group C, by GOLD 2017 classification 11/05/2021 05/03/2022 Overview: Per COPD GOLD Classification COPD, group B, by GOLD 2017 classification 08/03/2020 11/08/2021 Overview: Per COPD GOLD Classification Aortic regurgitation 06/14/2015 016 Pre-transplant evaluation fo r chronic kidney disease 05/16/2015 08/20/2022 documented as of this encounter (statuses as of 07/01/2023) Immunizations Name Administration Dates Next Due COVID-19 [...] encounter Miscellaneous Notes * Telephone Encounter - Pepper Kan - 07/01/2023 7:53 AM EDT Received message from [facility] regarding patient needing appointment. Patient was notified. Successfully contacted patient and provided [facility] message. * Telephone Encounter - Marisa Noland MD [...] 06/27/2023 10:35 AM EDT Received message from [facility] regarding patient needing appointment. Call Placed, Unable to reach pt, as there was no answer and no VM available to leave message. Sent the patient a DLC message to advise. Thank you, Argentina Holm [facility] Personnel Training Officer III [facility]) (formerly Telepharmacy) 06/27/2023,10:35 AM * Telephone Encounter - Rogelio Agudelo [facility] - 06/27/2023 10:31 AM EDTPending Prescriptions: Disp Refills Pantoprazole Sodium 40 MG Oral Tablet Ashia*90 Tab*0 Sig: TAKE ONE TABLET BY MOUTH EVERY DAY BEFORE BREAKFAST * Telephone Encounter - Rogelio Agudelo RPh - 06/27/2023 10:26 AM EDT Please contact patient so that an appointment can be scheduled with his GASTROENTEROLOGY provider before this refill can be authorized. After contacting patient, please forward request to the provider they schedule with (if unable to reach, use [facility] Nurse Pool). Last Visit: 10/25/2021 (in office), 05/11/2020 (telemedicine) Next Visit: Visit date not found Thad Vega, PharmD Clinical Pharmacist [facility] ([facility]) (Formerly Telepharmacy) [phone] 06/27/2023 10:31 AM documented in this encounter Plan of Treatment Upcoming Encounters Date Type Department Care Team (Latest Contact Info) Description 07/02/2023 12:30 PM EDT [facility] [address] [place] [address] Jean-Pierre Catalan, [facility] [address] [place] [address] 07/07/2023 1:00 PM EDT Office Visit [facility]ermatology [facility] [address] [place] [address] Phill Vegas MD [address] [place] [address] 07/22/2023 12:00 PM EDT Office Visit Pulmonary Medicine, [facility] [address] [facility] [place] [address] Carroll Garces MD [address] [place] [address] 08/15/2023 9:23 AM EDT Hospital Encounter OR [facility], Operating Room, [facility] - 4th Floor [address] [place] [address] Agustin Chery MD [address] [place] [address] 08/15/2023 9:23 AM EDT - 08/15/2023 11:02 AM EDT Surgery OR [facility], Operating Room, [facility] - 4th Floor [address] [place] [address] Agustin Chery MD [address] [place] [address] LASER VAPORIZATION PROSTATE 08/19/2023 10:30 AM EDT Nurse Only Urology, [facility] [address] [place] [address] [facility] Nurse Urology [address] [place] [address] 09/03/2023 2:45 PM EDT Office Visit Urology, [facility] [address] [place] [address] Agustin Chery MD [address] [place] [address] Scheduled Procedures Name Priority Associated Diagnoses Date/Ti nm LASER VAPORIZATION PROSTATE BPH with obstruction/lower urinary [...] the patient have Health Care Power of Printed Circuit Layout Taper? No Care Teams Third Steel Pourer Relationship Specialty Start Date End Date Porfirio Kilgore MD [address] [place] [address] PCP - General Internal Medicine 03/30/20 documented as of this encounter
--- OUTSIDE RECORDS SUMMARY | 2023-08-24 00:08 | External Medical Summary ---
Author Name Unknown Address Unknown Organization K01:[facility] [place] [facility] [address] [facility] [address] [place] [address] Laboratory Report Ordering Provider Test Date Status ARACELI STRATTON 06/25/2023 08:19:08 Final Observation Date Value Abnormality Reference (Units ) Status BUN 06/25/2023 08:19:08 36 Above high normal 6-20 (mg/dL) Final Creatinine 06/25/2023 08:19:08 2.9 Above high normal 0.6-1.2 (mg/dL) Final Glomerular filtration rate/1.73 sq M.predicted [Volume Rate/Area] in Serum, Plasma or Blood by Creatinine-based formula (CKD-EPI) 06/25/2023 08:19:08 22 Below low normal >=60 (mL/min) Final eGFR is calculated based on the CKD-EPI 2020 equation Sodium 06/25/2023 08:19:08 139 135-146 (m mol/L) Final Potassium 06/25/2023 08:19:08 4.3 3.5-5.1 (m mol/L) Final Cl 06/25/2023 08:19:08 106 98-107 (mm ol/L) Final CO2 06/25/2023 08:19:08 20 Below low normal 22- 32 (mmol/L) Final Anion gap 06/25/2023 08:19:08 13 7-15 (mmol /L) Final Glucose 06/25/2023 08:19:08 182 Above high normal 70 -120 (mg/dL) Final Calcium 06/25/2023 08:19:08 8.9 8.4-10.2 ( mg/dL) Final Performing Location [facility] [place] [address] [place] [address]
--- OUTSIDE RECORDS SUMMARY | 2023-08-24 00:08 | External Medical Summary ---
Author Name Unknown Address Unknown Organization K01:LABORATORY [facility] [place] - [address] [facility] [address] Laboratory Report Ordering Provider Test Date Status ARACELI STRATTON 06/25/2023 08:44:14 Final Observation Date Value Abnormality Reference (Units ) Status Color of Urine by Auto 06/25/2023 08:44:14 Light Yellow Colorless, Light Yellow, Yellow, Dark Yellow Final Clarity, Urine 06/25/2023 08:44:14 Clear Clear Final Glucose [Mass/volume] in Urine by Automated test strip 06/25/2023 08:44:14 250 Abnormal Negative (mg/dL) Final Bilirubin.total [Presence] in Urine by Automated test strip 06/25/2023 08:44:14 Negative Negative Final Ketones [Mass/volume] in Urine by Automated test strip 06/25/2023 08:44:14 Negative Negative (mg/dL) Final Specific gravity, Urine 06/25/2023 08:44:14 1.014 1.003-1.030 Final Hemoglobin [Presence] in Urine by Automated test strip 06/25/2023 08:44:14 Trace Abnormal Negative Final pH, Urine 06/25/2023 08:44:14 6.5 5.0-7.5 (Units) Final Protein [Mass/volume] in Urine by Automated test strip 06/25/2023 08:44:14 30 Abnormal Negative (mg/dL) Final Urobilinogen [Mass/volume] in Urine by Automated test strip 06/25/2023 08:44:14 Normal Normal (mg/dL) Final Nitrite [Presence] in Urine by Automated test strip 06/25/2023 08:44:14 Negative Negative Final Leukocyte esterase [Presence] in Urine by Automated test strip 06/25/2023 08:44:14 Negative Negative Final RBC, Urine 06/25/2023 08:44:14 3-5 Abnormal 0-2 (/HPF) Final WBC, Urine 06/25/2023 08:44:14 0-2 0-2 (/HPF) Final Bacteria [#/area] in Urine sediment by Microscopy high power field 06/25/2023 08:44:14 0-25 0-25 (/HPF) Final Hyaline casts, Urine 06/25/2023 08:44:14 1-4 Abnormal None (/LPF) Final CULTURE, URINE - [facility] 06/25/2023 08:44:14 Final Culture not indicated by uri nalysis results\[id number]\ Performing Location LAB[facility]ATORY [facility] [place] - [address] [facility] [address]
--- OUTSIDE RECORDS SUMMARY | 2023-08-24 00:08 | External Medical Summary | Summary of Care ---
Author Name Unknown Organization [facility] Address [address] [place] [address] Phone [phone] Care Team Providers Care Manager Nicu Name Role Phone Porfirio Kilgore MD Primary Care Provider + Reason for Visit * Reason Onset Date Comments Surgery 06/24/2023 Encounter Details Date Type Department Care Team (Late st Contact Info) Description 06/24/2023 Telephone Urology, [facility] [address] [facility] [place] [address] Agustin Chery MD [address] [facility] [address] [place] [address] Surgery Allergies No known active allergiesdocumented as of this encounter (statuses as of 06/25/2023) Medications Medication Sig Dispensed Refills Start Date [...] % Nasal Solution Administer into nostril 1 [place] in the morning AND 1 [place] before bedtime. 30 mL 12 12/18/2021 Active [...] mgIndications:Kidney replaced by transplant 150 mg IM [id number] 03/13/2021 Active Cilgavimab inj 150 mgIndications:Kidney replaced by transplant 150 mg IM [id number] 03/13/2021 Active documented as of this encounter (statuses as of 06/25/2023) Active Problems Problem Noted Date Diagnosed Date [...] as of this encounter (statuses as of 06/25/2023) Resolved Problems Problem Noted Date Diagnosed Date Resolved Date Bronchiectasis without complication 12/18/2021 05/03/2022 COPD, group C, by GOLD 2017 classification 11/05/2021 05/03/2022 Overview: Per COPD GOLD Classification COPD, group B, by GOLD 2017 classification 08/03/2020 11/08/2021 Overview: Per COPD GOLD Classification Aortic regurgitation 06/14/2015 016 Pre-transplant evaluation fo r chronic kidney disease 05/16/2015 08/20/2022 documented as of this encounter (statuses as of 06/25/2023) Immunizations Name Administration Dates Next Due COVID-19 [...] shopping? (15 years old or older) No 06/26/20 23 Cognitive Status Response Date of Assessm ent Because of a physical, menta l, or emotional condition, do you have serious difficulty concentrating, remembering, or making decisions? (5 years old or older) No 08/19/2022 documented as of this encounter Miscellaneous Notes * Telephone Encounter - Helga Rizo OSA - 06/25/2023 10:31 AM EDT Spoke with patient, he is aware everything scheduled belowed and confirmed all dates and time will work for him. [facility] Vaporization of the Prostate with Dr. Chery, scheduled on 08/15/23. TOV with nurse at [facility] scheduled for 08/19/23 at 10:30 AM. Post Op Appointment with Dr. Chery at [facility] scheduled for 09/03/23 at 2:30 PM. PCP Clearance appointment with Dr. Porfirio Kilgore is scheduled for 08/05/23 at 1:30 PM. (Office phone #: [phone]) * Telephone Encounter - Lydia Bartlett LPN - 06/25/2023 10:20 AM EDT Helga- please contact patient to discuss * Telephone Encounter - Emilie Cook OSA - 06/25/2023 10:00 AM EDT Pt calling in to check on surgery date. Please advise * Telephone Encounter - Calista Arias LPN - 06/24/2023 10:56 AM EDT Helga Please call patient to schedule below. Preop teaching completed, orders placed, pt aware you will be in touch. Thank you Melissa PCP clearance [facility] at [facility] 3-5 day trial of void. Three week postop check. documented in this encounter Plan of Treatment Upcoming Encounters Date Type Department Care Team (Late st Contact Info) Description 07/02/2023 12:30 PM EDT Office Visit Transplant Clinic, [place] [address] [place] [address] Jean-Pierre Catalan, [facility] [address] [place] [address] 07/07/2023 1:00 PM EDT Office Visit Dermatology [facility] [address] [facility] [place] [address] Phill Vegas MD [address] [facility] [place] [address] 07/22/2023 12:00 PM EDT Office Visit Pulmonary Medicine, [facility] [address] [facility] [place] [address] Carroll Garces MD [address] [place] [address] 08/19/2023 10:30 AM EDT Nurse Only Urology, [facility] [address] [facility] [place] [address] [facility], Nurse Urology [facility] [address] [facility] [place] [address] 09/03/2023 2:45 PM EDT Office Visit Urology, [facility] [address] [facility] [place] [address] Agustin Chery MD [address] [facility] [address] [place] [id number] Scheduled Procedures Name Priority Associated Diagnoses Date/Ti me LASER VAPORIZATION PROSTATE BPH with obstruction/lower urinary tract symptoms COLONOSCOPY FLEXIBLE PROXIMA L DIAGNOSTIC Recall History [...] 024, 04/25/2023, 03/27/2023, Additional history exists GFR 05/25/2024 05/26/2023, 0302/2023, 03/27/2023, Additional history exists Colonoscopy 04/10/2026 04/10/2023, 03/27, [...] the patient have Health Care Power of Manager Strategic? No Care Teams Manager Nicu Relationship Specialty Start Date End Date Porfirio Kilgore MD [address] [place] [address] PCP - General Internal Medicine 03/30/20 documented as of this encounter
--- OUTSIDE RECORDS SUMMARY | 2023-08-24 00:08 | External Medical Summary | Summary of Care ---
Author Name Unknown Organization [facility] Address [address] [place] [address] Phone [phone] Care Team Providers Care Serology Teacher Name Role Phone Porfirio Kilgore MD Primary Care Provider + Reason for Visit * Reason Comments Outpatient Testing Encounter Details Date Type Department Care Team (Late st Contact Info) Description 06/25/2023 8:20 AM EDT Laboratory Laboratory [address] [place] [phone] , Specimen Drop Off [address] [place] [address] Kidney replaced by transplant Allergies No known [...] % Nasal Solution Administer into nostril 1 [place] in the morning AND 1 [place] before bedtime. 30 mL 12 12/18/2021 Active [...] mgIndications:Kidney replaced by transplant 150 mg IM [id number] 03/13/2021 Active Cilgavimab inj 150 mgIndications:Kidney replaced by transplant 150 mg IM [id number] 03/13/2021 Active documented as of this encounter [...] 12:30 PM EDT Office Visit Transplant Clinic, [place] [address] [place] [address] Jean-Pierre Catalan [facility] [address] [place] [address] 07/07/2023 1:00 PM EDT Office Visit Dermatology [facility] [address] [facility] [place] [address] Phill Vegas MD [address] [facility] [place] [address] 07/22/2023 12:00 PM EDT Office Visit Pulmonary Medicine, [facility] [address] [facility] [place] [address] Carroll Garces MD [address] [place] [facility] [place] [address] Pending Results Name Type Priority Associated Diagnoses Date /Time CBC WITH WBC DIFFERENTIAL Lab STAT Kidney replaced by transplant 06/25/2023 8:19 AM EDT BASIC METABOLIC PANEL Lab STAT Kidney replaced by transplant 06/25/2023 8:19 AM EDT TACROLIMUS LEVEL Lab STAT Kidney replaced by transplant 06/25/2023 8:19 AM EDT CBC Lab STAT Kidney replaced by transplant 06/25/2023 8:19 AM EDT DIFFERENTIAL, AUTOMATED Lab STAT Kidney replaced by transplant 06/25/2023 8:19 AM EDT Scheduled Procedures Name Priority Associated [...] YEAR FOR COPD 04/10/2024 04/10/2023 Albumin/Creatinine Ratio 05/25/202405/25/2 024, 04/25/2023, 03/27/2023, Additional history exists GFR 05/25/2024 05/26/2023, 03/0 02/2023, 03/27/2023, Additional history exists Colonoscopy 04/10/2026 04/10/2023, [...] as of this encounter Visit Diagnoses Diagnosis Kidney replaced by transplant documented in this encounter Advance Directives Latest [...] the patient have Health Care Power of Adjutant General? No Care Teams Serology Teacher Relationship Specialty Start Date End Date Porfirio Kilgore MD [address] [place] [address] PCP - General Internal Medicine 03/30/20 documented as of this encounter
--- OUTSIDE RECORDS SUMMARY | 2023-08-24 00:08 | External Medical Summary | Summary of Care ---
Author Name Unknown Organization [facility] Address [address] [place] [address] Phone [phone] Care Team Providers Care Affiliate Marketing Coordinator Name Role Phone Porfirio Escobedo MD Primary Care Provider + Reason for Visit * Reason Comments Cystoscopy Encounter Details Date Type Department Care Team (Latest Contact Info) Description 06/24/2023 10:30 AM EDT Procedure Only Urology, [facility] [address] [facility] [place] [address] Agustin Chery MD 27 [facility] [place] [address] BPH with obstruction/lower urinary tract symptoms* Allergies No known active allergiesdocumented as of this encounter (statuses as of 06/24/2023) Medications Medication Sig Dispensed Refills Start Date [...] % Nasal Solution Administer into nostril 1 [place] in the morning AND 1 [place] before bedtime. 30 mL 12 12/18/2021 Active [...] mgIndications:Kidney replaced by transplant 150 mg IM [id number] 03/13/2021 Ac tive Cilgavimab inj 150 mgIndications:Kidney replaced by transplant 150 mg IM [id number] 03/13/2021 Ac tive sulfamethoxazole-trimethopr im DS (Bactrim DS) 800-160 MG 1 TabletIndications:BPH with obstruction/lower urinary tract symptoms 1 Tablet OR ONCE 06/24/2023 06/24/2023 Ac tive documented as of this encounter (statuses as of 06/24/2023) Active Problems Problem Noted Date Diagnosed Date [...] as of this encounter (statuses as of 06/24/2023) Resolved Problems Problem Noted Date Diagnosed Date Resolved Date Bronchiectasis without complication 12/18/2021 05/03/2022 COPD, group C, by GOLD 2017 classification 11/05/2021 05/03/2022 Overview: Per COPD GOLD Classification COPD, group B, by GOLD 2017 classification 08/03/2020 11/08/2021 Overview: Per COPD GOLD Classification Aortic regurgitation 06/14/2015 016 Pre-transplant evaluation fo r chronic kidney disease 05/16/2015 08/20/2022 documented as of this encounter (statuses as of 06/24/2023) Immunizations Name Administration Dates Next Due COVID-19 [...] as of this encounter Progress Notes * Agustin Chery MD - 06/24/2023 10:30 AM EDT [id number] PCP: PORFIRIO ESCOBEDO [address] [facility] [place] [id number] Myron Corado is a 77 year old male, who presents for cystoscopy for evaluation of BPH with suspected median lobe. No recent PSA value is available. Patient's recent colonoscopies appreciated nilsa his other ongoing health issues. Patient remains bothered with his urination. BPH: Patient is being seen for BPH [...] tamsulosin and finasteride. He reports slow stream. PSA Results: Lab Results Component Value Date/Time PSA - [facility] 5.71 (H) 06/10/2018 11:10 AM PSA - [facility] 4.01 06/04/2017 10:42 AM PSA - [facility] 3.87 06/05/2016 08:53 AM PSA-OUTSIDE LAB 5.5 (H) 10/15/2019 12:00 AM Creatinine Results: Lab Results Component Value Date/Time CREATININE - [facility] 3.1 (H) 05/26/2023 11:18 AM CREATININE - [facility] 3.1 (H) 04/25/2023 09:07 AM CREATININE - [facility] 2.9 (H) 03/27/2023 09:53 AM CREATININE - [facility] 1.9 (H) 03/13/2020 01:35 PM CREATININE - [facility] 1.9 (H) 02/28/2020 01:25 PM CREATININE - [facility] 1.9 (H) 02/21/2020 01:06 PM CREATININE, RANDOM URINE - [facility] 78 05/26/2023 11:18 AM CREATININE, RANDOM URINE - [facility] 61 04/25/2023 09:07 AM CREATININE, RANDOM URINE - [facility] 60 03/27/2023 09:53 AM CREATININE, RANDOM URINE - [facility] 53 03/13/2020 01:35 PM CREATININE, RANDOM URINE - [facility] 124 02/28/2020 01:29 PM CREATININE, RANDOM URINE - [facility] 62 02/21/2020 01:29 PM Current Outpatient Medications Medication Sig Dispense Refill insulin aspart (NOVOLOG) 100 UNIT/ML SOPN Inject under the skin 10 units at breakfast, 12 units at lunch, and 14 units at dinner. Plus a sliding scale. Cholecalciferol (VITAMIN D) 1000 units Tablet Take 2 Tablets by mouth in the morning. aspirin enteric coated 81 MG TBEC Take 1 Tab by mouth daily. 30 Tab 5 Multiple Vitamins-Minerals (MULTIVITAMIN ADULT) TABS Take 1 Tablet by mouth at bedtime. LANTUS SOLOSTAR 100 UNIT/ML SOPN Inject 24 Units under the skin at bedtime. tamsulosin (FLOMAX) 0.4 MG Capsule 1 Capsule in the morning and 1 Capsule before bedtime. Finasteride 5 MG Oral Tablet (Proscar) Take 1 Tablet by mouth in the morning. Flutter Device Use 10 breaths twice daily 1 Each 0 Azelastine HCl 0.1 % Nasal Solution Administer into nostril 1 [place] in the morning AND 1 [place] before bedtime. 30 mL 12 Nebulizer/Tubing/Mouthpiece Kit Use as directed 1 Kit 0 Albuterol Sulfate (2.5 MG/3ML) 0.083% Inhalation Nebulization Solution (Proventil) Inhale 1 Vial via nebulizer every 4 hours as needed for Wheezing. 540 mL 2 Loperamide HCl 2 MG Oral Capsule (Imodium A-D) Take 1 Capsule by mouth in the morning and 1 Capsuleat noon and 1 Capsule before bedtime. 270 Capsule 3 Furosemide 40 MG Oral Tablet (Lasix) Take 1 Tablet by mouth daily as needed. levoFLOXacin 750 MG Oral Tablet (Levaquin) LEVOFLOXACIN 750 MG TABS Tacrolimus ER 1 MG Oral Tablet Extended Release 24 Hour (Envarsus XR) Take 1 Tablet by mouth in themorning. Total dose 1.75 mg daily. 30 Tablet 5 Tacrolimus ER 0.75 MG Oral Tablet Extended Release 24 Hour (Envarsus XR) Take 1 Tablet by mouth in the morning. Total dose 1.75 mg daily. 30 Tablet 5 predniSONE 5 MG Oral Tablet (Deltasone) Take 1 Tablet by mouth in the morning. 90 Tablet 3 Pantoprazole Sodium 40 MG Oral Tablet Delayed Release (Protonix) TAKE ONE TABLET BY MOUTH EVERY DAYBEFORE BREAKFAST 90 Tablet 0 Levothyroxine Sodium 75 MCG Oral Tablet (Levoxyl) Take 1 Tablet by mouth daily first thing in the morning. (at least 30 min prior to breakfast or other meds) Sulfamethoxazole-Trimethoprim 400-80 MG Oral Tablet (Bactrim) Take 1 Tablet by mouth in the morningand 1 Tablet before bedtime. 60 Tablet 3 Ventolin HFA 108 (90 Base) MCG/ACT Inhalation Aerosol Solution Inhale 2 Puffs by mouth every 4 hours as needed for Cough, Shortness of Breath or Wheezing. 18 g 5 Trelegy Ellipta 100-62.5-25 MCG/ACT Aerosol Powder Breath Activated (Hrqosnrxhdj-Rneakjxheroo-Wxmoafupfu) Inhale 1 Puff by mouth in the morning. 60 Blister Dosing Unit 5 Current Facility-Administered Medications Medication Dose Route Frequency Provider Last Rate Last Admin Tixagevimab inj 150 mg 150 mg Intramuscular Q6 Months Bre Myers, RPh 300 mg at 12/19/21824 Cilgavimab inj 150 mg 150 mg Intramuscular Q6 Months Bre Myers, RPh 300 mg at 12/19/21824 Review of patient's allergies indicates: No Known Allergies Social History: Social History Tobacco Use Smoking status: Former Current packs/day: 0.00 Average packs/day: 2.0 packs/day for 15.0 years (30.0 ttl pk-yrs) Types: Cigarettes Start date: 02/25/1960 Quit date: 02/24/1975 Years since quittin.3 Smokeless tobacco: Never Substance Use Topics Alcohol use: Not Currently Vaping/E-Cigarette Use Vaping/E-Cigarette Use Never User Vaping/E-Cigarette Substances Vaping/E-Cigarette Devices Past Surgical History: Procedure Laterality Date BRONCHOSCOPY, DIAGNOSTIC N/A 06/15/2020 BRONCHOSCOPY DIAGNOSTIC WITH OR WITHOUT WASHING performed by Mina Boyd MD at [facility] BRONCHOSCOPY, DIAGNOSTIC N/A 04/18/2022 BRONCHOSCOPY DIAGNOSTIC WITH OR WITHOUT WASHING performed by Kush Conte MD at [facility] COLONOSCOPY, DIAGNOSTIC (RECTUM) 07/01/2019 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, diverticulosis / [facility] COLONOSCOPY, DIAGNOSTIC (RECTUM) 10/12/2021 benign adenomatous polyps, diverticulosis, repeat 1 yr / [facility] COLONOSCOPY, DIAGNOSTIC (RECTUM) 04/10/2023 diverticulosis/biopsies show adenomatous and tubulovillous adenoma/recall 3 years/COLONOSCOPY FLEXIBLE PROXIMAL DIAGNOSTIC performed by Marisa Lucia MD at [facility] EGD, FLEXIBLE, DIAGNOSTIC 07/01/2019 mild gastric irritation on bx / [facility] EGD, FLEXIBLE, DIAGNOSTIC 10/12/2021 gastric nodule / [facility] EGD, FLEXIBLE, ENDO MUCOSAL RESECTION N/A 01/09/2022 lesion body of stomachESOPHAGOGASTRODUODENOSCOPY (EGD), FLEXIBLE, TRANSORAL: MUCOSAL RESECTION performed by Marisa Lucia MD at [facility] EGD, W/ENDOSCOPIC US N/A 01/09/2022 subepithelial lesion stomach/biopsies show GIST/ESOPHAGOGASTRODUODENOSCOPY (EGD), FLEXIBLE, TRANSORAL, ENDOSCOPIC ULTRASOUND performed by Marisa Lucia MD at [facility] HEMORRHOIDECTOMY, INTERNAL, 2 + COLUMNS 04/14/2020 HEMORRHOIDECTOMY EXTERNAL AND INTERNAL COMPLEX performed by Faheem Cohen MD at [facility] INFORMATION appendix removed INFORMATION josr IR BIOPSY 04/16/2019 RENAL BIOPSY, PERCUTANEOUS (TROCAR/NEEDLE) N/A 08/20/2018 RENAL BIOPSY PERCUTANEOUS performed by Colin Rossi MD at [facility] RENAL BIOPSY, PERCUTANEOUS (TROCAR/NEEDLE) Right 09/11/2022 RENAL BIOPSY PERCUTANEOUS performed by Colin Rossi MD at [facility] SIGMOIDOSCOPY, DIAGNOSTIC 07/27/2019 Ulcerative proctitis, adenomatous polyp, diverticulosis / [facility] TRANSPLANTATION OF KIDNEY N/A 08/04/2018 RENAL TRANSPLANT performed by Colin Rossi MD at OR [facility] Past Medical History: Diagnosis Date BPH (benign prostatic hyperplasia) CKD (chronic kidney disease) COPD (chronic obstructive pulmonary disease) ([facility]) COVID-19 03/05/2022 DM (diabetes mellitus) with complications ([facility]) GERD (gastroesophageal reflux disease) HTN (hypertension) resolved post transplant Hyperlipidemia Kidney transplant recipient 08/04/2018 Patient Active Problem List Diagnosis Code Family history of valvular heart disease Z82.49 HTN, goal below 130/80 I10 Dyslipidemia, goal LDL below 100 E78.5 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 Diabetes mellitus ([facility]) E11.9 Acute blood loss anemia D62 Immunosuppressed status ([facility]) D84.9 CMV colitis ([facility]) A08.39, B25.9 Ulcerative proctitis with complication ([facility]) K51.219 Mucopurulent chronic bronchitis ([facility]) J41.1 Kidney replaced by transplant Z94.0 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 Chronic cough R05.3 Need for prophylactic immunotherapy Z29.89 Drug reaction, subsequent encounter T50.905D 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[facility]) 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 Ground glass opacity present on imaging of lung R91.8 S/P endoscopy Z98.890 Bronchiectasis with acute lower respiratory infection ([facility]) J47.0 COPD, group B, by GOLD 2017 classification ([facility]) J44.9 JOSE R (acute kidney injury) ([facility]) N17.9 Pain in both testicles N50.811, N50.812 Constitutional: (-) fever and (-) chills ENT: (-) stridor Pulmonary: (+) dyspnea with exertion Neurology: (+) history of diabetic neuropathy Psychiatry: (-) negative: no depression or anxiety Physical Exam Nursing note reviewed. Constitutional: General: He is not in acute distress. Appearance: He is not ill-appearing or toxic-appearing. HENT: Head: Normocephalic and atraumatic. Right Ear: External ear normal. Left Ear: External ear normal. Nose: Nose normal. Mouth/Throat: Mouth: Mucous membranes are moist. Eyes: Extraocular Movements: Extraocular movements intact. Cardiovascular: Pulses: Normal pulses. Pulmonary: Effort: Pulmonary effort is normal. No respiratory distress. Abdominal: General: Abdomen is protuberant. Palpations: Abdomen is soft. Skin: Findings: Bruising present. Neurological: Mental Status: He is oriented to person, place, and time. Psychiatric: Behavior: Behavior normal. Thought Content: Thought content normal. Cystoscopy Procedure Note: Patient was properly identified and appropriate consent was confirmed. Risks and benefits of the procedure were reviewed and the patient was prepped and draped in the standard fashion for the procedure. A well lubricated 16 Green[place]ic flexible cystoscope was introduced through the meatus into the urethra. Urethra demonstrated no abnormalities. Prostatic urethra demonstrated minimal intravesical extension and significant obstructive lateral lobe hypertrophy. Bladder neck was visualized and bladder was entered. Sterile saline irrigation was used to distend the bladder which was noted to have no tumors, stones or mucosal abnormalities with grade 3 trabeculation with cellules. Bladder was completely inspected including retroflexion of the scope. Ureteral orifices were noted to be in the normal anatomic position bilaterally. After this was completed the cystoscope was removed. Patient tolerated the procedure well without complications or difficulties. Section Housekeeper was present for entire procedure. Patient uses Bactrim at baseline. Impression/Plan: 77-year-old male with BPH, bladder outlet obstruction. Findings reviewed with patient. He remains quite bother with his urinary symptoms. No evidence of intravesical tumors present. Options for management are reviewed, patient wishes to proceed with intervention in the context of his urinary bother. Patient should be a candidate for GreenLight vaporization of the prostate. Risks and benefits and expected convalescence are reviewed. Will see at the time of intervention. Informed consent obtained. Above content is personally reviewed. Patient vocalizes good understanding of the treatment plan. GreenLight TURP. 3-5 day trial of void. Three week postop check. Agustin Chery MD 7:46 AM 06/24/2023 documented in this encounter Nursing Notes * Calista Arias LPN - 06/24/2023 10:42 AM EDT Patient scheduled at [facility] for GLTURP with Dr Agustin Chery. Date of Surgery: to be scheduled Medications reviewed. Aware to hold aspirin & multivitamin 7 days prior EKG: ordered CXR: ordered Labs: on file UAC&S: ordered, to be done 1 week prior to surgery PCP clearance: to be scheduled Post op appts needed: 5 day TOV, 2-3 week postop Permit signed. Patient verbalizes understanding of pre- and post op instructions. Written instructions given for review at later date. Calista Arias LPN 06/24/2023 * Vero Fernandes LPN - 06/24/2023 10:19 AM EDT Pt presents in office for cystoscopy, consent signed Patient's skin was prepped with hibiclens, and 2% lidocaine jelly was inserted into urethra for cystoscopy. Patient tolerated well. PSA Results: Lab Results Component Value Date/Time PSA - [facility] 5.71 (H) 06/10/2018 11:10 AM PSA - [facility] 4.01 06/04/2017 10:42 AM PSA - [facility] 3.87 06/05/2016 08:53 AM PSA-OUTSIDE LAB 5.5 (H) 10/15/2019 12:00 AM C/o- slow stream, nocturia x 4. Pt has right kidney transplant documented in this encounter Plan of Treatment Upcoming Encounters Date Type Department Care Team (Late st Contact Info) Description 07/02/2023 12:30 PM EDT Office Visit Transplant Clinic, [place] [address] [place] [address] Jean-Pierre Catalan DNP [address] [place] [address] 07/07/2023 1:00 PM EDT Office Visit D[facility]atology [facility] [address] [place] [address] Phill Vegas MD [address] [place] [address] 07/22/2023 12:00 PM EDT Office Visit Pulmonary Medicine, [facility] [address] [place] [address] Carroll Garces MD [address] [place] [phone] Pending Results Name Type Priority Associated Diagnoses Date /Time XR CHEST 2 VIEWS Medical Imaging Routine BPH with obstruction/lower urinary tract symptoms 06/24/2023 10:59 AM EDT Scheduled Orders Name Type Priority Associated Diagnoses Orde r Schedule CULTURE, URINE, QUANTITATIVE Lab Routine BPH with obstruction/lower urinary tract symptoms Expected: 06/24/2023, Expires: 06/23/2024 EKG EKG Routine BPH with obstruction/lower urinary tract symptoms Expected: 06/24/2023 (Approximate), Expires: 07/23/2024 PSA Lab Routine BPH with obstruction/lower urinary tract symptoms Expected: 06/24/2023, Expires: 06/23/2024 CYSTOSCOPY Procedures Routine BPH with obstruction/lower urinary tract symptoms Ordered: 06/24/2023 Scheduled Procedures Name Priority Associated Diagnoses Date/Ti [...] the patient have Health Care Power of Telephone Station Installer? No Care Teams Affiliate Marketing Coordinator Relationship Specialty Start Date End Date Porfirio Escobedo MD [address] [place] [address] PCP - General Internal Medicine 03/30/20 documented as of this encounter
--- OUTSIDE RECORDS SUMMARY | 2023-08-24 00:08 | External Medical Summary | Summary of Care ---
Author Name Unknown Organization [facility] Address [address] [place] [address] Phone [phone] Care Team Providers Care Gas Meter Reader Name Role Phone Porfirio Kilgore MD Primary Care Provider + Reason for Visit * Reason Comments Outpatient Testing Encounter Details Date Type Department Care Team (Late st Contact Info) Description 06/25/2023 8:20 AM EDT Laboratory Laboratory [address] [place] [phone] , Specimen Drop Off [address] [place] [address] Kidney replaced by transplant Allergies No known [...] % Nasal Solution Administer into nostril 1 [place] in the morning AND 1 [place] before bedtime. 30 mL 12 12/18/2021 Active [...] mgIndications:Kidney replaced by transplant 150 mg IM [id number] 03/13/2021 Active Cilgavimab inj 150 mgIndications:Kidney replaced by transplant 150 mg IM [id number] 03/13/2021 Active documented as of this encounter [...] 12:30 PM EDT Office Visit Transplant Clinic, [place] [address] [place] [address] Jean-Pierre Catalan [facility] [address] [place] [address] 07/07/2023 1:00 PM EDT Office Visit Dermatology [facility] [address] [place] [address] Phill Vegas MD [address] [facility] [place] [address] 07/22/2023 12:00 PM EDT Office Visit Pulmonary Medicine, [facility] 132 [facility] [place] [address] Carroll Garces MD [address] [place] [facility] [place] [address] Pending Results Name Type Priority Associated Diagnoses [...] the patient have Health Care Power of Hadoop Developer? No Care Teams Gas Meter Reader Relationship Specialty Start Date End Date Porfirio Kilgore MD [address] [place] [address] PCP - General Internal Medicine 03/30/20 documented as of this encounter
--- OUTSIDE RECORDS SUMMARY | 2023-08-24 00:08 | External Medical Summary | Summary of Care ---
Author Name Unknown Organization [facility] Address [address] [place] [address] Phone [phone] Care Team Providers Care Bone Char Puller Name Role Phone Porfirio Kilgore MD Primary Care Provider + Encounter Details Date Type Department Care Team (Late st Contact Info) Description 06/13/2023 Orders Only Transplant Clinic, [place] [address], [place] [id number] Yamini Baker, RN [address] [place] [address] Kidney replaced by transplant* Allergies No known active allergiesdocumented as of this encounter (statuses as of 06/13/2023) Medications Medication Sig Dispensed Refills Start Date [...] % Nasal Solution Administer into nostril 1 [place] in the morning AND 1 [place] before bedtime. 30 mL 12 12/18/2021 Active [...] mgIndications:Kidney replaced by transplant 150 mg IM [id number] 03/13/2021 Active Cilgavimab inj 150 mgIndications:Kidney replaced by transplant 150 mg IM [id number] 03/13/2021 Active documented as of this encounter (statuses as of 06/13/2023) Active Problems Problem Noted Date Diagnosed Date Pain in both testicles 03/10/2023 JOSE R [...] as of this encounter (statuses as of 06/13/2023) Resolved Problems Problem Noted Date Diagnosed Date Resolved Date Bronchiectasis without complication 12/18/2021 05/03/2022 COPD, group C, by GOLD 2017 classification 11/05/2021 05/03/2022 Overview: Per COPD GOLD Classification COPD, group B, by GOLD 2017 classification 08/03/2020 11/08/2021 Overview: Per COPD GOLD Classification Aortic regurgitation 06/14/2015 016 Pre-transplant evaluation fo r chronic kidney disease 05/16/2015 08/20/2022 documented as of this encounter (statuses as of 06/13/2023) Immunizations Name Administration Dates Next Due COVID-19 [...] Team (Late st Contact Info) Description 06/24/2023 10:30 AM EDT Procedure Only Urology, [facility] [address] [facility] [place] [address] Agustin Chery MD 27 [facility] [address] [place] [id number] 07/02/2023 12:30 PM EDT Office Visit Transplant Clinic, [place] [address] [place] [address] Jean-Pierre Catalan, [facility] [address] [place] [address] 07/07/2023 1:00 PM EDT Office Visit Dermatology [facility] 200 [place] [place] [address] Phill Vegas MD [address] [facility] [place] [address] 07/22/2023 12:00 PM EDT Office Visit Pulmonary Medicine, [facility] [address] [facility] [place] [address] Carroll Garces MD [address] [facility] [place] [id number] Scheduled Orders Name Type Priority Associated Diagnoses Orde r Schedule CBC WITH WBC DIFFERENTIAL Lab STAT Kidney replaced by transplant Every 3 Months for 6 Occurrences starting 06/13/2023 until 06/12/2024 BASIC METABOLIC PANEL Lab STAT Kidney replaced by transplant Every 3 Months for 6 Occurrences starting 06/13/2023 until 06/12/2024 TACROLIMUS LEVEL Lab STAT Kidney replaced by transplant Every 3 Months for 6 Occurrences starting 06/13/2023 until 06/12/2024 Scheduled Procedures Name Priority Associated Diagnoses Date/Ti [...] 03/27/2023, Additional history exists GFR 05/25/2024 05/26/2023, 03/02/2023, 03/27/2023, Additional history exists COLONOSCOPY-EVERY 3 YRS AGES 18-100 04/10/2026 04/10/2023, 04/10/2023, 10/12/2021, Additional history exists DTaP,Tdap,and Td Vaccines (2 - Td or Tdap) 06/03/2032 06/03/2022 Alpha-1 Antitrypsin Completed 08/07/2020, Zoster Vaccines Completed 11/27/2021, 09/27/2021 COLONOSCOPY-ANNUAL AGES 18-100 Discontinued 04/10/2023, 04/10/2023, 10/12/2021, [...] encounter Visit Diagnoses Diagnosis Kidney replaced by transplant- Primary documented in this encounter Advance Directives Latest [...] the patient have Health Care Power of Firmware Architect? No Care Teams Bone Char Puller Relationship Specialty Start Date End Date Porfirio Kilgore MD [address] [place] [address] PCP - General Internal Medicine 03/30/20 documented as of this encounter
--- OUTSIDE RECORDS SUMMARY | 2023-08-24 00:08 | External Medical Summary | Summary of Care ---
Author Name Unknown Organization [facility] Address [address] [place] [address] Phone [phone] Care Team Providers Care Intensive Care Unit Registered Nurse Name Role Phone Porfirio Kilgore MD Primary Care Provider + Reason for Visit * Reason Comments Outpatient Testing Encounter Details Date Type Department Care Team (Late st Contact Info) Description 06/25/2023 8:20 AM EDT Laboratory Laboratory [address] [place] [id number] , Specimen Drop Off [address] [place] [address] Kidney replaced by transplant Allergies No known [...] % Nasal Solution Administer into nostril 1 [place] in the morning AND 1 [place] before bedtime. 30 mL 12 12/18/2021 Active [...] mgIndications:Kidney replaced by transplant 150 mg IM [id number] 03/13/2021 Active Cilgavimab inj 150 mgIndications:Kidney replaced by transplant 150 mg IM [id number] 03/13/2021 Active documented as of this encounter [...] 12:30 PM EDT Office Visit Transplant Clinic, [place] [address] [place] [address] Jean-Pierre Catalan [facility] [address] [place] [address] 07/07/2023 1:00 PM EDT Office Visit Dermatology [facility] [address] [facility] [place] [address] Phill Vegas MD [address] [facility] [place] [address] 07/22/2023 12:00 PM EDT Office Visit Pulmonary Medicine, [facility] [address] [facility] [place] [address] Carroll Garces [facility] [address] [facility] [phone] Pending Results Name Type Priority Associated Diagnoses [...] replaced by transplant 06/25/2023 8:19 AM EDT URINALYSIS, REFLEX TO CULTURE (NOT FOR NEUTROPENIC PATIENTS) Lab Routine Kidney replaced by transplant 06/25/2023 8:44 AM EDT URINALYSIS, REFLEX TO CULTURE (CUP ONLY) Lab Routine Kidney replaced by transplant 06/25/2023 8:44 AM EDT URINALYSIS, REFLEX TO CULTURE Lab Routine Kidney replaced by transplant 06/25/2023 8:44 AM EDT Scheduled Procedures Name Priority Associated [...] the patient have Health Care Power of Jig Mill Operator? No Care Teams Intensive Care Unit Registered Nurse Relationship Specialty Start Date End Date Porfirio Kilgore MD [address] [place] [address] PCP - General Internal Medicine 03/30/20 documented as of this encounter
--- OUTSIDE RECORDS SUMMARY | 2023-08-24 00:08 | External Medical Summary | Summary of Care ---
Author Name Unknown Organization [facility] Address [address] [place] [address] Phone [phone] Care Team Providers Care Network Associate Name Role Phone Porfirio Kilgore MD Primary Care Provider + Encounter Details Date Type Department Care Team (Late st Contact Info) Description 06/25/2023 Orders Only Transplant Clinic, [place] [address] [place], [place] [id number] Yamini Baker, RN [address] [place] [address] Kidney replaced by transplant* Allergies [...] % Nasal Solution Administer into nostril 1 [place] in the morning AND 1 [place] before bedtime. 30 mL 12 12/18/2021 Active [...] mgIndications:Kidney replaced by transplant 150 mg IM [id number] 03/13/2021 Active Cilgavimab inj 150 mgIndications:Kidney replaced by transplant 150 mg IM [id number] 03/13/2021 Active documented as of this encounter [...] 12:30 PM EDT Office Visit Transplant Clinic, [place] [address] [place] [address] Jean-Pierre Catalan [facility] [address] [place] [address] 07/07/2023 1:00 PM EDT Office Visit Dermatology [facility] 200 [facility] [place] [address] Phill Vegas MD [address] [facility] [place] [address] 07/22/2023 12:00 PM EDT Office Visit Pulmonary Medicine, [facility] 132 [facility] [place] [address] Carroll Garces MD [address] [place] [facility] [place] [address] Pending Results Name Type Priority Associated Diagnoses Date /Time URINALYSIS, REFLEX TO CULTURE (NOT FOR NEUTROPENIC PATIENTS) Lab Routine Kidney replaced by transplant 06/25/2023 8:44 AM EDT Scheduled Orders Name Type Priority Associated Diagnoses Orde r Schedule URINALYSIS, REFLEX TO CULTURE (NOT FOR NEUTROPENIC PATIENTS) Lab Routine Kidney replaced by transplant Expected: 06/25/2023, Expires: 06/24/2024 Scheduled Procedures Name Priority Associated Diagnoses Date/Ti [...] the patient have Health Care Power of Lime Vat Tender? No Care Teams Network Associate Relationship Specialty Start Date End Date Porfirio Kilgore MD [address] [place] [address] PCP - General Internal Medicine 03/30/20 documented as of this encounter
--- OUTSIDE RECORDS SUMMARY | 2023-08-24 00:08 | External Medical Summary ---
Author Name Unknown Address Unknown Organization [id number]:LABORATORY [facility] [place] - [address] [facility] [address] [place] [address] Laboratory Report Ordering Provider Test Date Status ARACELI STRATTON 06/25/2023 08:19:08 Final Observation Date Value Abnormality Reference (Units ) Status WBC, Total 06/25/2023 08:19:08 8.53 4.00-10.80 (K/uL) Final RBC 06/25/2023 08:19:08 3.94 4.50-5.25 (M/uL) Final Hemoglobin 06/25/2023 08:19:08 11.9 Below low normal 14.0-16.8 (g/dL) Final HCT 06/25/2023 08:19:08 37.0 Below low normal 40.0-48.4 (%) Final MCV 06/25/2023 08:19:08 93.9 82.0-99.5 (fL) Final MCH 06/25/2023 08:19:08 30.2 27.0-34.0 (pg) Final MCHC 06/25/2023 08:19:08 32.2 32.0-36.0 (g/dL) Final RDW 06/25/2023 08:19:08 15.3 11.5-15.5 (%) Final Platelets 06/25/2023 08:19:08 167 140-400 (K/uL) Final MPV 06/25/2023 08:19:08 11.8 6.6-11.1 (fL) Final Nucleated erythrocytes/100 leukocytes [Ratio] in Blood by Automated count 06/25/2023 08:19:08 0 <=0 (/100 WBCs) Final Performing Location [facility]ORY [facility] - [address] [place] [address]
--- OUTSIDE RECORDS SUMMARY | 2023-08-24 00:08 | External Medical Summary | Summary of Care ---
Author Name Unknown Organization [facility] Address [address] [place] [address] Phone [phone] Care Team Providers Care Personal Lines Account Manager Name Role Phone Porfirio Kilgore MD Primary Care Provider + Reason for Visit * Reason Onset Date Comments Surgery 06/24/2023 Encounter Details Date Type Department Care Team (Late st Contact Info) Description 06/24/2023 Telephone Urology, [facility] [address] [facility] [place] [address] Agustin Chery MD [address] [facility] [address] [place] [address] Surgery Allergies No known active [...] % Nasal Solution Administer into nostril 1 [place] in the morning AND 1 [place] before bedtime. 30 mL 12 12/18/2021 Active [...] mgIndications:Kidney replaced by transplant 150 mg IM [id number] 03/13/2021 Active Cilgavimab inj 150 mgIndications:Kidney replaced by transplant 150 mg IM [id number] 03/13/2021 Active documented as of this encounter [...] encounter Miscellaneous Notes * Telephone Encounter - Lydia Bartlett LPN [...] be in touch. Thank you Melissa PCP nehemias JOLLY at [facility] 3-5 day trial of void. Three week postop check. documented in this encounter Plan of Treatment Upcoming Encounters Date Type Department Care Team (Late st Contact Info) Description 07/02/2023 12:30 PM EDT [facility] [address] [place] [address] Jean-Pierre Catalan DNP [address] [place] [address] 07/07/2023 1:00 PM EDT Office Visit Dermatology [facility] [place] [address] [facility] [place] [address] Phill Vegas MD [address] [facility] [place] [address] 07/22/2023 12:00 PM EDT Office Visit Pulmonary Medicine, [facility] 132 [facility] [place] [address] Carroll Garces MD [address] [place] [address] 08/19/2023 10:30 AM EDT Nurse Only Urology, [facility] [address] [facility] [place] [address] [facility], Nurse Urology [facility] 132 [facility] [place] [address] 09/03/2023 2:45 PM EDT Office Visit Urology, [facility] [address] [facility] [place] [address] Agustin Chery MD [address] [facility] [address] [place] [address] Scheduled Procedures Name Priority Associated Diagnoses Date/Ti [...] YEAR FOR COPD 04/10/2024 04/10/2023 Albumin/Creatinine Ratio 05/25/20242 024, 04/25/2023, 03/27/2023, Additional history exists GFR [...] the patient have Health Care Power of Medical Billing Coordinator? No Care Teams Personal Lines Account Manager Relationship Specialty Start Date End Date Porfirio Kilgore MD [address] [place] [address] PCP - General Internal Medicine 03/30/20 documented as of this encounter
--- OUTSIDE RECORDS SUMMARY | 2023-08-24 00:08 | External Medical Summary ---
Author Name Unknown Address Unknown Organization K01:LAB[facility]ATORY [facility] [place] - [address] [place] [address] Laboratory Report Ordering Provider Test Date Status ARACELI STRATTON 06/25/2023 08:19:08 Final Test performed by [facility] on [employer]. Therapeutic ranges vary with type of transplant, time post-transplant, clinical protocols, and testing methodology. Results should be interpreted with clinical presentation and any signs rejection/toxicity. Observation Date Value Abnormality Reference (Units ) Status Tacrolimus (FK506) 06/25/2023 08:19:08 4.2 4 .0-12.0 (ng/mL) Final Performing Location LABORATORY [facility] [place] - [address] [place] [address]
--- OUTSIDE RECORDS SUMMARY | 2023-08-24 00:08 | External Medical Summary ---
Author Name Unknown Address Unknown Organization K01[place] [place] [address] [facility] [place] [address] Laboratory Report Ordering Provider Test Date Status ARACELI STRATTON 06/25/2023 08:19:08 Final Observation Date Value Abnormality Reference (Units ) Status SYNC LEUKOCYTES IN BLOOD BY AUTOMATED COUNT 06/25/2023 08:19:08 8.53 4.00-10.80 (K/uL) Final Segs 06/25/2023 08:19:08 69.5 40.0-75.0 (%) Final Lymphs % 06/25/2023 08:19:08 18.1 18.0-42.0 (%) Final Monos 06/25/2023 08:19:08 8.8 1.0-11.0 (%) Final Eosinophils 06/25/2023 08:19:08 2.7 0.0-6.0 (%) Final Basos 06/25/2023 08:19:08 0.2 0.0-2.0 (%) Final Immature Granulocyte, Percent 06/25/2023 08:19:08 0.7 0.0-2.0 (%) Final Absolute Segs 06/25/2023 08:19:08 5.93 1.80-7.70 (K/uL) Final Lymphs, absolute 06/25/2023 08:19:08 1.54 1.00-4.80 (K/ul) Final Monos, Abs 06/25/2023 08:19:08 0.75 0.00-1.10 (K/uL) Final Eos, Abs 06/25/2023 08:19:08 0.23 0.00-0.70 (K/uL) Final Basos, Abs 06/25/2023 08:19:08 0.02 0.00-0.20 (K/uL) Final Immature Granulocytes, Number 06/25/2023 08:19:08 0.06 0.00-0.20 (K/uL) Final Performing Location [facility] [place] [facility] [address] [facility] [address]
--- OUTSIDE RECORDS SUMMARY | 2023-08-24 00:09 | External Medical Summary ---
Author Name Unknown Address Unknown Organization K01:LAB[facility]ORY [facility] [place] - [address] [place] [address] Laboratory Report Ordering Provider Test Date Status ARACELI STRATTON 05/26/2023 11:18:37 Final Test performed by [facility] on [employer]. Therapeutic ranges vary with type of transplant, time post-transplant, clinical protocols, and testing methodology. Results should be interpreted with clinical presentation and any signs rejection/toxicity. Observation Date Value Abnormality Reference (Units ) Status Tacrolimus (FK506) 05/26/2023 11:18:37 5.6 4 .0-12.0 (ng/mL) Final Performing Location LABOR[facility]ORY [facility] [place] - [address] [place] [address]
--- OUTSIDE RECORDS SUMMARY | 2023-08-24 00:09 | External Medical Summary | Summary of Care ---
Author Name Unknown Organization [facility] Address [address] [place] [address] Phone [phone] Care Team Providers Care Tool Machine Shop Supervisor Name Role Phone Porfirio Kilgore MD Primary Care Provider + Reason for Visit * Reason Comments Follow Up Encounter Details Date Type Department Care Team (Late st Contact Info) Description 04/21/2023 3:40 PM EST Office Visit Pulmonary Medicine, [facility] [address] [facility] [place] [address] Carroll Garces MD [address] [facility] [place] [phone] SOB (shortness of breath)*; Mucopurulent chronic bronchitis (HCC) Allergies No known active allergiesdocumented as of this encounter (statuses as of 05/15/2023) Medications Medication Sig Dispensed Refills Start Date [...] % Nasal Solution Administer into nostril 1 [place] in the morning AND 1 [place] before bedtime. 30 mL 12 2 Active Nebulizer/Tubing/Mo uthpiece Kit Use as directed 1 Kit 0 [...] 3 Active predniSONE 5 MG Oral Tablet (Deltasone)Indicati ons:Kidney replaced by transplant,Need for prophylactic immunotherapy Take 1 Tablet by mouth in the morning. 90 Tablet 3 4 Active Pantoprazole Sodium 40 MG Oral Tablet Delayed Release (Protonix) TAKE ONE TABLET BY MOUTH EVERY DAY BEFORE BREAKFAST 90 Tablet 0 4 Active Levothyroxine Sodium 75 MCG Oral Tablet (Levoxyl) Take 1 Tablet by mouth daily first thing in the morning. (at least 30 min prior to breakfast or other meds) 0 Active Sulfamethoxazole-Tr imethoprim 400-80 MG Oral Tablet [...] Shortness of Breath or Wheezing. 18 g 3 4 04/21/19 24 Discontinu ed(Refill) Trelegy Ellipta 100-62.5-25 MCG/ACT Aerosol Powder Breath Activated (Fluticasone-Umecli dinium-Vilanterol) Inhale 1 Puff by mouth in the morning. 60 Blister Dosing Unit 0 4 04/21/19 24 Discontinu ed(Refill) Hospital, Clinic, or Other Facility Administered Medication Ordered Dose Route Frequency Start Date End Date Status Tixagevimab inj 150 mgIndications:Kidney replaced by transplant 150 mg IM [id number] 03/13/2021 Active Cilgavimab inj 150 mgIndications:Kidney replaced by transplant 150 mg IM [id number] 03/13/2021 Active documented as of this encounter (statuses as of 05/15/2023) Active Problems Problem Noted Date Diagnosed Date [...] as of this encounter (statuses as of 05/15/2023) Resolved Problems Problem Noted Date Diagnosed Date Resolved Date Bronchiectasis without complication 12/18/2021 05/03/2022 COPD, group C, by GOLD 2017 classification 11/05/2021 05/03/2022 Overview: Per COPD GOLD Classification COPD, group B, by GOLD 2017 classification 08/03/2020 11/08/2021 Overview: Per COPD GOLD Classification Aortic regurgitation 06/14/2015 016 Pre-transplant evaluation fo r chronic kidney disease 05/16/2015 08/20/2022 documented as of this encounter (statuses as of 05/15/2023) Immunizations Name Administration Dates Next Due COVID-19 [...] Sign Reading Time Taken Comments Blood Pressure 128/74 04/21/2023 3:28 PM EST Pulse 68 04/21/2023 3:28 PM EST Temperature 36.6 C (97.8 F) 04/21/2023 3:28 PM ES T Respiratory Rate 18 04/21/2023 3:28 PM EST Oxygen Saturation 95% 04/21/2023 3:29 PM EST ra amb 50 ft Inhaled Oxygen Concentration - - Weight 89.4 kg (197 lb) 04/21/2023 3:28 PM EST Height 175.3 cm (5' 9") 04/21/2023 3:28 PM EST Body Mass Index 29.09 04/21/2023 3:28 PM EST documented in this [...] Progress Notes * Carroll Garces MD - 04/21/2023 3:42 PM EST 04/21/2023 Pulmonary Medicine, [address] [place] [address] [id number] Myron Corado 1945 male 77 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 Since last evaluation, patient describes overall stable, except ongoing difficulty with expectoration, tried Acapella device in the past without any significant benefit. Suboptimal response to manualchest percussion due to frail body habitus. Patient would benefit from automated chest percussion therapy to facilitate clearance of secretions due to underlying risk factors including bronchiectasis. Patient has not received chest percussion therapy yet. Patient has been tolerating Bactrim SS twice [...] including Trelegy will be continued. Vest therapy order status will be followed up through DME. Periodic CBC, LFT and BMP monitoring Q 4-8 weeks will be continued. Pulmonary clinic follow-up in 3 month. Patient was advised to contact the office with any change insymptoms status. Assessment Mucopurulent chronic bronchitis (HCC) Traction Bronchiectasis Renal Transplant Status Immunosuppressive therapy Status Plan: C/w Bactrim SS 400/80 BID as maintenance therapy Chest VEST , follow-up approval process C/w Trelegy Periodic CBC, LFT, BMP monitoring Q 8 weeks Pulmonary clinic follow-up 3 months Follow Up: Return in about 3 months (around 07/20/2023) for Clinic Visit. | For: Clinic Visit | Check-out note: Mucopurulent chronic bronchitis (HCC) Traction Bronchiectasis Renal Transplant Status Immunosuppressive therapy Status Plan: C/w Bactrim SS 400/80 BID as maintenance therapy Chest VEST not received yet C/w Trelegy Periodic CBC, LFT, BMP monitoring Q 8 weeks Pulmonary clinic follow-up 3 months Carroll Garces MD Subjective CC: Chief Complaint Patient presents with Follow Up HPI: Nursing Notes: Ankita Rosado, LUCIANA 04/21/23 1538 Addendum Pt here for follow up recurrent bronchitis, traction bronchiectasis, and history of renal transplant on immunosuppressive therapy. CAT/mMRC Summary, Results are Patient Reported mMRC - (Range 0-5) CAT - (Range 0-40) CAT mMRC Results 04/03/2023 09:22 04/21/2023 15:35 Modified Medical Research [place] Dyspnea Scale When do you become breathless? (4) I am too breathless to leave the house or I am breathless when dressing (3) I stop for breath after walking about 100 yards or after a few minutes on level ground Total MMRC Score 4 3 COPD Assessment Test (CAT) How frequently do you cough? (5) - I cough all the time (5) - I cough all the time Do you have phlegm in your chest? (4) (5) - My chest is completely full of phlegm Is your chest tight? (2) (0) - My chest does not feel tight at all How breathless do you become when walking up a hill or steps? (5) - When I walk up a hill or one flight of stairs I am very breathless (5) - When I walk up a hill or one flight of stairs I am very breathless How limited are you doing activities at home? (2) (2) How confident are you leaving home with your lung condition? (0) - I am confident leaving my home despite my condition (0) - I am confident leaving my home despite my condition How soundly do you sleep? (3) (0) - I sleep soundly How much energy do you have? (3) (4) Total CAT Score 24 21 Interm History/Respiratory Symptoms Cough: Yes with a lot of cream colored phlegm Hemoptysis: None Sinus Symptoms: Drainage Hospitalizations: None due to breathing issues ED Trips: None due to breathing issues Triggers: None Nocturnal: Occasional cough CPAP/BiPAP/O2: None Flu Vaccine: Yes Pneumovax: no Prevnar: 2019 COVID 19: Yes Objective Filed Vitals: 04/21/23 1528 04/21/23 1529 BP: 128/74 Pulse: 68 Resp: 18 Temp: 36.6 C (97.8 F) TempSrc: Tympanic SpO2: 95% 95% Weight: 89.4 kg (197 lb) Height: 1.753 m (5' 9") Exam: [...] normal. Tests reviewed with the patient: US SCROTUM/TESTES Result Date: 03/13/2023 IMPRESSION 1. Mild right scrotal wall thickening and hyperemia. Correlate clinically for signs of cellulitis. 2. Small right hydrocele. Available Radiologic data was reviewed by me in PACS. The images were shown to the patient and findings were discussed with the patient. HOME MEDICATIONS: Trelegy Ellipta 100-62.5-25 MCG/ACT Aerosol Powder Breath Activated (Dtlnoxonytr-Rkkhkddynsdx-Csvguulpev) Ventolin HFA 108 (90 Base) MCG/ACT Inhalation Aerosol Solution Sulfamethoxazole-Trimethoprim 400-80 MG Oral Tablet (Bactrim) Levothyroxine Sodium 75 MCG Oral Tablet (Levoxyl) Pantoprazole Sodium 40 MG Oral Tablet Delayed Release (Protonix) predniSONE 5 MG Oral Tablet (Deltasone) Tacrolimus ER 0.75 MG Oral Tablet Extended Release 24 Hour (Envarsus XR) Tacrolimus ER 1 MG Oral Tablet Extended Release 24 Hour (Envarsus XR) Furosemide 40 MG Oral Tablet (Lasix) levoFLOXacin 750 MG Oral Tablet (Levaquin) Loperamide HCl 2 MG Oral Capsule (Imodium A-D) Albuterol Sulfate (2.5 MG/3ML) 0.083% Inhalation Nebulization Solution (Proventil) Nebulizer/Tubing/Mouthpiece Kit Azelastine HCl 0.1 % Nasal [...] WASHING performed by Mina Boyd MD at [facility] BRONCHOSCOPY, DIAGNOSTIC N/A 04/18/2022 BRONCHOSCOPY DIAGNOSTIC WITH OR WITHOUT WASHING performed by Kush Conte MD at [facility] COLONOSCOPY, DIAGNOSTIC (RECTUM) 07/01/2019 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, diverticulosis / [facility] COLONOSCOPY, DIAGNOSTIC (RECTUM) 10/12/2021 benign adenomatous polyps, diverticulosis, repeat 1 yr / [facility] COLONOSCOPY, DIAGNOSTIC (RECTUM) 04/10/2023 COLONOSCOPY FLEXIBLE PROXIMAL DIAGNOSTIC performed by Marisa Lucia MD at ENDOSCOPY [facility] EGD, FLEXIBLE, DIAGNOSTIC 07/01/2019 mild gastric irritation on bx / [facility] EGD, FLEXIBLE, DIAGNOSTIC 10/12/2021 gastric nodule / [facility] EGD, FLEXIBLE, ENDO MUCOSAL RESECTION N/A 01/09/2022 lesion body of stomachESOPHAGOGASTRODUODENOSCOPY (EGD), FLEXIBLE, TRANSORAL: MUCOSAL RESECTION performed by Marisa Lucia MD at [facility] EGD, W/ENDOSCOPIC US N/A 01/09/2022 subepithelial lesion stomach/biopsies show GIST/ESOPHAGOGASTRODUODENOSCOPY (EGD), FLEXIBLE, TRANSORAL, ENDOSCOPIC ULTRASOUND performed by Marisa Lucia MD at OR [facility] HEMORRHOIDECTOMY, INTERNAL, 2 + COLUMNS 04/14/2020 HEMORRHOIDECTOMY EXTERNAL AND INTERNAL COMPLEX performed by Faheem Cohen MD at OR [facility] INFORMATION appendix removed INFORMATION josr IR BIOPSY 04/16/2019 RENAL BIOPSY, PERCUTANEOUS (TROCAR/NEEDLE) N/A 08/20/2018 RENAL BIOPSY PERCUTANEOUS performed by Colin Rossi MD at OR [facility] RENAL BIOPSY, PERCUTANEOUS (TROCAR/NEEDLE) Right 09/11/2022 RENAL BIOPSY PERCUTANEOUS performed by Colin Rossi MD at OR [facility] SIGMOIDOSCOPY, DIAGNOSTIC 07/27/2019 Ulcerative proctitis, adenomatous polyp, diverticulosis / [facility] TRANSPLANTATION OF KIDNEY N/A 08/04/2018 RENAL TRANSPLANT performed by Colin Rossi MD at OR 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 Tobacco Use Smoking status: Former Current packs/day: 0.00 Average packs/day: 2.0 packs/day for 15.0 years (30.0 ttl pk-yrs) Types: Cigarettes Start date: 02/25/1960 Quit date: 02/24/1975 Years since quittin.1 Smokeless tobacco: Never Vaping Use Vaping Use: Never used Substance and Sexual Activity Alcohol use: Not Currently Drug use: Never Social History Narrative No pets No mold Oil heating Exposure to asphalt and dust/dirt Family History Problem Relation Age of Onset Diabetes Sister Diabetes Brother Heart failure Mother Heart failure Father Diabetes Sister Diabetes Sister Heart block Sister Other (part of bowl removed) Sister Diabetes Sister Other (auto immune disease) Sister Diabetes Sister Coronary Artery disease Sister valve replacement Review of patient's allergies indicates: No Known Allergies documented in this encounter Nursing Notes * Ankita Rosado LPN - 04/21/2023 3:23 PM EST Pt here for follow up recurrent bronchitis, traction bronchiectasis, and history of renal transplant on immunosuppressive therapy. CAT/mMRC Summary, Results are Patient Reported mMRC - (Range 0-5) CAT - (Range 0-40) CAT mMRC Results 04/03/2023 09:22 04/21/2023 15:35 Modified Medical Research [place] Dyspnea Scale When do you become breathless? (4) I am too breathless to leave the house or I am breathless when dressing (3) I stop for breath after walking about 100 yards or after a few minutes on level ground Total MMRC Score 4 3 COPD Assessment Test (CAT) How frequently do you cough? (5) - I cough all the time (5) - I cough all the time Do you have phlegm in your chest? (4) (5) - My chest is completely full of phlegm Is your chest tight? (2) (0) - My chest does not feel tight at all How breathless do you become when walking up a hill or steps? (5) - When I walk up a hill or one flight of stairs I am very breathless (5) - When I walk up a hill or one flight of stairs I am very breathless How limited are you doing activities at home? (2) (2) How confident are you leaving home with your lung condition? (0) - I am confident leaving my home despite my condition (0) - I am confident leaving my home despite my condition How soundly do you sleep? (3) (0) - I sleep soundly How much energy do you have? (3) (4) Total CAT Score 24 21 Interm History/Respiratory Symptoms Cough: Yes with a lot of cream colored phlegm Hemoptysis: None Sinus Symptoms: Drainage Hospitalizations: None due to breathing issues ED Trips: None due to breathing issues Triggers: None Nocturnal: Occasional cough CPAP/BiPAP/O2: None Flu Vaccine: Yes Pneumovax: no Prevnar: 2019 COVID 19: Yes documented in this encounter Plan of Treatment Upcoming Encounters Date Type Department Care Team (Late st Contact Info) Description 06/24/2023 10:30 AM EDT Procedure Only Urology, [facility] [address] [facility] [place] [address] Agustin Chery MD [address] [facility] [address] [place] [address] 07/02/2023 12:30 PM EDT Office Visit Transplant Clinic, [place] [address] [place] [address] Jean-Pierre Catalan [facility] [address] [place] [address] 07/07/2023 1:00 PM EDT Office Visit Dermatology [facility] [address] [facility] [place] [address] Phill Vegas MD [address] [facility] [place] [address] 07/22/2023 12:00 PM EDT Office Visit Pulmonary Medicine, [facility] [address] [place] [address] Carroll Garces MD [address] [facility] [place] [phone] Scheduled Procedures Name Priority Associated Diagnoses Date/Ti [...] 2022 02/05/2022, 07/15/2021, 07/15/2021, Additional history exists Influenza Vaccine (FLU shot) (#1) 2022 11/16/2021, 12/03/2020, 10/24/2019, Additional history exists HbA1c 07/29/2023 01/27/2023, 12/25, 06/10/2018, Additional history exists Diabetic Eye Exam 12/24/2023 12/23/2022 O2 ASSESSMENT COMPLETED IN PAST YEAR FOR COPD 04/10/2024 04/10/2023 Albumin/Creatinine Ratio 04/24/202404/24/2 024, 03/27/2023, 02/25/2023, Additional history exists GFR 04/24/2024 04/25/2023, 02/02/2023, 02/25/2023, Additional history exists COLONOSCOPY-EVERY 3 YRS AGES [...] as of this encounter Visit Diagnoses Diagnosis SOB (shortness of breath)- Primary Shortness of breath Mucopurulent chronic bronchitis (HCC) Mucopurulent chronic bronchitis documented in this encounter Advance Directives Latest [...] the patient have Health Care Power of Jigger Operator? No Care Teams Tool Machine Shop Supervisor Relationship Specialty Start Date End Date Porfirio Kilgore MD [address] [place] [phone] PCP - General Internal Medicine 03/30/20 documented as of this encounter
--- OUTSIDE RECORDS SUMMARY | 2023-08-24 00:09 | External Medical Summary ---
Author Name Unknown Address Unknown Organization [id number]:[facility] [place] [address] [place] [address] Laboratory Report Ordering Provider Test Date Status ROBERTO CARLOS AREVALO 05/26/2023 11:18:37 Final Observation Date Value Abnormality Reference (Units ) Status MYCODE SPECIMEN-SST 05/26/2023 11:18:37 Freezing of extracted DNA, whole blood and/or serum. Final Performing Location LABORATORY C - [address] [place] [address]
--- OUTSIDE RECORDS SUMMARY | 2023-08-24 00:09 | External Medical Summary ---
Author Name Unknown Address Unknown Organization [id number]:[facility]ORY [facility] [place] - [address] [place] [address] Laboratory Report Ordering Provider Test Date Status ARACELI STRATTON 05/26/2023 11:18:37 Final Observation Date Value Abnormality Reference (Units ) Status Parathyrin.intact [Mass/volume] in Serum or Plasma 05/26/2023 11:18:37 34 15-65 (pg/mL) Final Performing Location LABORATORY [facility] [place] - [address] [place] [address]
--- OUTSIDE RECORDS SUMMARY | 2023-08-24 00:09 | External Medical Summary ---
Author Name Unknown Address Unknown Organization [id number]:[facility]ATORY [facility] [place] - [address] [facility] [address] Laboratory Report Ordering Provider Test Date Status ARACELI STRATTON 05/26/2023 11:18:37 Final Observation Date Value Abnormality Reference (Units ) Status SYNC LEUKOCYTES IN BLOOD BY AUTOMATED COUNT 05/26/2023 11:18:37 8.65 4.00-10.80 (K/uL) Final Segs 05/26/2023 11:18:37 74.5 40.0-75.0 (%) Final Lymphs % 05/26/2023 11:18:37 14.3 Below low normal 18.0-42.0 (%) Final Monos 05/26/2023 11:18:37 7.5 1.0-11.0 (%) Final Eosinophils 05/26/2023 11:18:37 2.9 0.0-6.0 (%) Final Basos 05/26/2023 11:18:37 0.2 0.0-2.0 (%) Final Immature Granulocyte, Percent 05/26/2023 11:18:37 0.6 0.0-2.0 (%) Final Absolute Segs 05/26/2023 11:18:37 6.44 1.80-7.70 (K/uL) Final Lymphs, absolute 05/26/2023 11:18:37 1.24 1.00-4.80 (K/ul) Final Monos, Abs 05/26/2023 11:18:37 0.65 0.00-1.10 (K/uL) Final Eos, Abs 05/26/2023 11:18:37 0.25 0.00-0.70 (K/uL) Final Basos, Abs 05/26/2023 11:18:37 0.02 0.00-0.20 (K/uL) Final Immature Granulocytes, Number 05/26/2023 11:18:37 0.05 0.00-0.20 (K/uL) Final Performing Location LABORATORY [facility] [place] - [facility] [place] [address]
--- OUTSIDE RECORDS SUMMARY | 2023-08-24 00:09 | External Medical Summary ---
Author Name Unknown Address Unknown Organization [id number]:[facility] [place] [address] [place] [address] Laboratory Report Ordering Provider Test Date Status ARACELI STRATTON 05/26/2023 11:18:37 Final Normal: <30 mg/g creatinine< br/>High: 30-300 mg/g creatinine
Very High: >300 mg/g creatinine
Nephrotic: >2200 mg/g creatinine Observation Date Value Abnormality Reference (Units ) Status Albumin, Urine 05/26/2023 11:18:37 26.67 (mg/dL) Final Creatinine, Urine 05/26/2023 11:18:37 78 (mg/dL) Final Albumin/Creatinine [Mass Ratio] in Urine 05/26/2023 11:18:37 342 Above high normal <30 (mg/g Creat) Final Performing Location [facility] [place] [address] [place] [address]
--- OUTSIDE RECORDS SUMMARY | 2023-08-24 00:09 | External Medical Summary | Summary of Care ---
Author Name Unknown Organization [facility] Address [address] [place] [address] Phone [phone] Care Team Providers Care Biodiesel Plant Manager Name Role Phone Porfirio Kilgore MD Primary Care Provider + Reason for Visit * Reason Onset Date Comments Order Request 04/04/2023 Re: chest vest Encounter Details Date Type Department Care Team (Late st Contact Info) Description 04/04/2023 Telephone Pulmonary Medicine Linda [facility] [address] [place] [phone] Carroll Garces MD [address] [place] [phone] Order Request (Re: chest vest) Allergies No known active allergiesdocumented as of this encounter (statuses as of 06/06/2023) Medications Medication Sig Dispensed Refills Start Date [...] % Nasal Solution Administer into nostril 1 [place] in the morning AND 1 [place] before bedtime. 30 mL 12 2 Active [...] mgIndications:Kidney replaced by transplant 150 mg IM [id number] 03/13/2021 Active Cilgavimab inj 150 mgIndications:Kidney replaced by transplant 150 mg IM [id number] 03/13/2021 Active documented as of this encounter (statuses as of 06/06/2023) Active Problems Problem Noted Date Diagnosed Date [...] as of this encounter (statuses as of 06/06/2023) Resolved Problems Problem Noted Date Diagnosed Date Resolved Date Bronchiectasis without complication 12/18/2021 05/03/2022 COPD, group C, by GOLD 2017 classification 11/05/2021 05/03/2022 Overview: Per COPD GOLD Classification COPD, group B, by GOLD 2017 classification 08/03/2020 11/08/2021 Overview: Per COPD GOLD Classification Aortic regurgitation 06/14/2015 016 Pre-transplant evaluation fo r chronic kidney disease 05/16/2015 08/20/2022 documented as of this encounter (statuses as of 06/06/2023) Immunizations Name Administration Dates Next Due COVID-19 [...] encounter Miscellaneous Notes * Telephone Encounter - Radha Kaufman LPN - 06/06/2023 12:09 PM EDT Per Maris at [facility], the pt received his VEST on 06/04/23. He is scheduled for f/u appt with Dr Garces 07/22/23. * Telephone Encounter - Radha Kaufman LPN - 05/19/2023 2:[address] Garces addended the note, and it was faxed to the number provided. Per Maris at [facility] today, vest has been approved. Pt will be measured and should receive it in 1.5-2 weeks. Maris will notify us when the pt has the vest. * Telephone Encounter - Radha Kaufman LPN - 05/15/2023 10:22 AM EDT From Maris at [facility]: "MayMyron afflovest order was denied at this time. They vest team wants chart notes where a flutter device was tried and failed and airway clearance therapy was tried and failed." * Telephone Encounter - Radha Kaufman LPN - 05/15/2023 10:13 AM EDT Maris Paz from [facility] confirmed receipt of the form and chart documents. She will keep us apprised of the processing, and will notify us when it's received by the pt. * Telephone Encounter - Radha Kaufman LPN - 05/15/2023 7:29 AM EDT Completed form, office notes, ct chest, order all faxed to [facility] and also [employer]. * Telephone Encounter - Donovan Keating OSA - 04/04/2023 7:52 AM EST Orders in 04/04 chest vest documented in this encounter Plan of Treatment Upcoming Encounters Date Type Department Care Team (Late st Contact Info) Description 06/24/2023 10:30 AM EDT Procedure Only Urology, [facility] [address] [facility] [place] [address] Agustin Chery MD [address] [facility] [address] [place] [address] 07/02/2023 12:30 PM EDT [facility] [address] [place] [address] Jean-Pierre Catalan, [place] [address] [place] [address] 07/07/2023 1:00 PM EDT [facility] [address] [facility] [place] [address] Phill Vegas MD [address] [facility] [place] [address] 07/22/2023 12:00 PM EDT Office Visit Pulmonary Medicine, [facility] [address] [facility] [place] [address] Carroll Garces MD [address] [place] [address] Scheduled Procedures Name Priority Associated Diagnoses Date/Ti [...] 05/26/2023, 03/0 02/2023, 03/27/2023, Additional history exists COLONOSCOPY-EVERY 3 YRS [...] the patient have Health Care Power of Clinical Rehabilitation Coordinator? No Care Teams Biodiesel Plant Manager Relationship Specialty Start Date End Date Porfirio Kilgore MD [address] [place] [address] [place] [address] PCP - General Internal Medicine 03/30/20 documented as of this encounter
--- OUTSIDE RECORDS SUMMARY | 2023-08-24 00:09 | External Medical Summary | Summary of Care ---
Author Name Unknown Organization [facility] Address [address] [place] [address] Phone [phone] Care Team Providers Care Energy Economist Name Role Phone Porfirio Kilgore MD Primary Care Provider + Reason for Visit * Reason Comments Outpatient Testing Encounter Details Date Type Department Care Team (Late st Contact Info) Description 05/26/2023 11:20 AM EDT Laboratory Laboratory [address] [place] [phone] 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 30 mL 12 12/18/2021 Active [...] mgIndications:Kidney replaced by transplant 150 mg IM [id number] 03/13/2021 Active Cilgavimab inj 150 mgIndications:Kidney replaced by transplant 150 mg IM [id number] 03/13/2021 Active documented as of this encounter (statuses as of 05/26/2023) Active Problems Problem Noted Date Diagnosed Date [...] as of this encounter (statuses as of 05/26/2023) Resolved Problems Problem Noted Date Diagnosed Date Resolved Date Bronchiectasis without complication 12/18/2021 05/03/2022 COPD, group C, by GOLD 2017 classification 11/05/2021 05/03/2022 Overview: Per COPD GOLD Classification COPD, group B, by GOLD 2017 classification 08/03/2020 11/08/2021 Overview: Per COPD GOLD Classification Aortic regurgitation 06/14/2015 016 Pre-transplant evaluation fo r chronic kidney disease 05/16/2015 08/20/2022 documented as of this encounter (statuses as of 05/26/2023) Immunizations Name Administration Dates Next Due COVID-19 [...] 06/24/2023 10:30 AM EDT Procedure Only Urology, [facility] [address] [facility] [place] [address] Agustin Chery MD [address] [place] [address] 07/02/2023 12:30 PM EDT [facility] [address] [place] [address] [facility] [address] [place] [address] 07/07/2023 1:00 PM EDT Office Visit Dermatology [facility] [address] [facility] [place] [address] Phill Vegas MD [address] [facility] [facility] [place] [address] 07/22/2023 12:00 PM EDT Office Visit Pulmonary Medicine, [facility] [address] [facility] [place] [address] Carroll Garces MD [address] [place] [phone] Pending Results Name Type Priority Associated Diagnoses Date /Time CBC WITH WBC DIFFERENTIAL Lab STAT Kidney replaced by transplant 05/26/2023 11:18 AM EDT BASIC METABOLIC PANEL Lab STAT Kidney replaced by transplant 05/26/2023 11:18 AM EDT ALBUMIN / CREATININE RATIO, URINE Lab STAT Kidney replaced by transplant 05/26/2023 11:18 AM EDT 25-HYDROXY VITAMIN D Lab STAT Kidney replaced by transplant 05/26/2023 11:18 AM EDT PTH Lab STAT Kidney replaced by transplant 05/26/2023 11:18 AM EDT LIPID PANEL WITHOUT DIRECT LDL Lab STAT Kidney replaced by transplant 05/26/2023 11:18 AM EDT TACROLIMUS LEVEL Lab STAT Kidney replaced by transplant 05/26/2023 11:18 AM EDT MYCODE SUBSEQUENT ADULT Lab Routine MyCode Research Other*[id number] 05/26/2023 11:18 AM EDT CBC Lab STAT Kidney replaced by transplant 05/26/2023 11:18 AM EDT DIFFERENTIAL, AUTOMATED Lab STAT Kidney replaced by transplant 05/26/2023 11:18 AM EDT MYCODE SST1 Lab Routine MyCode Research Other*[id number] 05/26/2023 11:18 AM EDT MYCODE SST2 Lab Routine MyCode Research Other*[id number] 05/26/2023 11:18 AM EDT Scheduled Procedures Name Priority Associated [...] YEAR FOR COPD 04/10/2024 04/10/2023 Albumin/Creatinine Ratio 04/24/2024 03/2 024, 03/27/2023, 02/25/2023, Additional history exists GFR 04/24/2024 04/25/2023, 02/0 02/2023, 02/25/2023, Additional history exists COLONOSCOPY-EVERY 3 YRS [...] Visit Diagnoses Diagnosis 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 No Care Teams Energy Economist Relationship Specialty Start Date End Date Porfirio Kilgore MD [address] [place] [phone] PCP - General Internal Medicine 03/30/20 documented as of this encounter
--- OUTSIDE RECORDS SUMMARY | 2023-08-24 00:09 | External Medical Summary | Summary of Care ---
Author Name Unknown Organization [facility] Address [address] [place] [address] Phone [phone] Care Team Providers Care Machine Coil Assembler Name Role Phone Porfirio Kilgore MD Primary Care Provider + Reason for Visit * Reason Onset Date Comments Order Request 04/04/2023 Re: chest vest Encounter Details Date Type Department Care Team (Late st Contact Info) Description 04/04/2023 Telephone Pulmonary Medicine Linda Chu [address] [place] [phone] Carroll Garces MD [address] [place] [phone] Order Request (Re: chest vest) Allergies No known active allergiesdocumented as of this encounter (statuses as of 05/19/2023) Medications Medication Sig Dispensed Refills Start Date [...] % Nasal Solution Administer into nostril 1 [place] in the morning AND 1 [place] before bedtime. 30 mL 12 2 Active [...] mgIndications:Kidney replaced by transplant 150 mg IM [id number] 03/13/2021 Active Cilgavimab inj 150 mgIndications:Kidney replaced by transplant 150 mg IM [id number] 03/13/2021 Active documented as of this encounter (statuses as of 05/19/2023) Active Problems Problem Noted Date Diagnosed Date [...] as of this encounter (statuses as of 05/19/2023) Resolved Problems Problem Noted Date Diagnosed Date Resolved Date Bronchiectasis without complication 12/18/2021 05/03/2022 COPD, group C, by GOLD 2017 classification 11/05/2021 05/03/2022 Overview: Per COPD GOLD Classification COPD, group B, by GOLD 2017 classification 08/03/2020 11/08/2021 Overview: Per COPD GOLD Classification Aortic regurgitation 06/14/2015 016 Pre-transplant evaluation fo r chronic kidney disease 05/16/2015 08/20/2022 documented as of this encounter (statuses as of 05/19/2023) Immunizations Name Administration Dates Next Due COVID-19 [...] to the number provided. Per Maris at [facility] today, vest has been approved. Pt will be measured and should receive it in 1.5-2 weeks. Maris will notify us when the pt has the vest. * Telephone Encounter - Radha Kaufman LPN - 05/15/2023 10:22 AM EDT From Maris at [facility]: "MayMyron afflovest order was denied at this time. They vest team wants chart notes where a flutter device was tried and failed and airway clearance therapy was tried and failed." * Telephone Encounter - Radha Kaufman LPN - 05/15/2023 10:13 AM EDT Maris Paz from [facility] confirmed receipt of the form and chart documents. She will keep us apprised of the processing, and will notify us when it's received by the pt. * Telephone Encounter - Radha Kaufman LPN - 05/15/2023 7:29 AM EDT Completed form, office notes, ct chest, order all faxed to [facility] and also AffloVest. * Telephone Encounter - Donovan Keating OSA - 04/04/2023 7:52 AM EST Orders in 04/04 chest vest documented in this encounter Plan of Treatment Upcoming Encounters Date Type Department Care Team (Late st Contact Info) Description 06/24/2023 10:30 AM EDT Procedure Only Urology, [facility] [address] [place] [address] Agustin Chery MD 27 [facility] [address] [place] [address] 07/02/2023 12:30 PM EDT [facility] [address] [place] [address] [facility] [address] [place] [address] 07/07/2023 1:00 PM EDT Office Visit Dermatology [facility] 200 [place] [address] Phill Vegas MD [address] [place] [address] 07/22/2023 12:00 PM EDT Office Visit Pulmonary Medicine, [facility] [address] [place] [address] Carroll Garces MD [address] [place] [phone] Scheduled Procedures Name Priority Associated Diagnoses Date/Ti [...] DIRECTIVE NOT ON FILE 11/10/2021 COVID-19 Vaccine (2022-24 season) 2022 02/05/2022, 07/15/2021, 07/15/2021, Additional history exists Influenza Vaccine (FLU shot) (#1) 2022 11/16/2021, 12/03/2020, 10/24/2019, Additional history exists HbA1c 07/29/2023 01/27/2023, 12/25, 06/10/2018, Additional history exists Diabetic Eye Exam 12/24/2023 12/23/2022 O2 ASSESSMENT COMPLETED IN PAST YEAR FOR COPD 04/10/2024 04/10/2023 Albumin/Creatinine Ratio 04/24/20242 024, 03/27/2023, 02/25/2023, Additional history exists GFR 04/24/2024 04/25/2023, 02/2023, 02/25/2023, Additional history exists COLONOSCOPY-EVERY 3 [...] the patient have Health Care Power of Boarder Machine? No Care Teams Machine Coil Assembler Relationship Specialty Start Date End Date Porfirio Kilgore MD [address] [facility] [place] [address] PCP - General Internal Medicine 03/30/20 documented as of this encounter
--- OUTSIDE RECORDS SUMMARY | 2023-08-24 00:09 | External Medical Summary | Summary of Care ---
Author Name Unknown Organization [facility] Address [address] [place] [address] Phone [phone] Care Team Providers Care Deblocker Name Role Phone Porfirio Kilgore MD Primary Care Provider + Reason for Visit * Reason Onset Date Comments Order Request 04/04/2023 Re: chest vest Encounter Details Date Type Department Care Team (Late st Contact Info) Description 04/04/2023 Telephone Pulmonary Medicine Linda Chu [address] [place] [phone] Carroll Garces MD [address] [place] [phone] Order Request (Re: chest vest) Allergies No [...] % Nasal Solution Administer into nostril 1 [place] in the morning AND 1 [place] before bedtime. 30 mL 12 2 Active [...] mgIndications:Kidney replaced by transplant 150 mg IM [id number] 03/13/2021 Active Cilgavimab inj 150 mgIndications:Kidney replaced by transplant 150 mg IM [id number] 03/13/2021 Active documented as of this encounter [...] 05/15/2023 10:22 AM EDT From Maris at [facility]: "May, Myron Corado afflovest order was denied at this time. They vest team wants chart notes where a flutter device was tried and failed and airway clearance therapy was tried and failed." * Telephone Encounter - Radha Kaufman LPN - 05/15/2023 10:13 AM EDT Maris Paz from [facility] confirmed receipt of the form and chart documents. She will keep us apprised of the processing, and will notify us when it's received by the pt. * Telephone Encounter - Radha Kaufman LPN - 05/15/2023 7:29 AM EDT Completed form, office notes, ct chest, order all faxed to [facility] and also AffloVest. * Telephone Encounter - Donovan Keating OSA - 04/04/2023 7:52 AM EST Orders in 04/04 chest vest documented in this encounter Plan of Treatment Upcoming Encounters Date Type Department Care Team (Late st Contact Info) Description 06/24/2023 10:30 AM EDT Procedure Only Urology, [facility] [address] [place] [address] Agustin Chery MD 27 [facility] [address] [place] [address] 07/02/2023 12:30 PM EDT Office Visit Transplant Clinic, [place] [address] [place] [address] Jean-Pierre Catalan, [facility] [address] [place] [address] 07/07/2023 1:00 PM EDT Office [facility] [address] [facility] [place] [address] Phill Vegas MD 200 [place] [address] 07/22/2023 12:00 PM EDT Office Visit Pulmonary Medicine, [facility] [address] [place] [address] Carroll Garces MD [address] [place] [address] Scheduled Procedures Name Priority Associated Diagnoses Date/Ti [...] the patient have Health Care Power of Aerial Survey Technician? No Care Teams Deblocker Relationship Specialty Start Date End Date Porfirio Kilgore MD [address] [place] [address] PCP - General Internal Medicine 03/30/20 documented as of this encounter
--- OUTSIDE RECORDS SUMMARY | 2023-08-24 00:09 | External Medical Summary | Summary of Care ---
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 30 mL 12 12/18/2021 Active [...] mgIndications:Kidney replaced by transplant 150 mg IM [id number] 03/13/2021 Active Cilgavimab inj 150 mgIndications:Kidney replaced by transplant 150 mg IM [id number] 03/13/2021 Active documented as of this encounter [...] 06/24/2023 10:30 AM EDT Procedure Only Urology, [facility] [address] [facility] [place] [address] Agustin Chery MD [address] [place] [address] 07/02/2023 12:30 PM EDT [facility] [address] [place] [address] [facility] [address] [place] [address] 07/07/2023 1:00 PM EDT Office Visit Dermatology [facility] 200 [facility] [place] [address] Phill Vegas MD 200 [facility] [place] [address] 07/22/2023 12:00 PM EDT Office Visit Pulmonary Medicine, [facility] [address] [facility] [place] [address] Carroll Garces MD [address] [place] [phone] Pending Results Name Type Priority Associated Diagnoses [...] MYCODE SUBSEQUENT ADULT Lab Routine MyCode Research Other*[id number] 05/26/2023 11:18 AM EDT CBC Lab STAT Kidney replaced by transplant 05/26/2023 11:18 AM EDT DIFFERENTIAL, AUTOMATED Lab STAT Kidney replaced by transplant 05/26/2023 11:18 AM EDT MYCODE SST1 Lab Routine MyCode Research Other*[id number] 05/26/2023 11:18 AM EDT MYCODE SST2 Lab Routine MyCode Research Other*[id number] 05/26/2023 11:18 AM EDT Scheduled Procedures Name [...] other medications Immunodeficiency, unspecified (HCC) MyCode Research Other*[id number] documented in this encounter Advance Directives Latest [...] the patient have Health Care Power of Robotic Maintenance Technician? No Care Teams Physician Relations Manager Relationship Specialty Start Date End Date Porfirio Kilgore MD [address] [place] [phone] PCP - General Internal Medicine 03/30/20 documented as of this encounter
--- OUTSIDE RECORDS SUMMARY | 2023-08-24 00:09 | External Medical Summary ---
Author Name Unknown Address Unknown Organization K01:LABORATORY [facility] - [facility] [address] [facility] [address] [place] [address] Laboratory Report Ordering Provider Test Date Status ARACELI STRATTON 05/26/2023 11:18:37 Final Observation Date Value Abnormality Reference (Units ) Status BUN 05/26/2023 11:18:37 37 Above high normal 6-20 (mg/dL) Final Creatinine 05/26/2023 11:18:37 3.1 Above high normal 0.6-1.2 (mg/dL) Final Glomerular filtration rate/1.73 sq M.predicted [Volume Rate/Area] in Serum, Plasma or Blood by Creatinine-based formula (CKD-EPI) 05/26/2023 11:18:37 20 Below low normal >=60 (mL/min) Final eGFR is calculated based on the CKD-EPI 2020 equation Sodium 05/26/2023 11:18:37 140 135-146 (m mol/L) Final Potassium 05/26/2023 11:18:37 4.2 3.5-5.1 (m mol/L) Final Cl 05/26/2023 11:18:37 106 98-107 (mm ol/L) Final CO2 05/26/2023 11:18:37 21 Below low normal 22- 32 (mmol/L) Final Anion gap 05/26/2023 11:18:37 13 7-15 (mmol /L) Final Glucose 05/26/2023 11:18:37 116 70-120 (mg /dL) Final Calcium 05/26/2023 11:18:37 9.2 8.4-10.2 ( mg/dL) Final Performing Location LABORATORY [facility] - [facility] [address] [place] [address]
--- OUTSIDE RECORDS SUMMARY | 2023-08-24 00:09 | External Medical Summary ---
Author Name Unknown Address Unknown Organization [id number]:LABORATORY [facility] - [address] [facility] [address] [place] [address] Laboratory Report Ordering Provider Test Date Status ARACELI STRATTON 05/26/2023 11:18:37 Final Observation Date Value Abnormality Reference (Units ) Status WBC, Total 05/26/2023 11:18:37 8.65 4.00-10.80 (K/uL) Final RBC 05/26/2023 11:18:37 4.04 4.50-5.25 (M/uL) Final Hemoglobin 05/26/2023 11:18:37 11.9 Below low normal 14.0-16.8 (g/dL) Final HCT 05/26/2023 11:18:37 38.5 Below low normal 40.0-48.4 (%) Final MCV 05/26/2023 11:18:37 95.3 82.0-99.5 (fL) Final MCH 05/26/2023 11:18:37 29.5 27.0-34.0 (pg) Final MCHC 05/26/2023 11:18:37 30.9 32.0-36.0 (g/dL) Final RDW 05/26/2023 11:18:37 15.2 11.5-15.5 (%) Final Platelets 05/26/2023 11:18:37 186 140-400 (K/uL) Final MPV 05/26/2023 11:18:37 12.1 6.6-11.1 (fL) Final Nucleated erythrocytes/100 leukocytes [Ratio] in Blood by Automated count 05/26/2023 11:18:37 0 <=0 (/100 WBCs) Final Performing Location LABORATORY [facility] - [address] [place] [address]
--- OUTSIDE RECORDS SUMMARY | 2023-08-24 00:09 | External Medical Summary ---
Author Name Unknown Address Unknown Organization K01:LABORATORY [facility] - [address] [place] [address] Laboratory Report Ordering Provider Test Date Status RAMANA STRATTONARIA 05/26/2023 11:18:37 Final Deficient: <20 ng/mL
Ins ufficient: 20-29 ng/mL
Recommended/Optimum:30-50 ng/mL

Vitamin D intoxication is rare. If suspicious of Vitamin D toxicity, evaluation of serum Calcium and PTH is recommended. Observation Date Value Abnormality Reference (Units ) Status 25-OH Vitamin D total 05/26/2023 11:18:37 49 >19 (ng/mL) Final Performing Location LABORATORY C - [address] [place] [address]
--- OUTSIDE RECORDS SUMMARY | 2023-08-24 00:09 | External Medical Summary ---
Author Name Unknown Address Unknown Organization K01:[facility]ORY [facility] [place] [address] [facility] [address] Laboratory Report Ordering Provider Test Date Status ARACELI STRATTON 05/26/2023 11:18:37 Final Observation Date Value Abnormality Reference (Units ) Status Triglyceride 05/26/2023 11:18:37 222 Above high normal <=174 (mg/dL) Final Triglyceride Reference Range s (mg/dL):
<150 Acceptable
150-174 Borderline high
175-499 High
>=500 Very high Cholesterol 05/26/2023 11:18:37 125 <200 (mg /dL) Final Total Cholesterol Reference Ranges (mg/dL):
<200 Desirable
200-239 Borderline high
>=240 High HDL 05/26/2023 11:18:37 33 Below low normal >39 (mg/dL) Final HDL Cholesterol Reference Ra nges (mg/dL):
>=60 High (Desirable)
<50 Low (Undesirable) For Females
<40 Low (Undesirable) For Males NON-HDL CHOLESTEROL 05/26/2023 11:18:37 92 <=159 (mg/dL) Final Non-HDL Cholesterol Referenc e Range (mg/dL):
<100 Target level for high risk ASCVD patient
<130 Optimal for general population
130-159 Near optimal for general population
160-189 Borderline High
190-219 High
>=220 Very High LDL, (calculated) 05/26/2023 11:18:37 48 <= 129 (mg/dL) Final LDL Cholesterol Reference Ra nges (mg/dL):
<70 Target level for high risk ASCVD patient
<100 Optimal for general population
100-129 Near optimal for general population
130-159 Borderline high
160-189 High
>=190 Very high Performing Location LAB[facility]ATORY [facility] [place] [address] [facility] [address]
--- OUTSIDE RECORDS SUMMARY | 2023-08-24 00:09 | External Medical Summary | Summary of Care ---
Author Name Unknown Organization [facility] Address [address] [place] [address] Phone [phone] Care Team Providers Care Proc Tech Name Role Phone Porfirio Kilgore MD Primary Care Provider + Encounter Details Date Type Department Care Team (Late st Contact Info) Description 06/02/2023 Orders Only Outcomes Research Department [address] [place] [address] Samantha Vasquez [facility] Other*[id number] Allergies No known active allergiesdocumented as of this encounter (statuses as of 06/02/2023) Medications Medication Sig Dispensed Refills Start Date [...] % Nasal Solution Administer into nostril 1 [place] in the morning AND 1 [place] before bedtime. 30 mL 12 12/18/2021 Active [...] mgIndications:Kidney replaced by transplant 150 mg IM [id number] 03/13/2021 Active Cilgavimab inj 150 mgIndications:Kidney replaced by transplant 150 mg IM [id number] 03/13/2021 Active documented as of this encounter (statuses as of 06/02/2023) Active Problems Problem Noted Date Diagnosed Date [...] as of this encounter (statuses as of 06/02/2023) Resolved Problems Problem Noted Date Diagnosed Date Resolved Date Bronchiectasis without complication 12/18/2021 05/03/2022 COPD, group C, by GOLD 2017 classification 11/05/2021 05/03/2022 Overview: Per COPD GOLD Classification COPD, group B, by GOLD 2017 classification 08/03/2020 11/08/2021 Overview: Per COPD GOLD Classification Aortic regurgitation 06/14/2015 016 Pre-transplant evaluation fo r chronic kidney disease 05/16/2015 08/20/2022 documented as of this encounter (statuses as of 06/02/2023) Immunizations Name Administration Dates Next Due COVID-19 [...] Upcoming Encounters Date Type Department Care Team (Kinga moore Contact Info) Description 06/24/2023 10:30 AM EDT Procedure Only Urology, [facility] [address] [facility] [place] [address] Agustin Chery MD [address] [place] [address] 07/02/2023 12:30 PM EDT Office Visit Transplant Clinic, [place] [address] [place] [address] Jean-Pierre Catalan, [facility] [address] [place] [address] 07/07/2023 1:00 PM EDT Office Visit Dermatology [facility] 200 [facility] [place] [address] Phill Vegas MD 200 [facility] [place] [address] 07/22/2023 12:00 PM EDT Office Visit Pulmonary Medicine, [facility] [address] [facility] [place] [address] Carroll Garces MD [address] [place] [facility] [place] [address] Scheduled Orders Name Type Priority Associated Diagnoses Orde r Schedule MYCODE SUBSEQUENT ADULT Lab Routine MyCode Research Other*[id number] Every 6 Months for 2 Occurrences starting 06/02/2023 until 06/21/2024 Scheduled Procedures Name Priority Associated Diagnoses Date/Ti [...] 03/27/2023, Additional history exists GFR 05/25/2024 05/26/2023, 030 02/2023, 03/27/2023, Additional history exists COLONOSCOPY-EVERY 3 [...] as of this encounter Visit Diagnoses Diagnosis MyCode Research Other*[id number] documented in this encounter Advance Directives Latest [...] the patient have Health Care Power of Processing Spec? No Care Teams Proc Tech Relationship Specialty Start Date End Date Porfirio Kilgore MD [address] [place] [address] PCP - General Internal Medicine 03/30/20 documented as of this encounter
--- OUTSIDE RECORDS SUMMARY | 2023-08-24 00:09 | External Medical Summary ---
Author Name Unknown Address Unknown Organization K01:LABORATORY [facility] - [address] [place] [address] Laboratory Report Ordering Provider Test Date Status ROBERTO CARLOS AREVALO 05/26/2023 11:18:37 Final Observation Date Value Abnormality Reference (Units ) Status MYCODE SPECIMEN-SST 05/26/2023 11:18:37 Freezing of extracted DNA, whole blood and/or serum. Final Performing Location LABORATORY C - [address] [place] [address]
--- OUTSIDE RECORDS SUMMARY | 2023-08-24 00:10 | External Medical Summary | Summary of Care ---
Author Name Unknown Organization [facility] Address [address] [place] [address] Phone [phone] Care Team Providers Care Construction Scheduler Name Role Phone Porfirio Kilgore MD Primary Care Provider + Reason for Visit * Reason Onset Date Comments Order Request 04/04/2023 Re: chest vest Encounter Details Date Type Department Care Team (Late st Contact Info) Description 04/04/2023 Telephone Pulmonary Medicine Linda Chu [address] [place] [phone] Carroll Garces MD [address] [phone] Order Request (Re: chest vest) Allergies No [...] % Nasal Solution Administer into nostril 1 [place] in the morning AND 1 [place] before bedtime. 30 mL 12 2 Active [...] mgIndications:Kidney replaced by transplant 150 mg IM [id number] 03/13/2021 Active Cilgavimab inj 150 mgIndications:Kidney replaced by transplant 150 mg IM [id number] 03/13/2021 Active documented as of this encounter [...] 05/15/2023 10:13 AM EDT Maris Paz from [facility] confirmed receipt of the form and chart documents. She will keep us apprised of the processing, and will notify us when it's received by the pt. * Telephone Encounter - Radha Kaufman LPN - 05/15/2023 7:29 AM EDT Completed form, office notes, ct chest, order all faxed to [facility] and also [facility]. * Telephone Encounter - Donovan Keating OSA - 04/04/2023 7:52 AM EST Orders in 04/04 chest vest documented in this encounter Plan of Treatment Upcoming Encounters Date Type Department Care Team (Late st Contact Info) Description 06/24/2023 10:30 AM EDT Procedure Only Urology, [facility] [address] [facility] [place] [address] Agustin Chery MD 27 [facility] [address] [place] [address] 07/02/2023 12:30 PM EDT Office Visit Transplant Clinic, [place] [address] [place] [address] Jean-Pierre Catalan, DNP [address] [place] [address] 07/07/2023 1:00 PM EDT Office Visit Dermatology [facility] [address] [facility] [place] [address] Phill Vegas MD 200 [facility] [place] [address] 07/22/2023 12:00 PM EDT Office Visit Pulmonary Medicine, [facility] [address] [place] [address] Carroll Garces [facility] [address] [facility] [phone] Scheduled Procedures Name Priority Associated Diagnoses Date/Ti [...] the patient have Health Care Power of Towel Stretcher? No Care Teams Construction Scheduler Relationship Specialty Start Date End Date Porfirio Kilgore MD [address] [place] [address] PCP - General Internal Medicine 03/30/20 documented as of this encounter
--- OUTSIDE RECORDS SUMMARY | 2023-08-24 00:10 | External Medical Summary | Summary of Care ---
Author Name Unknown Organization [facility] Address [address] [place] [address] Phone [phone] Care Team Providers Care Air Force Pilot Name Role Phone Porfirio Kilgore MD Primary Care Provider + Reason for Visit * Reason Onset Date Comments Order Request 04/04/2023 Re: chest vest Encounter Details Date Type Department Care Team (Late st Contact Info) Description 04/04/2023 Telephone Pulmonary Medicine Linda Chu [address] [place] [phone] Carroll Garces MD [address] [id number] Order Request (Re: chest vest) Allergies No [...] % Nasal Solution Administer into nostril 1 [place] in the morning AND 1 [place] before bedtime. 30 mL 12 2 Active [...] mgIndications:Kidney replaced by transplant 150 mg IM [id number] 03/13/2021 Active Cilgavimab inj 150 mgIndications:Kidney replaced by transplant 150 mg IM [id number] 03/13/2021 Active documented as of this encounter [...] notes, ct chest, order all faxed to [facility] and also [facility]. * Telephone Encounter - Donovan Keating OSA - 04/04/2023 7:52 AM EST Orders in 04/04 chest vest documented in this encounter Plan of Treatment Upcoming Encounters Date Type Department Care Team (Late st Contact Info) Description 06/24/2023 10:30 AM EDT Procedure Only Urology, [facility] 132 [facility] [place] [address] Agustin Chery MD 27 [facility] [address] [place] [address] 07/02/2023 12:30 PM EDT Office Visit Transplant Clinic, [place] [address] [place] [address] Jean-Pierre Catalan, [facility] [address] [place] [address] 07/07/2023 1:00 PM EDT Office Visit Dermatology [facility] [address] [place] [address] Phill Vegas MD [address] [place] [address] 07/22/2023 12:00 PM EDT Office Visit Pulmonary Medicine, [facility] [address] [place] [address] Carroll Garces MD [address] [place] [address] Scheduled Procedures Name Priority Associated Diagnoses Date/Ti [...] FOR COPD 04/10/2024 04/10/2023 Albumin/Creatinine Ratio 04/24/2024 032 024, 03/27/2023, 02/25/2023, Additional history exists GFR 04/24/2024 04/25/2023, 0202/2023, 02/25/2023, Additional history exists COLONOSCOPY-EVERY 3 YRS [...] the patient have Health Care Power of Boat Carpenter? No Care Teams Air Force Pilot Relationship Specialty Start Date End Date Porfirio Kilgore MD [address] [place] [address] PCP - General Internal Medicine 03/30/20 documented as of this encounter
--- OUTSIDE RECORDS SUMMARY | 2023-08-24 00:10 | External Medical Summary ---
Author Name Unknown Address Unknown Organization K01:[facility] [address] [facility] [place] [address] Laboratory Report Ordering Provider Test Date Status ARACELI STRATTON 04/25/2023 09:07:43 Final Observation Date Value Abnormality Reference (Units ) Status SYNC LEUKOCYTES IN BLOOD BY AUTOMATED COUNT 04/25/2023 09:07:43 9.55 4.00-10.80 (K/uL) Final Segs 04/25/2023 09:07:43 64.7 40.0-75.0 (%) Final Lymphs % 04/25/2023 09:07:43 19.9 18.0-42.0 (%) Final Monos 04/25/2023 09:07:43 8.1 1.0-11.0 (%) Final Eosinophils 04/25/2023 09:07:43 4.0 0.0-6.0 (%) Final Basos 04/25/2023 09:07:43 0.6 0.0-2.0 (%) Final Immature Granulocyte, Percent 04/25/2023 09:07:43 2.7 Above high normal 0.0-2.0 (%) Final Absolute Segs 04/25/2023 09:07:43 6.18 1.80-7.70 (K/uL) Final Lymphs, absolute 04/25/2023 09:07:43 1.90 1.00-4.80 (K/ul) Final Monos, Abs 04/25/2023 09:07:43 0.77 0.00-1.10 (K/uL) Final Eos, Abs 04/25/2023 09:07:43 0.38 0.00-0.70 (K/uL) Final Basos, Abs 04/25/2023 09:07:43 0.06 0.00-0.20 (K/uL) Final Immature Granulocytes, Number 04/25/2023 09:07:43 0.26 Above high normal 0.00-0.20 (K/uL) Final Performing Location [facility] [place] [address]
--- OUTSIDE RECORDS SUMMARY | 2023-08-24 00:10 | External Medical Summary ---
Author Name Unknown Address Unknown Organization : Laboratory Report Ordering Provider Test Date Status NUZHAT LOPEZ 04/10/2023 09:08:20 Final Observation Date Value Abnormality Reference (Units ) Status Glucose Point of Care 04/10/2023 09:08:20 147 Above high normal 70-120 (mg/dL) Final Performing Location
--- OUTSIDE RECORDS SUMMARY | 2023-08-24 00:10 | External Medical Summary ---
Author Name Unknown Address Unknown Organization K01:[facility] [place] [address] [place] [address] Laboratory Report Ordering Provider Test Date Status ARACELI STRATTON 04/25/2023 09:07:43 Final Observation Date Value Abnormality Reference (Units ) Status WBC, Total 04/25/2023 09:07:43 9.55 4.00-10.80 (K/uL) Final RBC 04/25/2023 09:07:43 4.48 4.50-5.25 (M/uL) Final Hemoglobin 04/25/2023 09:07:43 13.1 Below low normal 14.0-16.8 (g/dL) Final HCT 04/25/2023 09:07:43 41.6 40.0-48.4 (%) Final MCV 04/25/2023 09:07:43 92.9 82.0-99.5 (fL) Final MCH 04/25/2023 09:07:43 29.2 27.0-34.0 (pg) Final MCHC 04/25/2023 09:07:43 31.5 32.0-36.0 (g/dL) Final RDW 04/25/2023 09:07:43 14.1 11.5-15.5 (%) Final Platelets 04/25/2023 09:07:43 194 140-400 (K/uL) Final MPV 04/25/2023 09:07:43 11.8 6.6-11.1 (fL) Final Nucleated erythrocytes/100 leukocytes [Ratio] in Blood by Automated count 04/25/2023 09:07:43 0 <=0 (/100 WBCs) Final Performing Location [facility] [place] [address] [place] [address]
--- OUTSIDE RECORDS SUMMARY | 2023-08-24 00:10 | External Medical Summary | Summary of Care ---
Author Name Unknown Organization [facility] Address [address] [place] [address] Phone [phone] Care Team Providers Care Data Power Consultant Name Role Phone Porfirio Kilgore MD Primary Care Provider + Reason for Visit * Reason Comments Follow Up Encounter Details Date Type Department Care Team (Latest Contact Info) Description 04/03/2023 9:20 AM EST Office Visit Pulmonary Medicine, [facility] 132 [facility] [place] [address] Carroll Garces MD [address] [facility] [place] [phone] Bronchiectasis without complication (HCC)* Allergies No known active allergiesdocumented as of this encounter (statuses as of 04/03/2023) Medications Medication Sig Dispensed Refills Start Date [...] % Nasal Solution Administer into nostril 1 [place] in the morning AND 1 [place] before bedtime. 30 mL 12 2 Active [...] to breakfast or other meds) 0 Active Ventolin HFA 108 (90 Base) MCG/ACT Inhalation Aerosol SolutionIndications :Mucopurulent chronic bronchitis (HCC) Inhale 2 Puffs by mouth every 4 hours as needed for Cough, Shortness of Breath or Wheezing. 18 g 3 4 Active Sulfamethoxazole-Tr imethoprim 400-80 MG Oral Tablet (Bactrim) Take 1 Tablet by mouth in the morning and 1 Tablet before bedtime. 60 Tablet 3 4 08/01/19 24 Active Trelegy Ellipta 100-62.5-25 MCG/ACT Aerosol Powder Breath Activated (Fluticasone-Umecli dinium-Vilanterol) Inhale 1 Puff by mouth in the morning. 60 Blister Dosing Unit 0 4 05/03/19 24 Active Fluticasone Furoate-Vilanterol 200-25 MCG/ACT Inhalation Aerosol Powder Breath Activated (BREO ellipta) Inhale 1 Puff by mouth in the morning. 60 Blister Dosing Unit 6 3 04/03/19 24 Discontinu ed(End of Procedure) Hospital, Clinic, or Other Facility Administered Medication Ordered Dose Route Frequency Start Date End Date Status Tixagevimab inj 150 mgIndications:Kidney replaced by transplant 150 mg IM [id number] 03/13/2021 Active Cilgavimab inj 150 mgIndications:Kidney replaced by transplant 150 mg IM [id number] 03/13/2021 Active documented as of this encounter (statuses as of 04/03/2023) Active Problems Problem Noted Date Diagnosed Date [...] as of this encounter (statuses as of 04/03/2023) Resolved Problems Problem Noted Date Diagnosed Date Resolved Date Bronchiectasis without complication 12/18/2021 05/03/2022 COPD, group C, by GOLD 2017 classification 11/05/2021 05/03/2022 Overview: Per COPD GOLD Classification COPD, group B, by GOLD 2017 classification 08/03/2020 11/08/2021 Overview: Per COPD GOLD Classification Aortic regurgitation 06/14/2015 016 Pre-transplant evaluation fo r chronic kidney disease 05/16/2015 08/20/2022 documented as of this encounter (statuses as of 04/03/2023) Immunizations Name Administration Dates Next Due COVID-19 [...] Date Smoking Tobacco: Former Cigarettes 2 15 Q uit: 02/24/1975 Smokeless Tobacco: Never Alcohol Use Standard [...] Sign Reading Time Taken Comments Blood Pressure 122/66 04/03/2023 9:17 AM EST Pulse 89 04/03/2023 9:17 AM EST Temperature 36.5 C (97.7 F) 04/03/2023 9:17 AM ES T Respiratory Rate 20 04/03/2023 9:17 AM EST Oxygen Saturation 95% 04/03/2023 9:18 AM EST ra, amb Inhaled Oxygen Concentration - - Weight 88.8 kg (195 lb 12.8 oz) 04/03/2023 9:17 AM EST Height 175.3 cm (5' 9") 04/03/2023 9:17 AM EST Body Mass Index 28.91 04/03/2023 9:17 AM EST documented in this encounter Functional Status [...] Progress Notes * Carroll Garces MD - 04/03/2023 9:24 AM EST 04/03/2023 Pulmonary Medicine, [address] [phone] Myron Corado 1945 male 77 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 Since last evaluation, patient had stopped Bactrim with recurrence of productive cough and wheezing. Recently was started on Levaquin therapy. Recent hospitalization reported for dehydration and elevated renal parameters, improving after rehydration. Denies hemoptysis. Bronchoscopy findings and recent CT scan of chest findings were reviewed. Polymicrobial jana isolates were noted on bronchoscopy with trace mold isolates. Physical examination significant for class 3 throat, minimal basilar scattered coarse wheezing without crackles, no dullness, regular cardiac rhythm, no evidence of volume overload. At this point , we would Resume maintenance antibiotic therapy with Bactrim SS 400/80 1 tablet twice daily. Patient will be followed up in 4 weeks to reassess symptoms status. Periodic CBC, LFT and BMP monitoring Q 4-8 weeks will be continued. Pulmonary clinic follow-up in 1 month. Patient was advised to contact the office with any change insymptoms status. Assessment Recurrent Bronchitis Traction Bronchiectasis Renal Transplant Status Immunosuppressive therapy Status Hx of Recurrent Bronchitis, Traction Bronchiectasis Renal Transplant Status Plan: Resume Bactrim SS 400/80 BID as maintenance therapy Periodic CBC, LFT, BMP monitoring Q 8 weeks Pulmonary clinic follow-up 4 weeks Follow-up: Return in about 4 weeks (around 05/01/2023). | Check-out note: Hx of Recurrent Bronchitis,resolved Traction Bronchiectasis Renal Transplant Status Was on Levaquin 750 QD Off bactrim with increased productive couigh Plan: Resume Bactrim SS 400/80 BID as maintenance therapy Chest VEST added Switch Breo to Trelegy RSV Vaccination recommended Periodic CBC, LFT, BMP monitoring Q 8 weeks Pulmonary clinic follow-up 4 weeks Carroll Garces MD Subjective CC: Chief Complaint Patient presents with Follow Up HPI: Nursing Notes: Radha Kaufman LPN 04/03/23 0923 Addendum Pt here for f/u recurrent bronchitis and COPD. Interm History/Respiratory Symptoms Cough: frequent, clear phlegm Hemoptysis: last week, one time, had a "spot" of blood in his phlegm Sinus Symptoms: no Hospitalizations: no ED Trips: no Triggers: cold air Nocturnal: frequent cough CPAP/BiPAP/O2: no Flu Vaccine: 2022 Pneumovax: yes, unsure of date Prevnar: 2019 COVID 19: x 6 Mmrc Cat Question 04/03/2023 9:22 AM EST - Filed by Radha Kaufman LPN When do you become breathless? (4) I am too breathless to leave the house or I am breathless when dressing How frequently do you cough? (5) - I cough all the time Do you have phlegm in your chest? (4) Is your chest tight? (2) How breathless do you become when walking [...] condition How soundly do you sleep? (3) How much energy do you have? (3) Total MMRC Score (range: 0 - 4) 4 Total CAT Score (range: 0 - 40) 24 Objective Filed Vitals: 04/03/23 0917 04/03/23 0918 BP: 122/66 Pulse: 89 Resp: 20 Temp: 36.5 C (97.7 F) TempSrc: Tympanic SpO2: 95% 95% Weight: 88.8 kg (195 lb 12.8 oz) Height: 1.753 m (5' 9") Exam: Const: [...] No edema of the lower limbs bilaterally. Abdomen: Positive bowel sounds. Palpation of the abdomen reveals softness, but no distension or tenderness. No palpable hepatosplenomegaly. Musculo: Walks with a normal gait. Skin: Skin is warm and dry. Neuro: [...] were discussed with the patient. 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, diverticulosis / [facility] COLONOSCOPY, DIAGNOSTIC (RECTUM) 10/12/2021 benign adenomatous polyps, diverticulosis, repeat 1 yr / [facility] EGD, FLEXIBLE, DIAGNOSTIC 07/01/2019 mild gastric irritation on bx / [facility] EGD, FLEXIBLE, DIAGNOSTIC 10/12/2021 gastric nodule / [facility] EGD, FLEXIBLE, ENDO MUCOSAL RESECTION N/A 01/09/2022 lesion body of stomachESOPHAGOGASTRODUODENOSCOPY (EGD), FLEXIBLE, TRANSORAL: MUCOSAL RESECTION performed by Marisa Lucia MD at OR [facility] EGD, W/ENDOSCOPIC US N/A 01/09/2022 subepithelial lesion stomach/biopsies show GIST/ESOPHAGOGASTRODUODENOSCOPY (EGD), FLEXIBLE, TRANSORAL, ENDOSCOPIC ULTRASOUND performed by Marisa Lucia MD at OR [facility] HEMORRHOIDECTOMY, INTERNAL, 2 + COLUMNS 04/14/2020 HEMORRHOIDECTOMY EXTERNAL AND INTERNAL COMPLEX performed by Faheem Cohen MD at OR [facility] INFORMATION appendix removed INFORMATION josr IR BIOPSY 04/16/2019 RENAL BIOPSY, PERCUTANEOUS (TROCAR/NEEDLE) N/A 08/20/2018 RENAL BIOPSY PERCUTANEOUS performed by Colin Rossi MD at [facility] RENAL BIOPSY, PERCUTANEOUS (TROCAR/NEEDLE) Right 09/11/2022 RENAL BIOPSY PERCUTANEOUS performed by Colin Rossi MD [place] [facility] SIGMOIDOSCOPY, DIAGNOSTIC 07/27/2019 Ulcerative proctitis, adenomatous polyp, diverticulosis / [facility] TRANSPLANTATION OF KIDNEY N/A 08/04/2018 RENAL TRANSPLANT performed by Colin Rossi MD at [facility] Social History Socioeconomic History Marital status: Occupational History 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 Interm History/Respiratory Symptoms Cough: frequent, clear phlegm Hemoptysis: last week, one time, had a "spot" of blood in his phlegm Sinus Symptoms: no Hospitalizations: no ED Trips: no Triggers: cold air Nocturnal: frequent cough CPAP/BiPAP/O2: no Flu Vaccine: 2022 Pneumovax: yes, unsure of date Prevnar: 2019 COVID 19: x 6 M[facility]rc Cat Question 04/03/2023 9:22 AM EST - Filed by Radha Kaufman LPN When do you become breathless? (4) I am too breathless to leave the house or I am breathless when dressing How frequently do you cough? (5) - I cough all the time Do you have phlegm in your chest? (4) Is your chest tight? (2) How breathless do you become when walking [...] condition How soundly do you sleep? (3) How much energy do you have? (3) Total MMRC Score (range: 0 - 4) 4 Total CAT Score (range: 0 - 40) 24 documented in this encounter Plan of Treatment Upcoming Encounters Date Type Department Care Team (Latest Contact Info) Description 04/10/2023 2:00 PM EST Hospital Encounter ENDO [facility], Endoscopy Room [facility] [address] [phone] Marisa Lucia MD [address] [place] [address] 04/10/2023 2:00 PM EST - 04/10/2023 2:30 PM EST Surgery ENDO [facility], Endoscopy Room [facility] 132 [facility] [place] [phone] Marisa Lucia MD 132 [facility] [place] [address] COLONOSCOPY FLEXIBLE PROXIMAL DIAGNOSTIC 04/21/2023 3:40 PM EST Office Visit Pulmonary Medicine, [facility] 132 [facility] [place] [address] Carroll Garces MD [address] [place] [address] 06/24/2023 10:30 AM EDT Procedure Only Urology, [facility] [place] [address] Agustni Chery MD 27 [facility] [address] [place] [phone] 07/02/2023 12:30 PM EDT [facility] [address] [place] [address] Jean-Pierre Catalan, [facility] [address] [place] [address] 07/07/2023 1:00 PM EDT Office Visit Dermatology [place] [place] [address] [place] [address] Phill Vegas MD 200 [facility] [place], [place] [address] Scheduled Procedures Name Priority Associated Diagnoses Date/Ti me COLONOSCOPY FLEXIBLE PROXIMA L DIAGNOSTIC Recall History of colonic polyps 04/10/2023 2:00 PM EST ESOPHAGOGASTRODUODENOSCOPY ( EGD), FLEXIBLE, TRANSORAL, DIAGNOSTIC Recall History of gastrointestinal stromal tumor (GIST) Health Maintenance Due Date Last Done Comments Depression Screening 1957 Diabetic Foot Exam 1962 Hepatitis B (1 of 3 - Risk 3-dose series) 2004 Pneumococcal Vaccine: 65+ Years (2 - PPSV23 or PCV20) 09/19/2018 07/25/2018 TSH 05/02/2020 05/03/2019, 02/24, 02/08/2019, Additional history exists *ADVANCE DIRECTIVE NOT ON FILE 11/10/2021 COLONOSCOPY-ANNUAL AGES 18-100 10/12/2022 10/12/2021, 07/27/2019, 07/01/2019 COVID-19 Vaccine (7 - 2022-24 season) 2022 02/05/2022, 07/15/2021, 07/15/2021, Additional history exists Influenza Vaccine (FLU shot) (#1) 2022 11/16/2021, 12/03/2020, 10/24/2019, Additional history exists O2 ASSESSMENT COMPLETED IN PAST YEAR FOR COPD 04/18/2023 04/18/2022 HbA1c 07/29/2023 01/27/2023, 12/25, 06/10/2018, Additional history exists Diabetic Eye Exam 12/24/2023 12/23/2022 Albumin/Creatinine Ratio 03/27/2024 024, 02/25/2023, 01/27/2023, Additional history exists GFR 03/27/2024 03/27/2023, 03/2023, 01/27/2023, Additional history exists DTaP,Tdap,and Td Vaccines (2 - Td or Tdap) 06/03/2032 06/03/2022 Alpha-1 Antitrypsin Completed 08/07/2020, Zoster Vaccines Completed 11/27/2021, 09/27/2021 GARDASIL-HPV IMMUNIZATION SERIES Aged Out No longer eligible based on patient's age to complete this topic MENINGOCOCCAL (MENACTRA/MENVEO) Aged Out No longer eligible based on patient's age to complete this topic documented as of this encounter Medical Devices Not on filedocumented as of this encounter Visit Diagnoses Diagnosis Bronchiectasis without complication (HCC)- Primary Bronchiectasis without acute exacerbation History of colonic polyps Personal history of colonic polyps documented in this encounter Advance Directives Latest [...] the patient have Health Care Power of Bookkeeping Machine Mechanic? No Care Teams Data Power Consultant Relationship Specialty Start Date End Date Porfirio Kilgore MD [address] [place] [address] PCP - General Internal Medicine 03/30/20 documented as of this encounter
--- OUTSIDE RECORDS SUMMARY | 2023-08-24 00:10 | External Medical Summary | Summary of Care ---
Author Name Unknown Organization [facility] Address [address] [place] [address] Phone [phone] Care Team Providers Care Receiving Lead Name Role Phone Porfirio Kilgore MD Primary Care Provider + Reason for Visit * Reason Comments Outpatient Testing Encounter Details Date Type Department Care Team (Late st Contact Info) Description 04/25/2023 9:10 AM EST Laboratory Laboratory [address] [place] [phone] [place] [address] Kidney replaced by transplant Allergies No known active allergiesdocumented as of this encounter (statuses as of 04/25/2023) Medications Medication Sig Dispensed Refills Start Date [...] % Nasal Solution Administer into nostril 1 [place] in the morning AND 1 [place] before bedtime. 30 mL 12 12/18/2021 Active [...] mgIndications:Kidney replaced by transplant 150 mg IM [id number] 03/13/2021 Active Cilgavimab inj 150 mgIndications:Kidney replaced by transplant 150 mg IM [id number] 03/13/2021 Active documented as of this encounter (statuses as of 04/25/2023) Active Problems Problem Noted Date Diagnosed Date [...] as of this encounter (statuses as of 04/25/2023) Resolved Problems Problem Noted Date Diagnosed Date Resolved Date Bronchiectasis without complication 12/18/2021 05/03/2022 COPD, group C, by GOLD 2017 classification 11/05/2021 05/03/2022 Overview: Per COPD GOLD Classification COPD, group B, by GOLD 2017 classification 08/03/2020 11/08/2021 Overview: Per COPD GOLD Classification Aortic regurgitation 06/14/2015 016 Pre-transplant evaluation fo r chronic kidney disease 05/16/2015 08/20/2022 documented as of this encounter (statuses as of 04/25/2023) Immunizations Name Administration Dates Next Due COVID-19 [...] 06/24/2023 10:30 AM EDT Procedure Only Urology, [facility] [address] [place] [address] Agustin Chery MD 27 [facility] [address] [place] [address] 07/02/2023 12:30 PM EDT Office Visit Transplant Clinic, [place] [address] [place] [address] Jean-Pierre Catalan [facility] [address] [place] [address] 07/07/2023 1:00 PM EDT [facility] [address] [facility] [place] [address] Phill Vegas MD [address] [facility] [place] [address] Pending Results Name Type Priority Associated Diagnoses Date /Time CBC WITH WBC DIFFERENTIAL Lab STAT Kidney replaced by transplant 04/25/2023 9:07 AM EST BASIC METABOLIC PANEL Lab STAT Kidney replaced by transplant 04/25/2023 9:07 AM EST ALBUMIN / CREATININE RATIO, URINE Lab STAT Kidney replaced by transplant 04/25/2023 9:07 AM EST TACROLIMUS LEVEL Lab STAT Kidney replaced by transplant 04/25/2023 9:07 AM EST CBC Lab STAT Kidney replaced by transplant 04/25/2023 9:07 AM EST DIFFERENTIAL, AUTOMATED Lab STAT Kidney replaced by transplant 04/25/2023 9:07 AM EST Scheduled Procedures Name Priority Associated Diagnoses Date/Ti me ESOPHAGOGASTRODUODENOSCOPY ( EGD), FLEXIBLE, TRANSORAL, DIAGNOSTIC Recall [...] 03/27/2024 03/27/2023, 03/2023, 01/27/2023, Additional history exists COLONOSCOPY-ANNUAL AGES 18-100 04/10/2024 04/10/2023, 04/10/2023, 10/12/2021, Additional history exists O2 ASSESSMENT COMPLETED IN PAST YEAR FOR COPD 04/10/2024 04/10/2023 DTaP,Tdap,and Td Vaccines (2 - Td or [...] the patient have Health Care Power of Wood Casket Assembler? No Care Teams Receiving Lead Relationship Specialty Start Date End Date Porfirio Kilgore MD [address] [place] [address] PCP - General Internal Medicine 03/30/20 documented as of this encounter
--- OUTSIDE RECORDS SUMMARY | 2023-08-24 00:10 | External Medical Summary | Summary of Care ---
Author Name Unknown Organization [facility] Address [address] [place] [address] Phone [phone] Care Team Providers Care Fruit And Vegetable Inspector Name Role Phone Porfirio Kilgore MD Primary Care Provider + Encounter Details Date Type Department Care Team (Late st Contact Info) Description 04/04/2023 Telephone Pulmonary Medicine Linda Chu [address] [place] [phone] Carroll Garces MD [address] [facility] [phone] Allergies No known active allergiesdocumented as of this encounter (statuses as of 04/04/2023) Medications Medication Sig Dispensed Refills Start Date [...] % Nasal Solution Administer into nostril 1 [place] in the morning AND 1 [place] before bedtime. 30 mL 12 12/18/2021 Active [...] of Breath or Wheezing. 18 g 3 04/02/2023 Active Sulfamethoxazole-Tri methoprim 400-80 MG Oral Tablet (Bactrim) Take 1 Tablet by mouth in the morning and 1 Tablet before bedtime. 60 Tablet 3 04/03/2023 4 Active Trelegy Ellipta 100-62.5-25 MCG/ACT Aerosol Powder Breath Activated (Fluticasone-Umeclid inium-Vilanterol) Inhale 1 Puff by mouth in the morning. 60 Blister Dosing Unit 0 04/03/2023 4 Active Hospital, Clinic, or Other Facility Administered Medication Ordered Dose Route Frequency Start Date End Date Status Tixagevimab inj 150 mgIndications:Kidney replaced by transplant 150 mg IM [id number] 03/13/2021 Active Cilgavimab inj 150 mgIndications:Kidney replaced by transplant 150 mg IM [id number] 03/13/2021 Active documented as of this encounter (statuses as of 04/04/2023) Active Problems Problem Noted Date Diagnosed Date [...] as of this encounter (statuses as of 04/04/2023) Resolved Problems Problem Noted Date Diagnosed Date Resolved Date Bronchiectasis without complication 12/18/2021 05/03/2022 COPD, group C, by GOLD 2017 classification 11/05/2021 05/03/2022 Overview: Per COPD GOLD Classification COPD, group B, by GOLD 2017 classification 08/03/2020 11/08/2021 Overview: Per COPD GOLD Classification Aortic regurgitation 06/14/2015 016 Pre-transplant evaluation fo r chronic kidney disease 05/16/2015 08/20/2022 documented as of this encounter (statuses as of 04/04/2023) Immunizations Name Administration Dates Next Due COVID-19 [...] encounter Miscellaneous Notes * Telephone Encounter - Donovan Keating OSA - 04/04/2023 7:52 AM EST Orders in 04/04 chest vest documented in this encounter Plan of Treatment Upcoming Encounters Date Type Department Care Team (Latest Contact Info) Description 04/10/2023 2:00 PM EST Hospital Encounter ENDO [facility], Endoscopy Room [facility] [address] [place] [phone] Marisa Lucia MD [address] [place] [address] 04/10/2023 2:00 PM EST - 04/10/2023 2:30 PM EST Surgery ENDO [facility], Endoscopy Room [facility] [address] [place] [phone] Marisa Lucia MD [address] [place] [address] COLONOSCOPY FLEXIBLE PROXIMAL DIAGNOSTIC 04/21/2023 3:40 PM EST Office Visit Pulmonary Medicine, [facility] [address] [place] [address] Carroll Garces MD [address] [facility] [place] [address] 06/24/2023 10:30 AM EDT Procedure Only Urology, [facility] [address] [place] [address] Agustin Chery MD [address] [place] [id number] 07/02/2023 12:30 PM EDT Office Visit Transplant Clinic, [address] [place] [address] Jean-Pierre Catalan, [place] [address] [place] [address] 07/07/2023 1:00 PM EDT Office Visit Dermatology [facility] [place] [address] [place] [address] Phill Vegas MD [address] [place] [address] Scheduled Procedures Name Priority Associated Diagnoses Date/Ti [...] 18-100 10/12/2022 10/12/2021, 07/27/2019, 07/01/2019 COVID-19 Vaccine (2022- season) 2022 02/05/2022, 07/15/2021, 07/15/2021, Additional history exists Influenza Vaccine (FLU shot) (#1) 2022 11/16/2021, 12/03/2020, 10/24/2019, Additional history exists O2 ASSESSMENT COMPLETED IN PAST YEAR FOR COPD 04/18/2023 04/18/2022 HbA1c 07/29/2023 01/27/2023, 12/25, 06/10/2018, Additional history exists Diabetic Eye Exam 12/24/2023 12/23/2022 Albumin/Creatinine Ratio 03/27/202403/27/2 024, 02/25/2023, 01/27/2023, Additional history exists GFR [...] the patient have Health Care Power of Outside Plant Technician? No Care Teams Fruit And Vegetable Inspector Relationship Specialty Start Date End Date Porfirio Kilgore MD [address] [place] [address] PCP - General Internal Medicine 03/30/20 documented as of this encounter
--- OUTSIDE RECORDS SUMMARY | 2023-08-24 00:10 | External Medical Summary ---
Author Name Unknown Address Unknown Organization [id number]:[facility] [place] [facility] [address] [place] [address] Laboratory Report Ordering Provider Test Date Status ARACELI STRATTON 04/25/2023 09:07:43 Final Observation Date Value Abnormality Reference (Units ) Status BUN 04/25/2023 09:07:43 37 Above high normal 6-20 (mg/dL) Final Creatinine 04/25/2023 09:07:43 3.1 Above high normal 0.6-1.2 (mg/dL) Final Glomerular filtration rate/1.73 sq M.predicted [Volume Rate/Area] in Serum, Plasma or Blood by Creatinine-based formula (CKD-EPI) 04/25/2023 09:07:43 20 Below low normal >=60 (mL/min) Final eGFR is calculated based on the CKD-EPI 2020 equation SODIUM 04/25/2023 09:07:43 139 135-146 (m mol/L) Final Potassium 04/25/2023 09:07:43 4.2 3.5-5.1 (m mol/L) Final Cl 04/25/2023 09:07:43 103 98-107 (mm ol/L) Final CO2 04/25/2023 09:07:43 22 22-32 (mmo l/L) Final Anion gap 04/25/2023 09:07:43 14 7-15 (mmol /L) Final Glucose 04/25/2023 09:07:43 196 Above high normal 70 -120 (mg/dL) Final Calcium 04/25/2023 09:07:43 9.4 8.4-10.2 ( mg/dL) Final Performing Location [facility] [place] [address] [place] [address]
--- OUTSIDE RECORDS SUMMARY | 2023-08-24 00:10 | External Medical Summary ---
Author Name Unknown Address Unknown Organization K01:LABORATORY [facility] [place] - [address] [place] [address] Laboratory Report Ordering Provider Test Date Status ARACELI STRATTON 04/25/2023 09:07:43 Final Normal: <30 mg/g creatinine< br/>High: 30-300 mg/g creatinine
Very High: >300 mg/g creatinine
Nephrotic: >2200 mg/g creatinine Observation Date Value Abnormality Reference (Units ) Status Albumin, Urine 04/25/2023 09:07:43 18.80 (mg/dL) Final Creatinine, Urine 04/25/2023 09:07:43 61 (mg/dL) Final Albumin/Creatinine [Mass Ratio] in Urine 04/25/2023 09:07:43 308 Above high normal <30 (mg/g Creat) Final Performing Location LABORATORY [facility] [place] - [address] [place] [address]
--- OUTSIDE RECORDS SUMMARY | 2023-08-24 00:10 | External Medical Summary ---
Author Name Unknown Address Unknown Organization : Laboratory Report Ordering Provider Test Date Status NUZHAT LOPEZ 04/10/2023 07:05:38 Final Observation Date Value Abnormality Reference (Units ) Status Glucose Point of Care 04/10/2023 07:05:38 143 Above high normal 70-120 (mg/dL) Final Performing Location
--- OUTSIDE RECORDS SUMMARY | 2023-08-24 00:10 | External Medical Summary | Summary of Care ---
Author Name Unknown Organization [facility] Address [address] [place] [address] Phone [phone] Care Team Providers Care Transportation Consultant Name Role Phone Porfirio Kilgore MD Primary Care Provider + Reason for Visit * Reason Onset Date Comments Advice 05/12/2023 Encounter Details Date Type Department Care Team (Late st Contact Info) Description 05/12/2023 Telephone Urology, [facility] [address] [place], [place] [phone] Services, Scheduling [address] [place] [address] Advice Allergies No known active allergiesdocumented as of this encounter (statuses as of 05/12/2023) Medications Medication Sig Dispensed Refills Start Date [...] % Nasal Solution Administer into nostril 1 [place] in the morning AND 1 [place] before bedtime. 30 mL 12 12/18/2021 Active Nebulizer/Tubing/Aaliyah thpiece Kit Use as directed 1 Kit 0 05/03/2022 Active Albuterol Sulfate (2.5 MG/3ML) 0.083% Inhalation Nebulization Solution (Proventil)Indicatio ns:Bronchiectasis with acute lower respiratory infection (HCC),COPD, group B, by GOLD 2017 classification ([facility]) Inhale 1 Vial via nebulizer every 4 [...] mgIndications:Kidney replaced by transplant 150 mg IM [id number] 03/13/2021 Active Cilgavimab inj 150 mgIndications:Kidney replaced by transplant 150 mg IM [id number] 03/13/2021 Active documented as of this encounter (statuses as of 05/12/2023) Active Problems Problem Noted Date Diagnosed Date [...] as of this encounter (statuses as of 05/12/2023) Resolved Problems Problem Noted Date Diagnosed Date Resolved Date Bronchiectasis without complication 12/18/2021 05/03/2022 COPD, group C, by GOLD 2017 classification 11/05/2021 05/03/2022 Overview: Per COPD GOLD Classification COPD, group B, by GOLD 2017 classification 08/03/2020 11/08/2021 Overview: Per COPD GOLD Classification Aortic regurgitation 06/14/2015 016 Pre-transplant evaluation fo r chronic kidney disease 05/16/2015 08/20/2022 documented as of this encounter (statuses as of 05/12/2023) Immunizations Name Administration Dates Next Due COVID-19 [...] encounter Miscellaneous Notes * Telephone Encounter - Calisat Arias LPN - 05/12/2023 10:45 AM EDT Spoke with pt, explained procedure, no further questions. * Telephone Encounter - Flores Onael OSA - 05/12/2023 10:20 AM EDT Pt. Due to have Cysto 06/24/23. He is asking for call back to get information of what is involved inthe procedure and if he needs to do anything prior. documented in this encounter Plan of Treatment Upcoming Encounters Date Type Department Care Team (Late st Contact Info) Description 06/24/2023 10:30 AM EDT Procedure Only Urology, [facility] 132 [facility] [place] [address] Agustin Chery MD [address] [address] 07/02/2023 12:30 PM EDT Office Visit Transplant Clinic, [place] [address] [place] [address] Jean-Pierre Catalan, [facility] [address] [place] [address] 07/07/2023 1:00 PM EDT Office Visit Dermatology Carley F[facility] [place] [address] [place] [address] Phill Vegas MD [address] [place] [address] 07/22/2023 12:00 PM EDT Office Visit Pulmonary Medicine, [facility] 132 [facility] [place] [address] Carroll Garces MD [address] [place] [address] Scheduled Procedures Name Priority Associated Diagnoses [...] history exists Diabetic Eye Exam 12/24/2023 12/23/2022 COLONOSCOPY-ANNUAL AGES 18-100 04/10/2024 04/10/2023, 04/10/2023, 10/12/2021, Additional history exists O2 ASSESSMENT COMPLETED IN PAST YEAR FOR COPD 04/10/2024 04/10/2023 Albumin/Creatinine Ratio 04/24/2024 032 024, 03/27/2023, 02/25/2023, Additional history exists GFR 04/24/2024 04/25/2023, 02/0 02/2023, 02/25/2023, Additional history exists DTaP,Tdap,and Td Vaccines (2 [...] the patient have Health Care Power of Keno Dealer? No Care Teams Transportation Consultant Relationship Specialty Start Date End Date Porfirio Kilgore MD [address] [place] [address] PCP - General Internal Medicine 03/30/20 documented as of this encounter
--- OUTSIDE RECORDS SUMMARY | 2023-08-24 00:10 | External Medical Summary ---
Author Name Unknown Address Unknown Organization K01:[facility] [place] [address] [place] [address] Laboratory Report Ordering Provider Test Date Status ARACELI STRATTON 04/25/2023 09:07:43 Final Test performed by [facility] on [email or web address]. Therapeutic ranges vary with type of transplant, time post-transplant, clinical protocols, and testing methodology. Results should be interpreted with clinical presentation and any signs rejection/toxicity. Observation Date Value Abnormality Reference (Units ) Status Tacrolimus (FK506) 04/25/2023 09:07:43 4.4 4 .0-12.0 (ng/mL) Final Performing Location [facility] [place] [address] [place] [address]
--- OUTSIDE RECORDS SUMMARY | 2023-08-24 00:10 | External Medical Summary | Summary of Care ---
Author Name Unknown Organization [facility] Address [address] [place] [address] Phone [phone] Care Team Providers Care Volleyball Assembler Name Role Phone Porfirio Kilgore MD Primary Care Provider + Reason for Visit * Auth/Cert Specialty Diagnoses / Procedures Referred By Rome elizabeth Referred To Contact Diagnoses History of colonic polyps History of colonic polyps [Z86.010] Procedures COLONOSCOPY, DIAGNOSTIC (RECTUM) COLONOSCOPY FLEXIBLE PROXIMAL DIAGNOSTIC Referral ID Status Reason Start Date Expiration Date Visits Re quested Visits Authorized [id number] Encounter Details Date Type Department Care Team (Latest Contact Info) Description 04/10/2023 6:18 AM EST - 04/10/2023 9:11 AM EST Hospital Encounter ENDO [facility], Endoscopy Room [facility] [address] [place] [phone] Marisa Lucia MD [address] [place] [address] Colonoscopy Discharge Disposition: Home - Self Care Allergies No known active allergiesdocumented as of this encounter (statuses as of 04/10/2023) Medications Medication Sig Dispensed Refills Start Date [...] % Nasal Solution Administer into nostril 1 Cowan in the morning AND 1 Cowan before bedtime. 30 mL 12 2 Active [...] before bedtime. 270 Capsule 3 3 Active levoFLOXacin 750 MG Oral Tablet [...] Dosing Unit 0 4 05/03/19 24 Active levothyroxine (LEVOXYL) 50 MCG Tablet Take 1 Tablet by mouth every morning. 5 9 04/01/19 24 Discontinu ed(Medicat ion/Dose Changed) Ventolin HFA 108 (90 Base) MCG/ACT Inhalation Aerosol SolutionIndications :Mucopurulent chronic bronchitis (HCC) Inhale 2 Puffs by mouth every 4 hours as needed for Cough, Shortness of Breath or Wheezing. 18 g 3 2 04/02/19 24 Discontinu ed(Refill) Fluticasone Furoate-Vilanterol 200-25 MCG/ACT Inhalation Aerosol Powder Breath Activated (BREO ellipta) Inhale 1 Puff by mouth in the morning. 60 Blister Dosing Unit 6 3 04/03/19 24 Discontinu ed(End of Procedure) documented as of this encounter (statuses as of 04/10/2023) Active Problems Problem Noted Date Diagnosed Date [...] as of this encounter (statuses as of 04/10/2023) Resolved Problems Problem Noted Date Diagnosed Date Resolved Date Bronchiectasis without complication 12/18/2021 05/03/2022 COPD, group C, by GOLD 2017 classification 11/05/2021 05/03/2022 Overview: Per COPD GOLD Classification COPD, group B, by GOLD 2017 classification 08/03/2020 11/08/2021 Overview: Per COPD GOLD Classification Aortic regurgitation 06/14/2015 016 Pre-transplant evaluation fo r chronic kidney disease 05/16/2015 08/20/2022 documented as of this encounter (statuses as of 04/10/2023) Immunizations Name Administration Dates Next Due COVID-19 [...] Sign Reading Time Taken Comments Blood Pressure 131/72 04/10/2023 8:49 AM EST Pulse 65 04/10/2023 8:49 AM EST Temperature 36.4 C (97.6 F) 04/10/2023 8:49 AM ES T Respiratory Rate 16 04/10/2023 8:49 AM EST Oxygen Saturation 98% 04/10/2023 8:49 AM EST Inhaled Oxygen Concentration - - Weight 88.5 kg (195 lb) 04/10/2023 7:07 AM EST Height 175.3 cm (5' 9") 04/10/2023 7:07 AM EST Body Mass Index 28.8 04/10/2023 7:07 AM EST documented in this encounter Functional [...] No 08/19/2022 documented as of this encounter H&P Notes * Marisa Lucia MD - 04/10/2023 7:41 AM EST Endoscopy Pre-Procedure Assessment Name: Myron Corado Date: 04/10/2023 Time: 7:41 AM Procedure(s): Colonoscopy; with Indication(s) of colon polyp surveillance Endoscopy Pre-Procedure Assessment: Prior to the procedure, the patient was identified. The patient's history, medications and allergies were reviewed as per the Anesthesia Assessment. The patient is competent. The risks and benefits of the proposed procedure and the planned sedation were discussed with the patient. All questions were answered and informed consent for the procedure was obtained. BP 120/76 | Pulse 69 | Temp 36.5 C (97.7 F) (Tympanic) | Resp 20 | Ht 1.753 m (5' 9") | Wt 88.5kg (195 lb) | SpO2 97% | BMI 28.80 kg/m | BSA 2.08 m Review of patient's allergies indicates: No Known Allergies Prior to Admission medications Medication Sig Last Dose Discont. Sulfamethoxazole-Trimethoprim 400-80 MG Oral Tablet (Bactrim) Take 1 Tablet by mouth in the morningand 1 Tablet before bedtime. 04/09/2023 Trelegy Ellipta 100-62.5-25 MCG/ACT Aerosol Powder Breath Activated (Edrazcqrndg-Aokwqgdthlpw-Ticaowvrqw) Inhale 1 Puff by mouth in the morning. 04/10/2023 Ventolin HFA 108 (90 Base) MCG/ACT Inhalation Aerosol Solution Inhale 2 Puffs by mouth every 4 hours as needed for Cough, Shortness of Breath or Wheezing. 04/09/2023 Levothyroxine Sodium 75 MCG Oral Tablet (Levoxyl) Take 1 Tablet by mouth daily first thing in the morning. (at least 30 min prior to breakfast or other meds) 04/10/2023 Pantoprazole Sodium 40 MG Oral Tablet Delayed Release (Protonix) TAKE ONE TABLET BY MOUTH EVERY DAYBEFORE BREAKFAST 04/09/2023 predniSONE 5 MG Oral Tablet (Deltasone) Take 1 Tablet by mouth in the morning. 04/10/2023 Tacrolimus ER 0.75 MG Oral Tablet Extended Release 24 Hour (Envarsus XR) Take 1 Tablet by mouth in the morning. Total dose 1.75 mg daily. 04/10/2023 Tacrolimus ER 1 MG Oral Tablet Extended Release 24 Hour (Envarsus XR) Take 1 Tablet by mouth in themorning. Total dose 1.75 mg daily. 04/10/2023 Loperamide HCl 2 MG Oral Capsule (Imodium A-D) Take 1 Capsule by mouth in the morning and 1 Capsuleat noon and 1 Capsule before bedtime. Past Week Albuterol Sulfate (2.5 MG/3ML) 0.083% Inhalation Nebulization Solution (Proventil) Inhale 1 Vial via nebulizer every 4 hours as needed for Wheezing. 04/09/2023 Nebulizer/Tubing/Mouthpiece Kit Use as directed 04/09/2023 Azelastine HCl 0.1 % Nasal Solution Administer into nostril 1 Cowan in the morning AND 1 Cowan before bedtime. Past Week Flutter Device Use 10 breaths twice daily Unknown Finasteride 5 MG Oral Tablet (Proscar) Take 1 Tablet by mouth in the morning. 04/09/2023 tamsulosin (FLOMAX) 0.4 MG Capsule 1 Capsule in the morning and 1 Capsule before bedtime. 04/09/2023 LANTUS SOLOSTAR 100 UNIT/ML SOPN Inject 24 Units under the skin at bedtime. Past Week Multiple Vitamins-Minerals (MULTIVITAMIN ADULT) TABS Take 1 Tablet by mouth at bedtime. 04/09/2023 aspirin enteric coated 81 MG TBEC Take 1 Tab by mouth daily. Past Week Cholecalciferol (VITAMIN D) 1000 units Tablet Take 2 Tablets by mouth in the morning. 04/09/2023 insulin aspart (NOVOLOG) 100 UNIT/ML SOPN Inject under the skin 10 units at breakfast, 12 units at lunch, and 14 units at dinner. Plus a sliding scale. 04/09/2023 Furosemide 40 MG Oral Tablet (Lasix) Take 1 Tablet by mouth daily as needed. levoFLOXacin 750 MG Oral Tablet (Levaquin) LEVOFLOXACIN 750 MG TABS Over 30 Days Multiple Vitamins-Minerals (PRORENAL + D) TABS Take 1 Tab by mouth daily. Yes Physical Exam: Mental Status Examination: alert and oriented. Airway Examination: normal oropharyngeal airway and neck mobility. Respiratory Examination: clear to auscultation. CV Examination: Regular rate and rythm, no murmurs. ASA Grade: II - A patient with mild systemic disease. After reviewing the risks and benefits, the patient was deemed in satisfactory condition to undergothe procedure. The anesthesia plan was to use sedation. Patient was explained in detail regarding risks, benefits, limitations and alternatives of the above endoscopic procedure. Risks of intravenous sedation used for procedure were also explained. Risks include, but not limited to perforation, bleeding, infection, respiratory distress, cardiac arrest and . Risk of acute pancreatitis and necrosis if ERCP is done. Patient is also aware about the possibility of missed lesion. Patient's questions were answered. The patient verbalized understandingthe information and agreed to undergo the procedure. Discussed with the patient that he/she is at an explicit higher risk for complications in comparison to other patients Marisa Lucia MD 04/10/2023 documented in this encounter Procedure Notes * Porfirio Kilgore MD - 04/10/2023 7:57 AM ESTAssociated Order(s): COLONOSCOPY [facility] Patient Name: Myron Corado Procedure Date: 04/10/2023 7:57 AM Date of : 1945 Admit Type: Outpatient Note Status: Finalized Date of : 1945 Admit Type: Outpatient Age: 77 Room: [facility] Gender: Male Note Status: Finalized Procedure: Colonoscopy Indications: High risk colon cancer surveillance: Personal history of multiple (3 or more) adenomas Providers: Marisa Lucia MD (Doctor), Rich Almaguer RN Referring MD: Porfirio Kilgore MD (Referring MD) Medicines: Propofol per Anesthesia, Ancef 1000 mg IV Complications: No immediate complications. Procedure: Pre-Anesthesia Assessment: - Prior to the procedure, a History and Physical was performed, and patient medications, allergies and sensitivities were reviewed. The patient's tolerance of previous anesthesia was reviewed. - The risks and benefits of the procedure and the sedation options and risks were discussed with the patient. All questions were answered and informed consent was obtained. - Patient identification and proposed procedure were verified prior to the procedure by the physician and the nurse. The procedure was verified in the procedure room. - Pre-procedure physical examination revealed no contraindications to sedation. After I obtained informed consent, the scope was passed under direct vision. All instruments were visually inspected immediately before and after removal from the patient to ensure they are fully intact. Throughout the procedure, the patient's blood pressure, pulse, and oxygen saturations were monitored continuously. The colonoscopy was performed without difficulty. The patient tolerated the procedure well. The [id number] Colonoscope ([id number]) was introduced through the anus and advanced to the terminal ileum. The quality of the bowel preparation was good. Findings & Specimens: The perianal and digital rectal examinations were normal. The terminal ileum appeared normal. Six sessile polyps were found in the transverse colon. The polyps were 6 mm in size. These polyps were removed with a cold snare. Resection and retrieval were complete. Verification of patient identification for the specimen was done by the physician and nurse using the patient's name and date. The pathology specimen was placed into Bottle A. An 8 mm polyp was found in the rectum. The polyp was sessile. The polyp was removed with a cold snare. Resection and retrieval were complete. Fulguration to ablate the lesion by hot biopsy forceps was successful. The pathology specimen was placed into Bottle B. Scattered small and large-mouthed diverticula were found in the sigmoid colon. Impression: - The examined portion of the ileum was normal. - Six 6 mm polyps in the transverse colon, removed with a cold snare. Resected and retrieved. - One 8 mm polyp in the rectum, removed with a cold snare. Resected and retrieved. Treated with hot biopsy forceps. - Diverticulosis in the sigmoid colon. Recommendation: - Discharge patient to home. - Await pathology results. - Repeat colonoscopy in 3 years for surveillance. - Return to referring physician. Marisa Lucia MD 04/10/2023 8:35:16 AM This report has been signed electronically. documented in this encounter Nursing Notes * Rivka Rivas RN - 04/10/2023 9:10 AM EST Pt escorted to the vehicle by PACU staff. Ambulates well. BSG was checked prior to his departure and result was 147. * Rivka Rivas RN - 04/10/2023 9:08 AM EST All discharge instructions discussed with pt and his family members. Paper copy of discharge information and procedure report given to him to take home. Able to get dressed by himself. and daughter went to get the vehicle. * Rivka Rivas RN - 04/10/2023 8:[address] Lucia in to visit pt and discusses his procedure with him. and daughter brought to the bedside per pt's request. * Rivka Rivas RN - 04/10/2023 8:38 AM EST Received pt into PACU II, room 2 via stretcher from the ENDO procedure room s/p colonoscopy. VSS. Resting quietly on his left side with O2 mask on at 5L/min, O2 sats 99% and resps easy and unlabored.IV fluids infusing to his right wrist without issue. * Augusto Benton RN - 04/10/2023 8:33 AM EST See anesthesia record for medication administered during procedure. Augusto Benton RN Specimen(s) and location(s) verified with physician post procedure 8:33 AM Augusto Benton RN Pre cleaning of scope at the bedside started by motorcycle technician. Mid abdominal pressure given per Dr. Lucia to assist with scope advancement. Pt tolerated well * Katie Ortez RN - 04/10/2023 7:09 AM EST Patient prepped and ready for procedure. Call valentin in reach. * Katie Ortez RN - 04/10/2023 6:37 AM EST The following pt discharge instructions reviewed with pt prior to prodedure: No driving today. No alcohol today. No signing of legal documents. Rest as much as possible today and can return to normal activities tomorrow. No operating any heavy equipment today. Diet as tolerated. Pt verbalized understanding. documented in this encounter Plan of Treatment Upcoming Encounters Date Type Department Care Team (Late st Contact Info) Description 04/21/2023 3:40 PM EST Office Visit Pulmonary Medicine, [facility] [address] [facility] [place] [address] Carroll Garces MD [address] [facility] [address] 06/24/2023 10:30 AM EDT Procedure Only Urology, [facility] [address] [facility] [place] [address] Agustin Chery MD [address] [facility] [address] [place] [id number] 07/02/2023 12:30 PM EDT [facility] [address] [place] [address] [facility] [address] [place] [address] 07/07/2023 1:00 PM EDT Office Visit Dermatology [facility] [address] [facility] [address] Phill Vegas MD [address] [place] [address] Pending Results Name Type Priority Associated Diagnoses Date /Time SURGICAL PATHOLOGY Pathology Routine History of colonic polyps 04/10/2023 8:34 AM EST Scheduled Orders Name Type Priority Associated Diagnoses Order Schedule GLUCOSE METER, POINT OF CARE (COMMUNICATION ORDER) Point of Care Testing Routine As Needed until discontinued starting 04/10/2023 SURGICAL PATHOLOGY Pathology Routine History of colonic polyps Release Upon Ordering for 1 Occurrences starting 04/10/2023, 1 completed Scheduled Procedures Name Priority Associated Diagnoses Date/Ti me COLONOSCOPY FLEXIBLE PROXIMA L DIAGNOSTIC Recall History of colonic polyps 04/10/2023 8:06 AM EST ESOPHAGOGASTRODUODENOSCOPY ( EGD), FLEXIBLE, TRANSORAL, DIAGNOSTIC [...] DIRECTIVE NOT ON FILE 11/10/2021 COVID-19 Vaccine (2022- season) 2022 02/05/2022, 07/15/2021, 07/15/2021, Additional history exists Influenza Vaccine (FLU shot) (#1) 2022 11/16/2021, 12/03/2020, 10/24/2019, Additional history exists HbA1c 07/29/2023 01/27/2023, 12/25, 06/10/2018, Additional history exists Diabetic Eye Exam 12/24/2023 12/23/2022 Albumin/Creatinine Ratio 03/27/2024 024, 02/25/2023, 01/27/2023, Additional history exists GFR 03/27/2024 03/27/2023, 03/2023, 01/27/2023, Additional history exists COLONOSCOPY-ANNUAL AGES 18-100 04/10/2024 04/10/2023, 10/12/2021, 07/27/2019, Additional history exists O2 ASSESSMENT COMPLETED IN [...] Diagnosis Comments GLUCOSE METER, POINT OF CARE JOSE MIGUEL 04/10/2023 9:08 AM EST COLONOSCOPY 04/10/2023 7:57 AM EST GLUCOSE METER, POINT OF CARE [facility] 04/10/2023 7:05 AM EST documented in this encounter Results * (ABNORMAL) GLUCOSE METER, POINT OF CARE (04/10/2023 9:08 AM EST) Glucose Meter 147(H) 70 - 120 mg/dL 04/10/2023 9:32 AM EST [facility] [place] 57-00 Blood Whole blood specimen / Unknown 04/10/2023 9:08 AM EST 04/10/2023 9:32 AM EST Marisa Lucia MD LAB POINT OF CARE T EST DOCKED DEVICE UNSOLICITED RESULTS Performing Organization Address City/State/[facility] Co de Phone Number [facility] [phone] [place] [address] * COLONOSCOPY (04/10/2023 7:57 AM EST) 04/10/2023 7:57 AM EST Narrative Procedure Note Porfirio Kilgore MD - 04/10/2023 7:57 AM EST [facility] Patient Name: Myron Corado Procedure Date: 04/10/2023 7:57 AM Date of : 1945 Admit Type: Outpatient Note Status:Finalized Date of : 1945 Admit Type: Outpatient Age: 77 Room: [facility] Gender: Male Note Status: Finalized Procedure: Colonoscopy Indications: High risk colon cancer surveillance: Personalhistory of multiple (3 or more) adenomas Providers: Marisa Lucia MD (Doctor), Rich Almaguer RN Referring MD: Porfirio Kilgore MD (Referring MD) Medicines: Propofol per Anesthesia, Ancef 1000 mg IV Complications: No immediate complications. Procedure: Pre-Anesthesia Assessment: - Prior to the procedure, a History and Physicalwas performed, and patient medications, allergies and sensitivities werereviewed. The patient's tolerance of previous anesthesia was reviewed. - The risks and benefits of the procedure and thesedation options and risks were discussed with the patient. All questions wereanswered and informed consent was obtained. - Patient identification and proposed procedurewere verified prior to the procedure by the physician and the nurse. The procedure wasverified in the procedure room. - Pre-procedure physical examination revealed nocontraindications to sedation. After I obtained informed consent, the scope waspassed under direct vision. All instruments were visually inspected immediatelybefore and after removal from the patient to ensure they are fully intact. Throughout the procedure, the patient's bloodpressure, pulse, and oxygen saturations were monitored continuously. The colonoscopy wasperformed without difficulty. The patient tolerated the procedure well. The CF-[id number] ([id number]) was introduced through the anus and advanced to theterminal ileum. The quality of the bowel preparation was good. Findings & Specimens: The perianal and digital rectal examinations were normal. The terminal ileum appeared normal. Six sessile polyps were found in the transverse colon. The polypswere 6 mm in size. These polyps were removed with a cold snare. Resection and retrieval were complete.Verification of patient identification for the specimen was done by the physician and nurseusing the patient's name and date. The pathology specimen was placed into Bottle A. An 8 mm polyp was found in the rectum. The polyp was sessile. Thepolyp was removed with a cold snare. Resection and retrieval were complete. Fulguration to ablate thelesion by hot biopsy forceps was successful. The pathology specimen was placed into Bottle B. Scattered small and large-mouthed diverticula were found in thesigmoid colon. Impression: - The examined portion of the ileum was normal. - Six 6 mm polyps in the transverse colon, removedwith a cold snare. Resected and retrieved. - One 8 mm polyp in the rectum, removed with a coldsnare. Resected and retrieved. Treated with hot biopsy forceps. - Diverticulosis in the sigmoid colon. Recommendation: - Discharge patient to home. - Await pathology results. - Repeat colonoscopy in 3 years for surveillance. - Return to referring physician. Marisa Lucia MD 04/10/2023 8:35:16 AM This report has been signed electronically. Porfirio Kilgore MD GASTRO LOWER * (ABNORMAL) GLUCOSE METER, POINT OF CARE (04/10/2023 7:05 AM EST) Glucose Meter 143(H) 70 - 120 mg/dL 04/10/2023 7:15 AM EST [facility] 57-00 Blood Whole blood specimen / Unknown 04/10/2023 7:05 AM EST 04/10/2023 7:15 AM EST Marisa Lucia MD LAB POINT OF CARE T EST DOCKED DEVICE UNSOLICITED RESULTS [email or web address] [place] [address] [place] [address] documented in this encounter Visit Diagnoses Diagnosis History of colonic polyps Personal history of colonic polyps documented in this encounter Administered Medications Inactive Administered Medications - up to 3 most recent administrations Medication Order MAR Action Action Date Dose Rate Site isolyte-S pH 7.4 infusion Intravenous, at 100 mL/hr, Plasma-LYTE 148, isolyte-S, and isolyte-S pH 7.4 are considered equivalent - including for MAR barcode scanning., CONTINUOUS, Starting on Jodi 04/10/23 at 0715, Until Jodi 04/10/23 at 1312, Pre-Op Rate Change 04/10/2023 8:32 AM EST 800 mL/hr Continue from Pre-Op 04/10/2023 8:02 AM EST 100 mL/hr New Bag 04/10/2023 7:09 AM EST 100 mL/hr documented in this encounter Active and Recently Administered Medications Times are shown in EST. Continuous Medication Order 04/08/2023 04/09/2023 04/10/2023 isolyte-S pH 7.4 infusion Intravenous, at 100 mL/hr, Plasma-LYTE 148, isolyte-S, and isolyte-S pH 7.4 are considered equivalent - including for MAR barcode scanning., CONTINUOUS, Starting on Jodi 04/10/23 at 0715, Until Jodi 2/15/24 at 1312, Pre-Op 0709 (New Bag - Prov ider: Katie Ortez RN)0802 (Continue from Pre-Op - Provider: Byron Ellis CRNA)0832 (Rate Change - Provider: Byron Ellis CRNA) documented in this encounter Advance Directives Latest [...] the patient have Health Care Power of Jockey'S Agent? No Care Teams Volleyball Assembler Relationship Specialty Start Date End Date Porfirio Kilgore MD [address] [place] [address] PCP - General Internal Medicine 03/30/20 documented as of this encounter
--- OUTSIDE RECORDS SUMMARY | 2023-08-24 00:10 | External Medical Summary | Summary of Care ---
Author Name Unknown Organization [facility] Address [address] [place] [address] Phone [phone] Care Team Providers Care Nurses Educator Name Role Phone Porfirio Kilgore MD Primary Care Provider + Reason for Visit * Reason Comments Follow Up Encounter Details Date Type Department Care Team (Late st Contact Info) Description 04/21/2023 3:40 PM EST Office Visit Pulmonary Medicine, [facility] [address] [facility] [place] [address] Carroll Garces MD [address] [facility] [place] [id number] SOB (shortness of breath)*; Mucopurulent chronic bronchitis (HCC) Allergies No known active allergiesdocumented as of this encounter (statuses as of 04/21/2023) Medications Medication Sig Dispensed Refills Start Date [...] % Nasal Solution Administer into nostril 1 Williams in the morning AND 1 Williams before bedtime. 30 mL 12 2 Active [...] mgIndications:Kidney replaced by transplant 150 mg IM [id number] 03/13/2021 Active Cilgavimab inj 150 mgIndications:Kidney replaced by transplant 150 mg IM [id number] 03/13/2021 Active documented as of this encounter (statuses as of 04/21/2023) Active Problems Problem Noted Date Diagnosed Date [...] as of this encounter (statuses as of 04/21/2023) Resolved Problems Problem Noted Date Diagnosed Date Resolved Date Bronchiectasis without complication 12/18/2021 05/03/2022 COPD, group C, by GOLD 2017 classification 11/05/2021 05/03/2022 Overview: Per COPD GOLD Classification COPD, group B, by GOLD 2017 classification 08/03/2020 11/08/2021 Overview: Per COPD GOLD Classification Aortic regurgitation 06/14/2015 016 Pre-transplant evaluation fo r chronic kidney disease 05/16/2015 08/20/2022 documented as of this encounter (statuses as of 04/21/2023) Immunizations Name Administration Dates Next Due COVID-19 [...] 04/21/2023 3:42 PM EST 04/21/2023 Pulmonary Medicine, [address] [place] [id number] Myron Corado 1945 male 77 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 Since last evaluation, patient describes stable symptoms status with decreasing cough, wheezing andexpectoration, has been tolerating Bactrim SS twice daily without significant discomfort. Periodic BMP monitoring has been continued. Minimal fluctuation noted in creatinine levels. Patient continuesto follow-up with nephrology for renal monitoring. Compliant with Trelegy and rescue albuterol therapy. Never received chest percussion therapy. Denies recent hospitalizations or urgent care visits. Denies nocturnal respiratory exacerbations. Bronchoscopy findings and recent CT scan of [...] order status will be followed up through [facility]. Periodic CBC, LFT and BMP monitoring Q [...] with Follow Up HPI: Nursing Notes: Ankita Rosado LPN 04/21/23 1538 Addendum Pt here for follow up recurrent bronchitis, traction bronchiectasis, and history of renal transplant on immunosuppressive therapy. CAT/mMRC Summary, Results are Patient Reported mMRC - (Range 0-5) CAT - (Range 0-40) CAT mMRC Results 04/03/2023 09:22 04/21/2023 15:35 Modified Medical Research [place] Dyspnea Scale When do you become breathless? 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 EGD, FLEXIBLE, DIAGNOSTIC 07/01/2019 mild gastric irritation on bx / [facility] EGD, FLEXIBLE, DIAGNOSTIC 10/12/2021 gastric nodule / [facility] EGD, FLEXIBLE, ENDO MUCOSAL RESECTION N/A 01/09/2022 lesion body of stomachESOPHAGOGASTRODUODENOSCOPY (EGD), FLEXIBLE, TRANSORAL: MUCOSAL RESECTION performed by Marisa Lucia MD at [facility] EGD, W/ENDOSCOPIC US N/A 01/09/2022 subepithelial lesion stomach/biopsies show GIST/ESOPHAGOGASTRODUODENOSCOPY (EGD), FLEXIBLE, TRANSORAL, ENDOSCOPIC ULTRASOUND performed by Marisa Lucia MD at [facility] HEMORRHOIDECTOMY, INTERNAL, 2 + COLUMNS 04/14/2020 HEMORRHOIDECTOMY EXTERNAL AND INTERNAL COMPLEX performed by Faheem Cohen MD at OR [facility] INFORMATION appendix removed INFORMATION josr IR BIOPSY 04/16/2019 RENAL BIOPSY, PERCUTANEOUS (TROCAR/NEEDLE) N/A 08/20/2018 RENAL BIOPSY PERCUTANEOUS performed by Colin Rossi MD at [facility] RENAL BIOPSY, PERCUTANEOUS (TROCAR/NEEDLE) Right 09/11/2022 RENAL BIOPSY PERCUTANEOUS performed by Colin Rossi MD at OR [facility] SIGMOIDOSCOPY, DIAGNOSTIC 07/27/2019 Ulcerative proctitis, adenomatous polyp, diverticulosis / [facility] TRANSPLANTATION OF KIDNEY N/A 08/04/2018 RENAL TRANSPLANT performed by Colin Rossi MD at OR [facility] Social History Socioeconomic History Marital status: Occupational History 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 [...] 06/24/2023 10:30 AM EDT Procedure Only Urology, [facility] [address] [facility] [place] [address] Agustin Chery MD 27 [facility] [address] [place] [address] 07/02/2023 12:30 PM EDT Office Visit Transplant Clinic, [place] [address] [place] [address] Jean-Pierre Catalan DNP [address] [place] [address] 07/07/2023 1:00 PM EDT Office Visit [facility]atology [facility] [address] Phill Vegas MD [address] [place], [place] [address] Scheduled Procedures Name Priority Associated Diagnoses Date/Ti [...] Diabetic Eye Exam 12/24/2023 12/23/2022 Albumin/Creatinine Ratio 03/27/20242 024, 02/25/2023, 01/27/2023, Additional history exists GFR 03/27/2024 03/27/2023, 01/0 03/2023, 01/27/2023, Additional history exists COLONOSCOPY-ANNUAL AGES [...] the patient have Health Care Power of Station Cashier? No Care Teams Nurses Educator Relationship Specialty Start Date End Date Porfirio Kilgore MD [address] [facility] [place] [address] PCP - General Internal Medicine 03/30/20 documented as of this encounter
--- OUTSIDE RECORDS SUMMARY | 2023-08-24 00:11 | External Medical Summary ---
Author Name Unknown Address Unknown Organization K01:[facility] - [address] [place] [address] Laboratory Report Ordering Provider Test Date Status ARACELI STRATTON 03/27/2023 09:53:19 Final Normal: <30 mg/g creatinine< br/>High: 30-300 mg/g creatinine
Very High: >300 mg/g creatinine
Nephrotic: >2200 mg/g creatinine Observation Date Value Abnormality Reference (Units ) Status Albumin, Urine 03/27/2023 09:53:19 13.90 (mg/dL) Final Creatinine, Urine 03/27/2023 09:53:19 60 (mg/dL) Final Albumin/Creatinine [Mass Ratio] in Urine 03/27/2023 09:53:19 232 Above high normal <30 (mg/g Creat) Final Performing Location [facility] - [address] [place] [address]
--- OUTSIDE RECORDS SUMMARY | 2023-08-24 00:11 | External Medical Summary | Summary of Care ---
Author Name Unknown Organization [facility] Address [address] [place] [address] Phone [phone] Care Team Providers Care Director Adult Name Role Phone Porfirio Kilgore MD Primary Care Provider + Encounter Details Date Type Department Care Team (Late st Contact Info) Description 03/17/2023 Telephone Urology, [facility] 132 [facility] [place] [address] Agustin Chery MD 27 [facility] 270 [place] [address] Allergies No known active allergiesdocumented as of this encounter (statuses as of 03/17/2023) Medications Medication Sig Dispensed Refills Start Date [...] mouth daily. 30 Tab 5 9 Active levothyroxine (LEVOXYL) 50 MCG Tablet Take 1 Tablet by mouth once a day on Friday, Friday, , and Friday only. 5 9 Active Multiple Vitamins-Minerals (MULTIVITAMIN ADULT) TABS Take 1 Tablet by mouth in the morning. 0 Active LANTUS SOLOSTAR 100 UNIT/ML SOPN [...] % Nasal Solution Administer into nostril 1 Boomer in the morning AND 1 Boomer before bedtime. 30 mL 12 2 Active Ventolin HFA 108 (90 Base) MCG/ACT Inhalation Aerosol SolutionIndications :Mucopurulent chronic bronchitis (HCC) Inhale 2 Puffs by mouth every 4 hours as needed for Cough, Shortness of Breath or Wheezing. 18 g 3 2 Active Fluticasone Furoate-Vilanterol 200-25 MCG/ACT Inhalation Aerosol Powder Breath Activated (BREO ellipta) Inhale 1 Puff by mouth in the morning. 60 Blister Dosing Unit 6 3 Active Additional Information Patient taking differently:1 Puff InhalationDAILY PRN, Informant: Patient, Reported on 08/19/2022 Nebulizer/Tubing/Mo uthpiece Kit Use as directed 1 [...] before bedtime. 270 Capsule 3 3 Active Pantoprazole Sodium 40 MG Oral Tablet Delayed Release (Protonix) TAKE ONE TABLET BY MOUTH EVERY DAY BEFORE BREAKFAST 90 Tablet 0 3 Active Furosemide 40 MG Oral Tablet [...] the morning. 90 Tablet 3 4 Active Hospital, Clinic, or Other Facility Administered Medication Ordered Dose Route Frequency Start Date End Date Status Tixagevimab inj 150 mgIndications:Kidney replaced by transplant 150 mg IM [id number] 03/13/2021 Active Cilgavimab inj 150 mgIndications:Kidney replaced by transplant 150 mg IM [id number] 03/13/2021 Active documented as of this encounter (statuses as of 03/17/2023) Active Problems Problem Noted Date Diagnosed Date [...] as of this encounter (statuses as of 03/17/2023) Resolved Problems Problem Noted Date Diagnosed Date Resolved Date Bronchiectasis without complication 12/18/2021 05/03/2022 COPD, group C, by GOLD 2017 classification 11/05/2021 05/03/2022 Overview: Per COPD GOLD Classification COPD, group B, by GOLD 2017 classification 08/03/2020 11/08/2021 Overview: Per COPD GOLD Classification Aortic regurgitation 06/14/2015 016 Pre-transplant evaluation fo r chronic kidney disease 05/16/2015 08/20/2022 documented as of this encounter (statuses as of 03/17/2023) Immunizations Name Administration Dates Next Due COVID-19 mRNA, LNP-s, No Pre serve, 2-Dose Series (Moderna) 02/05/2022,07/15/2021,10/09/2020,2020,03/20/2020 Pneumococcal Conjugate Vacc, 13 Valent (Prevnar) 07/25/2018 Seasonal Influenza Intranasal 02/01/2009 Seasonal Influenza Virus Vac cine, Unspecified Formulation 11/16/2021,12/03/2020 Seasonal Influenza, Quadriva lent Hd, 65+ Yrs 10/24/2019 Seasonal Influenza, Trivalen t, High Dose, No Preserve, IM 11/28/2018 TDAP (age 10 and older)(Boostrix) 06/03/2022 Zoster Vaccine Recombinant (Shingrix) 09/27/2021 documented as of this encounter Social History [...] encounter Miscellaneous Notes * Telephone Encounter - Vero Fernandes LPN - 03/17/2023 1:07 PM EST Patient aware and verbalized understanding. * Telephone Encounter - Agustin Chery MD - 03/17/2023 12:25 PM EST Ice packs and support as needed for discomfort, ibuprofen 600 mg TID PRN discomfort. If no swellingor discomfort is noted, nothing needs to be done. Thanks, HM * Telephone Encounter - Vero Fernandes LPN - 03/17/2023 12:13 PM EST Patient aware and is asking if anything should be done for the inflammation. Please advise. * Telephone Encounter - Vero Fernandes LPN - 03/17/2023 9:31 AM EST Left message to call back * Telephone Encounter - Vero Fernandes LPN - 03/17/2023 9:31 AM EST ----- Message from Agustin Chery MD sent at 03/14/2023 4:29 PM EST ----- Okay to notify patient ultrasound shows inflammation and testis, no tumor. Thanks, HM documented in this encounter Plan of Treatment Upcoming Encounters Date Type Department Care Team (Latest Contact Info) Description 04/10/2023 2:00 PM EST Hospital Encounter ENDO [facility], Endoscopy Room [facility] [address] [place] [phone] Marisa Lucia MD [address] [place] [address] 04/10/2023 2:00 PM EST - 04/10/2023 2:30 PM EST Surgery ENDO [facility], Endoscopy Room [facility] 132 [facility] [place] [phone] Marisa Lucia MD 132 [facility] [place] [address] COLONOSCOPY FLEXIBLE PROXIMAL DIAGNOSTIC 04/21/2023 3:40 PM EST Office Visit Pulmonary Medicine, [facility] 132 [facility] [address] Carroll Garces MD [address] [place] [address] 06/24/2023 10:30 AM EDT Office Visit Urology, [facility] 132 [place] [address] Agustin Chery MD 27 [facility] [address] [place] [address] 07/02/2023 12:30 PM EDT [facility] [address] [place] [address] [facility] [address] [place] [address] 07/07/2023 1:00 PM EDT [facility] [address] [place] [address] Phill Vegas MD 200 [facility] [place] [address] Scheduled Procedures Name Priority Associated Diagnoses Date/Ti [...] 18-100 10/12/2022 10/12/2021, 07/27/2019, 07/01/2019 COVID-19 Vaccine (6 - 2022-24 season) 2022 02/05/2022, 07/15/2021, 07/15/2021, Additional history exists Influenza Vaccine (FLU shot) (#1) 2022 11/16/2021, 12/03/2020, 10/24/2019, Additional history exists O2 ASSESSMENT COMPLETED IN PAST YEAR FOR COPD 04/18/2023 04/18/2022 HbA1c 07/29/2023 01/27/2023, 12/25, 06/10/2018, Additional history exists Diabetic Eye Exam 12/24/2023 12/23/2022 Albumin/Creatinine Ratio 02/26/2024 024, 01/27/2023, 12/25/2022, Additional history exists GFR 02/26/2024 02/25/2023, 05/2022, 12/25/2022, Additional history exists DTaP,Tdap,and Td Vaccines (2 [...] the patient have Health Care Power of Urban Renewal Manager? No Care Teams Director Adult Relationship Specialty Start Date End Date Porfirio Kilgore MD [address] [place] [address] PCP - General Internal Medicine 03/30/20 documented as of this encounter
--- OUTSIDE RECORDS SUMMARY | 2023-08-24 00:11 | External Medical Summary | Summary of Care ---
Author Name Unknown Organization [facility] Address [address] [place] [address] Phone [phone] Care Team Providers Care Fire Sprinkler Service Technician Name Role Phone Porfirio Kilgore MD Primary Care Provider + Reason for Visit * Reason Comments eRx-Medication Refill Encounter Details Date Type Department Care Team (Late st Contact Info) Description 03/20/2023 Refill Gastroenterology, [facility] [address] [place] [address] Marisa Lucia MD [address] [place] [address] Allergies No known active allergiesdocumented as of this encounter (statuses as of 03/20/2023) Medications Medication Sig Dispensed Refills Start Date [...] % Nasal Solution Administer into nostril 1 [place] in the morning AND 1 [place] before bedtime. 30 mL 12 2 Active [...] mgIndications:Kidney replaced by transplant 150 mg IM [id number] 03/13/2021 Active Cilgavimab inj 150 mgIndications:Kidney replaced by transplant 150 mg IM [id number] 03/13/2021 Active documented as of this encounter (statuses as of 03/20/2023) Active Problems Problem Noted Date Diagnosed Date [...] as of this encounter (statuses as of 03/20/2023) Resolved Problems Problem Noted Date Diagnosed Date Resolved Date Bronchiectasis without complication 12/18/2021 05/03/2022 COPD, group C, by GOLD 2017 classification 11/05/2021 05/03/2022 Overview: Per COPD GOLD Classification COPD, group B, by GOLD 2017 classification 08/03/2020 11/08/2021 Overview: Per COPD GOLD Classification Aortic regurgitation 06/14/2015 016 Pre-transplant evaluation fo r chronic kidney disease 05/16/2015 08/20/2022 documented as of this encounter (statuses as of 03/20/2023) Immunizations Name Administration Dates Next Due COVID-19 [...] encounter Miscellaneous Notes * Telephone Encounter - Aruna Lambert OSA - 03/20/2023 4:19 PM ESTRefused Prescriptions: Disp Refills Pantoprazole Sodium 40 MG Oral Tablet Ashia*90 Tab*0 Sig: TAKE ONE TABLET BY MOUTH EVERY DAY BEFORE BREAKFASTRefused By: RUBY OKEEFE for Refusal: Appt. Required, please call patient * Telephone Encounter - Aruna Lambert OSA - 03/20/2023 4:19 PM EST LMOM * Telephone Encounter - Ruby Okeefe LPN - 03/20/2023 4:08 PM ESTRefused Prescriptions: Disp Refills Pantoprazole Sodium 40 MG Oral Tablet Ashia*90 Tab*0 Sig: TAKE ONE TABLET BY MOUTH EVERY DAY BEFORE BREAKFAST Refused By: RUBY OKEEFE Reason for Refusal: Appt. Required, please call patient * Telephone Encounter - Ruby Okeefe LPN - 03/20/2023 4:06 PM EST Scheduling, Please advise this patient that they need to be seen in the office prior to any further refills or they can follow up with their pcp. Last office visit 10/25/2021 Last uoburismd11/2022 Medication they are trying to fill Protonix * Telephone Encounter - Fely Galo jig filler - 03/20/2023 3:44 PM EST Pending Prescriptions: Disp Refills Pantoprazole Sodium 40 MG Oral Tablet Ashia*90 Tab*0 Sig: TAKE ONE TABLET BY MOUTH EVERY DAY BEFORE BREAKFAST * Telephone Encounter - Fely Galo jig filler - 03/20/2023 3:44 PM EST Patient is up to date for office visits. Pending Prescriptions: Disp Refills Pantoprazole Sodium 40 MG Oral Tablet Del*90 Tab*0 Sig: TAKE ONE TABLET BY MOUTH EVERY DAY BEFORE BREAKFAST Last Visit: 10/25/2021 (in office), 05/11/2020 (telemedicine) Colonoscopy 04/10/23 Next Visit: Visit date not found If no future appointments scheduled, and last appointment is greater than a year ago, please schedule patient for a follow-up appointment Last date the medication was ordered: 12/27 [facility], [address] [place] Is this request for a controlled substance?No it is not controlled. Urine Drug Screen:No results found for this or any previous visit. Patient Phone Numbers Labs: Lab Results Component Value Date/Time CREAT 2.8 (H) 02/25/2023 09:35 AM CREAT 1.9 (H) 03/13/2020 01:35 PM POTASSIUM 4.2 02/25/2023 09:35 AM POTASSIUM 3.9 03/13/2020 01:35 PM TSH 5.63 (H) 05/03/2019 07:53 AM LDLCALC 113 02/25/2023 09:35 AM LDLCALC 45 09/07/2018 07:43 AM ALT 28 08/19/2022 08:16 AM ALT 21 06/25/2019 12:29 PM HGBA1C 6.7 (H) 01/27/2023 08:42 AM HGBA1C 7.2 (H) 06/10/2018 11:10 AM documented in this encounter Plan of Treatment Upcoming Encounters Date Type Department Care Team (Latest Contact Info) Description 04/10/2023 2:00 PM EST Hospital Encounter ENDO O[facility], Endoscopy Room [facility] [address] [place] [phone] Marisa Lucia MD [address] [place] [address] 04/10/2023 2:00 PM EST - 04/10/2023 2:30 PM EST Surgery ENDO [facility], Endoscopy Room [facility] [address] [place] [phone] Marisa Lucia MD [address] [place] [address] COLONOSCOPY FLEXIBLE PROXIMAL DIAGNOSTIC 04/21/2023 3:40 PM EST Office Visit Pulmonary Medicine, [facility] 132 [facility] [place] [address] Carroll Garces MD [address] [facility] [address] 06/24/2023 10:30 AM EDT Procedure Only Urology, [facility] [place] [address] Agustin Chery MD [address] [address] [place] [address] 07/02/2023 12:30 PM EDT Office Visit Transplant Clinic, [place] [address] [place] [address] Jean-Pierre Catalan, [facility] [address] [place], [place] [id number] 07/07/2023 1:00 PM EDT Office Visit Dermatology [facility] [place] 200 [facility] [place] [address] Phill Vegas MD 200 [facility] [place] [address] Scheduled Procedures Name Priority Associated Diagnoses Date/Ti [...] Diabetic Eye Exam 12/24/2023 12/23/2022 Albumin/Creatinine Ratio 02/26/20242 024, 01/27/2023, 12/25/2022, Additional history exists GFR 02/26/2024 02/25/2023, 1205/2022, 12/25/2022, Additional history exists DTaP,Tdap,and Td Vaccines [...] the patient have Health Care Power of Teaching Supervisor? No Care Teams Fire Sprinkler Service Technician Relationship Specialty Start Date End Date Porfirio Kilgore MD [address] [facility] [place] [address] PCP - General Internal Medicine 03/30/20 documented as of this encounter
--- OUTSIDE RECORDS SUMMARY | 2023-08-24 00:11 | External Medical Summary | Summary of Care ---
Author Name Unknown Organization [facility] Address [address] [place] [address] Phone [phone] Care Team Providers Care Rotor Pilot Name Role Phone Porfirio Kilgore MD Primary Care Provider + Reason for Visit * Reason Comments Outpatient Testing Encounter Details Date Type Department Care Team (Late st Contact Info) Description 03/27/2023 9:50 AM EST Laboratory Laboratory [address] [place] [address] [place] [address] Kidney replaced by transplant Allergies No known active allergiesdocumented as of this encounter (statuses as of 03/27/2023) Medications Medication Sig Dispensed Refills Start Date [...] % Nasal Solution Administer into nostril 1 [place] in the morning AND 1 [place] before bedtime. 30 mL 12 2 Active [...] BEFORE BREAKFAST 90 Tablet 0 4 Active Hospital, Clinic, or Other Facility Administered Medication Ordered Dose Route Frequency Start Date End Date Status Tixagevimab inj 150 mgIndications:Kidney replaced by transplant 150 mg IM [id number] 03/13/2021 Active Cilgavimab inj 150 mgIndications:Kidney replaced by transplant 150 mg IM [id number] 03/13/2021 Active documented as of this encounter (statuses as of 03/27/2023) Active Problems Problem Noted Date Diagnosed Date [...] as of this encounter (statuses as of 03/27/2023) Resolved Problems Problem Noted Date Diagnosed Date Resolved Date Bronchiectasis without complication 12/18/2021 05/03/2022 COPD, group C, by GOLD 2017 classification 11/05/2021 05/03/2022 Overview: Per COPD GOLD Classification COPD, group B, by GOLD 2017 classification 08/03/2020 11/08/2021 Overview: Per COPD GOLD Classification Aortic regurgitation 06/14/2015 016 Pre-transplant evaluation fo r chronic kidney disease 05/16/2015 08/20/2022 documented as of this encounter (statuses as of 03/27/2023) Immunizations Name Administration Dates Next Due COVID-19 [...] ENDO [facility], Endoscopy Room [facility] [address] [place] [address] Marisa Lucia MD [address] [place] [address] 04/10/2023 2:00 PM EST - 04/10/2023 2:30 PM EST Surgery ENDO [facility], Endoscopy Room [facility] [address] [place] [address] Marisa Lucia MD [address] [place] [address] COLONOSCOPY FLEXIBLE PROXIMAL DIAGNOSTIC 04/21/2023 3:40 PM EST Office Visit Pulmonary Medicine, [facility] 132 [facility] [place] [address] Carroll Garces MD [address] [place] [facility] [place] [address] 06/24/2023 10:30 AM EDT Procedure Only Urology, [facility] 132 [facility] [place] [address] Agustin Chery MD 27 [facility] [address] [place] [address] 07/02/2023 12:30 PM EDT Office Visit Transplant Clinic, [place] [address] [place] [address] Jean-Pierre Catalan, [facility] [address] [place] [address] 07/07/2023 1:00 PM EDT Office Visit Dermatology Lucretia [place] [address] [facility] [place] [address] Phill Vegas MD 200 [facility] [place] [address] Pending Results Name Type Priority Associated Diagnoses Date /Time CBC WITH WBC DIFFERENTIAL Lab STAT Kidney replaced by transplant 03/27/2023 9:53 AM EST BASIC METABOLIC PANEL Lab STAT Kidney replaced by transplant 03/27/2023 9:53 AM EST ALBUMIN / CREATININE RATIO, URINE Lab STAT Kidney replaced by transplant 03/27/2023 9:53 AM EST TACROLIMUS LEVEL Lab STAT Kidney replaced by transplant 03/27/2023 9:53 AM EST CBC Lab STAT Kidney replaced by transplant 03/27/2023 9:53 AM EST DIFFERENTIAL, AUTOMATED Lab STAT Kidney replaced by transplant 03/27/2023 9:53 AM EST Scheduled Procedures Name Priority Associated [...] 18-100 10/12/2022 10/12/2021, 07/27/2019, 07/01/2019 COVID-19 Vaccine (2022-24 season) 2022 02/05/2022, 07/15/2021, 07/15/2021, Additional history exists Influenza Vaccine (FLU shot) (#1) 2022 11/16/2021, 12/03/2020, 10/24/2019, Additional history exists O2 ASSESSMENT COMPLETED IN PAST YEAR FOR COPD 04/18/2023 04/18/2022 HbA1c 07/29/2023 01/27/2023, 12/25, 06/10/2018, Additional history exists Diabetic Eye Exam 12/24/2023 12/23/2022 Albumin/Creatinine Ratio 02/26/202402/25/2 024, 01/27/2023, 12/25/2022, Additional history exists GFR 02/26/2024 02/25/2023, 12/0 05/2022, 12/25/2022, Additional history exists DTaP,Tdap,and Td [...] Visit Diagnoses Diagnosis Kidney replaced by transplant History of colonic polyps Personal history of [...] the patient have Health Care Power of Conservation Enforcement Officer? No Care Teams Rotor Pilot Relationship Specialty Start Date End Date Porfirio Kilgore MD [address] [place] [address] PCP - General Internal Medicine 03/30/20 documented as of this encounter
--- OUTSIDE RECORDS SUMMARY | 2023-08-24 00:11 | External Medical Summary ---
Author Name Unknown Address Unknown Organization K01:[facility] [place] [address] [place] [address] Laboratory Report Ordering Provider Test Date Status ARACELI STRATTON 03/27/2023 09:53:19 Final Test performed by [facility] on eSnips. Therapeutic ranges vary with type of transplant, time post-transplant, clinical protocols, and testing methodology. Results should be interpreted with clinical presentation and any signs rejection/toxicity. Observation Date Value Abnormality Reference (Units ) Status Tacrolimus (FK506) 03/27/2023 09:53:19 4.3 4 .0-12.0 (ng/mL) Final Performing Location [facility] [place] - [address] [place] [address]
--- OUTSIDE RECORDS SUMMARY | 2023-08-24 00:11 | External Medical Summary | Summary of Care ---
Author Name Unknown Organization [facility] Address [address] [place] [address] Phone [phone] Care Team Providers Care Filler Machine Operator Name Role Phone Porfirio Kilgore MD Primary Care Provider + Encounter Details Date Type Department Care Team (Late st Contact Info) Description 03/17/2023 Telephone Urology, [facility] 132 [facility] [place] [address] Agustin Chery MD 27 [facility] [address] [place] [address] Allergies No known [...] % Nasal Solution Administer into nostril 1 [place] in the morning AND 1 [place] before bedtime. 30 mL 12 2 Active [...] mgIndications:Kidney replaced by transplant 150 mg IM [id number] 03/13/2021 Active Cilgavimab inj 150 mgIndications:Kidney replaced by transplant 150 mg IM [id number] 03/13/2021 Active documented as of this encounter [...] encounter Miscellaneous Notes * Telephone Encounter - Agustin Chery MD [...] EST Hospital Encounter ENDO [facility], Endoscopy Room [facility] [address] [place] [address] Marisa Lucia MD [address] [place] [address] 04/10/2023 2:00 PM EST - 04/10/2023 2:30 PM EST Surgery ENDO [facility], Endoscopy Room [facility] [address] [place] [phone] Marisa Lucia MD [address] [place] [address] COLONOSCOPY FLEXIBLE PROXIMAL DIAGNOSTIC 04/21/2023 3:40 PM EST Office Visit Pulmonary Medicine, [facility] [address] [facility] [place] [address] Carroll Garces MD [address] [place] [address] 06/24/2023 10:30 AM EDT Office Visit Urology, [facility] [address] [facility] [place] [address] Agustin Chery MD [address] [place] [address] [place], [place] [address] 07/02/2023 12:30 PM EDT [facility] [address] [place] [address] [facility] [address] [place] [address] 07/07/2023 1:00 PM EDT Office Visit Dermatology [facility] 200 [facility] [place] [address] Phill Vegas MD 200 [facility] [place] [address] Scheduled Procedures Name Priority Associated Diagnoses Date/Ti [...] 18-100 10/12/2022 10/12/2021, 07/27/2019, 07/01/2019 COVID-19 Vaccine ( - 2022-24 season) 2022 02/05/2022, 07/15/2021, 07/15/2021, [...] the patient have Health Care Power of Section Leader? No Care Teams Filler Machine Operator Relationship Specialty Start Date End Date Porfirio Kilgore MD [address] [facility] [place] [address] PCP - General Internal Medicine 03/30/20 documented as of this encounter
--- OUTSIDE RECORDS SUMMARY | 2023-08-24 00:11 | External Medical Summary ---
Author Name Unknown Address Unknown Organization K01:[facility] [place] - [facility] [address] [address] [place] [address] Laboratory Report Ordering Provider Test Date Status ARACELI STRATTON 03/27/2023 09:53:19 Final Observation Date Value Abnormality Reference (Units ) Status BUN 03/27/2023 09:53:19 33 Above high normal 6-20 (mg/dL) Final Creatinine 03/27/2023 09:53:19 2.9 Above high normal 0.6-1.2 (mg/dL) Final Glomerular filtration rate/1.73 sq M.predicted [Volume Rate/Area] in Serum, Plasma or Blood by Creatinine-based formula (CKD-EPI) 03/27/2023 09:53:19 21 Below low normal >=60 (mL/min) Final eGFR is calculated based on the CKD-EPI 2020 equation SODIUM 03/27/2023 09:53:19 140 135-146 (m mol/L) Final Potassium 03/27/2023 09:53:19 4.2 3.5-5.1 (m mol/L) Final Cl 03/27/2023 09:53:19 106 98-107 (mm ol/L) Final CO2 03/27/2023 09:53:19 23 22-32 (mmo l/L) Final Anion gap 03/27/2023 09:53:19 11 7-15 (mmol /L) Final Glucose 03/27/2023 09:53:19 170 Above high normal 70 -120 (mg/dL) Final Calcium 03/27/2023 09:53:19 9.1 8.4-10.2 ( mg/dL) Final Performing Location [facility] [place] - [address] [place] [address]
--- OUTSIDE RECORDS SUMMARY | 2023-08-24 00:11 | External Medical Summary | Summary of Care ---
Author Name Unknown Organization [facility] Address [address] [place] [address] Phone [phone] Care Team Providers Care Turpentine Distiller Name Role Phone Porfirio Kilgore MD Primary Care Provider + Reason for Visit * Reason Onset Date Comments Medication Refill 03/24/2023 Encounter Details Date Type Department Care Team (Late st Contact Info) Description 03/24/2023 Refill Gastroenterology, [facility] [address] [place] [address] Marisa Noland MD [address] [place] [address] Allergies No known active allergiesdocumented as of this encounter (statuses as of 03/24/2023) Medications Medication Sig Dispensed Refills Start Date [...] % Nasal Solution Administer into nostril 1 [place] in the morning AND 1 [place] before bedtime. 30 mL 12 2 Active [...] InhalationDAILY PRN, Informant: Patient, Reported on 08/19/2022 Nebulizer/Tubing/M outhpiece Kit Use as directed 1 [...] DAY BEFORE BREAKFAST 90 Tablet 0 3 03/24/19 24 Discontinu ed(Refill) Hospital, Clinic, or Other Facility Administered Medication Ordered Dose Route Frequency Start Date End Date Status Tixagevimab inj 150 mgIndications:Kidney replaced by transplant 150 mg IM [id number] 03/13/2021 Active Cilgavimab inj 150 mgIndications:Kidney replaced by transplant 150 mg IM [id number] 03/13/2021 Active documented as of this encounter (statuses as of 03/24/2023) Active Problems Problem Noted Date Diagnosed Date [...] as of this encounter (statuses as of 03/24/2023) Resolved Problems Problem Noted Date Diagnosed Date Resolved Date Bronchiectasis without complication 12/18/2021 05/03/2022 COPD, group C, by GOLD 2017 classification 11/05/2021 05/03/2022 Overview: Per COPD GOLD Classification COPD, group B, by GOLD 2017 classification 08/03/2020 11/08/2021 Overview: Per COPD GOLD Classification Aortic regurgitation 06/14/2015 016 Pre-transplant evaluation fo r chronic kidney disease 05/16/2015 08/20/2022 documented as of this encounter (statuses as of 03/24/2023) Immunizations Name Administration Dates Next Due COVID-19 [...] encounter Miscellaneous Notes * Telephone Encounter - Bailey Hargrove RN - 03/24/2023 11:58 AM ESTSigned Prescriptions: Disp Refills Pantoprazole Sodium 40 MG Oral Tablet Ashia*90 Tab*0 Sig: TAKE ONE TABLET BY MOUTH EVERY DAY BEFORE BREAKFASTAuthorizing Provider: MARISA NOLAND * Telephone Encounter - Bailey Hargrove RN - 03/24/2023 11:58 AM EST Patient notified of refill. * Telephone Encounter - Juanita Mina OSA - 03/24/2023 9:51 AM EST Please refill the following rx Pt has not had OV in over a year and there are no openings with [facility] anywhere at this time. Pt refusing to see any other person than him. Please advise JACKLYN Winters 03/24/2023 9:51 AM Did you pend patient's preferred pharmacy and medication before forwarding?no Pharmacy: [facility], [address] [place] Pending Prescriptions: Disp Refills Pantoprazole Sodium 40 MG Oral Tablet Del*90 Tab*0 Sig: TAKE ONE TABLET BY MOUTH EVERY DAY BEFORE BREAKFAST Last Visit: 10/25/2021 (in office), 05/11/2020 (telemedicine) Next Visit: Visit date not found If no future appointments scheduled, and last appointment is greater than a year ago, please schedule patient for a follow-up appointment Last date the medication was ordered: 12/27/22 Is this request for a controlled substance?No Urine Drug Screen:No results found for this [...] EST Hospital Encounter ENDO [facility], Endoscopy Room [facility] [address] [place] [phone] Marisa Noland MD [address] [place] [address] 04/10/2023 2:00 PM EST - 04/10/2023 2:30 PM EST Surgery ENDO [facility], Endoscopy Room [facility] [address] [place] [phone] Marisa Noland MD [address] [place] [address] COLONOSCOPY FLEXIBLE PROXIMAL DIAGNOSTIC 04/21/2023 3:40 PM EST Office Visit Pulmonary Medicine, [facility] [address] [place] [address] Carroll Garces [facility] [address] [facility] [place] [address] 06/24/2023 10:30 AM EDT Procedure Only Urology, [facility] [address] [place] [address] Agustin Chery MD [address] [place] [address] [place] [address] 07/02/2023 12:30 PM EDT Office Visit Transplant Clinic, [place] [address] [place] [address] Jean-Pierre Catalan, [facility] [address] [place] [address] 07/07/2023 1:00 PM EDT Office Visit Dermatology [facility] 200 [facility] [place] [address] Phill Vegas MD 200 [place] [address] Scheduled Procedures Name Priority Associated Diagnoses Date/Ti [...] 18-100 10/12/2022 10/12/2021, 07/27/2019, 07/01/2019 COVID-19 Vaccine (24 season) 2022 02/05/2022, 07/15/2021, 07/15/2021, Additional history [...] the patient have Health Care Power of Assembler Deck And Hull? No Care Teams Turpentine Distiller Relationship Specialty Start Date End Date Porfirio Kilgore MD [address] [place] [id number] PCP - General Internal Medicine 03/30/20 documented as of this encounter
--- OUTSIDE RECORDS SUMMARY | 2023-08-24 00:11 | External Medical Summary | Summary of Care ---
Author Name Unknown Organization [facility] Address [address] [place] [address] Phone [phone] Care Team Providers Care Merchant Seaman Name Role Phone Porfirio Kilgore MD Primary Care Provider + Reason for Visit * Reason Comments Outpatient Testing Encounter Details Date Type Department Care Team (Late st Contact Info) Description 03/27/2023 9:50 AM EST Laboratory Laboratory [address] [place] [address] [place] [address] Kidney replaced by transplant Allergies No known [...] Nasal Solution Administer into nostril 1 [place] in the morning AND 1 [place] before bedtime. 30 mL 12 2 Active [...] mgIndications:Kidney replaced by transplant 150 mg IM [id number] 03/13/2021 Active Cilgavimab inj 150 mgIndications:Kidney replaced by transplant 150 mg IM [id number] 03/13/2021 Active documented as of this encounter [...] [facility], Endoscopy Room [facility] [address] [place] [address] Marisa Lucia MD [address] [place] [address] 04/10/2023 2:00 PM EST - 04/10/2023 2:30 PM EST Surgery ENDO [facility], Endoscopy Room [facility] [address] [place] [address] Marisa Lucia MD [address] [place] [address] COLONOSCOPY FLEXIBLE PROXIMAL DIAGNOSTIC 04/21/2023 3:40 PM EST Office Visit Pulmonary Medicine, [facility] 132 [facility] [place] [address] Carroll Garces MD [address] [place] [address] 06/24/2023 10:30 AM EDT Procedure Only Urology, [facility] 132 [facility] [place] [address] Agustin Chery MD 27 [facility] 270 [place] [address] 07/02/2023 12:30 PM EDT Office Visit Transplant Clinic, [place] [address] [place] [address] Jean-Pierre Catalan, [facility] [address] [place] [address] 07/07/2023 1:00 PM EDT Office Visit Dermatology [place] [facility] [place] [address] Phill Vegas MD [facility] [place] [address] Pending Results Name Type Priority Associated Diagnoses [...] the patient have Health Care Power of Pool Coordinator? No Care Teams Merchant Seaman Relationship Specialty Start Date End Date Porfirio Kilgore MD [address] [place] [address] PCP - General Internal Medicine 03/30/20 documented as of this encounter
--- OUTSIDE RECORDS SUMMARY | 2023-08-24 00:11 | External Medical Summary ---
Author Name Unknown Address Unknown Organization K01:[facility] [place] [address] [facility] [address] [place] [address] Laboratory Report Ordering Provider Test Date Status ARACELI STRATTON 03/27/2023 09:53:19 Final Observation Date Value Abnormality Reference (Units ) Status WBC, Total 03/27/2023 09:53:19 7.83 4.00-10.80 (K/uL) Final RBC 03/27/2023 09:53:19 4.33 4.50-5.25 (M/uL) Final Hemoglobin 03/27/2023 09:53:19 12.7 Below low normal 14.0-16.8 (g/dL) Final HCT 03/27/2023 09:53:19 41.7 40.0-48.4 (%) Final MCV 03/27/2023 09:53:19 96.3 82.0-99.5 (fL) Final MCH 03/27/2023 09:53:19 29.3 27.0-34.0 (pg) Final MCHC 03/27/2023 09:53:19 30.5 32.0-36.0 (g/dL) Final RDW 03/27/2023 09:53:19 14.4 11.5-15.5 (%) Final Platelets 03/27/2023 09:53:19 199 140-400 (K/uL) Final MPV 03/27/2023 09:53:19 11.7 6.6-11.1 (fL) Final Nucleated erythrocytes/100 leukocytes [Ratio] in Blood by Automated count 03/27/2023 09:53:19 0 <=0 (/100 WBCs) Final Performing Location [facility] [place] [address] [place] [address]
--- OUTSIDE RECORDS SUMMARY | 2023-08-24 00:11 | External Medical Summary | Summary of Care ---
Author Name Unknown Organization [facility] Address [address] [place] [address] Phone [phone] Care Team Providers Care Wellness Rn Name Role Phone Porfirio Kilgore MD Primary Care Provider + Reason for Visit * Reason Onset Date Comments Medication Refill 03/24/2023 Encounter Details Date Type Department Care Team (Late st Contact Info) Description 03/24/2023 Refill Gastroenterology, [facility] [address] [place] [address] Marisa Lucia MD [address] [place] [address] Allergies No known active allergiesdocumented as of [...] % Nasal Solution Administer into nostril 1 [place] in the morning AND 1 [place] before bedtime. 30 mL 12 2 Active [...] mgIndications:Kidney replaced by transplant 150 mg IM [id number] 03/13/2021 Active Cilgavimab inj 150 mgIndications:Kidney replaced by transplant 150 mg IM [id number] 03/13/2021 Active documented as of this encounter [...] encounter Miscellaneous Notes * Telephone Encounter - Juanita Mina OSA - 03/24/2023 9:51 AM EST Please refill the following rx Pt has not had OV in over a year and there are no openings with Abdulsamad anywhere at this time. Pt refusing to see any other person than him. Please advise JACKLYN Winters 03/24/2023 9:51 AM Did you pend patient's preferred pharmacy and medication before forwarding?no Pharmacy: [facility], [address] [place] Pending Prescriptions: Disp Refills [...] EST Hospital Encounter ENDO [facility], Endoscopy Room [facility] [address] [place] [phone] Marisa Lucia MD [address] [place] [address] 04/10/2023 2:00 PM EST - 04/10/2023 2:30 PM EST Surgery ENDO [facility], Endoscopy Room [facility] 132 [facility] [place] [phone] Marisa Lucia MD [address] [place] [address] COLONOSCOPY FLEXIBLE PROXIMAL DIAGNOSTIC 04/21/2023 3:40 PM EST Office Visit Pulmonary Medicine, [facility] [address] [facility] [place] [address] Carroll Garces [facility] [address] [facility] [address] 06/24/2023 10:30 AM EDT Procedure Only Urology, [facility] [address] [facility] [place] [address] Agustni Chery MD [address] [place] [address] [place] [address] 07/02/2023 12:30 PM EDT Office Visit Transplant Clinic, [place] [address] [place] [address] Jean-Pierre Catalan [facility] [address] [place] [address] 07/07/2023 1:00 PM EDT [facility] [address] [place], [place] [address] Phill Vegas MD 200 [place] [address] Scheduled Procedures Name Priority Associated Diagnoses Date/Ti [...] the patient have Health Care Power of Division Merchandise Manager? No Care Teams Wellness Rn Relationship Specialty Start Date End Date Porfirio Kilgore MD [address] [place] [address] PCP - General Internal Medicine 03/30/20 documented as of this encounter
--- OUTSIDE RECORDS SUMMARY | 2023-08-24 00:11 | External Medical Summary | Summary of Care ---
Author Name Unknown Organization [facility] Address [address] [place] [address] Phone [phone] Care Team Providers Care Segmental Paving Supervisor Name Role Phone Porfirio Kilgore MD Primary Care Provider + Reason for Visit * Reason Onset Date Comments Medication Refill 04/01/2023 Encounter Details Date Type Department Care Team (Late st Contact Info) Description 04/01/2023 Telephone OR [facility], Operating Room [facility] [address] [facility] [address] [place] [phone] Porfirio Kilgore MD [address] [place] [address] Medication Refill Allergies No known active allergiesdocumented as of [...] % Nasal Solution Administer into nostril 1 [place] in the morning AND 1 [place] before bedtime. 30 mL 12 2 Active [...] or Wheezing. 18 g 3 4 Active Ventolin HFA 108 (90 Base) [...] mgIndications:Kidney replaced by transplant 150 mg IM [id number] 03/13/2021 Active Cilgavimab inj 150 mgIndications:Kidney replaced by transplant 150 mg IM [id number] 03/13/2021 Active documented as of this encounter [...] encounter Miscellaneous Notes * Telephone Encounter - Suzanne Victor, RN - 04/01/2023 2:36 PM EST Pt needs ventolin inhaler refilled, please. Uses [id number]. Thank you. documented in this encounter Plan of Treatment Upcoming Encounters Date Type Department Care Team (Latest Contact Info) Description 04/10/2023 2:00 PM EST Hospital Encounter ENDO [facility], Endoscopy Room [facility] [address] [phone] Marisa Lucia MD [address] [place] [address] 04/10/2023 2:00 PM EST - 04/10/2023 2:30 PM EST Surgery ENDO [facility], Endoscopy Room [facility] [address] [phone] Marisa Lucia MD [address] [place] [address] COLONOSCOPY FLEXIBLE PROXIMAL DIAGNOSTIC 04/21/2023 3:40 PM EST Office Visit Pulmonary Medicine, [facility] [address] [address] Carroll Garces MD [address] [place] [address] 06/24/2023 10:30 AM EDT Procedure Only Urology, [facility] [address] [address] Agustin Chery MD [address] [employer] [address] [place] [address] 07/02/2023 12:30 PM EDT Office Visit Transplant Clinic, [place] [address] [place] [address] Jean-Pierre Catalan, [facility] [address] [place] [address] 07/07/2023 1:00 PM EDT Office Visit Dermatology [facility] [address] [place] [address] Phill Vegas MD [address] [place] [address] Scheduled Procedures Name Priority Associated Diagnoses Date/Ti [...] as of this encounter Visit Diagnoses Diagnosis Mucopurulent chronic bronchitis (HCC) Mucopurulent chronic bronchitis History of colonic polyps Personal history of [...] the patient have Health Care Power of Interior Design Consultant? No Care Teams Segmental Paving Supervisor Relationship Specialty Start Date End Date Porfirio Kilgore MD [address] [place] [address] PCP - General Internal Medicine 03/30/20 documented as of this encounter
--- OUTSIDE RECORDS SUMMARY | 2023-08-24 00:11 | External Medical Summary ---
Author Name Unknown Address Unknown Organization K01:[facility] - [address] [facility] [address] Laboratory Report Ordering Provider Test Date Status ARACELI STRATTON 03/27/2023 09:53:19 Final Observation Date Value Abnormality Reference (Units ) Status SYNC LEUKOCYTES IN BLOOD BY AUTOMATED COUNT 03/27/2023 09:53:19 7.83 4.00-10.80 (K/uL) Final Segs 03/27/2023 09:53:19 68.7 40.0-75.0 (%) Final Lymphs % 03/27/2023 09:53:19 19.5 18.0-42.0 (%) Final Monos 03/27/2023 09:53:19 6.4 1.0-11.0 (%) Final Eosinophils 03/27/2023 09:53:19 4.0 0.0-6.0 (%) Final Basos 03/27/2023 09:53:19 0.4 0.0-2.0 (%) Final Immature Granulocyte, Percent 03/27/2023 09:53:19 1.0 0.0-2.0 (%) Final Absolute Segs 03/27/2023 09:53:19 5.38 1.80-7.70 (K/uL) Final Lymphs, absolute 03/27/2023 09:53:19 1.53 1.00-4.80 (K/ul) Final Monos, Abs 03/27/2023 09:53:19 0.50 0.00-1.10 (K/uL) Final Eos, Abs 03/27/2023 09:53:19 0.31 0.00-0.70 (K/uL) Final Basos, Abs 03/27/2023 09:53:19 0.03 0.00-0.20 (K/uL) Final Immature Granulocytes, Number 03/27/2023 09:53:19 0.08 0.00-0.20 (K/uL) Final Performing Location [facility] - [facility] [address] [address]
--- OUTSIDE RECORDS SUMMARY | 2023-08-24 00:12 | External Medical Summary | Summary of Care ---
Author Name Unknown Organization [facility] Address [address] [place] [address] Phone [phone] Care Team Providers Care Visitor Services Specialist Name Role Phone Porfirio Escobedo MD Primary Care Provider + Reason for Visit * Reason Comments NEW PATIENT * Evaluate & Treat - Unlimited Visits (Within 3 days (urgent)) - Closed Specialty Diagnoses / Procedures Referred By Rome elizabeth Referred To Contact Urology Diagnoses Testicular pain, right Zenon, Isaac Ashraf MD [address] [place] [address] Referral ID Status Reason Start Date Expiration Date V isits Requested Visits Authorized [id number] Closed Specialty Services Required 08/26/[phone] Encounter Details Date Type Department Care Team (Late st Contact Info) Description 03/10/2023 3:00 PM EST Office Visit Urology, [facility] [address] [facility] [place] [address] Agustin Chery MD [address] [facility] [address] [place] [address] Pain in both testicles*; BPH with obstruction/lower urinary tract symptoms Allergies No known active allergiesdocumented as of this encounter (statuses as of 03/10/2023) Medications Medication Sig Dispensed Refills Start Date [...] % Nasal Solution Administer into nostril 1 [place] in the morning AND 1 [place] before bedtime. 30 mL 12 2 Active [...] transplant,Need for prophylactic immunotherapy Take 1 Tablet (5 mg) by mouth in the morning. 90 Tablet 3 2 03/10/19 24 Discontinu ed(Refill) Hospital, Clinic, or Other Facility Administered Medication Ordered Dose Route Frequency Start Date End Date Status Tixagevimab inj 150 mgIndications:Kidney replaced by transplant 150 mg IM [id number] 03/13/2021 Active Cilgavimab inj 150 mgIndications:Kidney replaced by transplant 150 mg IM [id number] 03/13/2021 Active documented as of this encounter (statuses as of 03/10/2023) Active Problems Problem Noted Date Diagnosed Date Pain in both testicles 03/10/2023 JOSE R (acute kidney injury) 08/20/2022 COPD, group B, by GOLD 2017 classification 06/12 /2023 Overview: Per COPD GOLD Classification Bronchiectasis with [...] as of this encounter (statuses as of 03/10/2023) Resolved Problems Problem Noted Date Diagnosed Date Resolved Date Bronchiectasis without complication 12/18/2021 05/03/2022 COPD, group C, by GOLD 2017 classification 11/05/2021 05/03/2022 Overview: Per COPD GOLD Classification COPD, group B, by GOLD 2017 classification 08/03/2020 11/08/2021 Overview: Per COPD GOLD Classification Aortic regurgitation 06/14/2015 016 Pre-transplant evaluation fo r chronic kidney disease 05/16/2015 08/20/2022 documented as of this encounter (statuses as of 03/10/2023) Immunizations Name Administration Dates Next Due COVID-19 [...] Sign Reading Time Taken Comments Blood Pressure - - Pulse - - Temperature 36.1 C (97 F) 03/10/2023 3:32 PM EST Respiratory Rate - - Oxygen Saturation - - Inhaled Oxygen Concentration - - Weight 90.3 kg (199 lb 1.6 oz) 03/10/2023 3:32 P M EST Height - - Body Mass Index 29.4 08/19/2022 8:40 PM EDT documented in this encounter Functional [...] Progress Notes * Agustin Chery MD - 03/10/2023 3:00 PM EST [id number] PCP: PORFIRIO ESCOBEDO [address] [place] [address] Myron Corado is a 77 year old male, who presents in referral for evaluation of orchalgia. Patient's history of renal failure. He notes difficulties with voiding, previously managed by Dr. Jeffrey Sorto. Outside notes are reviewed. BPH: Patient is being seen for BPH today. He has had the following symptoms: slow stream, intermittency,postvoid dribbling, and nocturia. Severity is moderate. He has tried tamsulosin and finasteride. He has previously had office cystoscopy done. Problem has been present for years. Problem is getting worse. Testicular pain: Presented to Urology Feb 2023. Present with palpation. Not present at rest. Worsened with activity. Worsening over time. Present for years. Renal US Jul 2022: IMPRESSION No specific findings of renal artery stenosis. Renal vein is patent. No hydronephrosis. Mildly elevated resistive indices suggest medical renal disease.. Elevated PSA: Patient is being seen for [...] Results Component Value Date/Time CREATININE - [facility] 2.8 (H) 02/25/2023 09:35 AM CREATININE - [facility] 2.8 (H) 01/27/2023 08:42 AM CREATININE - [facility] 3.1 (H) 12/25/2022 09:50 AM CREATININE - [facility] 1.9 (H) 03/13/2020 01:35 PM CREATININE - [facility] 1.9 (H) 02/28/2020 01:25 PM CREATININE - [facility] 1.9 (H) 02/21/2020 01:06 PM CREATININE, RANDOM URINE - [facility] 64 02/25/2023 09:35 AM CREATININE, RANDOM URINE - [facility] 62 01/27/2023 08:42 AM CREATININE, RANDOM URINE - [facility] 78 12/25/2022 09:50 AM CREATININE, RANDOM URINE - [facility] 53 [...] Tab by mouth daily. 30 Tab 5 levothyroxine (LEVOXYL) 50 MCG Tablet Take 1 Tablet by mouth once a day on Friday, Friday, , and Friday only. 5 Multiple Vitamins-Minerals (MULTIVITAMIN ADULT) TABS Take 1 Tablet by mouth in the morning. LANTUS SOLOSTAR 100 UNIT/ML SOPN Inject 24 Units under the skin at bedtime. tamsulosin (FLOMAX) 0.4 MG Capsule 1 Capsule in the morning and 1 Capsule before bedtime. Finasteride 5 MG Oral Tablet (Proscar) Take 1 Tablet by mouth in the morning. Flutter Device Use 10 breaths twice daily 1 Each 0 Azelastine HCl 0.1 % Nasal Solution Administer into nostril 1 [place] in the morning AND 1 [place] before bedtime. 30 mL 12 Ventolin HFA 108 (90 Base) MCG/ACT Inhalation Aerosol Solution Inhale 2 Puffs by mouth every 4 hours as needed for Cough, Shortness of Breath or Wheezing. 18 g 3 predniSONE 5 MG Oral Tablet (Deltasone) Take 1 Tablet (5 mg) by mouth in the morning. 90 Tablet 3 Fluticasone Furoate-Vilanterol 200-25 MCG/ACT Inhalation Aerosol Powder Breath Activated (BREO ellipta) Inhale 1 Puff by mouth in the morning. (Patient taking differently: Inhale 1 Puff by mouth daily as needed.) 60 Blister Dosing Unit 6 Nebulizer/Tubing/Mouthpiece Kit Use as directed 1 Kit 0 Albuterol Sulfate (2.5 MG/3ML) 0.083% Inhalation Nebulization Solution (Proventil) Inhale 1 Vial via nebulizer every 4 hours as needed for Wheezing. 540 mL 2 Loperamide HCl 2 MG Oral Capsule (Imodium A-D) Take 1 Capsule by mouth in the morning and 1 Capsuleat noon and 1 Capsule before bedtime. 270 Capsule 3 Pantoprazole Sodium 40 MG Oral Tablet Delayed Release (Protonix) TAKE ONE TABLET BY MOUTH EVERY DAYBEFORE BREAKFAST 90 Tablet 0 Furosemide 40 MG Oral Tablet (Lasix) Take [...] dose 1.75 mg daily. 30 Tablet 5 Current Facility-Administered Medications Medication Dose Route Frequency Provider Last Rate Last Admin Tixagevimab inj 150 mg 150 mg Intramuscular Q6 Months Bre Myers, RPh 300 mg at 12/19/218[address] Cilgavimab inj 150 mg 150 mg Intramuscular Q6 Months Bre Myers, RPh 300 mg at 12/19/[address] Review of patient's allergies indicates: No Known Allergies Social History: Social History Tobacco Use Smoking status: Former Packs/day: 2.00 Years: 15.00 Additional pack years: 0.00 Total pack years: 30.00 Types: Cigarettes Quit date: 02/24/1975 Years since quittin.0 Smokeless tobacco: Never Substance Use Topics Alcohol use: Not Currently Vaping/E-Cigarette Use Vaping/E-Cigarette Use Never User Vaping/E-Cigarette Substances Vaping/E-Cigarette Devices Family History Problem Relation Age of Onset Diabetes Sister Diabetes Brother Heart failure Mother Heart failure Father Diabetes Sister Diabetes Sister Heart block Sister Other (part of bowl removed) Sister Diabetes Sister Other (auto immune disease) Sister Diabetes Sister Coronary Artery disease Sister valve replacement Past Surgical History: Procedure Laterality Date BRONCHOSCOPY, DIAGNOSTIC N/A 06/15/2020 BRONCHOSCOPY DIAGNOSTIC WITH OR WITHOUT WASHING performed by Mina Boyd MD at [facility] BRONCHOSCOPY, DIAGNOSTIC N/A 04/18/2022 BRONCHOSCOPY DIAGNOSTIC WITH OR WITHOUT WASHING performed by Kush Conte MD at [facility] COLONOSCOPY, DIAGNOSTIC (RECTUM) 07/01/2019 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, diverticulosis / [facility] COLONOSCOPY, DIAGNOSTIC (RECTUM) 10/12/2021 benign adenomatous polyps, diverticulosis, repeat 1 yr / [facility] EGD, FLEXIBLE, DIAGNOSTIC 07/01/2019 mild gastric irritation on bx / [facility] EGD, FLEXIBLE, DIAGNOSTIC 10/12/2021 gastric nodule / [facility] EGD, FLEXIBLE, ENDO MUCOSAL RESECTION N/A 01/09/2022 lesion body of stomachESOPHAGOGASTRODUODENOSCOPY (EGD), FLEXIBLE, TRANSORAL: MUCOSAL RESECTION performed by Marisa Lucia MD at [facility] EGD, W/ENDOSCOPIC US N/A 01/09/2022 subepithelial lesion stomach/biopsies show GIST/ESOPHAGOGASTRODUODENOSCOPY (EGD), FLEXIBLE, TRANSORAL, ENDOSCOPIC ULTRASOUND performed by Marisa Lucia MD at [facility] HEMORRHOIDECTOMY, INTERNAL, 2 + COLUMNS 04/14/2020 HEMORRHOIDECTOMY EXTERNAL AND INTERNAL COMPLEX performed by Faheem Cohen MD at OR [facility] INFORMATION appendix removed INFORMATION josr IR BIOPSY 04/16/2019 RENAL BIOPSY, PERCUTANEOUS (TROCAR/NEEDLE) N/A 08/20/2018 RENAL BIOPSY PERCUTANEOUS performed by Colin Rossi MD [place] [facility] RENAL BIOPSY, PERCUTANEOUS (TROCAR/NEEDLE) Right 09/11/2022 RENAL BIOPSY PERCUTANEOUS performed by Colin Rossi MD at [place] [facility] SIGMOIDOSCOPY, DIAGNOSTIC 07/27/2019 Ulcerative proctitis, adenomatous polyp, diverticulosis / [facility] TRANSPLANTATION OF KIDNEY N/A 08/04/2018 RENAL TRANSPLANT performed by Colin Rossi MD at [place] [facility] Past Medical History: Diagnosis Date BPH (benign prostatic hyperplasia) CKD (chronic kidney disease) COPD (chronic obstructive pulmonary disease) ([facility]) COVID-19 03/05/2022 DM (diabetes mellitus) with complications ([facility]) GERD (gastroesophageal reflux disease) HTN (hypertension) resolved post transplant Hyperlipidemia Kidney transplant recipient 08/04/2018 Patient Active Problem List Diagnosis Code Family history of valvular heart disease Z82.49 HTN, goal below 130/80 I10 Dyslipidemia, goal LDL below 100 E78.5 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 Diabetes mellitus (HCC) E11.9 Acute blood loss anemia D62 Immunosuppressed status ([facility]) D84.9 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, 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 Mucopurulent chronic bronchitis ([facility]) J41.1 Kidney replaced by transplant Z94.0 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 Chronic cough R05.3 Need for prophylactic immunotherapy Z29.89 Drug reaction, subsequent encounter T50.905D 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 Constitutional: General: He is not in acute distress. Appearance: Normal appearance. He is not toxic-appearing. HENT: Head: Normocephalic and atraumatic. Right Ear: External ear normal. Left Ear: External ear normal. Nose: Nose normal. Mouth/Throat: Mouth: Mucous membranes are moist. Eyes: Extraocular Movements: Extraocular movements intact. Cardiovascular: Pulses: Normal pulses. Pulmonary: Effort: Pulmonary effort is normal. No respiratory distress. Abdominal: Palpations: Abdomen is soft. Tenderness: There is no abdominal tenderness. Genitourinary: Penis: Normal and uncircumcised. No phimosis. Comments: Bilateral testicular atrophy and tenderness, no swelling or inflammation Musculoskeletal: Cervical back: Normal range of motion and neck supple. Lymphadenopathy: Cervical: No cervical adenopathy. Skin: Coloration: Skin is not cyanotic or pale. Neurological: Mental Status: He is alert and oriented to person, place, and time. Psychiatric: Attention and Perception: Attention normal. Mood and Affect: Mood and affect normal. Impression/Plan: 77 yo male with BPH, [place], orchalgia. Will check a scrotal US for his orchalgia, but no organic pathology noted on exam today. Will recheck cystoscopy, but US from Jul 2022 suggests [place]. Seen the patient's persistent symptoms on longstanding maximal medical therapy and his intravesical extension of prostate on ultrasound, my suspicion is that TURP will be needed in the future to alleviate his symptoms. We are pleased with the lack ofabnormalities on SABRINA today, patient notes normal PSA in the past. Will see the patient at the time of cystoscopy. Above content is personally reviewed. Patient vocalizes good understanding of the treatment plan. Agustin Chery MD 1:36 PM 03/10/2023 documented in this encounter Nursing Notes * Vero Fernandes LPN - 03/10/2023 3:32 PM EST New pt Right testicular pain Referred by self, previously seen by Urology Yajaira C/o- slow stream, pain when touching testicles PSA Results: Lab Results Component Value Date/Time PSA - [facility] 5.71 (H) 06/10/2018 11:10 AM PSA - [facility] 4.01 06/04/2017 10:42 AM PSA - [facility] 3.87 06/05/2016 08:53 AM PSA-OUTSIDE LAB 5.5 (H) 10/15/2019 12:00 AM documented in this encounter Plan of Treatment Upcoming Encounters Date Type Department Care Team (Latest Contact Info) Description 03/13/2023 8:45 AM EST Imaging Radiology [facility] [address] [place] [address] 04/10/2023 2:00 PM EST Hospital Encounter ENDO [facility], Endoscopy Room [facility] [address] [place] [phone] Marisa Lucia MD [address] [place] [address] 04/10/2023 2:00 PM EST - 04/10/2023 2:30 PM EST Surgery ENDO [facility], Endoscopy Room [facility] [address] [place] [phone] Marisa Lucia MD [address] [place] [address] COLONOSCOPY FLEXIBLE PROXIMAL DIAGNOSTIC 04/21/2023 3:40 PM EST Office Visit Pulmonary Medicine, [facility] [address] [facility] [place] [address] Carroll Garces MD [address] [place] [address] 06/24/2023 10:30 AM EDT Office Visit Urology, [facility] [address] [place] [address] Agustin Chery MD [address] [facility] [address] [address] 07/02/2023 12:30 PM EDT Office Visit Transplant Clinic, [place] [address] [place] [address] Jean-Pierre Catalan, [place] [address] [place] [address] 07/07/2023 1:00 PM EDT Office [facility]at[facility] [address] [facility] [address] Phill Vegas MD [address] [facility] [address] Scheduled Orders Name Type Priority Associated Diagnoses Orde r Schedule US SCROTUM/TESTES Medical Imaging Routine Pain in both testicles Expected: 03/10/2023, Expires: 04/10/2024 Scheduled Procedures Name Priority Associated Diagnoses Date/Ti [...] as of this encounter Visit Diagnoses Diagnosis Pain in both testicles- Primary BPH with obstruction/lower urinary tract symptoms Hypertrophy of prostate with urinary obstruction and other lower urinary tract symptoms (LUTS) History of colonic polyps Personal history of [...] the patient have Health Care Power of Head Pastry Chef? No Care Teams Visitor Services Specialist Relationship Specialty Start Date End Date Porfirio Escobedo MD [address] [place] [address] PCP - General Internal Medicine 03/30/20 documented as of this encounter
--- OUTSIDE RECORDS SUMMARY | 2023-08-24 00:12 | External Medical Summary | Summary of Care ---
Author Name Unknown Organization [facility] Address [address] [place] [address] Phone [phone] Care Team Providers Care Photographic Platemaker Name Role Phone Porfirio Kilgore MD Primary Care Provider + Encounter Details Date Type Department Care Team (Late st Contact Info) Description 03/17/2023 Telephone Urology, [facility] [address] [facility] [place] [address] Agustin Chery MD 27 [facility] [address] [place] [address] Allergies No [...] % Nasal Solution Administer into nostril 1 [place] in the morning AND 1 [place] before bedtime. 30 mL 12 2 Active [...] mgIndications:Kidney replaced by transplant 150 mg IM [id number] 03/13/2021 Active Cilgavimab inj 150 mgIndications:Kidney replaced by transplant 150 mg IM [id number] 03/13/2021 Active documented as of this encounter [...] EST Hospital Encounter ENDO [facility], Endoscopy Room [facility] [address] [place] [phone] Marisa Lucia MD [address] [place] [address] 04/10/2023 2:00 PM EST - 04/10/2023 2:30 PM EST Surgery ENDO [facility], Endoscopy Room [facility] [address] [place] [phone] Marisa Lucia MD [address] [place] [address] COLONOSCOPY FLEXIBLE PROXIMAL DIAGNOSTIC 04/21/2023 3:40 PM EST Office Visit Pulmonary Medicine, [facility] [address] [place] [address] Carroll Garces MD [address] [facility] [place] [address] 06/24/2023 10:30 AM EDT Office Visit Urology, [facility] [address] [place] [address] Agustin Chery MD 27 [facility] [address] [place] [address] 07/02/2023 12:30 PM EDT Office Visit Transplant Clinic, [place] [address] [place] [address] Jean-Pierre Catalan, [place] [address] [place] [address] 07/07/2023 1:00 PM EDT Office Visit Dermatology [facility] [place] [address] [place] [address] Phill Vegas MD [address] [place] [address] Scheduled Procedures Name Priority Associated Diagnoses Date/Ti [...] 12/25/2022, Additional history exists GFR 02/26/2024 02/25/2023, 12/05/2022, 12/25/2022, Additional history exists DTaP,Tdap,and Td Vaccines [...] the patient have Health Care Power of Optometrist/Practice Owner? No Care Teams Photographic Platemaker Relationship Specialty Start Date End Date Porfirio Kilgore MD [address] [address] PCP - General Internal Medicine 03/30/20 documented as of this encounter
--- OUTSIDE RECORDS SUMMARY | 2023-08-24 00:12 | External Medical Summary ---
Author Name Unknown Address Unknown Organization K01:[facility] - [address] [place] [address] Laboratory Report Ordering Provider Test Date Status ROBERTO CARLOS AREVALO 02/25/2023 09:35:02 Final Observation Date Value Abnormality Reference (Units ) Status MYCODE SPECIMEN-SST 02/25/2023 09:35:02 Freezing of extracted DNA, whole blood and/or serum. Final Performing Location [facility] - [address] [place] [address]
--- OUTSIDE RECORDS SUMMARY | 2023-08-24 00:12 | External Medical Summary ---
Author Name Unknown Address Unknown Organization K01:LABORATORY [facility] [place] - [address] [facility] [address] Laboratory Report Ordering Provider Test Date Status ARACELI STRATTON 02/25/2023 09:35:02 Final Observation Date Value Abnormality Reference (Units ) Status Triglyceride 02/25/2023 09:35:02 181 Above high normal <=174 (mg/dL) Final Triglyceride Reference Range s (mg/dL):
<150 Acceptable
150-174 Borderline high
175-499 High
>=500 Very high Cholesterol 02/25/2023 09:35:02 185 <200 (mg /dL) Final Total Cholesterol Reference Ranges (mg/dL):
<200 Desirable
200-239 Borderline high
>=240 High HDL 02/25/2023 09:35:02 36 Below low normal >39 (mg/dL) Final HDL Cholesterol Reference Ra nges (mg/dL):
>=60 High (Desirable)
<50 Low (Undesirable) For Females
<40 Low (Undesirable) For Males NON-HDL CHOLESTEROL 02/25/2023 09:35:02 149 <=159 (mg/dL) Final Non-HDL Cholesterol Referenc e Range (mg/dL):
<100 Target level for high risk ASCVD patient
<130 Optimal for general population
130-159 Near optimal for general population
160-189 Borderline High
190-219 High
>=220 Very High LDL, (calculated) 02/25/2023 09:35:02 113 <= 129 (mg/dL) Final LDL Cholesterol Reference Ra nges (mg/dL):
<70 Target level for high risk ASCVD patient
<100 Optimal for general population
100-129 Near optimal for general population
130-159 Borderline high
160-189 High
>=190 Very high Performing Location LABORATORY [facility] [place] - [address] [facility] [address]
--- OUTSIDE RECORDS SUMMARY | 2023-08-24 00:12 | External Medical Summary ---
Author Name Unknown Address Unknown Organization K01:LABORATORY [facility] [place] - [address] [place] [address] Laboratory Report Ordering Provider Test Date Status ARACELI STRATTON 02/25/2023 09:35:02 Final Observation Date Value Abnormality Reference (Units ) Status Parathyrin.intact [Mass/volume] in Serum or Plasma 02/25/2023 09:35:02 23 15-65 (pg/mL) Final Performing Location LABORATORY [facility] [place] - [address] [place] [address]
--- OUTSIDE RECORDS SUMMARY | 2023-08-24 00:12 | External Medical Summary ---
Author Name Unknown Address Unknown Organization K01:LABORATORY [facility] [place] - Formerly named [facility] [address] [facility] [address] [place] [address] Laboratory Report Ordering Provider Test Date Status ARACELI STRATTON 02/25/2023 09:35:02 Final Observation Date Value Abnormality Reference (Units ) Status BUN 02/25/2023 09:35:02 30 Above high normal 6-20 (mg/dL) Final Creatinine 02/25/2023 09:35:02 2.8 Above high normal 0.6-1.2 (mg/dL) Final Glomerular filtration rate/1.73 sq M.predicted [Volume Rate/Area] in Serum, Plasma or Blood by Creatinine-based formula (CKD-EPI) 02/25/2023 09:35:02 22 Below low normal >=60 (mL/min) Final eGFR is calculated based on the CKD-EPI 2020 equation SODIUM 02/25/2023 09:35:02 139 135-146 (m mol/L) Final Potassium 02/25/2023 09:35:02 4.2 3.5-5.1 (m mol/L) Final Cl 02/25/2023 09:35:02 107 98-107 (mm ol/L) Final CO2 02/25/2023 09:35:02 21 Below low normal 22- 32 (mmol/L) Final Anion gap 02/25/2023 09:35:02 11 7-15 (mmol /L) Final Glucose 02/25/2023 09:35:02 190 Above high normal 70 -120 (mg/dL) Final Calcium 02/25/2023 09:35:02 9.1 8.4-10.2 ( mg/dL) Final Performing Location LABORATORY [facility] [place] - [address] [place] [address]
--- OUTSIDE RECORDS SUMMARY | 2023-08-24 00:12 | External Medical Summary ---
Author Name Unknown Address Unknown Organization K01:LABORATORY C - [address] [place] [address] Laboratory Report Ordering Provider Test Date Status ROBERTO CARLOS AREVALO 02/25/2023 09:35:02 Final Observation Date Value Abnormality Reference (Units ) Status MYCODE SPECIMEN-SST 02/25/2023 09:35:02 Freezing of extracted DNA, whole blood and/or serum. Final Performing Location LABORATORY [facility] - [address] [place] [address]
--- OUTSIDE RECORDS SUMMARY | 2023-08-24 00:12 | External Medical Summary ---
Author Name Unknown Address Unknown Organization K01:LABORATORY [facility] [place] - [address] [facility] [address] Laboratory Report Ordering Provider Test Date Status ARACELI STRATTON 02/25/2023 09:35:02 Final Observation Date Value Abnormality Reference (Units ) Status SYNC LEUKOCYTES IN BLOOD BY AUTOMATED COUNT 02/25/2023 09:35:02 8.45 4.00-10.80 (K/uL) Final Segs 02/25/2023 09:35:02 65.0 40.0-75.0 (%) Final Lymphs % 02/25/2023 09:35:02 21.2 18.0-42.0 (%) Final Monos 02/25/2023 09:35:02 8.2 1.0-11.0 (%) Final Eosinophils 02/25/2023 09:35:02 4.1 0.0-6.0 (%) Final Basos 02/25/2023 09:35:02 0.4 0.0-2.0 (%) Final Immature Granulocyte, Percent 02/25/2023 09:35:02 1.1 0.0-2.0 (%) Final Absolute Segs 02/25/2023 09:35:02 5.50 1.80-7.70 (K/uL) Final Lymphs, absolute 02/25/2023 09:35:02 1.79 1.00-4.80 (K/ul) Final Monos, Abs 02/25/2023 09:35:02 0.69 0.00-1.10 (K/uL) Final Eos, Abs 02/25/2023 09:35:02 0.35 0.00-0.70 (K/uL) Final Basos, Abs 02/25/2023 09:35:02 0.03 0.00-0.20 (K/uL) Final Immature Granulocytes, Number 02/25/2023 09:35:02 0.09 0.00-0.20 (K/uL) Final Performing Location LABORATORY [facility] [place] - [facility] [address] [facility] [address]
--- OUTSIDE RECORDS SUMMARY | 2023-08-24 00:12 | External Medical Summary ---
Author Name Unknown Address Unknown Organization K01:LABORATORY [facility] [place] - [address] [place] [address] Laboratory Report Ordering Provider Test Date Status ARACELI STRATTON 02/25/2023 09:35:02 Final Test performed by [facility] on [employer]. Therapeutic ranges vary with type of transplant, time post-transplant, clinical protocols, and testing methodology. Results should be interpreted with clinical presentation and any signs rejection/toxicity. Observation Date Value Abnormality Reference (Units ) Status Tacrolimus (FK506) 02/25/2023 09:35:02 3.7 Below low normal 4.0-12.0 (ng/mL) Final Performing Location LABORATORY [facility] [place] - [address] [place] [address]
--- OUTSIDE RECORDS SUMMARY | 2023-08-24 00:12 | External Medical Summary ---
Author Name Unknown Address Unknown Organization K01:LABORATORY [facility] [place] - [address] [place] [address] Laboratory Report Ordering Provider Test Date Status VIRALARACELI 02/25/2023 09:35:02 Final Deficient: <20 ng/mL
Ins ufficient: 20-29 ng/mL
Recommended/Optimum:30-50 ng/mL

Vitamin D intoxication is rare. If suspicious of Vitamin D toxicity, evaluation of serum Calcium and PTH is recommended. Observation Date Value Abnormality Reference (Units ) Status 25-OH Vitamin D total 02/25/2023 09:35:02 41 >19 (ng/mL) Final Performing Location LABORATORY C - [address] [place] [address]
--- OUTSIDE RECORDS SUMMARY | 2023-08-24 00:12 | External Medical Summary ---
Author Name Unknown Address Unknown Organization K01:LABORATORY [facility] [place] - [address] [place] [address] Laboratory Report Ordering Provider Test Date Status ARACELI STRATTON 02/25/2023 09:35:02 Final Observation Date Value Abnormality Reference (Units ) Status WBC, Total 02/25/2023 09:35:02 8.45 4.00-10.80 (K/uL) Final RBC 02/25/2023 09:35:02 4.01 4.50-5.25 (M/uL) Final Hemoglobin 02/25/2023 09:35:02 12.0 Below low normal 14.0-16.8 (g/dL) Final HCT 02/25/2023 09:35:02 39.4 Below low normal 40.0-48.4 (%) Final MCV 02/25/2023 09:35:02 98.3 82.0-99.5 (fL) Final MCH 02/25/2023 09:35:02 29.9 27.0-34.0 (pg) Final MCHC 02/25/2023 09:35:02 30.5 32.0-36.0 (g/dL) Final RDW 02/25/2023 09:35:02 14.4 11.5-15.5 (%) Final Platelets 02/25/2023 09:35:02 199 140-400 (K/uL) Final MPV 02/25/2023 09:35:02 11.8 6.6-11.1 (fL) Final Nucleated erythrocytes/100 leukocytes [Ratio] in Blood by Automated count 02/25/2023 09:35:02 0 <=0 (/100 WBCs) Final Performing Location LABORATORY [facility] [place] - [address] [place] [address]
--- OUTSIDE RECORDS SUMMARY | 2023-08-24 00:12 | External Medical Summary | Summary of Care ---
Author Name Unknown Organization [facility] Address [address] [place] [address] Phone [phone] Care Team Providers Care Railroad Watchman Name Role Phone Porfirio Kilgore MD Primary Care Provider + Reason for Visit * Reason Onset Date Comments Call Back 02/27/2023 Encounter Details Date Type Department Care Team (Late st Contact Info) Description 02/27/2023 Telephone Transplant Clinic, [place] [address], [place] [id number] Services, [facility] [address] [place] [address] Call Back Allergies No known active allergiesdocumented as of this encounter (statuses as of 02/27/2023) Medications Medication Sig Dispensed Refills Start Date [...] % Nasal Solution Administer into nostril 1 [place] in the morning AND 1 [place] before bedtime. 30 mL 12 2 Active Ventolin HFA 108 (90 Base) MCG/ACT Inhalation Aerosol SolutionIndications :Mucopurulent chronic bronchitis (HCC) Inhale 2 Puffs by mouth every 4 hours as needed for Cough, Shortness of Breath or Wheezing. 18 g 3 2 Active predniSONE 5 MG Oral Tablet (Deltasone)Indicati ons:Kidney replaced by transplant,Need for prophylactic immunotherapy Take 1 Tablet (5 mg) by mouth in the morning. 90 Tablet 3 2 Active Fluticasone Furoate-Vilanterol 200-25 MCG/ACT [...] mg daily. 30 Tablet 5 3 Active Hospital, Clinic, or Other Facility Administered Medication Ordered Dose Route Frequency Start Date End Date Status Tixagevimab inj 150 mgIndications:Kidney replaced by transplant 150 mg IM [id number] 03/13/2021 Active Cilgavimab inj 150 mgIndications:Kidney replaced by transplant 150 mg IM [id number] 03/13/2021 Active documented as of this encounter (statuses as of 02/27/2023) Active Problems Problem Noted Date Diagnosed Date JOSE R (acute kidney injury) 08/20/2022 COPD, [...] as of this encounter (statuses as of 02/27/2023) Resolved Problems Problem Noted Date Diagnosed Date Resolved Date Bronchiectasis without complication 12/18/2021 05/03/2022 COPD, group C, by GOLD 2017 classification 11/05/2021 05/03/2022 Overview: Per COPD GOLD Classification COPD, group B, by GOLD 2017 classification 08/03/2020 11/08/2021 Overview: Per COPD GOLD Classification Aortic regurgitation 06/14/2015 016 Pre-transplant evaluation fo r chronic kidney disease 05/16/2015 08/20/2022 documented as of this encounter (statuses as of 02/27/2023) Immunizations Name Administration Dates Next Due COVID-19 [...] encounter Miscellaneous Notes * Telephone Encounter - Heather Gardner OSA - 02/27/2023 9:09 AM EST Pt calling asking about his lab results - please call pt on home phone documented in this encounter Plan of Treatment Upcoming Encounters Date Type Department Care Team (Latest Contact Info) Description 03/10/2023 3:00 PM EST Office Visit Urology, [facility] [address] [place] [address] Agustin Chery MD [address] [place] [address] 04/10/2023 2:00 PM EST Hospital Encounter ENDO OSSC, Endoscopy Room [facility] [address] [place] [phone] Marisa Lucia MD [address] [place] [address] 04/10/2023 2:00 PM EST - 04/10/2023 2:30 PM EST Surgery ENDO OSSC, Endoscopy Room [facility] [address] [place] [phone] Marisa Lucia MD 132 [facility] [place] [address] COLONOSCOPY FLEXIBLE PROXIMAL DIAGNOSTIC 04/21/2023 3:40 PM EST Office Visit Pulmonary Medicine, [facility] [address] [place] [address] Carroll Garces [facility] [address] [facility] [address] 07/02/2023 12:30 PM EDT Office Visit Transplant Clinic, [place] [address] [place] [address] Jean-Pierre Catalan [facility] [address] [place] [address] 07/07/2023 1:00 PM EDT Office Visit [facility] [address] [facility] [address] Phill Vegas MD 200 [place] [address] Scheduled Procedures Name Priority Associated Diagnoses Date/Ti [...] the patient have Health Care Power of Low Pressure Boiler Operator? No Care Teams Railroad Watchman Relationship Specialty Start Date End Date Porfirio Kilgore MD [address] [place] [address] PCP - General Internal Medicine 03/30/20 documented as of this encounter
--- OUTSIDE RECORDS SUMMARY | 2023-08-24 00:12 | External Medical Summary ---
Author Name Unknown Address Unknown Organization K01:LABORATORY [facility] [place] - [address] [place] [address] Laboratory Report Ordering Provider Test Date Status ARACELI STRATTON 02/25/2023 09:35:02 Final Normal: <30 mg/g creatinine< br/>High: 30-300 mg/g creatinine
Very High: >300 mg/g creatinine
Nephrotic: >2200 mg/g creatinine Observation Date Value Abnormality Reference (Units ) Status Albumin, Urine 02/25/2023 09:35:02 17.60 (mg/dL) Final Creatinine, Urine 02/25/2023 09:35:02 64 (mg/dL) Final Albumin/Creatinine [Mass Ratio] in Urine 02/25/2023 09:35:02 275 Above high normal <30 (mg/g Creat) Final Performing Location LABORATORY [facility] [place] - [address] [place] [address]
--- OUTSIDE RECORDS SUMMARY | 2023-08-24 00:12 | External Medical Summary | Summary of Care ---
Author Name Unknown Organization [facility] Address [address] [place] [address] Phone [phone] Care Team Providers Care Wafer Polishing Lead Worker Name Role Phone Porfirio Kilgore MD Primary Care Provider + Encounter Details Date Type Department Care Team (Late st Contact Info) Description 03/17/2023 Telephone Urology, [facility] 132 [facility] [place] [address] Agustin Chery MD 27 [facility] [address] [place] [address] Allergies [...] % Nasal Solution Administer into nostril 1 [place] in the morning AND 1 [place] before bedtime. 30 mL 12 2 [...] mgIndications:Kidney replaced by transplant 150 mg IM [id number] 03/13/2021 Active Cilgavimab inj 150 mgIndications:Kidney replaced by transplant 150 mg IM [id number] 03/13/2021 Active documented as of this encounter [...] EST Hospital Encounter ENDO OSSC, Endoscopy Room [facility] [address] [place] [phone] Marisa Lucia MD [address] [place] [address] 04/10/2023 2:00 PM EST - 04/10/2023 2:30 PM EST Surgery ENDO OSSC, Endoscopy Room [facility] [address] [place] [phone] Marisa Lucia MD [address] [place] [address] COLONOSCOPY FLEXIBLE PROXIMAL DIAGNOSTIC 04/21/2023 3:40 PM EST Office Visit Pulmonary Medicine, [facility] [address] [place] [address] Carroll Garces MD [address] [facility] [place] [address] 06/24/2023 10:30 AM EDT Office Visit Urology, [facility] [address] [place] [address] Agustin Chery MD 27 [facility] [address] [place] [address] 07/02/2023 12:30 PM EDT Office Visit Transplant Clinic, [place] [address] [place] [address] Jean-Pierre Catalan, [facility] [address] [place] [address] 07/07/2023 1:00 PM EDT Office Visit Dermatology [facility] 200 [facility] [place] [address] Phill Vegas MD 200 [place] [address] Scheduled Procedures Name Priority Associated Diagnoses Date/Ti [...] the patient have Health Care Power of Interactive Media Marketing Strategist? No Care Teams Wafer Polishing Lead Worker Relationship Specialty Start Date End Date Porfirio Kilgore MD [address] [place] [address] PCP - General Internal Medicine 03/30/20 documented as of this encounter
--- OUTSIDE RECORDS SUMMARY | 2023-08-24 00:12 | External Medical Summary | Summary of Care ---
Author Name Unknown Organization [facility] Address [address] [place] [address] Phone [phone] Care Team Providers Care Cross Cut Sawyer Name Role Phone Porfirio Kilgore MD Primary Care Provider + Encounter Details Date Type Department Care Team (Late st Contact Info) Description 02/27/2023 Telephone Transplant Clinic, [place] [address] [place], [place] [id number] Doroteo Meyer, [place] [address] Allergies No known active allergiesdocumented as of [...] % Nasal Solution Administer into nostril 1 [place] in the morning AND 1 [place] before bedtime. 30 mL 12 2 Active [...] mgIndications:Kidney replaced by transplant 150 mg IM [id number] 03/13/2021 Active Cilgavimab inj 150 mgIndications:Kidney replaced by transplant 150 mg IM [id number] 03/13/2021 Active documented as of this encounter [...] encounter Miscellaneous Notes * Telephone Encounter - Doroteo Meyer RN - 02/27/2023 9:46 AM EST 02/27/2023 9:46 AM Reviewed labs with Hossein FLANNERY DNP and Myron Corado > Plan is to continue current regimen and no changes. Myron continues to feel good. Doroteo Meyer RN, [facility] Drafter Tool Design Transplant and Liver Surgery Department [facility] [phone] documented in this encounter Plan of Treatment Upcoming Encounters Date Type Department Care Team (Latest Contact Info) Description 03/10/2023 3:00 PM EST Office Visit Urology, [facility] 132 [facility] [place] [address] Agustin Chery MD 27 [facility] [address] [place] [address] 04/10/2023 2:00 PM EST Hospital Encounter ENDO OSSC, Endoscopy Room [facility] 132 [facility] [place] [phone] Marisa Lucia MD 132 [facility] [place] [address] 04/10/2023 2:00 PM EST - 04/10/2023 2:30 PM EST Surgery ENDO OSSC, Endoscopy Room [facility] 132 [facility] [place] [phone] Marisa Lucia MD 132 [facility] [place] [address] COLONOSCOPY FLEXIBLE PROXIMAL DIAGNOSTIC 04/21/2023 3:40 PM EST Office Visit Pulmonary Medicine, [facility] 132 [facility] [place] [address] Carroll Garces MD [address] [place] [address] 07/02/2023 12:30 PM EDT [facility] [address] [place] [address] Jean-Pierre Catalan, [facility] [address] [place] [address] 07/07/2023 1:00 PM EDT Office Visit [facility] [address] [place], [place] [address] Phill Vegas MD 200 [facility] [place], [place] [address] Scheduled Procedures Name Priority Associated Diagnoses Date/Ti [...] the patient have Health Care Power of Economic History Teacher? No Care Teams Cross Cut Sawyer Relationship Specialty Start Date End Date Porfirio Kilgore MD [address] [place] [address] PCP - General Internal Medicine 03/30/20 documented as of this encounter
--- OUTSIDE RECORDS SUMMARY | 2023-08-24 00:12 | External Medical Summary | Summary of Care ---
Author Name Unknown Organization [facility] Address [address] [place] [address] Phone [phone] Care Team Providers Care Medical Orderly Name Role Phone Porfirio Kilgore MD Primary Care Provider + Reason for Visit * Reason Onset Date Comments Medication Refill 03/10/2023 prednisone Encounter Details Date Type Department Care Team (Late st Contact Info) Description 03/10/2023 Refill Transplant Clinic, [place] [address] [place] [address] Franco Fishman MD [address] [place] [address] Kidney replaced by transplant; Need for prophylactic immunotherapy Allergies No known active allergiesdocumented as of [...] % Nasal Solution Administer into nostril 1 [place] in the morning AND 1 [place] before bedtime. 30 mL 12 2 Active [...] the morning. 90 Tablet 3 4 Active predniSONE 5 MG Oral Tablet (Deltasone)Indicat ions:Kidney replaced by transplant,Need for prophylactic immunotherapy Take 1 Tablet (5 mg) by mouth in the morning. 90 Tablet 3 2 03/10/19 24 Discontinu ed(Refill) Hospital, Clinic, or Other Facility Administered Medication Ordered Dose Route Frequency Start Date End Date Status Tixagevimab inj 150 mgIndications:Kidney replaced by transplant 150 mg IM [id number] 03/13/2021 Active Cilgavimab inj 150 mgIndications:Kidney replaced by transplant 150 mg IM [id number] 03/13/2021 Active documented as of this encounter [...] encounter Miscellaneous Notes * Telephone Encounter - Franco Fishman MD - 03/10/2023 4:19 PM ESTSigned Prescriptions: Disp Refills predniSONE 5 MG Oral Tablet (Deltasone) 90 Tab*3 Sig: Take 1 Tablet by mouth in the morning.Authorizing Provider: FRANCO FISHMAN * Telephone Encounter - Franco Fishman MD - 03/10/2023 4:19 PM ESTSigned Prescriptions: Disp Refills predniSONE 5 MG Oral Tablet (Deltasone) 90 Tab*3 Sig: Take 1 Tablet by mouth in the morning. Authorizing Provider: FRANCO FISHMAN * Telephone Encounter - Doroteo Meyer RN - 03/10/2023 3:56 PM ESTPending Prescriptions: Disp Refills predniSONE 5 MG Oral Tablet (Deltasone) 90 Tab*3 Sig: Take 1 Tablet by mouth in the morning. * Telephone Encounter - Pia Mccoy PHARM Tech - 03/10/2023 3:54 PM EST Patient is up to date for office visits. Pending Prescriptions: Disp Refills predniSONE 5 MG Oral Tablet (Deltasone) 90 Tab*3 Sig: Take 1 Tablet by mouth in the morning. Last Visit: 01/01/2023 (in office), 06/20/2021 (telemedicine) Next Visit: 07/02/2023 If no future appointments scheduled, and last appointment is greater than a year ago, please schedule patient for a follow-up appointment Last date the medication was ordered: 02/07/2022 Pharmacy: [facility], [address] [place] Is this request for [...] AM HGBA1C 7.2 (H) 06/10/2018 11:10 AM * Telephone Encounter - Mike Segovia PHARM Tech - 03/10/2023 3:52 PM EST [facility] calling to request refill for prednisone. Transferred caller to specialty refillline. Thank you, Mike Segovia Social Work Case Manager [facility]) 03/10/2023,3:52 PM * Telephone Encounter - Yamini Baker, RN - 03/10/2023 11:56 AM ESTPending Prescriptions: Disp Refills predniSONE 5 MG Oral Tablet (Deltasone) 90 Tab*3 Sig: Take 1 Tablet by mouth in the morning. documented in this encounter Plan of Treatment Upcoming Encounters Date Type Department Care Team (Latest Contact Info) Description 03/13/2023 8:45 AM EST Imaging Radiology [facility] [address] [place] [address] 04/10/2023 2:00 PM EST Hospital Encounter ENDO OSSC, Endoscopy Room [facility] [address] [place] [phone] Marisa Lucia MD [address] [place] [address] 04/10/2023 2:00 PM EST - 04/10/2023 2:30 PM EST Surgery ENDO OSSC, Endoscopy Room [facility] [address] [place] [phone] Marisa Lucia MD [address] [place] [address] COLONOSCOPY FLEXIBLE PROXIMAL DIAGNOSTIC 04/21/2023 3:40 PM EST Office Visit Pulmonary Medicine, [facility] [address] [place] [address] Carroll Garces MD [address] [facility] [address] 06/24/2023 10:30 AM EDT Office Visit Urology, [facility] [address] [place] [address] Agustin Chery MD 27 [facility] [address] [place] [address] 07/02/2023 12:30 PM EDT Office Visit Transplant Clinic, [place] [address] [place] [address] Jean-Pierre Catalan, [place] [address] [place], [place] [address] 07/07/2023 1:00 PM EDT Office Visit Dermatology [facility] 200 [place] [address] Phill Vegas MD 200 [facility] [place] [address] Scheduled Procedures Name Priority Associated Diagnoses Date/Ti [...] Visit Diagnoses Diagnosis Kidney replaced by transplant Need for prophylactic immunotherapy History of colonic polyps Personal history of [...] Code 01/09/2022 3:06 PM 01/10/2022 5:35 PM Th is order reflects the patients wishes and were [...] the patient have Health Care Power of Free Lance Model? No Care Teams Medical Orderly Relationship Specialty Start Date End Date Porfirio Kilgore MD [address] [place] [address] PCP - General Internal Medicine 03/30/20 documented as of this encounter
--- OUTSIDE RECORDS SUMMARY | 2023-08-24 00:12 | External Medical Summary | Summary of Care ---
Author Name Unknown Organization [facility] Address [address] [place] [address] Phone [phone] Care Team Providers Care Coach Professional Athletes Name Role Phone Porfirio Kilgore MD Primary Care Provider + Reason for Visit * Reason Comments Outpatient Testing Encounter Details Date Type Department Care Team (Late st Contact Info) Description 02/25/2023 9:40 AM EST Laboratory Laboratory [address] [place] [id number] [place] [id number] Kidney replaced by transplant; [employer] Other*[id number] Allergies No known active allergiesdocumented as of this encounter (statuses as of 02/25/2023) Medications Medication Sig Dispensed Refills Start Date [...] % Nasal Solution Administer into nostril 1 [place] in the morning AND 1 [place] before bedtime. 30 mL 12 2 Active [...] mgIndications:Kidney replaced by transplant 150 mg IM [id number] 03/13/2021 Active Cilgavimab inj 150 mgIndications:Kidney replaced by transplant 150 mg IM [id number] 03/13/2021 Active documented as of this encounter (statuses as of 02/25/2023) Active Problems Problem Noted Date Diagnosed Date [...] as of this encounter (statuses as of 02/25/2023) Resolved Problems Problem Noted Date Diagnosed Date Resolved Date Bronchiectasis without complication 12/18/2021 05/03/2022 COPD, group C, by GOLD 2017 classification 11/05/2021 05/03/2022 Overview: Per COPD GOLD Classification COPD, group B, by GOLD 2017 classification 08/03/2020 11/08/2021 Overview: Per COPD GOLD Classification Aortic regurgitation 06/14/2015 016 Pre-transplant evaluation fo r chronic kidney disease 05/16/2015 08/20/2022 documented as of this encounter (statuses as of 02/25/2023) Immunizations Name Administration Dates Next Due COVID-19 [...] 03/10/2023 3:00 PM EST Office Visit Urology, [facility] [address] [facility] [place] [address] Agustin Chery MD 27 [facility] [address] [place] [address] 04/10/2023 2:00 PM EST Hospital Encounter ENDO OSS, Endoscopy Room [facility] 132 [facility] [place] [phone] Marisa Lucia MD 132 [facility] [place] [address] 04/10/2023 2:00 PM EST - 04/10/2023 2:30 PM EST Surgery ENDO OSS, Endoscopy Room [facility] [place] [phone] Marisa Lucia MD [facility] [place] [address] COLONOSCOPY FLEXIBLE PROXIMAL DIAGNOSTIC 04/21/2023 3:40 PM EST Office Visit Pulmonary Medicine, [facility] 132 [facility] [place] [address] Carroll Garces [facility] [address] [facility] [address] 07/02/2023 12:30 PM EDT [facility] [address] [place] [address] Jean-Pierre Catalan, [facility] [address] [place] [address] 07/07/2023 1:00 PM EDT Office Visit Dermatology [facility] [place] [address] [facility] [place], [place] [address] Phill Vegas MD [address] [place] [phone] Pending Results Name Type Priority Associated Diagnoses Date /Time CBC WITH WBC DIFFERENTIAL Lab STAT Kidney replaced by transplant 02/25/2023 9:35 AM EST BASIC METABOLIC PANEL Lab STAT Kidney replaced by transplant 02/25/2023 9:35 AM EST ALBUMIN / CREATININE RATIO, URINE Lab STAT Kidney replaced by transplant 02/25/2023 9:35 AM EST 25-HYDROXY VITAMIN D Lab STAT Kidney replaced by transplant 02/25/2023 9:35 AM EST PTH Lab STAT Kidney replaced by transplant 02/25/2023 9:35 AM EST LIPID PANEL WITHOUT DIRECT LDL Lab STAT Kidney replaced by transplant 02/25/2023 9:35 AM EST TACROLIMUS LEVEL Lab STAT Kidney replaced by transplant 02/25/2023 9:35 AM EST MYCODE SUBSEQUENT ADULT Lab Routine [employer] Other*[id number] 02/25/2023 9:35 AM EST CBC Lab STAT Kidney replaced by transplant 02/25/2023 9:35 AM EST DIFFERENTIAL, AUTOMATED Lab STAT Kidney replaced by transplant 02/25/2023 9:35 AM EST MYCODE SST1 Lab Routine [employer] Other*[id number] 02/25/2023 9:35 AM EST MYCODE SST2 Lab Routine [employer] Other*[id number] 02/25/2023 9:35 AM EST Scheduled Procedures Name Priority Associated [...] 10/12/2022 10/12/2021, 07/27/2019, 07/01/2019 COVID-19 Vaccine ( season) 2022 02/05/2022, 07/15/2021, 07/15/2021, Additional history exists Influenza Vaccine (FLU shot) (#1) 2022 11/16/2021, 12/03/2020, 10/24/2019, Additional history exists O2 ASSESSMENT COMPLETED IN PAST YEAR FOR COPD 04/18/2023 04/18/2022 HbA1c 07/29/2023 01/27/2023, 12/25, 06/10/2018, Additional history exists Diabetic Eye Exam 12/24/2023 12/23/2022 Albumin/Creatinine Ratio 01/28/2024 023, 12/25/2022, 11/25/2022, Additional history exists GFR 01/28/2024 01/27/2023, 1102/2022, 11/25/2022, Additional history exists DTaP,Tdap,and Td Vaccines (2 [...] Visit Diagnoses Diagnosis Kidney replaced by transplant [employer] Other*[id number] History of colonic polyps Personal history of [...] the patient have Health Care Power of Railroad Shop Inspector? No Care Teams Coach Professional Athletes Relationship Specialty Start Date End Date Porfirio Kilgore MD [address] [place] [address] PCP - General Internal Medicine 03/30/20 documented as of this encounter
--- NOTE | 2023-08-24 00:44 | Emergency Department Note ---
Impression & Plan UTI (urinary tract infection), JOSE R (acute kidney injury) ED Provider Note NAME: PETE WALTERS AGE: 77 SEX: M : 1945 ARRIVES VIA: Walk-In INFORMANT: Patient, ED PROVIDER(S): Anatoliy Puri MD CHIEF COMPLAINT: Weakness, urinary dribbling HPI: This is a 77-year-old male presenting for weakness, fall, urinary dribbling. Patient states that he recently had a prostate/bladder procedure called greenkelli, with Dr. Chery, urology on Friday. He had the catheter removed few days ago and has noticed urinary dribbling since then. He is able to hold the urine but then does note he also has dribbling of urine. He has no saddle anesthesia, motor weakness or bowel incontinence. He has no back pain. He notes that he been drinking fluids still feels dehydrated he feels extremely weak. He states that this afternoon he was in the shower when he felt weak and fell to the ground. He notes no head injury from this. He notes worsening shortness of breath ROS: See above HPI for pertinent positives & negatives. A total of 10 systems reviewed and were otherwise negative. PHYSICAL EXAMINATION: General: Mild respiratory distress Head: Normocephalic and atraumatic Eyes: Normal inspection, extraocular muscles intact Ear, nose, throat: Normal external exam Neck: Normal range of motion Respiratory: lungs clear to auscultation bilaterally Cardiovascular: Regular rate/rhythm, no murmur GI: soft, nontender, no guarding or rebound Extremities: nontender, moves all extremities Neuro: The patient awake and alert, appropriately conversive, no focal deficits, symmetric faces Skin: Warm, dry, and intact MEDICAL DECISION MAKING: This is a 69-year-old male presenting for weakness, fall and urinary dribbling. Patient notes that he was so weak he had to fall to the ground today without any head, neck pain. He notes no current abdominal pain. No suprapubic pain. No fevers or chills. -Will do workup for sepsis after patient's procedure we will do CT of the abdomen/pelvis without contrast due to patient's previous renal transplant. -Patient's creatinine is elevated at this time to 3.47 -Otherwise significant electrolyte disturbances due to hyponatremia 127, hypokalemia 3.3, CO2 17 anion gap 12. -Will give ceftriaxone as patient does have a UTI at this time. Will give fluids as well at this time due to the JOSE R. -CT imaging reviewed showing gas in the prostate, bladder, wall and transplant kidney. This could be consistent with previous recent surgery. Otherwise consider abscess -After antibiotics, patient does feel significantly better. Will admit for this UTI Differential diagnosis: Pyelonephritis, sepsis, abscess, hematoma, diverticulitis, SBO, pancreatitis ER treatment provided: See below Diagnostics interpreted by me: ECG: ECG independently interpreted by me with normal sinus rhythm, rate of 78, normal axis, normal IA, right bundle branch block, normal QTc, no ST segment elevations consistent with STEMI criteria Cardiac Monitoring: An order was placed for continuous cardiac monitoring. The monitor shows a rate of 78 with sinus rhythm. Laboratory studies: As stated above and show below. Imaging studies: See below. 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 Boyd, S Pulmonology Hx of chronic kidney disease History of BPH History of diverticulosis History of chronic diarrhea "loose stools" Dysphagia CMV colitis hx Arthritis Hx of renal failure PERITONEAL DIAYLSIS FOR 4 YEARS PRIOR TO 08/04/2018 (KIDNEY TRANSPLANT) GERD (gastroesophageal reflux disease) Diabetes mellitus, type 2 IDDM Skin cancer EARS; removed in 's office History of anemia Hyperlipidemia Surgical History (Updated 10/04/21 @ 15:49 by Vivian De Luna) Hx of breast lump removal lt. History of esophagogastroduodenoscopy (EGD) Hx of colonoscopy History of bronchoscopy Hx of hemorrhoidectomy History of colonoscopy History of appendectomy History of cholecystectomy Kidney transplant recipient 07/2018 [facility]NCISO History of tooth extraction Family History Brother Family history of diabetes mellitus Sister Family history of diabetes mellitus Mother Family history of diabetes mellitus Father Family history of diabetes mellitus Social History Smoking Status: Former smoker Second Hand Exposure: No; Do You Dip or Chew Tobacco: No; Hx Alcohol Use: No Hx Substance Use: No Preferred Language: Uzbek Communication Ability: Effective Orthopedic Shoes Salesperson Required: No Beliefs That Will Affect Care: None Current Living Situation: Spouse and Family Other Information That Helps Us Care for You: No Feels Safe at Home: Yes Safety Concerns: Feels Safe At This Time Assistive Devices: Glasses and Hearing Aid - Bilateral Allergies Allergies Allergy/AdvReac Type Severity Reaction Status Date / Time No Known Allergies Allergy Verified 08/24/23 00:20 Home Meds Home Medications Medication Instructions Recorded Confirmed aspirin 81 mg tablet,delayed 81 mg PO DAILY 06/28/19 08/24/23 release cholecalciferol (vitamin D3) 50 50 mcg PO QAM 06/28/19 08/24/23 mcg (2,000 unit) tablet (Vitamin D3) insulin aspart U-100 100 unit/mL 0 unit subcut UD 06/28/19 08/24/23 (3 mL) subcutaneous pen (Novolog FlexPen U-100 Insulin aspart) insulin glargine 100 unit/mL 24 unit subcut HS 06/28/19 08/24/23 subcutaneous solution (Lantus U-100 Insulin) multivitamin 1 tab PO QAM 06/28/19 08/24/23 pantoprazole 40 mg tablet,delayed 40 mg PO DAILYBB 06/28/19 08/24/23 release (Protonix) loperamide 2 mg tablet 2 mg PO TID PRN Diarrhea 10/04/21 08/24/23 prednisone 5 mg tablet 5 mg PO QAM 10/04/21 08/24/23 tamsulosin 0.4 mg capsule 0.4 mg PO BID 10/04/21 08/24/23 albuterol sulfate 2.5 mg/3 mL 2.5 mg inhalation Q4H PRN Wheezing 08/24/23 08/24/23 (0.083 %) solution for nebulization albuterol sulfate 90 mcg/actuation 2 puff inhalation Q4H PRN 08/24/23 08/24/23 aerosol inhaler (Ventolin HFA) Shortness Of Breath Or Wheezing azelastine 137 mcg (0.1 %) nasal 1 spray intranasal BID 08/24/23 08/24/23 spray aerosol fluticasone fur. 100 mcg-umeclid 1 inh inhalation DAILY 08/24/23 08/24/23 62.5 mcg-vilant 25 mcg inhalat.powder (Trelegy Ellipta) levothyroxine 75 mcg tablet 75 mcg PO DAILYBB 08/24/23 08/24/23 oxycodone-acetaminophen 5 mg-325 1 tab PO Q8H PRN Pain 08/24/23 08/24/23 mg tablet rosuvastatin 40 mg tablet 40 mg PO DAILY 08/24/23 08/24/23 sulfamethoxazole 400 1 tab PO BID 08/24/23 08/24/23 mg-trimethoprim 80 mg tablet tacrolimus 0.75 mg tablet,extended 0.75 mg PO QAM 08/24/23 08/24/23 release 24 hr tacrolimus 1 mg capsule,extended 1 mg PO QAM 08/24/23 08/24/23 release 24 hr Results & Data (ED) Vital Signs Vital Signs - 24 hr 08/24/23 00:05 08/24/23 00:21 08/24/23 00:30 Temperature 36.8 C Temperature Source Oral Pulse Rate 89 78 81 Respiratory Rate 20 28 H Respiratory Effort / Characteristics Non-Labored Spontaneous Respiratory Depth Normal Respiratory Pattern Regular Blood Pressure 126/78 119/71 Blood Pressure Mean 94 91 Blood Pressure Position Sitting Pulse Oximetry 97 96 Oxygen Delivery Method Room Air Sepsis Recent Fever Within 48 Hours No Sepsis New/Unexplained Change in Mental Status N/A Sepsis Action Taken by Nursing No Action Required 08/24/23 00:34 08/24/23 01:45 08/24/23 02:30 Temperature Temperature Source Pulse Rate 78 76 Respiratory Rate 24 24 Respiratory Effort / Characteristics Respiratory Depth Respiratory Pattern Blood Pressure 117/57 L 117/68 Blood Pressure Mean 77 78 Blood Pressure Position Pulse Oximetry 96 93 95 Oxygen Delivery Method Room Air Sepsis Recent Fever Within 48 Hours Sepsis New/Unexplained Change in Mental Status Sepsis Action Taken by Nursing 08/24/23 03:30 08/24/23 04:00 08/24/23 04:29 Temperature Temperature Source Pulse Rate 75 72 74 Respiratory Rate 24 24 Respiratory Effort / Characteristics Respiratory Depth Respiratory Pattern Blood Pressure 135/76 136/87 Blood Pressure Mean 95 113 Blood Pressure Position Pulse Oximetry 94 94 Oxygen Delivery Method Sepsis Recent Fever Within 48 Hours Sepsis New/Unexplained Change in Mental Status Sepsis Action Taken by Nursing 08/24/23 04:30 Temperature Temperature Source Pulse Rate 71 Respiratory Rate 24 Respiratory Effort / Characteristics Respiratory Depth Respiratory Pattern Blood Pressure 142/78 H Blood Pressure Mean 111 Blood Pressure Position Pulse Oximetry 94 Oxygen Delivery Method Sepsis Recent Fever Within 48 Hours Sepsis New/Unexplained Change in Mental Status Sepsis Action Taken by Nursing Laboratory Data 08/24/23 00:30 08/24/23 00:30 Lab Results 08/24/23 08/24/23 08/24/23 Range/Units 00:15 00:30 00:40 WBC 9.48 (4.8-10.8) K/ul RBC 3.80 L (4.70-6.10) M/uL Hgb 11.1 L (14.0-18.0) g/dl Hct 33.0 L (42.0-52.0) % MCV 86.8 (80.0-100.0) fL MCH 29.2 (25.0-34.0) pg MCHC 33.6 (32.0-36.0) g/dL RDW Std Deviation 43.4 (36.4-46.3) fL RDW Coeff of [place] 13.6 (11.5-14.5) % Plt Count 144 (130-400) K/uL MPV 11.8 (9.4-12.4) fL Immature Gran % (Auto) 0.6 % Neut % (Auto) 79.6 % Lymph % (Auto) 8.2 % Lamb % (Auto) 11.0 % Eos % (Auto) 0.5 % Baso % (Auto) 0.1 % Neut # (Auto) 7.54 H (1.40-6.50) K/uL Lymph # (Auto) 0.78 L (1.20-3.40) K/uL Lamb # (Auto) 1.04 H (0.11-0.59) K/uL Eos # (Auto) 0.05 (0.00-0.50) K/uL Baso # (Auto) 0.01 (0.00-0.20) K/uL Immature Gran # (Auto) 0.06 (0.01-0.20) K/uL Sodium 127 L (136-145) mmol/L Potassium 3.3 L (3.5-5.1) mmol/L Chloride 98 (98-107) mmol/L Carbon Dioxide 17 L (21-32) mmol/L Anion Gap 12 H (3-11) BUN 46 H (6-23) mg/dl Creatinine 3.47 H (0.6-1.4) mg/dl Est Cr Clr Drug Dosing 19.5 ml/min Est GFR ( Amer) 18.5 ml/min Est GFR (Non-Af Amer) 15.9 ml/min BUN/Creatinine Ratio 13.3 (10-20) Glucose 164 H (70-99(Fasting)) mg/dl Lactate 1.4 (0.4-2.0) mmol/L Calcium 8.9 (8.6-10.3) mg/dl Total Bilirubin 0.7 (0.2-1.0) mg/dl AST 18 (13-39) U/L ALT 15 (7-52) U/L Alkaline Phosphatase 58 (34-104) U/L Total Protein 7.1 (6.0-8.3) gm/dl Albumin 3.7 (3.4-5.0) gm/dl Globulin 3.4 (2.5-4.0) gm/dl Albumin/Globulin Ratio 1.1 (0.9-2) Lipase 18 (11-82) U/L Urine Color Yellow Urine Appearance Cloudy A (Clear) Urine pH 6.0 (4.5-7.5) Ur Specific [place] 1.016 (1.000-1.030) Urine Protein 3+ H (Negative) Urine Glucose (UA) 2+ H (Negative) Urine Ketones Negative (Negative) Urine Blood 3+ H (Negative) Urine Nitrite Negative (Negative) Urine Bilirubin Negative (Negative) Urine Urobilinogen Negative (Negative) Ur Leukocyte Esterase 2+ H (Negative) Urine WBC (Auto) >50 H (0-5) /hpf Urine RBC (Auto) 11-20 H (0-2) /hpf U Hyaline Cast (Auto) 3-5 H (0-2) /lpf U Epithel Cells (Auto) 0-2 (0-2) /hpf Urine Bacteria (Auto) 4+ H (None Seen) Administered Medications Sodium Chloride (Nss) 1,000 mls @ 75 mls/hr IV .[id number] JONELLE Stop: 09/23/23 05:22 Last Admin: 08/24/23 05:45 Dose: 75 mls/hr Documented By: ROE Piperacillin Sod/Tazobactam (Sod 4.5 gm/ Dextrose) 100 mls @ 200 mls/hr IV ONE ONE; Protocol Stop: 08/24/23 06:14 Last Admin: 08/24/23 05:50 Dose: 200 mls/hr Documented By: ROE Insulin Aspart (Insulin Aspart Per Unit Charge) 0 units SC Q6 JONELLE Stop: 09/23/23 05:59 Last Admin: 08/24/23 05:50 Dose: 3 units Documented By: ROE Co-signed By: SALAZAR Discontinued Medications Ceftriaxone Sodium (Rocephin) 2,000 mg in 50 mls @ 100 mls/hr IV NOW STA Stop: 08/24/23 01:39 Last Infusion: 08/24/23 01:44 Dose: Infused Documented By: Admin: 08/24/23 01:14 Dose: 100 mls/hr Documented By: RALF Sodium Chloride (Nss) 1,000 mls @ 999 mls/hr IV .Q1H1M ONE Stop: 08/24/23 02:21 Last Infusion: 08/24/23 03:00 Dose: Infused Documented By: Admin: 08/24/23 01:33 Dose: 999 mls/hr Documented By: RALF Potassium Chloride (Potassium Chloride Crtab 20 Meq Tabcr) 20 meq PO NOW STA Stop: 08/24/23 04:32 Last Admin: 08/24/23 04:55 Dose: 20 meq Documented By: RALF Imaging Data Radiologist's Impression: Abdomen/Pelvis CT 08/24/23 00:44 CR Exam(s): CT ABDOMEN + PELVIS Without Contrast EXAM: CT Abdomen and Pelvis Without Intravenous Contrast CLINICAL HISTORY: Reason for exam: Bladder/prostate surgery, pain, ?abscess, hematoma. TECHNIQUE: Axial computed tomography images of the abdomen and pelvis without intravenous contrast. CTDI is 23.24 mGy and DLP is 1257.61 mGy-cm. Automated exposure control was utilized for the study. A dose lowering technique was utilized adhering to the principles of ALARA. COMPARISON: No relevant prior studies available. FINDINGS: Lung bases: Bibasilar platelike atelectasis. Mitral valve calcifications. ABDOMEN: Liver: Unremarkable. Gallbladder and bile ducts: Post cholecystectomy. No ductal dilation. Pancreas: Fatty replaced. No ductal dilation. Spleen: Unremarkable. No splenomegaly. Adrenals: Unremarkable. No mass. Kidneys and ureters: Atrophic [place] kidneys without hydronephrosis or hydroureter. Right lower quadrant renal transplant with gas within the renal pelvis. No hydronephrosis or calculus. Stomach and bowel: Fat-containing left inguinal hernia. No obstruction or ileus. Left and sigmoid colon diverticulosis without evidence for diverticulitis. PELVIS: Appendix: No findings to suggest acute appendicitis. Bladder: Partially contracted urinary bladder with intraluminal gas and gas within the wall. Reproductive: Enlarged heterogeneous prostate gland 5.2 x 5.2 cm diameter with interstitial gas. ABDOMEN and PELVIS: Intraperitoneal space: No free air. No free fluid. No hematoma or collection identified. Bones/joints: No acute fracture. Chronic appearing mild L1 vertebral body wedge compression fracture. Degenerative changes of the spine. Soft tissues: Unremarkable. Vasculature: Atherosclerotic vascular calcifications. No abdominal aortic aneurysm. Lymph nodes: Unremarkable. No enlarged lymph nodes. IMPRESSION: Enlarged heterogeneous prostate gland with interstitial gas. Gas within the urinary bladder lumen and wall. Additional gas in a right lower quadrant renal transplant kidney without evidence for obstruction. Although component of the findings are consistent with recent nonspecified surgery, infection cannot be excluded, including a prostate gland abscess. Examination limited by lack of intravenous contrast material. No other suspicious collection to indicate a abscess or hematoma. Diffuse colonic diverticulosis without evidence for diverticulitis. Communications: Call Doctor Above results Electronically signed by: Yosef Romeo M.D. 08/24/23 03:26 AM Discharge Plan Visit Data Chief Complaint: Urinary Symptoms Stated Complaint: URINARY FREQUENCY, WEAKNESS - CATHETER REMOVED TUE ED Provider: Anatoliy Puri Discharge Problem: UTI (urinary tract infection), JOSE R (acute kidney injury) Patient Disposition: Admitted As Inpatient Discharge Instructions Interventions: ED Discharge Assessment Last Done: 08/24/23 05:07
[2023-08-24 00:48] LABS: Basophils # (auto) 0.01 K/uL (0.00-0.20); Basophils % (auto) 0.1 %; Eosinophils # (auto) 0.05 K/uL (0.00-0.50); Eosinophils % (auto) 0.5 %; Hemoglobin 11.1 g/dl (14.0-18.0); Immature Granulocytes # (auto) 0.06 K/uL (0.01-0.20); Immature Granulocytes % (auto) 0.6 %; Lymphocytes # (auto) 0.78 K/uL (1.20-3.40); Lymphocytes % (auto) 8.2 %; Mean Corpuscular Hemoglobin 29.2 pg (25.0-34.0); Mean Corpuscular Hgb Conc 33.6 g/dL (32.0-36.0); Mean Corpuscular Volume 86.8 fL (80.0-100.0); Mean Platelet Volume 11.8 fL (9.4-12.4); Monocytes # (auto) 1.04 K/uL (0.11-0.59); Neutrophils # (auto) 7.54 K/uL (1.40-6.50); Neutrophils % (auto) 79.6 %; Platelet Count 144 K/uL (130-400); RDW Coefficient of Variation 13.6 % (11.5-14.5); RDW Standard Deviation 43.4 fL (36.4-46.3); White Blood Count 9.48 K/ul (4.8-10.8)
[2023-08-24 00:57] LABS: Appearance Urine Cloudy (Clear); Bacteria Urine Automated 4+ (None Seen); Bilirubin Urine Negative (Negative); Blood Urine 3+ (Negative); Color Urine Yellow; Epithelial Cell Urine Auto 0-2 /hpf (0-2); Glucose Urine UA 2+ (Negative); Ketones Urine Negative (Negative); Leukocyte Esterase Urine 2+ (Negative); Nitrite Urine Negative (Negative); Protein Urine 3+ (Negative); Specific Gravity Urine 1.016 (1.000-1.030); Urobilinogen Urine Negative (Negative); WBC Urine Automated >50 /hpf (0-5)
[2023-08-24 01:04] LABS: Albumin Globulin Ratio 1.1 (0.9-2); Albumin Level 3.7 gm/dl (3.4-5.0); BUN Creatinine Ratio 13.3 (10-20); Bilirubin,Total 0.7 mg/dl (0.2-1.0); Calcium 8.9 mg/dl (8.6-10.3); Creatinine Clr Calc Pharmacy 19.5 ml/min; Est GFR (African American) 18.5 ml/min; Est GFR (Non-African American) 15.9 ml/min; Globulin 3.4 gm/dl (2.5-4.0); Potassium 3.3 mmol/L (3.5-5.1); Total Protein 7.1 gm/dl (6.0-8.3)
[2023-08-24] MEDS: cefTRIAXone SODIUM 2,000 MG/50 ML BAG IV STA (01:14)
[2023-08-24] MEDS: SODIUM CHLORIDE 0.9% 1,000 ML IV ONE (01:33)
--- NOTE | 2023-08-24 03:27 | CT Scan Report ---
Exam(s): CT ABDOMEN + PELVIS Without Contrast EXAM: CT Abdomen and Pelvis Without Intravenous Contrast CLINICAL HISTORY: Reason for exam: Bladder/prostate surgery, pain, ?abscess, hematoma. TECHNIQUE: Axial computed tomography images of the abdomen and pelvis without intravenous contrast. CTDI is 23.24 mGy and DLP is 1257.61 mGy-cm. Automated exposure control was utilized for the study. A dose lowering technique was utilized adhering to the principles of ALARA. COMPARISON: No relevant prior studies available. FINDINGS: Lung bases: Bibasilar platelike atelectasis. Mitral valve calcifications. ABDOMEN: Liver: Unremarkable. Gallbladder and bile ducts: Post cholecystectomy. No ductal dilation. Pancreas: Fatty replaced. No ductal dilation. Spleen: Unremarkable. No splenomegaly. Adrenals: Unremarkable. No mass. Kidneys and ureters: Atrophic [place] kidneys without hydronephrosis or hydroureter. Right lower quadrant renal transplant with gas within the renal pelvis. No hydronephrosis or calculus. Stomach and bowel: Fat-containing left inguinal hernia. No obstruction or ileus. Left and sigmoid colon diverticulosis without evidence for diverticulitis. PELVIS: Appendix: No findings to suggest acute appendicitis. Bladder: Partially contracted urinary bladder with intraluminal gas and gas within the wall. Reproductive: Enlarged heterogeneous prostate gland 5.2 x 5.2 cm diameter with interstitial gas. ABDOMEN and PELVIS: Intraperitoneal space: No free air. No free fluid. No hematoma or collection identified. Bones/joints: No acute fracture. Chronic appearing mild L1 vertebral body wedge compression fracture. Degenerative changes of the spine. Soft tissues: Unremarkable. Vasculature: Atherosclerotic vascular calcifications. No abdominal aortic aneurysm. Lymph nodes: Unremarkable. No enlarged lymph nodes. IMPRESSION: Enlarged heterogeneous prostate gland with interstitial gas. Gas within the urinary bladder lumen and wall. Additional gas in a right lower quadrant renal transplant kidney without evidence for obstruction. Although component of the findings are consistent with recent nonspecified surgery, infection cannot be excluded, including a prostate gland abscess. Examination limited by lack of intravenous contrast material. No other suspicious collection to indicate a abscess or hematoma. Diffuse colonic diverticulosis without evidence for diverticulitis. Communications: Call Doctor Above results Electronically signed by: Yosef Romeo M.D. 08/24/23 03:26 AM
[2023-08-24] MEDS: POTASSIUM CHLORIDE CRTAB 20 MEQ TABCR PO STA (04:55)
[2023-08-24] MEDS ORDERED: ACETAMINOPHEN 325 MG TAB PO PRN (05:23)
[2023-08-24] MEDS ORDERED: GLUCOSE 40% GEL 15 GM TUBE PO PRN (05:23)
[2023-08-24] MEDS ORDERED: DEXTROSE 50% 50 ML SYRINGE IV PRN (05:23)
[2023-08-24] MEDS ORDERED: ALBUTEROL 0.083% NEBU SOLN 3 ML VIAL INH PRN (05:23)
[2023-08-24] MEDS ORDERED: GLUCAGON FOR INJ 1 MG VIAL SQ PRN (05:23)
[2023-08-24] MEDS ORDERED: oxyCODONE/ACETAMINOPHEN 5mg/325mg TAB PO PRN (05:23)
[2023-08-24] MEDS ORDERED: CARBOHYDRATES FOR HYPOGLYCEMIA PO PRN (05:23)
[2023-08-24] MEDS ORDERED: GLUCOSE 10 TAB/TUBE PO PRN (05:23)
[2023-08-24] MEDS ORDERED: POLYETHYLENE (MIRALAX) 17 GM PACK PO PRN (05:23)
[2023-08-24] MEDS ORDERED: NITROGLYCERIN SL 0.4 MG/TAB TAB SL PRN (05:23)
[2023-08-24] MEDS ORDERED: ALBUTEROL HFA 8 GM INHALER INH PRN (05:23)
--- NOTE | 2023-08-24 05:32 | History & Physical Report ---
Date of Service August 24, 2023 Assessment & Plan (1) Acute UTI: Plan: 77-year-old male with past medical history significant for type 2 diabetes, dyslipidemia, mucopurulent chronic bronchitis, bronchiectasis, COPD, chronic cough, hypertension, history of CMV colitis, history of ulcerative proctitis, history of JOSE R, history of kidney transplant from donor with hepatitis C, s/p renal transplant, BPH, acute blood loss anemia, family history of valvular heart disease, lives with his family was brought in because of weakness and found to have UTI. Last Friday on 08/15/23 patient had procedure of laser vaporization of prostate at [facility]. Tyler was taken out on Friday. Since then not been micturating much. Having pain while micturating. Poor appetite. Feeling weak. Today in the shower he fell down when the family decided to bring him to the hospital. Patient is somewhat hard of hearing. Denies any headache. No neck pain. Has chronic cough. Has some runny nose. Has some sore throat. Denies chest pain or shortness of breath. No abdominal pain. Bowels moving okay. Hemodynamics are okay. Acute UTI recent procedure of laser vaporization of prostate CT scan questionable hematoma versus abscess in the prostate ER gave Rocephin. Will continue with IV Zosyn IV fluids. Will follow cultures. Urology consult for further recommendations. BPH s/p laser vaporization of prostate on Flomax JOSE R on CKD baseline creatinine 2.8 to-3.1 presented with creatinine of 3.4 avoid nephrotoxic agents continue gentle fluids nephro consult follow labs s/p renal transplant tacrolimus and prednisone patient also chronically on Bactrim hyponatremia sodium 127 getting gentle fluids follow repeat labs nephrology consulted history of mucopurulent chronic bronchitis bronchiectasis on chronic Bactrim continue home inhalers follows with pulmonary diabetes will cut back on Lantus 12 units daily as patient is currently n.p.o. sliding scale we will monitor hypothyroidism on Synthyroid dyslipidemia on statin DVT prophylaxis SCDs for now disposition med/telemetry full code History of Present Illness Chief Complaint: Weakness and UTI Primary Care Provider: Porfirio Kilgore MD 77-year-old male with past medical history significant for type 2 diabetes, dyslipidemia, mucopurulent chronic bronchitis, bronchiectasis, COPD, chronic cough, hypertension, history of CMV colitis, history of ulcerative proctitis, history of JOSE R, history of kidney transplant from donor with hepatitis C, s/p renal transplant, BPH, acute blood loss anemia, family history of valvular heart disease, lives with his family was brought in because of weakness and found to have UTI. Last Friday on 08/15/23 patient had procedure of laser vaporization of prostate at [facility]. Tyler was taken out on Friday. Since then not been micturating much. Having pain while micturating. Poor appetite. Feeling weak. Today in the shower he fell down when the family decided to bring him to the hospital. Patient is somewhat hard of hearing. Denies any headache. No neck pain. Has chronic cough. Has some runny nose. Has some sore throat. Denies chest pain or shortness of breath. No abdominal pain. Bowels moving okay. Hemodynamics are okay. Past medical history. As mentioned above Past surgical history. Bronchoscopy. Colonoscopy and EGD. EGD with endoscopic ultrasound. Hemorrhoidectomy. Appendectomy. Prostate laser vaporization. Renal biopsy. Sigmoidoscopy. Transplantation of kidney. Social history. . Quit smoking in 1975. Smoked 2 packs a day for 15 years. No alcohol use. No drug use. Family history. Sister had coronary disease. Brother has diabetes. Sister has diabetes. Sister has heart block. Father had heart failure. Mother had heart failure. Sister has autoimmune disease. Allergies Allergy/AdvReac Type Severity Reaction Status Date / Time No Known Allergies Allergy Verified 08/24/23 00:20 Home Medications Medication Instructions Recorded Confirmed Type aspirin 81 mg tablet,delayed 81 mg PO DAILY 06/28/19 08/24/23 History release cholecalciferol (vitamin D3) 50 50 mcg PO QAM 06/28/19 08/24/23 History mcg (2,000 unit) tablet (Vitamin D3) insulin aspart U-100 100 unit/mL 0 unit subcut UD 06/28/19 08/24/23 History (3 mL) subcutaneous pen (Novolog FlexPen U-100 Insulin aspart) insulin glargine 100 unit/mL 24 unit subcut HS 06/28/19 08/24/23 History subcutaneous solution (Lantus U-100 Insulin) multivitamin 1 tab PO QAM 06/28/19 08/24/23 History pantoprazole 40 mg tablet,delayed 40 mg PO DAILYBB 06/28/19 08/24/23 History release (Protonix) loperamide 2 mg tablet 2 mg PO TID PRN Diarrhea 10/04/21 08/24/23 History prednisone 5 mg tablet 5 mg PO QAM 10/04/21 08/24/23 History tamsulosin 0.4 mg capsule 0.4 mg PO BID 10/04/21 08/24/23 History albuterol sulfate 2.5 mg/3 mL 2.5 mg inhalation Q4H PRN Wheezing 08/24/23 08/24/23 History (0.083 %) solution for nebulization albuterol sulfate 90 mcg/actuation 2 puff inhalation Q4H PRN 08/24/23 08/24/23 History aerosol inhaler (Ventolin HFA) Shortness Of Breath Or Wheezing azelastine 137 mcg (0.1 %) nasal 1 spray intranasal BID 08/24/23 08/24/23 History spray aerosol fluticasone fur. 100 mcg-umeclid 1 inh inhalation DAILY 08/24/23 08/24/23 History 62.5 mcg-vilant 25 mcg inhalat.powder (Trelegy Ellipta) levothyroxine 75 mcg tablet 75 mcg PO DAILYBB 08/24/23 08/24/23 History oxycodone-acetaminophen 5 mg-325 1 tab PO Q8H PRN Pain 08/24/23 08/24/23 History mg tablet rosuvastatin 40 mg tablet 40 mg PO DAILY 08/24/23 08/24/23 History sulfamethoxazole 400 1 tab PO BID 08/24/23 08/24/23 History mg-trimethoprim 80 mg tablet tacrolimus 0.75 mg tablet,extended 0.75 mg PO QAM 08/24/23 08/24/23 History release 24 hr tacrolimus 1 mg capsule,extended 1 mg PO QAM 08/24/23 08/24/23 History release 24 hr Past Med/Surg History Problem List (Updated 08/24/23 @ 06:10 by Anatoliy Puri MD) JOSE R (acute kidney injury) (Acute) UTI (urinary tract infection) (Acute) Acute UTI Anemia Encounter for pre-operative examination Encounter for pre-operative examination Rectal bleeding Diarrhea History of renal transplant DVT prophylaxis Diabetes mellitus Hemorrhoids Dysuria Encounter for pre-operative examination Proctitis Immunosuppression due to drug therapy Medical History (Updated 08/24/23 @ 06:10 by Anatoliy Puri MD) Hypertension resolved after kidney transplant Chronic obstructive pulmonary disease f/u Dr. Boyd, S Pulmonology Hx of chronic kidney disease History of BPH History of diverticulosis History of chronic diarrhea "loose stools" Dysphagia CMV colitis hx Arthritis Hx of renal failure PERITONEAL DIAYLSIS FOR 4 YEARS PRIOR TO 08/04/2018 (KIDNEY TRANSPLANT) GERD (gastroesophageal reflux disease) Diabetes mellitus, type 2 IDDM Skin cancer EARS; removed in 's office History of anemia Hyperlipidemia Surgical History (Updated 10/04/21 @ 15:49 by Vivian De Luna) Hx of breast lump removal lt. History of esophagogastroduodenoscopy (EGD) Hx of colonoscopy History of bronchoscopy Hx of hemorrhoidectomy History of colonoscopy History of appendectomy History of cholecystectomy Kidney transplant recipient 07/2018 [facility] History of tooth extraction Family History Brother Family history of diabetes mellitus Sister Family history of diabetes mellitus Mother Family history of diabetes mellitus Father Family history of diabetes mellitus Social History Smoking Status: Former smoker Second Hand Exposure: No; Do You Dip or Chew Tobacco: No; Hx Alcohol Use: No Hx Substance Use: No Preferred Language: Upper Sorbian Communication Ability: Effective Bender Hand Required: No Beliefs That Will Affect Care: None Current Living Situation: Spouse and Family Other Information That Helps Us Care for You: No Feels Safe at Home: Yes Safety Concerns: Feels Safe At This Time Assistive Devices: Glasses and Hearing Aid - Bilateral Review of Systems Review of Systems: All systems reviewed & are unremarkable except as noted in HPI & below Physical Exam Physical Exam: General- Not in distress Head- atraumatic Eyes- PERRL. ENT- oropharynx clear Neck- supple, no JVD. Lungs- clear to auscultation no wheezing or crackles. Heart- regular rate and rhythm; no murmur, no gallop. Abdomen- normal bowel sounds, soft, nontender, no distension. Extremities- no pretibial edema, no erythema seen Neuro- alert, oriented PERRL, EOMI; no facial palsy; no dysarthria; moves extremities Results & Data Results & Data Vital Signs (Past 12 Hours) Vital Signs Temp Pulse Resp BP Pulse Ox O2 Del Method 08/24/23 04:30 71 24 142/78 H 94 08/24/23 04:29 74 08/24/23 04:00 72 24 136/87 94 08/24/23 03:30 75 24 135/76 94 08/24/23 02:30 76 24 117/68 95 08/24/23 01:45 78 24 117/57 L 93 08/24/23 00:34 96 Room Air 08/24/23 00:30 81 28 H 119/71 96 08/24/23 00:21 78 08/24/23 00:05 36.8 C 89 20 126/78 97 Room Air Diagnostic Findings Laboratory Results WBC 9.48 K/ul (4.8-10.8) 08/24/23 00:30 RBC 3.80 M/uL (4.70-6.10) L 08/24/23 00:30 Hgb 11.1 g/dl (14.0-18.0) L 08/24/23 00:30 Hct 33.0 % (42.0-52.0) L 08/24/23 00:30 MCV 86.8 fL (80.0-100.0) 08/24/23 00:30 MCH 29.2 pg (25.0-34.0) 08/24/23 00:30 MCHC 33.6 g/dL (32.0-36.0) 08/24/23 00:30 RDW Std Deviation 43.4 fL (36.4-46.3) 08/24/23 00:30 RDW Coeff of Kennedy 13.6 % (11.5-14.5) 08/24/23 00:30 Plt Count 144 K/uL (130-400) 08/24/23 00:30 MPV 11.8 fL (9.4-12.4) 08/24/23 00:30 Immature Gran % (Auto) 0.6 % 08/24/23 00:30 Neut % (Auto) 79.6 % 08/24/23 00:30 Lymph % (Auto) 8.2 % 08/24/23 00:30 Gal[place] % (Auto) 11.0 % 08/24/23 00:30 Eos % (Auto) 0.5 % 08/24/23 00:30 Baso % (Auto) 0.1 % 08/24/23 00:30 Neut # (Auto) 7.54 K/uL (1.40-6.50) H 08/24/23 00:30 Lymph # (Auto) 0.78 K/uL (1.20-3.40) L 08/24/23 00:30 Galax # (Auto) 1.04 K/uL (0.11-0.59) H 08/24/23 00:30 Eos # (Auto) 0.05 K/uL (0.00-0.50) 08/24/23 00:30 Baso # (Auto) 0.01 K/uL (0.00-0.20) 08/24/23 00:30 Immature Gran # (Auto) 0.06 K/uL (0.01-0.20) 08/24/23 00:30 Sodium 127 mmol/L (136-145) L 08/24/23 00:30 Potassium 3.3 mmol/L (3.5-5.1) L 08/24/23 00:30 Chloride 98 mmol/L (98-107) 08/24/23 00:30 Carbon Dioxide 17 mmol/L (21-32) L 08/24/23 00:30 Anion Gap 12 (3-11) H 08/24/23 00:30 BUN 46 mg/dl (6-23) H 08/24/23 00:30 Creatinine 3.47 mg/dl (0.6-1.4) H 08/24/23 00:30 Est Cr Clr Drug Dosing 19.5 ml/min 08/24/23 00:30 Est GFR ( Amer) 18.5 ml/min 08/24/23 00:30 Est GFR (Non-Af Amer) 15.9 ml/min 08/24/23 00:30 BUN/Creatinine Ratio 13.3 (10-20) 08/24/23 00:30 Glucose 164 mg/dl (70-99(Fasting)) H 08/24/23 00:30 Lactate 1.4 mmol/L (0.4-2.0) 08/24/23 00:40 Calcium 8.9 mg/dl (8.6-10.3) 08/24/23 00:30 Total Bilirubin 0.7 mg/dl (0.2-1.0) 08/24/23 00:30 AST 18 U/L (13-39) 08/24/23 00:30 ALT 15 U/L (7-52) 08/24/23 00:30 Alkaline Phosphatase 58 U/L (34-104) 08/24/23 00:30 Total Protein 7.1 gm/dl (6.0-8.3) 08/24/23 00:30 Albumin 3.7 gm/dl (3.4-5.0) 08/24/23 00:30 Globulin 3.4 gm/dl (2.5-4.0) 08/24/23 00:30 Albumin/Globulin Ratio 1.1 (0.9-2) 08/24/23 00:30 Lipase 18 U/L (11-82) 08/24/23 00:30 Urine Color Yellow 08/24/23 00:15 Urine Appearance Cloudy (Clear) A 08/24/23 00:15 Urine pH 6.0 (4.5-7.5) 08/24/23 00:15 Ur Specific [place] 1.016 (1.000-1.030) 08/24/23 00:15 Urine Protein 3+ (Negative) H 08/24/23 00:15 Urine Glucose (UA) 2+ (Negative) H 08/24/23 00:15 Urine Ketones Negative (Negative) 08/24/23 00:15 Urine Blood 3+ (Negative) H 08/24/23 00:15 Urine Nitrite Negative (Negative) 08/24/23 00:15 Urine Bilirubin Negative (Negative) 08/24/23 00:15 Urine Urobilinogen Negative (Negative) 08/24/23 00:15 Ur Leukocyte Esterase 2+ (Negative) H 08/24/23 00:15 Urine WBC (Auto) >50 /hpf (0-5) H 08/24/23 00:15 Urine RBC (Auto) 11-20 /hpf (0-2) H 08/24/23 00:15 U Hyaline Cast (Auto) 3-5 /lpf (0-2) H 08/24/23 00:15 U Epithel Cells (Auto) 0-2 /hpf (0-2) 08/24/23 00:15 Urine Bacteria (Auto) 4+ (None Seen) H 08/24/23 00:15 Impressions Abdomen/Pelvis CT 08/24/23 00:44 CR Exam(s): CT ABDOMEN + PELVIS Without Contrast EXAM: CT Abdomen and Pelvis Without Intravenous Contrast CLINICAL HISTORY: Reason for exam: Bladder/prostate surgery, pain, ?abscess, hematoma. TECHNIQUE: Axial computed tomography images of the abdomen and pelvis without intravenous contrast. CTDI is 23.24 mGy and DLP is 1257.61 mGy-cm. Automated exposure control was utilized for the study. A dose lowering technique was utilized adhering to the principles of ALARA. COMPARISON: No relevant prior studies available. FINDINGS: Lung bases: Bibasilar platelike atelectasis. Mitral valve calcifications. ABDOMEN: Liver: Unremarkable. Gallbladder and bile ducts: Post cholecystectomy. No ductal dilation. Pancreas: Fatty replaced. No ductal dilation. Spleen: Unremarkable. No splenomegaly. Adrenals: Unremarkable. No mass. Kidneys and ureters: Atrophic poarch kidneys without hydronephrosis or hydroureter. Right lower quadrant renal transplant with gas within the renal pelvis. No hydronephrosis or calculus. Stomach and bowel: Fat-containing left inguinal hernia. No obstruction or ileus. Left and sigmoid colon diverticulosis without evidence for diverticulitis. PELVIS: Appendix: No findings to suggest acute appendicitis. Bladder: Partially contracted urinary bladder with intraluminal gas and gas within the wall. Reproductive: Enlarged heterogeneous prostate gland 5.2 x 5.2 cm diameter with interstitial gas. ABDOMEN and PELVIS: Intraperitoneal space: No free air. No free fluid. No hematoma or collection identified. Bones/joints: No acute fracture. Chronic appearing mild L1 vertebral body wedge compression fracture. Degenerative changes of the spine. Soft tissues: Unremarkable. Vasculature: Atherosclerotic vascular calcifications. No abdominal aortic aneurysm. Lymph nodes: Unremarkable. No enlarged lymph nodes. IMPRESSION: Enlarged heterogeneous prostate gland with interstitial gas. Gas within the urinary bladder lumen and wall. Additional gas in a right lower quadrant renal transplant kidney without evidence for obstruction. Although component of the findings are consistent with recent nonspecified surgery, infection cannot be excluded, including a prostate gland abscess. Examination limited by lack of intravenous contrast material. No other suspicious collection to indicate a abscess or hematoma. Diffuse colonic diverticulosis without evidence for diverticulitis. Communications: Call Doctor Above results Electronically signed by: Yosef Romeo M.D. 08/24/23 03:26 AM ECG Additional Comments: ECG. Normal sinus rhythm rate 78. Right bundle branch block. QTc 435. Code Status & VTE Plan VTE Prophylaxis Plan VTE Prophylaxis will be ordered: Yes
[2023-08-24] MEDS: SODIUM CHLORIDE 0.9% 1,000 ML IV SCH (05:45)
[2023-08-24] MEDS: PIPERACILLIN/TAZOBACTAM 4.5 GM in DEXTROSE 5% MINI-B 100 ML IV ONE (05:50)
[2023-08-24] MEDS: INSULIN ASPART PER UNIT CHARGE SC SCH ×2 (05:50→12:42)
[2023-08-24] MEDS ORDERED: LEVOTHYROXINE SODIUM 75 MCG TABLET PO SCH (06:30)
[2023-08-24] MEDS ORDERED: PANTOprazole 40 MG TAB PO SCH (06:30)
[2023-08-24] MEDS: TACROLIMUS 0.75 MG PO SCH (06:46)
[2023-08-24] MEDS: TACROLIMUS 1 MG PO SCH (06:46)
[2023-08-24] MEDS: LEVOTHYROXINE SODIUM 75 MCG TABLET PO SCH (06:49)
[2023-08-24] MEDS: TAMSULOSIN HCL 0.4 MG CAP PO SCH (07:10)
[2023-08-24 07:24] LABS: BUN Creatinine Ratio 13.3 (10-20); Calcium 7.9 mg/dl (8.6-10.3); Creatinine Clr Calc Pharmacy 20.6 ml/min; Est GFR (African American) 20.7 ml/min; Est GFR (Non-African American) 17.9 ml/min; Magnesium 1.6 mg/dl (1.7-2.4); Potassium 3.4 mmol/L (3.5-5.1)
--- NOTE | 2023-08-24 07:31 | XRay Report ---
XR chest 1V portable CLINICAL HISTORY: SOB, COPD COMPARISON STUDY: No previous studies for comparison. FINDINGS: Lung volumes are mildly diminished. No pneumothorax or pleural effusion. Top normal cardiac size. No evidence for pulmonary edema. Left basilar opacities favor atelectasis. No consolidation to suggest pneumonia. IMPRESSION: No acute cardiopulmonary findings. ACT 112: Negative or not required by law. Electronically signed by: Kirk Rapp M.D. 08/24/2023 7:30 AM
[2023-08-24 07:34] LABS: Basophils # (auto) 0.01 K/uL (0.00-0.20); Basophils % (auto) 0.1 %; Eosinophils # (auto) 0.07 K/uL (0.00-0.50); Hematocrit (blood only) 30.2 % (42.0-52.0); Immature Granulocytes # (auto) 0.05 K/uL (0.01-0.20); Immature Granulocytes % (auto) 0.7 %; Lymphocytes # (auto) 0.56 K/uL (1.20-3.40); Mean Corpuscular Hemoglobin 29.4 pg (25.0-34.0); Mean Corpuscular Hgb Conc 33.1 g/dL (32.0-36.0); Mean Corpuscular Volume 88.8 fL (80.0-100.0); Mean Platelet Volume 12.1 fL (9.4-12.4); Monocytes # (auto) 0.87 K/uL (0.11-0.59); Monocytes % (auto) 12.5 %; Neutrophils # (auto) 5.41 K/uL (1.40-6.50); Neutrophils % (auto) 77.7 %; Platelet Count 115 K/uL (130-400); RDW Coefficient of Variation 13.7 % (11.5-14.5); RDW Standard Deviation 44.4 fL (36.4-46.3); White Blood Count 6.97 K/ul (4.8-10.8)
[2023-08-24 07:59] LABS: Estimated Average Glucose 154 mg/dl
[2023-08-24] MEDS: predniSONE 5 MG TAB PO SCH (08:01)
[2023-08-24] MEDS: ASPIRIN 81 MG ECTAB PO SCH (08:01)
[2023-08-24] MEDS: MULTIVITAMIN TAB PO SCH (08:02)
[2023-08-24] MEDS: CHOLECALCIFEROL 25 MCG (1000 UNITS) TAB PO SCH (08:02)
[2023-08-24] MEDS: ROSUVASTATIN CALCIUM 20 MG TAB PO SCH (08:02)
[2023-08-24] MEDS: PANTOprazole 40 MG TAB PO SCH (08:03)
[2023-08-24] MEDS: SULFA/TRIMETH 400/80MG TAB PO SCH (08:03)
[2023-08-24] MEDS: FLUTICASONE FUROATE 100MCG 14 PUFFS/INHALER INH SCH (08:04)
[2023-08-24] MEDS: AZELASTINE HCL 0.1% NASAL 200 SPRAYS/27,400 MCG BTL SCH (08:04)
[2023-08-24] MEDS: UMECLIDINIUM/VILANTEROL 62.5/25MCG 7 PUFFS/INHALER INH SCH (08:04)
[2023-08-24] MEDS ORDERED: NON-FORMULARY MEDICATION (Fluticasone-Umeclidin-Vilanter [Trelegy Ellipta] 100-62.5-25 mcg INH SCH (09:00)
--- NOTE | 2023-08-24 09:53 | Urology Consultation ---
Date of Consultation August 24, 2023 Assessment & Plan (1) JOSE R (acute kidney injury): (2) UTI (urinary tract infection): (3) BPH (benign prostatic hyperplasia): Plan 77-year-old male with apparent urinary tract infection s/p greenlight PVP in outside facility. Agree with broad-spectrum antibiotics and narrowing coverage as culture data becomes available. Would recommend maximal bladder drainage with Tyler catheter to help with source control and maximal drainage in the setting of JOSE R. I suspect the findings in his prostate on CT scan are more related to recent surgery than prostatic abscess, however if he does not clinically improve with antibiotics, would repeat imaging, ideally with contrast. We will hold off surgical intervention for now. Urology will follow along History of Present Illness Attending Physician: Tristian Lacey MD History of Present Illness This is a 77-year-old male with history of BPH. He recently underwent gree nlight PVP with Dr. Chery in [facility] on 08/15/2023. His Tyler catheter was removed a couple days later and after that he started having burning, dysuria, increased weakness, poor appetite. He presented to [facility] on 08/24/2023 due to worsening symptoms. Workup was notable for normal WBC (6.97). Creatinine was elevated at 3.47, subsequently decreasing to 3.16. (Baseline is slightly unclear the last numbers in our system are from 3 years ago, 1.6 at that time) urinalysis demonstrated 4+ bacteria, 2+ leukocyte esterase, negative nitrites. Urine culture is pending. Received a dose of ceftriaxone and is currently on Zosyn and Bactrim. A CT scan of the abdomen pelvis was performed. I independently reviewed these images. Both kidneys are in normal position and appear somewhat diminutive. There is no hydronephrosis bilaterally. I do not appreciate any obstructing stones. His prostate is enlarged. There is gas within the lumen of the bladder and possibly some within the bladder wall. There is additionally foci of gas along the expected course of the urethra through the prostate. Radiology raises the possibility of prostatic abscess. Allergies Allergy/AdvReac Type Severity Reaction Status Date / Time No Known Allergies Allergy Verified 08/24/23 00:20 Home Medications Medication Instructions Recorded Confirmed Type aspirin 81 mg tablet,delayed 81 mg PO DAILY 06/28/19 08/24/23 History release cholecalciferol (vitamin D3) 50 50 mcg PO QAM 06/28/19 08/24/23 History mcg (2,000 unit) tablet (Vitamin D3) insulin aspart U-100 100 unit/mL 0 unit subcut UD 06/28/19 08/24/23 History (3 mL) subcutaneous pen (Novolog FlexPen U-100 Insulin aspart) insulin glargine 100 unit/mL 24 unit subcut HS 06/28/19 08/24/23 History subcutaneous solution (Lantus U-100 Insulin) multivitamin 1 tab PO QAM 06/28/19 08/24/23 History pantoprazole 40 mg tablet,delayed 40 mg PO DAILYBB 06/28/19 08/24/23 History release (Protonix) loperamide 2 mg tablet 2 mg PO TID PRN Diarrhea 10/04/21 08/24/23 History prednisone 5 mg tablet 5 mg PO QAM 10/04/21 08/24/23 History tamsulosin 0.4 mg capsule 0.4 mg PO BID 10/04/21 08/24/23 History albuterol sulfate 2.5 mg/3 mL 2.5 mg inhalation Q4H PRN Wheezing 08/24/23 08/24/23 History (0.083 %) solution for nebulization albuterol sulfate 90 mcg/actuation 2 puff inhalation Q4H PRN 08/24/23 08/24/23 History aerosol inhaler (Ventolin HFA) Shortness Of Breath Or Wheezing azelastine 137 mcg (0.1 %) nasal 1 spray intranasal BID 08/24/23 08/24/23 History spray aerosol fluticasone fur. 100 mcg-umeclid 1 inh inhalation DAILY 08/24/23 08/24/23 History 62.5 mcg-vilant 25 mcg inhalat.powder (Trelegy Ellipta) levothyroxine 75 mcg tablet 75 mcg PO DAILYBB 08/24/23 08/24/23 History oxycodone-acetaminophen 5 mg-325 1 tab PO Q8H PRN Pain 08/24/23 08/24/23 History mg tablet rosuvastatin 40 mg tablet 40 mg PO DAILY 08/24/23 08/24/23 History sulfamethoxazole 400 1 tab PO BID 08/24/23 08/24/23 History mg-trimethoprim 80 mg tablet tacrolimus 0.75 mg tablet,extended 0.75 mg PO QAM 08/24/23 08/24/23 History release 24 hr tacrolimus 1 mg capsule,extended 1 mg PO QAM 08/24/23 08/24/23 History release 24 hr Patient History Medical History (Updated 08/24/23 @ 09:55 by Grant Marx MD) Hypertension resolved after kidney transplant Chronic obstructive pulmonary disease f/u Dr. Boyd [facility] Hx of chronic kidney disease History of BPH History of diverticulosis History of chronic diarrhea "loose stools" Dysphagia CMV colitis hx Arthritis Hx of renal failure PERITONEAL DIAYLSIS FOR 4 YEARS PRIOR TO 08/04/2018 (KIDNEY TRANSPLANT) GERD (gastroesophageal reflux disease) Diabetes mellitus, type 2 IDDM Skin cancer EARS; removed in dr's office History of anemia Hyperlipidemia Surgical History (Updated 10/04/21 @ 15:49 by Vivian De Luna) Hx of breast lump removal lt. History of esophagogastroduodenoscopy (EGD) Hx of colonoscopy History of bronchoscopy Hx of hemorrhoidectomy History of colonoscopy History of appendectomy History of cholecystectomy Kidney transplant recipient 07/2018 [facility] History of tooth extraction Family History Brother Family history of diabetes mellitus Sister Family history of diabetes mellitus Mother Family history of diabetes mellitus Father Family history of diabetes mellitus Social History Smoking Status: Former smoker Second Hand Exposure: No; Do You Dip or Chew Tobacco: No; Hx Alcohol Use: No Hx Substance Use: No Preferred Language: Ugandan Communication Ability: Effective Alteration Tailor Required: No Beliefs That Will Affect Care: None Current Living Situation: Spouse and Family Other Information That Helps Us Care for You: No Feels Safe at Home: Yes Safety Concerns: Feels Safe At This Time Assistive Devices: Glasses and Hearing Aid - Bilateral Review of Systems Review of Systems: 12 point review of systems negative exce pt for otherwise indicated. Physical Exam Constitutional: well developed and well nourished; no acute distress Eyes: + anicteric sclerae; pupils not irregula r Respiratory: normal respiratory effort; no respiratory distress, does not use accessory muscles and no cough Cardiovascular: well perfused Gastrointestinal (Abdomen): Inspection/Auscultation: abdomen normal to inspection; abdomen not distended Musculoskeletal: Extremities: extremities normal to inspection Skin: normal turgor; no rashes and no lesions Neurologic: moves all extremities and awake Psychiatric: Orientation: alert and oriented x 3 Results & Data Vital Signs (Past 12 Hours) Vital Signs Temp Pulse Pulse Resp BP BP Pulse Ox 08/24/23 07:58 37.3 C 82 17 109/70 95 08/24/23 07:00 75 08/24/23 05:36 08/24/23 05:24 36.4 C L 78 20 127/77 98 08/24/23 04:30 71 24 142/78 H 94 08/24/23 04:29 74 08/24/23 04:00 72 24 136/87 94 08/24/23 03:30 75 24 135/76 94 08/24/23 02:30 76 24 117/68 95 08/24/23 01:45 78 24 117/57 L 93 08/24/23 00:34 96 08/24/23 00:30 81 28 H 119/71 96 08/24/23 00:21 78 08/24/23 00:05 36.8 C 89 20 126/78 97 O2 Del Method 08/24/23 07:58 Room Air 08/24/23 07:00 08/24/23 05:36 Room Air 08/24/23 05:24 Room Air 08/24/23 04:30 08/24/23 04:29 08/24/23 04:00 08/24/23 03:30 08/24/23 02:30 08/24/23 01:45 08/24/23 00:34 Room Air 08/24/23 00:30 08/24/23 00:21 08/24/23 00:05 Room Air PG Care Time/CCT Total # of Minutes Spent Total Time Spent with Patient: Total time spent is greater than 50% in coordination of care (as documented) at patient's floor/unit and/or counseling patient: Coding Level of Care Code 62429 INT INP/OBS CARE 2/55MIN Diagnoses JOSE R (acute kidney injury) N17.9 UTI (urinary tract infection) N39.0 BPH (benign prostatic hyperplasia) N40.0
--- NOTE | 2023-08-24 10:47 | Nephrology Consultation ---
Date of Consultation August 24, 2023 Assessment & Plan (1) JOSE R (acute kidney injury): Patient with acute kidney injury likely due to ischemic ATN in setting of UTI. Admission creatinine was 3.4. Baseline creatinine in the high twos. Creatinine is downtrending with IV fluids. Electrolytes are stable and no indication for dialysis. Will continue normal saline at 75 mill per hour and finish the current bottle running then stop. Avoid NSAIDs and contrast. Monitor input output. Patient needs a Tyler catheter although he is reluctant to get 1. Urology recommended a postvoid bladder scan. If has significant residual, we may have to convince him to agree to Tyler catheter. (2) History of renal transplant: Patient with history of renal transplant 5 years ago. He has had recurrent episodes of acute kidney injury. Baseline creatinine now in the high twos. Admission creatinine was 3.4 but downtrending 3.1. Will continue current immunosuppression regimen Envarsus 1.75 mg daily and prednisone 5 mg daily. (3) Immunosuppression due to drug therapy: Will check Prograf levels in the morning but results take a while to come back. History of Present Illness Reason for Consultation: Acute kidney injury, renal transplant Requesting Physician: Tristian Lacey MD Attending Physician: Tristian Lacey MD History of Present Illness This is 77-year-old male with history of hypertension, type 2 diabetes, COPD, kidney transplant from hep C donor 2018 [place] [facility] complicated by CMV colitis which was treated, dialysis vintage of 5yrs. Follows with Nephro in [place]. he was admitted with dysuria and weakness found to have UTI and worsening renal function with a creatinine of 3.47. Immunosuppression regimen is Envarsus 1.75 mg daily and prednisone 5 mg daily. He recently underwent greenlight PVP with Dr. Chery in [facility] on 08/15/2023. His Tyler catheter was removed a couple days later and after that he started having burning, dysuria, increased weakness, poor appetite. He is receiving ceftriaxone. He feels better today. He denies shortness of breath. He is receiving normal saline 75 mm/h. No leg swelling. Main complaint is urinary frequency and has not been able to sleep due to urinary frequency. He is however not keen on getting a Tyler catheter. Family was at the bedside. Allergies Allergy/AdvReac Type Severity Reaction Status Date / Time No Known Allergies Allergy Verified 08/24/23 00:20 Home Medications Medication Instructions Recorded Confirmed Type aspirin 81 mg tablet,delayed 81 mg PO DAILY 06/28/19 08/24/23 History release cholecalciferol (vitamin D3) 50 50 mcg PO QAM 06/28/19 08/24/23 History mcg (2,000 unit) tablet (Vitamin D3) insulin aspart U-100 100 unit/mL 0 unit subcut UD 06/28/19 08/24/23 History (3 mL) subcutaneous pen (Novolog FlexPen U-100 Insulin aspart) insulin glargine 100 unit/mL 24 unit subcut HS 06/28/19 08/24/23 History subcutaneous solution (Lantus U-100 Insulin) multivitamin 1 tab PO QAM 06/28/19 08/24/23 History pantoprazole 40 mg tablet,delayed 40 mg PO DAILYBB 06/28/19 08/24/23 History release (Protonix) loperamide 2 mg tablet 2 mg PO TID PRN Diarrhea 10/04/21 08/24/23 History prednisone 5 mg tablet 5 mg PO QAM 10/04/21 08/24/23 History tamsulosin 0.4 mg capsule 0.4 mg PO BID 10/04/21 08/24/23 History albuterol sulfate 2.5 mg/3 mL 2.5 mg inhalation Q4H PRN Wheezing 08/24/23 08/24/23 History (0.083 %) solution for nebulization albuterol sulfate 90 mcg/actuation 2 puff inhalation Q4H PRN 08/24/23 08/24/23 History aerosol inhaler (Ventolin HFA) Shortness Of Breath Or Wheezing azelastine 137 mcg (0.1 %) nasal 1 spray intranasal BID 08/24/23 08/24/23 History spray aerosol fluticasone fur. 100 mcg-umeclid 1 inh inhalation DAILY 08/24/23 08/24/23 History 62.5 mcg-vilant 25 mcg inhalat.powder (Trelegy Ellipta) levothyroxine 75 mcg tablet 75 mcg PO DAILYBB 08/24/23 08/24/23 History oxycodone-acetaminophen 5 mg-325 1 tab PO Q8H PRN Pain 08/24/23 08/24/23 History mg tablet rosuvastatin 40 mg tablet 40 mg PO DAILY 08/24/23 08/24/23 History sulfamethoxazole 400 1 tab PO BID 08/24/23 08/24/23 History mg-trimethoprim 80 mg tablet tacrolimus 0.75 mg tablet,extended 0.75 mg PO QAM 08/24/23 08/24/23 History release 24 hr tacrolimus 1 mg capsule,extended 1 mg PO QAM 08/24/23 08/24/23 History release 24 hr Patient History Medical History (Updated 08/24/23 @ 09:55 by Grant Marx MD) Hypertension resolved after kidney transplant Chronic obstructive pulmonary disease f/u Dr. Boyd, S Pulmonology Hx of chronic kidney disease History of BPH History of diverticulosis History of chronic diarrhea "loose stools" Dysphagia CMV colitis hx Arthritis Hx of renal failure PERITONEAL DIAYLSIS FOR 4 YEARS PRIOR TO 08/04/2018 (KIDNEY TRANSPLANT) GERD (gastroesophageal reflux disease) Diabetes mellitus, type 2 IDDM Skin cancer EARS; removed in dr's office History of anemia Hyperlipidemia Surgical History (Updated 10/04/21 @ 15:49 by Vivian De Luna) Hx of breast lump removal lt. History of esophagogastroduodenoscopy (EGD) Hx of colonoscopy History of bronchoscopy Hx of hemorrhoidectomy History of colonoscopy History of appendectomy History of cholecystectomy Kidney transplant recipient 07/2018 [facility] History of tooth extraction Family History Brother Family history of diabetes mellitus Sister Family history of diabetes mellitus Mother Family history of diabetes mellitus Father Family history of diabetes mellitus Social History Smoking Status: Former smoker Second Hand Exposure: No; Do You Dip or Chew Tobacco: No; Hx Alcohol Use: No Hx Substance Use: No Preferred Language: Armenian Communication Ability: Effective Database Technician Required: No Beliefs That Will Affect Care: None Current Living Situation: Spouse and Family Other Information That Helps Us Care for You: No Feels Safe at Home: Yes Safety Concerns: Feels Safe At This Time Assistive Devices: Glasses and Hearing Aid - Bilateral Review of Systems 2 Review of Systems: All other systems were reviewed and negative except as noted in HPI Physical Exam 2 Physical Exam: General exam: Appears comfortable, no acute distress HEENT: Pupils are equal and reactive to light Neck: No JVD, neck is supple trachea is midline Respiratory system: Crackles bilaterally. Gastrointestinal: Abdomen is soft, non distended, non tender, bowel sounds are present CVS: Regular rate and rhythm. No murmurs, rubs or gallops Musculoskeletal: No joint or muscle tenderness Extremities: Non tender, no edema, peripheral pulses are present Neuro: Oriented, no tremors, no focal neurological deficits Skin: No rashes Results & Data Vital Signs (Past 12 Hours) Vital Signs Temp Pulse Pulse Resp BP BP Pulse Ox 08/24/23 07:58 37.3 C 82 17 109/70 95 08/24/23 07:00 75 08/24/23 05:36 08/24/23 05:24 36.4 C L 78 20 127/77 98 08/24/23 04:30 71 24 142/78 H 94 08/24/23 04:29 74 08/24/23 04:00 72 24 136/87 94 08/24/23 03:30 75 24 135/76 94 08/24/23 02:30 76 24 117/68 95 08/24/23 01:45 78 24 117/57 L 93 08/24/23 00:34 96 08/24/23 00:30 81 28 H 119/71 96 08/24/23 00:21 78 08/24/23 00:05 36.8 C 89 20 126/78 97 O2 Del Method 08/24/23 07:58 Room Air 08/24/23 07:00 08/24/23 05:36 Room Air 08/24/23 05:24 Room Air 08/24/23 04:30 08/24/23 04:29 08/24/23 04:00 08/24/23 03:30 08/24/23 02:30 08/24/23 01:45 08/24/23 00:34 Room Air 08/24/23 00:30 08/24/23 00:21 08/24/23 00:05 Room Air Laboratory Results 08/24/23 06:42 08/24/23 08/24/23 00:30 06:42 WBC 9.48 6.97 RBC 3.80 L 3.40 L MCV 86.8 88.8 MCH 29.2 29.4 MCHC 33.6 33.1 RDW Std Deviation 43.4 44.4 RDW Coeff of Kennedy 13.6 13.7 Plt Count 144 115 L MPV 11.8 12.1 Albumin 3.7
[2023-08-24] MEDS: HEPARIN SOD 5,000 UNIT/0.5 ML VIAL SQ SCH (11:07)
--- NOTE | 2023-08-24 12:51 | Communication Note ---
Date of Service: August 24, 2023 77-year-old male with PMH of T2DM, HLD, mucopurulent chronic bronchitis, bronchiectasis, COPD, chronic cough, HTN, CMV colitis, ulcerative proctitis, JOSE R, kidney transplant from donor with hepatitis C, status post renal transplant, BPH, acute blood loss anemia presented to the hospital with weakness and found to have UTI in the ED. Patient had laser vaporization of prostate at [facility] on 08/15/2023, since then has not been feeling very well, had increased urinary frequency/burning while passing urine, had poor appetite. He is being managed for the following: Complicated UTI: In the setting of recent procedure for laser vaporization of prostate. Admitting CT scan with questionable hematoma versus abscess in the prostate. Urology on board, Tyler catheter. Continue with Zosyn 08/23. Follow-up admitting urine culture. History of BPH: Status post laser vaporization of prostate. On Flomax. Continue. JOSE R on CKD: Baseline creatinine of around 2.8, admitted creatinine 3.47. Avoid nephrotoxic. Status post renal transplant status. Nephrology consult, teagan reciate recommendation. c/w ivf. labs in AM. Hyponatremia: Admitting sodium level of 127, patient had poor appetite for about a week prior to arrival. Likely secondary to poor intake. Already improving. Follow labs in AM. Status post renal transplant: Continue home tacrolimus and prednisone.Continue home Bactrim. History of mucopurulent chronic bronchitis/bronchiectasiscontinue chronic Bactrim. Continue home inhalers. Follows pulmonology as outpatient. Diabetes mellitus: Sliding scale insulin while in hospital. Hypothyroidism: Continue home Synthroid Dyslipidemia: Continue home statin DVT prophylaxis: SCDs Disposition: Admit telemetry Full code For detailed information on the patient, refer to today's H&P note.
[2023-08-24] MEDS: MAGNESIUM SULFATE / D5W 1 GM/100 ML BAG IV SCH (12:59)
[2023-08-24] MEDS: PIPERACILLIN/TAZOBACTAM 4.5 GM in DEXTROSE 5% MINI-B 100 ML IV SCH (13:48)
--- NOTE | 2023-08-24 14:19 | Electrocardiogram Report ---
Test Reason : Blood Pressure : / mmHG Vent. Rate : 078 BPM Atrial Rate : 078 BPM P-R Int : 122 ms QRS Dur : 132 ms QT Int : 382 ms P-R-T Axes : -02 081 040 degrees QTc Int : 435 ms Normal sinus rhythm Right bundle branch block Abnormal ECG No previous ECGs available Confirmed by Dionte Monroy ([id number]) on 08/24/2023 2:18:59 PM Referred By: REFERRED SELF Confirmed By:Dionte Monroy
[2023-08-24] MEDS: LANTUS PER UNIT CHARGE SQ SCH (21:24)
[2023-08-25] MEDS: ZOLPIDEM TARTRATE 5 MG TAB PO STA (02:27)
[2023-08-25] MEDS: TACROLIMUS PO SCH (06:11)
[2023-08-25 06:55] LABS: Hematocrit (blood only) 28.8 % (42.0-52.0); Hemoglobin 9.4 g/dl (14.0-18.0); Mean Corpuscular Hemoglobin 29.1 pg (25.0-34.0); Mean Corpuscular Hgb Conc 32.6 g/dL (32.0-36.0); Mean Corpuscular Volume 89.2 fL (80.0-100.0); Mean Platelet Volume 11.9 fL (9.4-12.4); Platelet Count 137 K/uL (130-400); RDW Coefficient of Variation 13.5 % (11.5-14.5); RDW Standard Deviation 44.4 fL (36.4-46.3); Red Blood Count 3.23 M/uL (4.70-6.10); White Blood Count 5.14 K/ul (4.8-10.8)
[2023-08-25 10:35] LABS: Calcium 7.4 mg/dl (8.6-10.3); Potassium 3.3 mmol/L (3.5-5.1)
[2023-08-25 10:41] LABS: Creatinine Clr Calc Pharmacy 23.1 ml/min; Est GFR (African American) 23.6 ml/min; Est GFR (Non-African American) 20.4 ml/min; Phosphorus 2.3 mg/dl (2.5-4.9)
--- NOTE | 2023-08-25 12:25 | Urology Progress Note ---
Date of Service August 25, 2023 Assessment & Plan (1) JOSE R (acute kidney injury): (2) UTI (urinary tract infection): (3) BPH (benign prostatic hyperplasia): Plan 77-year-old male with apparent urinary tract infection s/p greenlight PVP in outside facility. Patient is afebrile and hemodynamically stable. Labs reviewedcreatinine improved to 2.83, no leukocytosis. Urine culture prelim gram-negative bacilli. Continue broad-spectrum antibiotics and narrowing coverage as culture data becomes available. Recommend maintain Tyler for source control and maximal bladder drainage. Findings in his prostate on CT scan are likely related to recent surgery rather than prostatic abscess, however if he does not clinically improve with antibiotics, would repeat imaging, ideally with contrast. No surgical intervention at this time. Patient can follow-up with his established urologist after discharge for voiding trial and ongoing management. will follow peripherally, please contact our service with any additional questions or changes in clinical status. Admission and Anticipated Discharge Date Admission Date: August 24, 2023 Subjective Patient seen and examined at bedside He is awake and sitting up in bedside chair Reports she is feeling better today Tyler is patent and draining, notes some mild discomfort at catheter insertion Denies nausea, vomiting, fever or chills Review of Systems Constitutional: as per Subjective / HPI Gastrointestinal: as per Subjective / HPI Genitourinary: + as per Subjective / HPI Physical Exam Constitutional: well developed and well nourished; no acute distress Respiratory: normal respiratory effort; no respiratory distress and no labored breathing Gastrointestinal (Abdomen): Inspection/Auscultation: abdomen normal to inspection Musculoskeletal: Head/Neck/Chest: normocephalic Neurologic: moves all extremities and awake Psychiatric: Orientation: alert and oriented x 3 Genitourinary: Tyler intact Results & Data Vital Signs (Past 12 Hours) Vital Signs Temp Pulse Pulse Resp BP Pulse Ox O2 Del Method 08/25/23 11:36 36.7 C 68 18 123/73 96 Room Air 08/25/23 07:38 36.7 C 65 18 124/72 96 Room Air 08/25/23 07:21 Room Air 08/25/23 07:00 70 08/25/23 03:01 36.7 C 76 16 116/62 94 Room Air PG Care Time/CCT Total # of Minutes Spent Total Time Spent with Patient: Total time spent is greater than 50% in coordination of care (as documented) at patient's floor/unit and/or counseling patient: Coding Level of Care Code 81222 SUB INP/OBS CARE Diagnoses JOSE R (acute kidney injury) N17.9 UTI (urinary tract infection) N39.0 BPH (benign prostatic hyperplasia) N40.0
[2023-08-25] MEDS: POTASSIUM CHLORIDE CRTAB 20 MEQ TABCR PO STA (13:17)
--- NOTE | 2023-08-25 13:17 | Hospitalist Progress Note ---
Date of Service August 25, 2023 Assessment & Plan (1) UTI (urinary tract infection): Plan 77-year-old male with PMH of T2DM, HLD, mucopurulent chronic bronchitis, bronchiectasis, COPD, chronic cough, HTN, CMV colitis, ulcerative proctitis, JOSE R, kidney transplant from donor with hepatitis C, status post renal transplant, BPH, acute blood loss anemia presented to the hospital with weakness and found to have UTI in the ED. Patient had laser vaporization of prostate at [facility] on 08/15/2023, since then has not been feeling very well, had increased urinary frequency/burning while passing urine, had poor appetite. He is being managed for the following: Complicated UTI: UTI due to recent transurethral laser vaporization of prostate, a complication of care In the setting of recent procedure for laser vaporization of prostate. Admitting CT scan with questionable hematoma versus abscess in the prostate. Urology evaled, findings in his prostate on CT scan are likely related to recent surgery rather than prostatic abscess , Tyler catheter. Voiding trial in a week of dc. Continue with Zosyn 08/23 --> U Cx w/ GNB --> rocephin 08/24. Follow-up w/ uro in a week of DC. History of BPH: Status post laser vaporization of prostate. On Flomax. Continue. JOSE R on CKD: Baseline creatinine of around 2.8, admitted creatinine 3.47. Avoid nephrotoxic. Status post renal transplant status. Nephrology consult, appreciate recommendation. Cr today 2.83, back to baseline Hyponatremia: Admitting sodium level of 127, patient had poor appetite for a bout a week prior to arrival. Likely secondary to poor intake. Improving. Follow labs in AM. Status post renal transplant: Continue home tacrolimus and prednisone. Continue home Bactrim. History of mucopurulent chronic bronchitis/bronchiectasiscontinue chronic Bactrim. Continue home inhalers. Follows pulmonology as outpatient. Diabetes mellitus: Sliding scale insulin while in hospital. Hypothyroidism: Continue home Synthroid Dyslipidemia: Continue home statin DVT prophylaxis: SCDs Disposition: pt/ot, cm to assist w/ dc plan. Full code Admission and Anticipated Discharge Date Admission Date: August 24, 2023 Subjective Patient seen and examined at bedside He is awake and sitting up in bed. Feels signficantly better. Tyler is patent and draining, denies febrile illness, denies n,v. reports eating ok. Physical Exam Physical Exam: General- Not in distress Head- atraumatic Eyes- PERRL. ENT- oropharynx clear Neck- supple, no JVD. Lungs- clear to auscultation no wheezing or crackles. Heart- regular rate and rhythm; no murmur, no gallop. Abdomen- normal bowel sounds, soft, nontender, no distension. Extremities- no pretibial edema, no erythema seen Neuro- alert, oriented PERRL, EOMI; no facial palsy; no dysarthria; moves extremities Urine cath, bridget urine collection noted in bag. Results & Data Results & Data Vital Signs (Past 12 Hours) Vital Signs Temp Pulse Pulse Resp BP Pulse Ox O2 Del Method 08/25/23 11:36 36.7 C 68 18 123/73 96 Room Air 08/25/23 07:38 36.7 C 65 18 124/72 96 Room Air 08/25/23 07:21 Room Air 08/25/23 07:00 70 08/25/23 03:01 36.7 C 76 16 116/62 94 Room Air
[2023-08-25] MEDS: ADVANCED PROBIOTIC 625 MG CAPSULE PO SCH (14:18)
[2023-08-25] MEDS: cefTRIAXone SODIUM 2,000 MG/50 ML BAG IV SCH (14:18)
[2023-08-25] MEDS: POT PHOSPHATE MONOBASIC W/ SOD TAB PO SCH (16:40)
--- NOTE | 2023-08-25 16:59 | Nephrology Progress Note ---
Date of Service August 25, 2023 Assessment & Plan (1) JOSE R (acute kidney injury): Plan: Patient with acute kidney injury likely due to ischemic ATN in setting of UTI. Admission creatinine was 3.4. Baseline creatinine in the high twos back to baseline today w/ creat 2.8. Electrolytes are remakble for low K and for nAGMA; no indication for dialysis. completed resuscitatoin w/ NS. Avoid NSAIDs and contrast. Monitor input output. Patient needs a Steven catheter although he is reluctant to get 1. Urology recommended a postvoid bladder scan. If has significant residual, we may have to convince him to agree to Steven catheter. >steven per urology >f/u pending cxs >will give Kcl po 40 mEQ; also starting K-phos supplements this evening > suspect NAGMA in part d/t saline; does look like he has chronic acidosis though >> await repeat labs in AM (2) History of renal transplant: Plan: Patient with history of renal transplant 5 years ago. He has had recurrent episodes of acute kidney injury. Baseline creatinine now in the high twos. Admission creatinine was 3.4 but downtrending 2.8. Will continue current immunosuppression regimen Envarsus 1.75 mg daily and prednisone 5 mg daily. (3) Immunosuppression due to drug therapy: Plan: FK trough pending but results take a while to come back. Admission and Anticipated Discharge Date Admission Date: August 24, 2023 Subjective no interval eclinical events. GNR in urine denies diarrhe aor decreased po intake. chills last evening not rigors and later was warm after upping thermostat. no allograft pain no sob Review of Systems 2 Review of Systems: All systems reviewed & are unremarkable except as noted in Subjective Physical Exam 2 Constitutional: well developed, well nourished and cooperative; no acute distress Eyes: EOM intact bilaterally ENMT: Ears: no external ear abnormality Nose: no external nose abnormality Mouth: + dry oral mucous membranes Neck: no nuchal rigidity Respiratory: normal respiratory effort Auscultation: + diminished lung sounds Gastrointestinal (Abdomen): Inspection/Auscultation: normal bowel sounds P ercussion/Palpation: abdomen soft; abdomen nontender Musculoskeletal: Extremities: strength 5/5 throughout Skin: no rashes, warm and dry Neurologic: cornejo, fluent speech, no tremor Results & Data Vital Signs (Past 12 Hours) Vital Signs Temp Pulse Pulse Resp BP BP Pulse Ox 08/25/23 15:37 36.3 C L 62 18 109/68 97 08/25/23 15:10 75 08/25/23 11:36 36.7 C 68 18 123/73 96 08/25/23 07:38 36.7 C 65 18 124/72 96 08/25/23 07:21 08/25/23 07:00 70 O2 Del Method 08/25/23 15:37 Room Air 08/25/23 15:10 08/25/23 11:36 Room Air 08/25/23 07:38 Room Air 08/25/23 07:21 Room Air 08/25/23 07:00 Laboratory Results 08/25/23 06:10 08/25/23 06:10
--- NOTE | 2023-08-26 07:57 | Nephrology Progress Note ---
Date of Service August 26, 2023 Assessment & Plan (1) JOSE R (acute kidney injury): Plan: Patient with acute kidney injury likely due to ischemic ATN in setting of UTI. Admission creatinine was 3.4. Baseline creatinine in the high twos back to baseline today w/ creat 2.7. Electrolytes are remarkable for mild low K on supplements and earlier for NAGMA; no indication for dialysis. completed resuscitatoin w/ NS. Avoid NSAIDs and contrast. Monitor input output. 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 reasons anticipate d/c today PRELIMINARY NEPHRO D/C RECS -d/c on renally dosed cipro as per ID recs -d/c w/ steven for voiding trial w/ urology -for BMP and tac TROUGH to be drawn AM at [facility] and run stat; pls alert txplt team to watch for this lab and that pt is on cipro so tacro may need to be adjusted and/or further monitored following week -recommend 10 mEq bid K supplements at d/c -f/u w/ OP health/safety job titles ([facility]) in 2 wks -f/u w/ PCP after hospital stay Care discussed repeatedly w/ Dr Lacey regarding labs, d/c meds, steven plan, abtx type/duration. we are in agreement. (2) History of renal transplant: Plan: Patient with history of renal transplant 5 years ago. He has had recurrent episodes of acute kidney injury. Baseline creatinine now in the high twos. Admission creatinine was 3.4 but downtrending . Will continue current immunosuppression regimen Envarsus 1.75 mg daily and prednisone 5 mg daily. Notably no MMF (3) Immunosuppression due to drug therapy: Plan: FK trough pending but results take a while to come back. Notably pt not on MMF for ? reasons; this was verified on OP txplt note from June 2023 Admission and Anticipated Discharge Date Admission Date: August 24, 2023 Subjective no interval events. denies sob, edema, poor po, n/v/d/abd pain or pain over allograft Review of Systems 2 Review of Systems: All systems reviewed & are unremarkable except as noted in Subjective Physical Exam 2 Constitutional: well developed, well nourished and cooperative; no acute distress Eyes: EOM intact bilaterally ENMT: Ears: no external ear abnormality Nose: no external nose abnormality Mouth: + dry oral mucous membranes Neck: no nuchal rigidity Respiratory: normal respiratory effort Auscultation: + diminished lung sounds Gastrointestinal (Abdomen): Inspection/Auscultation: normal bowel sounds P ercussion/Palpation: abdomen soft; abdomen nontender Musculoskeletal: Extremities: strength 5/5 throughout Skin: no rashes, warm and dry Results & Data Vital Signs (Past 12 Hours) Vital Signs Temp Pulse Pulse Resp BP Pulse Ox O2 Del Method 08/26/23 04:43 08/26/23 03:54 36.9 C 65 18 127/80 97 Room Air 08/25/23 23:35 36.5 C 62 18 120/68 97 Room Air 08/25/23 22:34 Room Air 08/25/23 21:50 65 O2 Del Method 08/26/23 04:43 Room Air 08/26/23 03:54 08/25/23 23:35 08/25/23 22:34 08/25/23 21:50 Laboratory Results 08/26/23 10:56 08/26/23 10:55
[2023-08-26] MEDS: CEFEPIME 2,000 MG in SYRINGE 0 ML IV ONE (08:39)
[2023-08-26 11:33] LABS: BUN Creatinine Ratio 14.4 (10-20); Calcium 8.6 mg/dl (8.6-10.3); Creatinine Clr Calc Pharmacy 24.2 ml/min; Est GFR (African American) 24.9 ml/min; Est GFR (Non-African American) 21.5 ml/min; Magnesium 1.8 mg/dl (1.7-2.4); Potassium 3.7 mmol/L (3.5-5.1)
--- NOTE | 2023-08-26 12:34 | Discharge Summary ---
Date of Service August 26, 2023 Admission HPI Per Admitting Provider 77-year-old male with past medical history significant for type 2 diabetes, dyslipidemia, mucopurulent chronic bronchitis, bronchiectasis, COPD, chronic cough, hypertension, history of CMV colitis, history of ulcerative proctitis, history of JOSE R, history of kidney transplant from donor with hepatitis C, s/p renal transplant, BPH, acute blood loss anemia, family history of valvular heart disease, lives with his family was brought in because of weakness and found to have UTI. Last Friday on 08/15/23 patient had procedure of laser vaporization of prostate at [facility]. Tyler was taken out on Friday. Since then not been micturating much. Having pain while micturating. Poor appetite. Feeling weak. Today in the shower he fell down when the family decided to bring him to the hospital. Patient is somewhat hard of hearing. Denies any headache. No neck pain. Has chronic cough. Has some runny nose. Has some sore throat. Denies chest pain or shortness of breath. No abdominal pain. Bowels moving okay. Hemodynamics are okay. Past medical history. As mentioned above Past surgical history. Bronchoscopy. Colonoscopy and EGD. EGD with endoscopic ultrasound. Hemorrhoidectomy. Appendectomy. Prostate laser vaporization. Renal biopsy. Sigmoidoscopy. Transplantation of kidney. Social history. . Quit smoking in 1975. Smoked 2 packs a day for 15 years. No alcohol use. No drug use. Family history. Sister had coronary disease. Brother has diabetes. Sister has diabetes. Sister has heart block. Father had heart failure. Mother had heart failure. Sister has autoimmune disease. Admission Exam Per Admitting Provider General- Not in distress Head- atraumatic Eyes- PERRL. ENT- oropharynx clear Neck- supple, no JVD. Lungs- clear to auscultation no wheezing or crackles. Heart- regular rate and rhythm; no murmur, no gallop. Abdomen- normal bowel sounds, soft, nontender, no distension. Extremities- no pretibial edema, no erythema seen Neuro- alert, oriented PERRL, EOMI; no facial palsy; no dysarthria; moves extremities Principal Diagnosis Complicated UTI UTI due to recent transurethral laser vaporization of prostate, a complication of care JOSE R on CKD in the setting of transplanted kidney status Hyponatremia Discharge Exam General- Not in distress Head- atraumatic Eyes- PERRL. ENT- oropharynx clear Neck- supple, no JVD. Lungs- clear to auscultation no wheezing or crackles. Heart- regular rate and rhythm; no murmur, no gallop. Abdomen- normal bowel sounds, soft, nontender, no distension. Extremities- no pretibial edema, no erythema seen Neuro- alert, oriented PERRL, EOMI; no facial palsy; no dysarthria; moves extremities Urine cath, bridget urine collection noted in bag. Discharge Data Allergies Allergy/AdvReac Type Severity Reaction Status Date / Time No Known Allergies Allergy Verified 08/24/23 00:20 Consultations 08/24/23 03:40 ED Decision to Admit Stat 08/24/23 08:00 Consult Nephrology Routine Consult Urology Routine Ordered Studies 08/24/23 00:44 CT abd pelvis wo con Stat Hospital Course (1) UTI (urinary tract infection): Plan 77-year-old male with PMH of T2DM, HLD, mucopurulent chronic bronchitis, bronchiectasis, COPD, chronic cough, HTN, CMV colitis, ulcerative proctitis, JOSE R, kidney transplant from donor with hepatitis C, status post renal transplant, BPH, acute blood loss anemia presented to the hospital with weakness and found to have UTI in the ED. Patient had laser vaporization of prostate at [facility] on 08/15/2023, since then has not been feeling very well, had increased urinary frequency/burning while passing urine, had poor appetite. He was managed for the following: Complicated UTI: UTI due to recent transurethral laser vaporization of prostate, a complication of care In the setting of recent procedure for laser vaporization of prostate. Admitting CT scan with questionable hematoma versus abscess in the prostate. Urology evaled, findings in his prostate on CT scan are likely related to recent surgery rather than prostatic abscess , Tyler catheter. Voiding trial in a week of dc. Follow-up w/ uro in a week of DC. Patient reports he is following up on uro coming Friday. 08/23 urine culture reviewed, patient changed on cefepime with a plan to discharge him on oral levofloxacin to complete 10 days therapy. Discussed with ID on-call who agrees. Patient advised to follow-up on CMP and tacrolimus level on coming Friday, patient advised to coordinate with his transplant team to set up the test. Patient voiced understanding. I spoke with his transplant team over the phone and let them know about his antibiotic treatment and need for follow-up on CMP and tacrolimus level, they were in agreement. No further recommendation from his transplant team at [facility]. History of BPH: Status post laser vaporization of prostate. On Flomax. Continue.Follow-up with urology upon discharge. JOSE R on CKD: Baseline creatinine of around 2.8, admitted creatinine 3.47. Avoid nephrotoxic. Status post renal transplant status. Discussed with nephrology in detail, discharging the patient on potassium supplement 10 mEq twice a day, follow-up with nephrology in 2 weeks. Patient has been made aware and voiced understanding. Hyponatremia: Admitting sodium level of 127, patient had poor appetite for about a week prior to arrival. Likely secondary to poor intake. Resolved. Status post renal transplant: Continue home tacrolimus and prednisone. Continue home Bactrim. History of mucopurulent chronic bronchitis/bronchiectasiscontinue chronic Bactrim. Continue home inhalers. Follows pulmonology as outpatient. Diabetes mellitus: Sliding scale insulin while in hospital. Hypothyroidism: Continue home Synthroid Dyslipidemia: Continue home statin DVT prophylaxis: SCDs Disposition: pt/ot, cm to assist w/ dc plan. Full code Patient reports feeling significantly better, back to his baseline, is hemodynamically stable and would like to go home. Patient is being discharged home with following instruction at the point of discharge: Follow-up with your primary care physician within a week time and likely you will need labs CBC/CMP/magnesium/phosphorus. You were diagnosed with complicated UTI, you will be discharged on levofloxacin to complete 10-day course. Probiotics will be added. Urology evaluated you, recommended discharge with Tyler catheter, follow-up with urology in the next 3 to 5 days for voiding trial and possible removal of Tyler catheter. You will need repeat CMP and tacrolimus level done on Friday, coordinate with your transplant team to set up the test. Nephrology evaluated you while in the hospital, you will be discharged on potassium 10 mEq twice a day. Follow-up with outpatient nephrology in 2 weeks time. Take your medications as prescribed. Please make sure that you are able to get your medications today by calling your pharmacy before you leave the hospital so that your treatment continuity is not broken. Home Health Attestation I certify that this patient is under my care and that I, or a physicians housekeeping assistant working with me, had a face to-face encounter that meets the home health [id number] encounter requirements with this patient. The encounter with the patient was in whole, or in part, for the following medical condition, which is the primary reason for home health care (list medical condition): I certify that, based on my findings, the following services are medically necessary home health services: My clinical findings support the need for the above services because: Further, I certify that my clinical findings support that this patient is homebound (i.e. absences from home require considerable and taxing effort and are for medical reasons or bahai services or infrequently or of short duration when for other reasons) because: Certification for Home Health Services: Based on the above findings, I certify that this patient is confined to the home and needs intermittent shelter care, physical therapy and/or speech therapy or continues to need occupational therapy. The patient is under my care, and I have initiated the establishment of the plan of care. This patient will be followed by a physician who will periodically review the plan of care. Total Time Total Time Spent Total Time Spent (In Minutes): 65 Discharge Plan Discharge Items Patient Disposition: Home - Self-Care Reason For Visit: ACUTE UTI Discharge Diagnosis: Complicated UTI UTI due to recent transurethral laser vaporization of prostate, a complication of care JOSE R on CKD in the setting of transplanted kidney status Hyponatremia Activity: Resume your previous activity Non-emergency contact: Primary Care Provider Call non-emergency contact if: you have any medication questions and your symptoms worsen Follow-up/Referrals: Porfirio Kilgore MD [Primary Care Provider] - Diet: Carb Consistent or DM2 Addtl Attending Provider Instructions: Follow-up with your primary care physician within a week time and likely you will need labs CBC/CMP/magnesium/phosphorus. You were diagnosed with complicated UTI, you will be discharged on levofloxacin to complete 10-day course. Probiotics will be added. Urology evaluated you, recommended discharge with Tyler catheter, follow-up with urology in the next 3 to 5 days for voiding trial and possible removal of Tyler catheter. You will need repeat CMP and tacrolimus level done on Friday, coordinate with your transplant team to set up the test. Nephrology evaluated you while in the hospital, you will be discharged on potassium 10 mEq twice a day. Follow-up with outpatient nephrology in 2 weeks time. Take your medications as prescribed. Please make sure that you are able to get your medications today by calling your pharmacy before you leave the hospital so that your treatment continuity is not broken. Pending Studies at Discharge: No Stand-Alone Forms: [facility], Smoking Cessation Medications and DC Order Prescriptions: New Advanced Probiotic 625 mg (10 billion cell) Capsule 1 cap PO DAILY 14 Days Qty: 14 0RF levofloxacin 750 mg tablet 750 mg PO Q48H 10 Days Qty: 5 0RF Rx Instructions: Take every 48 hours starting tonight. potassium chloride 10 mEq capsule, extended release 10 meq PO BID Qty: 30 0RF Continued multivitamin Tablet 1 tab PO QAM insulin glargine [Lantus U-100 Insulin] 100 unit/mL Solution 24 unit SUBCUT HS aspirin 81 mg Tablet,Delayed Release (Dr/Ec) 81 mg PO DAILY pantoprazole [Protonix] 40 mg Tablet,Delayed Release (Dr/Ec) 40 mg PO DAILYBB insulin aspart U-100 [Novolog FlexPen U-100 Insulin] 100 unit/mL (3 mL) Insulin Pen 0 unit SUBCUT UD Rx Instructions: 10 UNITS IN AM, 12 UNITS AT LUNCH, 14 UNITS AT SUPPER cholecalciferol (vitamin D3) [Vitamin D3] 50 mcg (2,000 unit) Tablet 50 mcg PO QAM loperamide 2 mg Tablet 2 mg PO TID PRN (Reason: Diarrhea) tamsulosin 0.4 mg Capsule 0.4 mg PO BID Rx Instructions: PER PT "STOPPED AFTER PROSTATE SURGERY". prednisone 5 mg tablet 5 mg PO QAM Rx Instructions: Taper dose albuterol sulfate [Proventil] 2.5 mg /3 mL (0.083 %) Solution For Nebulization 2.5 mg INHALATION Q4H PRN (Reason: Wheezing) sulfamethoxazole-trimethoprim 400-80 mg tablet 1 tab PO BID levothyroxine 75 mcg tablet 75 mcg PO DAILYBB oxycodone-acetaminophen 5-325 mg tablet 1 tab PO Q8H PRN (Reason: Pain) azelastine 137 mcg (0.1 %) Aerosol,[place] 1 spray INTRANASAL BID Rx Instructions: administer into each nostril albuterol sulfate [Ventolin HFA] 90 mcg/actuation Hfa Aerosol Inhaler 2 puff INHALATION Q4H PRN (Reason: Shortness Of Breath Or Wheezing) rosuvastatin 40 mg Tablet 40 mg PO DAILY tacrolimus 1 mg Capsule,Extended Release 24hr 1 mg PO QAM Rx Instructions: TOTAL DOSE 1.75 MG--TAKES WITH 0.75 MG CAP. must administer in the morning on an empty stomach, 1 hour before or 2 hours after a meal tacrolimus 0.75 mg Tablet Extended Release 24 Hr 0.75 mg PO QAM Rx Instructions: TOTAL DOSE 1.75 MG--TAKES WITH 1 MG TAB. must be taken on empty stomach Trelegy Ellipta 100-62.5-25 mcg Blister With Device 1 inh INHALATION DAILY Discharge Orders: Discharge Order (Routine); Ordered 08/26/23 Ordered By: Tristian Dupont/Other Patient Handouts: Managing Type 2 Diabetes, Special Foot Care for Diabetes Admission Data Admit Date/Time: 08/24/23 04:42 Attending Provider: Tristian Lacey Admit Provider: Bradley Rangel Primary Care Provider: Porfirio Kilgore Other Providers: Bradley Rangel; Albert Guadalupe; Jeff Rosenberg; Isaac Hagan; Carmelina Loza; Hiren Sharma; Debbie Ruiz; Bre Saldivar; Grant Marx; Alicia Ferrell; Jean-Pierre Garibay; Cristy Farias; London Howard; Leandra Retana
[2023-08-26] MEDS ORDERED: CEFEPIME 1,000 MG in SYRINGE 0 ML IV SCH (21:00)
== END 2023-08-26 15:46 | disposition home or self-care (01) | DRG 698 ==
LOC: ED 23:56 → 2W 08-24 04:42